=== PATIENT | female | born 1940 | race Caucasian/White ===

== ENCOUNTER 2020-10-20 23:23 | Inpatient (IN) | payer MEDICARE ==
[~2020-10-20] VITALS: Ht 160 cm; Wt 92.3 kg
--- NOTE | 2020-10-20 23:41 | PHYS DOC ---
Past Medical History Past Medical History: Cancer (Bladder), High Cholesterol General Adult EDM: Chief Complaint: FEVER HPI: HPI: Patient is a 80-year-old female presenting with via POV for fever. Onset was 2 hours prior to arrival. Nothing known makes better or worse. Patient denies being in any overt pain. Timing of symptoms has been constant since onset. Associated symptoms include subjective fevers without recorded temperature, generalized nausea with x2 episodes of nonbloody nonbilious emesis on ER arrival and suprapubic pressure with dysuria. Patient denies concerning ingestion, sick contact, falls or trauma, chest pain, shortness of breath, abdominal pain, changes in bowel function, no incontinence, no changes in motor or sensory function, no neurologic deficits. Patient is a poor historian given history of dementia and so, brought back to aid in history. He states p atient has known history of bladder cancer, unsure of the staging. Has all care managed at [facility] and currently sees oncologist and neurologist for radiation and chemotherapy for said bladder cancer with last chemotherapy treatment earlier today. does not know what chemotherapy agent she is on. Patient has prior documents indicating she is DNR Review of Systems: Review of Systems: Fourteen body systems of review of systems have been reviewed. See HPI for pertinent positives and negative responses, other manriquez all other systems are negative, non-pertinent or non-contributory Heart Score: HEART Score for Chest Pain: HEART Score for Chest Pain Response (Comments) Value History Slighlty/Non-Suspicious 0 ECG Normal 0 Age > 65 2 Risk Factors 1 or 2 Risk Factors 1 Troponin < Normal Limit 0 Total 3 Risk Factors: Risk Factors: DM, Current or recent (<one month) smoker, HTN, HLP, family history of CAD, obesity. Risk Scores: Score 0 - 3: 2.5% MACE over next 6 weeks - Discharge Home Score 4 - 6: 20.3% MACE over next 6 weeks - Admit for Clinical Observation Score 7 - 10: 72.7% MACE over next 6 weeks - Early Invasive Strategies Current Medications: Current Medications Medications (Trade) Dose Ordered Sig/Reyes Start Time Stop Time Status Last Admin Dose Admin Acetaminophen (Tylenol) 1,000 mg 1X ONCE 10/20/20 23:45 10/20/20 23:46 DC 10/20/20 23:54 1,000 MG Ceftriaxone Sodium (Rocephin) 1 gm 1X ONCE 10/21/20 00:45 10/21/20 00:46 DC 10/21/20 00:55 1 GM Ondansetron HCl (Zofran) 4 mg PRN Q8HRS PRN 10/21/20 00:45 10/22/20 00:44 UNV Sodium Chloride 1,000 ml @ 125 mls/hr 1X ONCE 10/20/20 23:45 10/21/20 07:44 10/20/20 23:55 125 MLS/HR Allergies: Allergies: Allergies Coded Allergies Type Severity Reaction Last Updated Verified iodine Allergy Unknown 10/20/20 Yes Physical Exam: PE: Constitutional: Well developed, well nourished, no acute distress, non-toxic appearance. Actively vomiting on ER arrival HENT: Normocephalic, atraumatic, bilateral external ears normal, oropharynx dry, no oral exudates, nose normal. Eyes: PERRLA, EOMI, conjunctiva normal, no discharge. Neck: Normal range of motion, no tenderness, supple, no stridor. No nuchal rigidity Cardiovascular: Heart rate tachycardic, sinus rhythm, no murmurs rubs or gallops Lungs & Thorax: Bilateral breath sounds clear to auscultation Abdomen: Bowel sounds normal, soft, mild suprapubic tenderness with palpation, no masses, no pulsatile masses. Nonsurgical abdomen, no peritoneal signs Skin: Warm, dry, no erythema, no rash. Back: No tenderness, no CVA tenderness. Extremities: No tenderness, no cyanosis, no clubbing, ROM intact, no edema. Neurologic: Alert and oriented X 3, grossly normal motor & sensory function, no focal deficits noted. Psychologic: Affect normal, memory impaired but at baseline per patient's , mood normal. Current Patient Data: Labs: Laboratory Tests Test 10/20/20 23:45 10/20/20 23:59 White Blood Count 8.8 x10^3/uL Red Blood Count 3.42 x10^6/uL Hemoglobin 9.3 g/dL Hematocrit 27.9 % Mean Corpuscular Volume 82 fL Mean Corpuscular Hemoglobin 27 pg Mean Corpuscular Hemoglobin Concent 33 g/dL Red Cell Distribution Width 13.3 % Platelet Count 293 x10^3/uL Neutrophils (%) (Auto) 89 % Lymphocytes (%) (Auto) 8 % Monocytes (%) (Auto) 1 % Eosinophils (%) (Auto) 2 % Basophils (%) (Auto) 1 % Neutrophils # (Auto) 7.8 x10^3/uL Lymphocytes # (Auto) 0.7 x10^3/uL Monocytes # (Auto) 0.0 x10^3/uL Eosinophils # (Auto) 0.2 x10^3/uL Basophils # (Auto) 0.1 x10^3/uL Platelet Estimate Pending Sodium Level 132 mmol/L Potassium Level 4.6 mmol/L Chloride Level 98 mmol/L Carbon Dioxide Level 25 mmol/L Anion Gap 9 Blood Urea Nitrogen 26 mg/dL Creatinine 1.4 mg/dL Estimated GFR (Cockcroft-Gault) 36.1 BUN/Creatinine Ratio 19 Glucose Level 120 mg/dL Lactic Acid Level 1.1 mmol/L Calcium Level 8.5 mg/dL Total Bilirubin 0.4 mg/dL Aspartate Amino Transf (AST/SGOT) 18 U/L Alanine Aminotransferase (ALT/SGPT) 20 U/L Alkaline Phosphatase 60 U/L Troponin I Quantitative < 0.017 ng/mL Total Protein 6.7 g/dL Albumin 2.8 g/dL Albumin/Globulin Ratio 0.7 Influenza Type A Antigen Negative Influenza Type B Antigen Negative Urine Collection Type Unknown Urine Color Green Urine Clarity Clear Urine pH 5.5 Urine Specific [place] 1.015 Urine Protein 100 mg/dL Urine Glucose (UA) Negative mg/dL Urine Ketones (Stick) Negative mg/dL Urine Blood Small Urine Nitrite Negative Urine Bilirubin Negative Urine Urobilinogen Dipstick 0.2 mg/dL Urine Leukocyte Esterase Moderate Urine RBC 1-2 /HPF Urine WBC 20-40 /HPF Urine Squamous Epithelial Cells Mod /LPF Urine Bacteria Moderate /HPF Urine Hyaline Casts Occasional /HPF Urine Mucus Mod /LPF Current Medications Medications (Trade) Dose Ordered Sig/Reyes Route PRN Reason Start Time Stop Time Status Last Admin Dose Admin Acetaminophen (Tylenol) 1,000 mg 1X ONCE PO 10/20/20 23:45 10/20/20 23:46 DC 10/20/20 23:54 1,000 MG Sodium Chloride 1,000 ml @ 125 mls/hr 1X ONCE IV 10/20/20 23:45 10/21/20 07:44 10/20/20 23:55 125 MLS/HR Ondansetron HCl (Zofran) 4 mg 1X ONCE IVP 10/20/20 23:55 10/20/20 23:56 DC 10/20/20 23:54 4 MG Ondansetron HCl (Zofran) 4 mg STK-MED ONCE .ROUTE 10/20/20 23:50 10/20/20 23:51 DC Ceftriaxone Sodium (Rocephin) 1 gm 1X ONCE IVP 10/21/20 00:45 10/21/20 00:46 DC 10/21/20 00:55 1 GM Ondansetron HCl (Zofran) 4 mg PRN Q8HRS PRN IV NAUSEA/VOMITING 10/21/20 00:45 10/22/20 00:44 UNV Vital Signs: Vital Signs Date Time Temp Pulse Resp B/P (MAP) Pulse Ox O2 Delivery O2 Flow Rate FiO2 10/20/20 23:25 103.3 97 20 165/70 (101) 96 Room Air 103.3 EKG: EKG: EKG Ordered and Interpreted by Myself at 2342 Hrs. As Sinus Rhythm at 103 bpm, unremarkable intervals, no axis deviation, no acute ischemic findings, no STEMI Radiology/Procedures: Radiology/Procedures: EXAM: AP View of the chest DATE: 10/20/2020 11:48 PM INDICATION: Reason: N/V / Spl. Instructions: / History: COMPARISON: No Prior FINDINGS: The heart is not enlarged. Aorta is tortuous with atherosclerotic calcifications. Patchy opacities in the left perihilar region and left lung base. No pleural effusion or pneumothorax. IMPRESSION: 1. Patchy left-sided parenchymal opacities may represent atelectasis or developing consolidation Electronically signed by: Alex Pathak MD (10/21/2020 12:11 AM) ELIZABETH Course & Med Decision Making: Course & Med Decision Making Pertinent Labs and Imaging studies reviewed. (See chart for details) No emergent or surgical findings present based on work-up but there is concern for fever and high risk patient on chemo/radiation treatment for cancer. UA concerning for UTI given lab findings and patient symptoms, 1 g IV Rocephin administered [facility] was contacted to discuss patient case and transfer, they are at full capacity and could not facilitate patient. They did provide me with up-to-date medical documents for patient After review, it appears patient has Malignant neoplasm stage Claudine (cT2, cN2, cM1a) bladder cancer and sees Dr. Pitts, radiation oncology physician at [facility]. She received Gemzar chemotherapy earlier today. 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 Next scheduled chemotherapy session is tomorrow I contacted patient's primary care physician who will also serve as hospitalist, I discussed case and findings so far at length with him and decision was made to admit patient under his care and start IV cefepime I updated patient and on proposed plan of care that included hospital admission, they were amenable. All questions and concerns addressed prior to admission to [facility] for continued inpatient care Critical Care Time This patient required critical care. Due to the fact that the patient required a significant amount of one on one physician - patient contact time, ordering and review of studies, arranging urgent treatment with development of a management plan, evaluation of patients response to treatment with frequent reassessments, and discussions with other providers this patient required 40 minutes of critical care time. Critical care time was indicated due to the inherent instability and/or potential for instability in this patient. The critical care time that is allocated to this patient is above and beyond any time spent on any other billable procedures performed on this patient. Raya Disclaimer: Raya Disclaimer: This electronic medical record was generated, in whole or in part, using a voice recognition dictation system. Departure Departure Impression: Primary Impression: UTI (urinary tract infection) Additional Impressions: Nausea & vomiting Bladder cancer Disposition: 09 ADMITTED INPT THIS HOSP Admitting Physician: Acosta Schwarz Condition: STABLE Referrals: ACOSTA SCHWARZ MD (PCP) ONOFRE PAK DO Oct 20, 2020 23:41
[2020-10-20] MEDS ORDERED: ACETAMINOPHEN 500 MG TABLET PO ONE (23:45)
[2020-10-20] MEDS ORDERED: IV NORMAL SALINE 1000ML BAG 1,000 ML IV ONE (23:45)
[2020-10-20] MEDS ORDERED: ONDANSETRON PF 4 MG/2 ML VIAL. ONE (23:50)
[2020-10-20 23:54] LABS: BASO # 0.1 x10^3/uL (0.0-0.2); BASO % 1 % (0-3); EOS # 0.2 x10^3/uL (0.0-0.7); EOS % 2 % (0-3); HEMATOCRIT 27.9 % (36.0-47.0); HEMOGLOBIN 9.3 g/dL (12.0-15.5); LYMPH # 0.7 x10^3/uL (1.0-4.8); LYMPH % 8 % (24-48); MEAN CORPUSCULAR HEMOGLOBIN 27 pg (25-35); MEAN CORPUSCULAR HGB CONC 33 g/dL (31-37); MEAN CORPUSCULAR VOLUME 82 fL (79-100); MONO % 1 % (0-9); NEUT # 7.8 x10^3/uL (1.8-7.7); NEUT % 89 % (31-73); PLATELET COUNT 293 x10^3/uL (140-400); RED BLOOD COUNT 3.42 x10^6/uL (3.50-5.40); RED CELL DISTRIBUTION WIDTH 13.3 % (11.5-14.5); WHITE BLOOD COUNT 8.8 x10^3/uL (4.0-11.0)
[2020-10-20] MEDS ORDERED: ONDANSETRON PF 4 MG/2 ML VIAL. IVP ONE (23:55)
[2020-10-21] VITALS (7 sets, daily range): BP systolic 96–122; BP diastolic 36–54
[2020-10-21 00:05] LABS: INFLUENZA A PATIENT NEGATIVE (NEGATIVE); INFLUENZA B PATIENT NEGATIVE (NEGATIVE)
[2020-10-21 00:07] LABS: CALCIUM 8.5 mg/dL (8.5-10.1); CREATININE 1.4 mg/dL (0.6-1.0); GFR 36.1; POTASSIUM 4.6 mmol/L (3.5-5.1)
[2020-10-21 00:13] LABS: ALBUMIN 2.8 g/dL (3.4-5.0); ALBUMIN/GLOBULIN RATIO 0.7 (1.0-1.7); TOTAL BILIRUBIN 0.4 mg/dL (0.2-1.0); TOTAL PROTEIN 6.7 g/dL (6.4-8.2)
[2020-10-21 00:14] LABS: BILIRUBIN,URINE NEGATIVE (NEG); CLARITY,URINE CLEAR; COLOR,URINE GREEN; NITRITE,URINE NEGATIVE (NEG); PH,URINE 5.5 (<5.0-8.0); PROTEIN,URINE 100 mg/dL (NEG-TRACE); UROBILINOGEN,URINE 0.2 mg/dL (0.2 mg/dL)
--- NOTE | 2020-10-21 00:14 | RAD ---
EXAM: AP View of the chest DATE: 10/20/2020 11:48 PM INDICATION: Reason: N/V / Spl. Instructions: / History: COMPARISON: No Prior FINDINGS: The heart is not enlarged. Aorta is tortuous with atherosclerotic calcifications. Patchy opacities in the left perihilar region and left lung base. No pleural effusion or pneumothorax. IMPRESSION: 1. Patchy left-sided parenchymal opacities may represent atelectasis or developing consolidation Electronically signed by: Alex Pathak MD (10/21/2020 12:11 AM) ELIZABETH
[2020-10-21 00:19] LABS: BACTERIA,URINE MODERATE /HPF (0-FEW); HYALINE CASTS, URINE OCCASIONAL /HPF; WBC,URINE 20-40 /HPF (0-4)
[2020-10-21] MEDS ORDERED: cefTRIAXone IV Push 1 GM VIAL. IVP ONE (00:45)
[2020-10-21] MEDS ORDERED: ONDANSETRON PF 4 MG/2 ML VIAL. IV PRN (01:00)
[2020-10-21] MEDS ORDERED: CEFEPIME HCL IV Push 2 GM VIAL. IVP ONE (01:15)
[2020-10-21 03:25] LABS: % BANDS 13 % (0-9); % EOS 1 % (0-5); % LYMPHS 10 % (24-48); % MONOS 1 % (0-10); % SEGS 75 % (35-66); PLT ESTIMATE ADEQUATE (ADEQUATE)
--- NOTE | 2020-10-21 04:00 | NUR ---
ADMIT NOTE The patient, ENIO CH, 80 y/o, F admitted by KRISTEN CURIEL MD, was given written information regarding hospital policies, unit procedures and contact persons. Patient orientated to room, admit packet reviewed, and plan of care discussed. Patient unable to verify home medications or allergies; information transferred from faxed [facility] records. Personal belongings checked and left in room with patient. Patient now resting in bed, call light within reach, and bed in lowest/locked position; no other needs voiced at this time.
[2020-10-21] MEDS ORDERED: ASPI-886 PO (07:47)
[2020-10-21] MEDS ORDERED: SENN1TAB99 PO (07:47)
[2020-10-21] MEDS ORDERED: POLY17PO29 PO (07:47)
[2020-10-21] MEDS ORDERED: VITA100T5 PO (07:47)
[2020-10-21] MEDS ORDERED: MULT-245 PO (07:47)
[2020-10-21] MEDS ORDERED: DOCO1CAP2 PO (07:47)
[2020-10-21] MEDS ORDERED: ONDA4TAB7 PO (07:47)
[2020-10-21] MEDS ORDERED: OXYB5TAB33 PO (07:47)
[2020-10-21] MEDS ORDERED: ESTR42.53 VG (07:47)
[2020-10-21] MEDS ORDERED: SIMV20TA18 PO (07:47)
[2020-10-21] MEDS ORDERED: OXYC5CAP PO (07:47)
[2020-10-21] MEDS ORDERED: DONE10TA7 PO (07:47)
[2020-10-21] MEDS ORDERED: MTH/1CAP PO (07:47)
[2020-10-21] MEDS ORDERED: ACET325T21 PO (07:47)
[2020-10-21] MEDS ORDERED: DOCUSATE SODIUM 100 MG CAPSULE. PO PRN (08:15)
[2020-10-21] MEDS ORDERED: ONDANSETRON PF 4 MG/2 ML VIAL. IVP PRN (08:15)
[2020-10-21] MEDS ORDERED: ACETAMINOPHEN 325 MG TABLET. PO PRN ×2 (08:15→12:15)
[2020-10-21] MEDS ORDERED: SENNOSIDES 8.6 MG TABLET PO PRN (08:15)
[2020-10-21] MEDS ORDERED: DEXTROSE 50% 25 GM / 50ML DISP.SYRIN. IV PRN (08:15)
--- NOTE | 2020-10-21 08:17 | PDOC1 ---
History and Physical Date of Service: DOS: DATE: 10/21/20 TIME: 08:08 History of Present Illness: HPI: Hx obtained from chart review 80-year-old female presenting with via POV for fever. Onset was 2 hours prior to arrival. Nothing known makes better or worse. Patient denies being in any overt pain. Timing of symptoms has been constant since onset. Associated symptoms include subjective fevers without recorded temperature, generalized nausea with x2 episodes of nonbloody nonbilious emesis on ER arrival and suprapubic pressure with dysuria. Patient denies concerning ingestion, sick contact, falls or trauma, chest pain, shortness of breath, abdominal pain, changes in bowel function, no incontinence, no changes in motor or sensory function, no neurologic deficits. Patient is a poor historian given history of dementia and so, brought back to aid in history. He states patient has known history of bladder cancer, unsure of the staging. Has all care managed at [facility] and currently sees oncologist and neurologist for radiation and chemotherap y for said bladder cancer with last chemotherapy treatment earlier today. does not know what chemotherapy agent she is on. Patient has prior documents indicating she is DNR No emergent or surgical findings present based on work-up but there is concern for fever and high risk patient on chemo/radiation treatment for cancer. UA concerning for UTI given lab findings and patient symptoms, 1 g IV Rocephin administered [facility] was contacted to discuss patient case and transfer, they are at full capacity and could not facilitate patient. They did provide me with up-to-date medical documents for patient After review, it appears patient has Malignant neoplasm stage Claudine (cT2, cN2, cM1a) bladder cancer and sees Dr. Pitts, radiation oncology physician at [facility]. She received Gemzar chemotherapy earlier today. 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 Next scheduled chemotherapy session was tomorrow Past Medical/Surgical History: PMH/PSH: Malignant neoplasm stage Claudine (cT2, cN2, cM1a) bladder cancer and sees Dr. Pitts, radiation oncology physician at [facility]. 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 and subsequently started on chemo/radiation 10/13/2020 Allergies: Allergies: Coded Allergies: hydrocodone (Verified Allergy, Unknown, 10/21/20) iodine (Verified Allergy, Unknown, 10/20/20) Family History: Family History: Unable to obtain due to dementia Social History: Social History: Unable to obtain due to dementia Current Medications: Current Medications Current Medications Acetaminophen (Tylenol) 1,000 mg 1X ONCE PO Last administered on 10/20/20at 23:54; Start 10/20/20 at 23:45; Stop 10/20/20 at 23:46; Status DC Sodium Chloride 1,000 ml @ 125 mls/hr 1X ONCE IV Last administered on 10/20/20at 23:55; Start 10/20/20 at 23:45; Stop 10/21/20 at 07:44; Status DC Ondansetron HCl (Zofran) 4 mg 1X ONCE IVP Last administered on 10/20/20at 23:54; Start 10/20/20 at 23:55; Stop 10/20/20 at 23:56; Status DC Ondansetron HCl (Zofran) 4 mg STK-MED ONCE .ROUTE ; Start 10/20/20 at 23:50; Stop 10/20/20 at 23:51; Status DC Ceftriaxone Sodium (Rocephin) 1 gm 1X ONCE IVP Last administered on 10/21/20at 00:55; Start 10/21/20 at 00:45; Stop 10/21/20 at 00:46; Status DC Ondansetron HCl (Zofran) 4 mg PRN Q8HRS PRN IV NAUSEA/VOMITING; Start 10/21/20 at 01:00; Stop 10/22/20 at 00:59 Cefepime HCl (Maxipime) 2 gm 1X ONCE IVP Last administered on 10/21/20at 01:28; Start 10/21/20 at 01:15; Stop 10/21/20 at 01:17; Status DC Active Scripts Active Reported Multi Vitamin Daily (Multivitamin) 1 Each Tablet 1 Tab PO DAILY 30 Days Vitamin E (Vitamin E Acid Succinate) 100 Unit Tablet 100 Unit PO DAILY Simvastatin 20 Mg Tablet 20 Mg PO HS Senna-Docusate Sodium Tablet (Sennosides/Docusate Sodium) 1 Each Tablet 1 Tab PO BID 5 Days Miralax (Polyethylene Glycol 3350) 17 Gm Powd.pack 1 Packet PO DAILY 2 Days dissolve in water Oxycodone Hcl 5 Mg Capsule 5 Mg PO PRN Q6HRS PRN Ditropan Xl (Oxybutynin Chloride) 5 Mg Tab.er.24 1 Tab PO DAILY 30 Days Estrace (Estradiol) 42.5 Gm Cream.appl 1 Gm VG 3X/WEEK Zofran (Ondansetron Hcl) 4 Mg Tablet 2 Tab PO Q8HRS Uribel Capsule (Mth/Me Blue/Sod Phos/Phen/Hyos) 1 Each Capsule 1 Each PO QID Donepezil Hcl 10 Mg Tablet 10 Mg PO HS Fish Oil Concentrate Softgel (Docosahexanoic Acid/Epa) 1 Each Capsule 1 Cap PO DAILY 30 Days Aspirin Ec (Aspirin) 81 Mg Tablet.dr 81 Mg PO HS Acetaminophen 325 Mg Tablet 2 Tab PO PRN Q6HRS PRN 24 Days ROS: Review of Systems Review of System Limited due to the dementia Physical Exam: Vital Signs: Vital Signs Date Time Temp Pulse Resp B/P (MAP) Pulse Ox O2 Delivery O2 Flow Rate FiO2 10/21/20 07:59 Room Air 10/21/20 07:14 97.8 67 18 100/47 (64) 99 97.8 Physcial Exam: GEN: No apparent distress. Alert and oriented HEENT: Normal cephalic, atraumatic, external auditory canals are patent EYES: Extraocular muscles are intact, pupil are equally round and reactive to light and accommodation MUSCULOSKELETAL: Well developed , well nourished, good range of motion ENDOCRINE: No thyromegaly was palpated LYMPHATICS: No cervical chain or axillary nodes were noted HEMATOPOIETIC: No bruising NECK: Supple, no JVD, no thyromegaly was noted LUNGS: Clear to auscultation in all lung wild without rhonchi or wheezing HEART: RRR, S!, S2 present. Peripheral pulses intact, no obvious murmurs noted ABDOMEN: Soft, nontender. Positive bowel sounds, no organomegaly, normal bowel sounds EXTREMITIES: Without clubbing, cyanosis, or edema. Pedal pulses intact. Negative Homans sign NEUROLOGIC: Normal speech and tone. A&O x 3, moves all extremities, no obviou s focal deficits PSYCHIATRIC: Normal affect, normal mood. Stable SKIN: No ulcerations or rashes, good skin turgor, no jaundice VASCULAR: Good capillary refill, neurovascular bundle appears to be intact Labs: Labs: Laboratory Tests Test 10/20/20 23:45 10/20/20 23:59 10/21/20 00:58 White Blood Count 8.8 x10^3/uL (4.0-11.0) Red Blood Count 3.42 x10^6/uL (3.50-5.40) Hemoglobin 9.3 g/dL (12.0-15.5) Hematocrit 27.9 % (36.0-47.0) Mean Corpuscular Volume 82 fL (79-100) Mean Corpuscular Hemoglobin 27 pg (25-35) Mean Corpuscular Hemoglobin Concent 33 g/dL (31-37) Red Cell Distribution Width 13.3 % (11.5-14.5) Platelet Count 293 x10^3/uL (140-400) Neutrophils (%) (Auto) 89 % (31-73) Lymphocytes (%) (Auto) 8 % (24-48) Monocytes (%) (Auto) 1 % (0-9) Eosinophils (%) (Auto) 2 % (0-3) Basophils (%) (Auto) 1 % (0-3) Neutrophils # (Auto) 7.8 x10^3/uL (1.8-7.7) Lymphocytes # (Auto) 0.7 x10^3/uL (1.0-4.8) Monocytes # (Auto) 0.0 x10^3/uL (0.0-1.1) Eosinophils # (Auto) 0.2 x10^3/uL (0.0-0.7) Basophils # (Auto) 0.1 x10^3/uL (0.0-0.2) Segmented Neutrophils % 75 % (35-66) Band Neutrophils % 13 % (0-9) Lymphocytes % 10 % (24-48) Monocytes % 1 % (0-10) Eosinophils % 1 % (0-5) Platelet Estimate Adequate (ADEQUATE) Sodium Level 132 mmol/L (136-145) Potassium Level 4.6 mmol/L (3.5-5.1) Chloride Level 98 mmol/L (98-107) Carbon Dioxide Level 25 mmol/L (21-32) Anion Gap 9 (6-14) Blood Urea Nitrogen 26 mg/dL (7-20) Creatinine 1.4 mg/dL (0.6-1.0) Estimated GFR (Cockcroft-Gault) 36.1 BUN/Creatinine Ratio 19 (6-20) Glucose Level 120 mg/dL (70-99) Lactic Acid Level 1.1 mmol/L (0.4-2.0) Calcium Level 8.5 mg/dL (8.5-10.1) Total Bilirubin 0.4 mg/dL (0.2-1.0) Aspartate Amino Transf (AST/SGOT) 18 U/L (15-37) Alanine Aminotransferase (ALT/SGPT) 20 U/L (14-59) Alkaline Phosphatase 60 U/L (46-116) Troponin I Quantitative < 0.017 ng/mL (0.000-0.055) Total Protein 6.7 g/dL (6.4-8.2) Albumin 2.8 g/dL (3.4-5.0) Albumin/Globulin Ratio 0.7 (1.0-1.7) Influenza Type A Antigen Negative (NEGATIVE) Influenza Type B Antigen Negative (NEGATIVE) Urine Collection Type Unknown Urine Color Green Urine Clarity Clear Urine pH 5.5 (<5.0-8.0) Urine Specific [place] 1.015 (1.000-1.030) Urine Protein 100 mg/dL (NEG-TRACE) Urine Glucose (UA) Negative mg/dL (NEG) Urine Ketones (Stick) Negative mg/dL (NEG) Urine Blood Small (NEG) Urine Nitrite Negative (NEG) Urine Bilirubin Negative (NEG) Urine Urobilinogen Dipstick 0.2 mg/dL (0.2 mg/dL) Urine Leukocyte Esterase Moderate (NEG) Urine RBC 1-2 /HPF (0-2) Urine WBC 20-40 /HPF (0-4) Urine Squamous Epithelial Cells Mod /LPF Urine Bacteria Moderate /HPF (0-FEW) Urine Hyaline Casts Occasional /HPF Urine Mucus Mod /LPF SARS-CoV-2 Antigen (Rapid) Negative (NEGATIVE) Laboratory Tests Test 10/20/20 23:45 10/20/20 23:59 10/21/20 00:58 White Blood Count 8.8 x10^3/uL (4.0-11.0) Red Blood Count 3.42 x10^6/uL (3.50-5.40) Hemoglobin 9.3 g/dL (12.0-15.5) Hematocrit 27.9 % (36.0-47.0) Mean Corpuscular Volume 82 fL (79-100) Mean Corpuscular Hemoglobin 27 pg (25-35) Mean Corpuscular Hemoglobin Concent 33 g/dL (31-37) Red Cell Distribution Width 13.3 % (11.5-14.5) Platelet Count 293 x10^3/uL (140-400) Neutrophils (%) (Auto) 89 % (31-73) Lymphocytes (%) (Auto) 8 % (24-48) Monocytes (%) (Auto) 1 % (0-9) Eosinophils (%) (Auto) 2 % (0-3) Basophils (%) (Auto) 1 % (0-3) Neutrophils # (Auto) 7.8 x10^3/uL (1.8-7.7) Lymphocytes # (Auto) 0.7 x10^3/uL (1.0-4.8) Monocytes # (Auto) 0.0 x10^3/uL (0.0-1.1) Eosinophils # (Auto) 0.2 x10^3/uL (0.0-0.7) Basophils # (Auto) 0.1 x10^3/uL (0.0-0.2) Segmented Neutrophils % 75 % (35-66) Band Neutrophils % 13 % (0-9) Lymphocytes % 10 % (24-48) Monocytes % 1 % (0-10) Eosinophils % 1 % (0-5) Platelet Estimate Adequate (ADEQUATE) Sodium Level 132 mmol/L (136-145) Potassium Level 4.6 mmol/L (3.5-5.1) Chloride Level 98 mmol/L (98-107) Carbon Dioxide Level 25 mmol/L (21-32) Anion Gap 9 (6-14) Blood Urea Nitrogen 26 mg/dL (7-20) Creatinine 1.4 mg/dL (0.6-1.0) Estimated GFR (Cockcroft-Gault) 36.1 BUN/Creatinine Ratio 19 (6-20) Glucose Level 120 mg/dL (70-99) Lactic Acid Level 1.1 mmol/L (0.4-2.0) Calcium Level 8.5 mg/dL (8.5-10.1) Total Bilirubin 0.4 mg/dL (0.2-1.0) Aspartate Amino Transf (AST/SGOT) 18 U/L (15-37) Alanine Aminotransferase (ALT/SGPT) 20 U/L (14-59) Alkaline Phosphatase 60 U/L (46-116) Troponin I Quantitative < 0.017 ng/mL (0.000-0.055) Total Protein 6.7 g/dL (6.4-8.2) Albumin 2.8 g/dL (3.4-5.0) Albumin/Globulin Ratio 0.7 (1.0-1.7) Influenza Type A Antigen Negative (NEGATIVE) Influenza Type B Antigen Negative (NEGATIVE) Urine Collection Type Unknown Urine Color Green Urine Clarity Clear Urine pH 5.5 (<5.0-8.0) Urine Specific [place] 1.015 (1.000-1.030) Urine Protein 100 mg/dL (NEG-TRACE) Urine Glucose (UA) Negative mg/dL (NEG) Urine Ketones (Stick) Negative mg/dL (NEG) Urine Blood Small (NEG) Urine Nitrite Negative (NEG) Urine Bilirubin Negative (NEG) Urine Urobilinogen Dipstick 0.2 mg/dL (0.2 mg/dL) Urine Leukocyte Esterase Moderate (NEG) Urine RBC 1-2 /HPF (0-2) Urine WBC 20-40 /HPF (0-4) Urine Squamous Epithelial Cells Mod /LPF Urine Bacteria Moderate /HPF (0-FEW) Urine Hyaline Casts Occasional /HPF Urine Mucus Mod /LPF SARS-CoV-2 Antigen (Rapid) Negative (NEGATIVE) Images: Images CXR IMPRESSION: 1. Patchy left-sided parenchymal opacities may represent atelectasis or developing consolidation Assessment/Plan Assessment/Plan Sepsis Acute UTI Normocytic anemia Hyponatremia DEZ due to vasomotor nephropathy Severe protein malnutrition Admit to medicine for further management Continue empiric IV cefepime Follow-up urine cultures Lovenox for DVT prophylaxis Protonix GI prophylaxis ADA diet Full code Discussed with RN and SW Disposition inpatient management as above Surrogate decision maker is the Justifications for Admission Other Justification KRISTEN CURIEL MD Oct 21, 2020 08:17
[2020-10-21] MEDS: ENOXAPARIN 30 MG/0.3 ML SYRINGE. SQ SCH (08:56)
[2020-10-21] MEDS ORDERED: CEFEPIME HCL IV Push 2 GM VIAL. IVP SCH (09:00)
--- NOTE | 2020-10-21 10:21 | NUR ---
SW following. Discussed with RN, pt from home with , room air, regular diet, rapid COVID-19 negative, abx. PT/OT ordered. SW will continue to follow.
--- NOTE | 2020-10-21 12:29 | PDOC ---
Provider Note Date of Service: DATE: 10/21/20 TIME: 12:28 Provider Note history and physical dictated # [id number] Justifications for Admission Other Justification FAZAL LUGO MD Oct 21, 2020 12:29
[2020-10-21] MEDS: HYOS PO SCH ×3 (12:51→21:00)
[2020-10-21] MEDS: MTH PO SCH ×3 (12:51→21:00)
[2020-10-21] MEDS: PHEN PO SCH ×3 (12:51→21:00)
[2020-10-21] MEDS: SOD PHOS PO SCH ×3 (12:51→21:00)
[2020-10-21] MEDS: BLUE PO SCH ×3 (12:51→21:00)
[2020-10-21] MEDS: IV NORMAL SALINE 1000ML BAG 1,000 ML IV SCH (12:59)
[2020-10-21] MEDS: ASPIRIN 325 MG TABLET PO SCH (12:59)
[2020-10-21] MEDS ORDERED: POLYETHYLENE GLYCOL 3350 17 GM PACKET. PO SCH (13:00)
--- NOTE | 2020-10-21 14:30 | HP ---
ADMIT DATE: 10/21/2020 LOCATION: She is in room 434. HISTORY OF PRESENT ILLNESS: The patient is an 80-year-old white female with a history of bladder cancer, receiving chemo and radiation therapy at [facility], last received both yesterday and then last night, she developed a fever of 103 degrees with chills. She has been having some chronic dysuria in the last 2-3 months. Bladder cancer was diagnosed late last year. She does have a history of dementia and hyperlipidemia. In the Emergency Room, she was ordered IV Rocephin. I spoke with the Emergency Room doctor last night and switched to IV cefepime and she was started on 2 g IV every 24 hours. This morning, she is afebrile and alert, feels better with no longer as chills. The is at the bedside as the patient does have dementia and apparently the patient wants to be and the agrees to change her code status but do not resuscitate, which is currently to a full code, which has been taking care of. So therefore she is a full code. I spoke with the Emergency Room physician last night but unfortunately, the patient was seen by the hospitalist who did a history and physical on her earlier, but we will receive that and doing another history and physical now. She is my regular patient and I see her in the office also. ALLERGIES: IV IODINE. MEDICATIONS: Includes simvastatin 20 mg every day, aspirin 81 mg every day, estradiol vaginal cream 0.1 mg Mondays, Wednesdays, and Sunday, fish oil 1 g b.i.d., Uribel 1 tablet q.i.d., multiple vitamin once a day, aspirin 81 mg every day, MiraLax 17 grams daily and Simvastatin 20 mg every day. PAST MEDICAL HISTORY: Significant for bladder cancer diagnosed 2 or 3 months ago receiving chemo and radiation therapy. She has hyperlipidemia, dementia and has moderate right carotid stenosis. She also has diverticulosis. She had a colon polypectomy in the past, but also had a right hemicolectomy for removal of a tubular adenoma in 2014. She has had a cholecystectomy and left lower extremity venous stripping. SOCIAL HISTORY: She does not drink alcohol nor does she smoke cigarettes. She lives with her . FAMILY HISTORY: Noncontributory. REVIEW OF SYSTEMS: GENERAL: She had the fever and chills last night. CARDIOVASCULAR: No chest pain. PULMONARY: No cough or shortness of breath. GASTROINTESTINAL: She apparently had some vomiting prior to admission. ENDOCRINE: She does not have diabetes mellitus. SKIN: No rashes. GENITOURINARY: She had some dysuria, which she has had for a couple of months. She denies any blood in the urine. Rest of systems reviewed are negative except as stated in history of present illness. PHYSICAL EXAMINATION: VITAL SIGNS: Temperature is 98 degrees, heart rate 77, respiratory rate 18, blood pressure 117/36, oxygen saturation 98% on room air. HEENT: Eyes: Gaze is conjugate. Extraocular muscles are intact. Mouth: Tongue is midline. NECK: There is no cervical lymphadenopathy or thyroid enlargement. HEART: Reveals an S1, S2. There is no S3 or murmur. LUNGS: Clear. ABDOMEN: Soft in sitting position, nontender. EXTREMITIES: Lower extremities without edema. 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 SKIN: No rashes. LABORATORY DATA: The white count was 8.8, hemoglobin 9.3, MCV of 82 with a platelet count of 293,000 and 89 polys and 8 lymphocytes. Then, she had actually 75 polys and 13 bands noted also. The sodium is 132, potassium 4.6, chloride 98, total CO2 of 25, BUN 26, creatinine 1.4, blood sugar 120. Liver function tests normal. Troponin level less than 0.017. Lactic acid level 1.1, albumin 2.8. Urinalysis showed 20-40 white cells and 1-2 red blood cells. The influenza A and B and COVID-19 screens were negative. EKG was done, but unable to look at it at this time. She had a chest x-ray done, which showed a patchy left-sided parenchymal opacities, which could represent atelectasis or developing consolidation. ASSESSMENT: 1. Sepsis manifested by fever and chills and white cell left shift. She does have pyuria, which could be consistent with a urinary tract infection also. She does have an abnormal chest x-ray with some opacities noted in the lung. 2. Bladder cancer, receiving chemo and radiation therapy. 3. Dementia. 4. Hyperlipidemia. 5. Anemia of chronic disease. 6. Severe protein-calorie malnutrition. 7. Hyponatremia. 8. Acute kidney injury, most likely from sepsis. PLAN: At this time is to continue with IV cefepime and I spoke with the pharmacist to see if she needs to be adjusted. And also started her on Zyvox 600 mg IV every 12 hours. Repeat the chest x-ray tomorrow. IV normal saline has been ordered. Repeat the CBC and BMP tomorrow. Some of her home medications have been renewed. Consult Dr. Mahesh Huston for Infectious Disease. I spoke with the ER doctor last night to order that and he was not in town so I order it now. We will also get a CBC and BMP tomorrow. Wait for blood and urine cultures. Continue Lovenox. Lovenox has been ordered for deep vein thrombosis prophylaxis. Repeat a CBC and BMP tomorrow and get another chest x-ray tomorrow. Again, she is a full code. FAZAL LUGO MD DR: YESY/bailee JOB#: [id number] / [id number]
--- NOTE | 2020-10-21 14:52 | CONS ---
DATE OF CONSULTATION: 10/21/2020 REFERRING PHYSICIAN: Dr. Schwarz. REASON FOR CONSULTATION: UTI, sepsis. HISTORY OF PRESENT ILLNESS: This is an 80-year-old female who was brought to the ER on 10/20/2020 with complaints of fever, not feeling well, generalized weakness, nausea, vomiting, suprapubic pressure with dysuria. The patient has a history of bladder cancer, undergoing chemotherapy, last chemo was yesterday. The patient denies any sick contact. She was febrile at 101. White count was normal. UA showed pyuria. Influenza screen was negative. The patient was started on cefepime. A chest x-ray showed patchy left sided parenchymal opacities, may represent atelectasis or developing consolidation. The patient had undergone a transurethral resection of the bladder tumor and is also undergoing radiation since this month. ID consultation has been requested for antibiotic management. Today, the patient continues to feel weak. Fever pattern has improved. Denies any further nausea, vomiting, abdominal pain, shortness of breath or cough. P.o. intake remains poor. PAST MEDICAL HISTORY: 1. Bladder cancer, on chemoradiation through [facility]. 2. Dementia. 3. Atrophic vaginitis. 4. Degenerative joint disease. MEDICATIONS: IV cefepime and other medications reviewed in chart if I have not dictated that already. ALLERGIES: HYDROCODONE, IODINE. SOCIAL HISTORY: Denies smoking, ETOH or illicit drug use. , lives with . at bedside who provided with most of the history. REVIEW OF SYSTEMS: Limited, but negative except for above. PHYSICAL EXAMINATION: VITAL SIGNS: Temperature 98, pulse 77, respiratory rate 18, blood pressure 117/36, oxygen saturation 98% on room air. GENERAL: Alert, awake female, lethargic, lying in bed comfortably, in no acute distress, nontoxic appearing. HEENT: Normocephalic, atraumatic, anicteric. No thrush. Oral mucosa dry. NECK: Supple, no JVD, no lymphadenopathy. LUNGS: Clear bilaterally. No wheezing. HEART: S1, S2. No gallops or murmurs. ABDOMEN: Soft, nontender, nondistended, no rebound, no guarding. GENITOURINARY: No Wilkins in place. EXTREMITIES: No edema, no cyanosis. DERMATOLOGIC: Warm, dry. No generalized rash. MUSCULOSKELETAL: No joint swelling, no decrease in range of motion except for generalized weakness. PSYCHIATRIC: Calm and cooperative. LABORATORY DATA: WBC 8.8, hemoglobin 9.3, hematocrit 27.9, platelets 293. Sodium 132, potassium 4.6, chloride 98, bicarbonate 25, BUN 26, creatinine 1.4 and glucose 120. Lactate 1.1. Troponin normal. Albumin 2.8. UA shows 20-40 wbc's, moderate leukocyte esterase. Serology: Influenza screen negative. SARS-COVID rapid negative. IMAGING: Chest x-ray shows patchy left-sided parenchymal opacities, may be atelectasis versus consolidation. IMPRESSION: 1. Sepsis. 2. Fever. 3. Urinary tract infection. 4. History of bladder cancer, on chemo and radiation. 5. Immunosuppression. 6. Dementia. 7. Nausea and vomiting. RECOMMENDATIONS: 1. Continue cefepime. 2. Follow up labs and cultures. 3. Continue supportive care. 4. Maintain aspiration precaution. 5. Discussed with RN. 6. Discussed with at bedside. Thank you for allowing me to participate in this patient's care. If you have any questions, do not hesitate to contact me. MAL ENCINAS MD DR: EDWARD/bailee JOB#: [id number] / [id number] [place]
[2020-10-21] MEDS: POLYETHYLENE GLYCOL 3350 17 GM PACKET. PO SCH (21:00)
[2020-10-21] MEDS: SIMVASTATIN 20 MG TABLET PO SCH (21:24)
[2020-10-21] MEDS: OMEGA-3 FATTY ACIDS/FISH OIL 1,000 MG CAPSULE. PO SCH (21:24)
[2020-10-22 03:18] VITALS: BP 113/40
[2020-10-22] MEDS: IV NORMAL SALINE 1000ML BAG 1,000 ML IV SCH (05:43)
[2020-10-22 07:09] VITALS: BP 137/60
[2020-10-22] MEDS: BLUE PO SCH ×5 (07:30→21:00)
[2020-10-22] MEDS: MTH PO SCH ×5 (07:30→21:00)
[2020-10-22] MEDS: PHEN PO SCH ×5 (07:30→21:00)
[2020-10-22] MEDS: SOD PHOS PO SCH ×5 (07:30→21:00)
[2020-10-22] MEDS: HYOS PO SCH ×5 (07:30→21:00)
[2020-10-22 07:39] LABS: CALCIUM 8.1 mg/dL (8.5-10.1); CREATININE 1.1 mg/dL (0.6-1.0); GFR 47.7; MAGNESIUM 2.2 mg/dL (1.8-2.4); PHOSPHORUS 2.2 mg/dL (2.6-4.7); POTASSIUM 3.8 mmol/L (3.5-5.1)
[2020-10-22 07:44] LABS: BASO % 1 % (0-3); EOS # 0.2 x10^3/uL (0.0-0.7); EOS % 3 % (0-3); HEMATOCRIT 26.7 % (36.0-47.0); HEMOGLOBIN 8.6 g/dL (12.0-15.5); LYMPH # 0.6 x10^3/uL (1.0-4.8); LYMPH % 9 % (24-48); MEAN CORPUSCULAR HEMOGLOBIN 26 pg (25-35); MEAN CORPUSCULAR HGB CONC 32 g/dL (31-37); MEAN CORPUSCULAR VOLUME 82 fL (79-100); MONO # 0.1 x10^3/uL (0.0-1.1); MONO % 1 % (0-9); NEUT # 5.7 x10^3/uL (1.8-7.7); NEUT % 87 % (31-73); PLATELET COUNT 219 x10^3/uL (140-400); RED BLOOD COUNT 3.26 x10^6/uL (3.50-5.40); RED CELL DISTRIBUTION WIDTH 13.3 % (11.5-14.5); WHITE BLOOD COUNT 6.6 x10^3/uL (4.0-11.0)
[2020-10-22] MEDS: ENOXAPARIN 30 MG/0.3 ML SYRINGE. SQ SCH (08:05)
[2020-10-22] MEDS: OMEGA-3 FATTY ACIDS/FISH OIL 1,000 MG CAPSULE. PO SCH ×2 (08:05→21:04)
[2020-10-22] MEDS: ASPIRIN 325 MG TABLET PO SCH (08:05)
[2020-10-22] MEDS: MULTIVITAMIN with MINERAL TABLET. PO SCH (08:05)
--- NOTE | 2020-10-22 09:42 | NUR ---
SW following. Discussed with RN, pt from home with , room air, regular diet, IV cefepime. Pt having repeat chest xray today. PT/OT stating pt is independent. RN advised no SW needs at this time. SW will continue to follow.
[2020-10-22] MEDS: CEFEPIME HCL IV Push 1 GM VIAL. IVP SCH ×2 (09:54→21:05)
--- NOTE | 2020-10-22 10:19 | RAD ---
Chest radiograph 10/22/2020 9:15 AM INDICATION: Lung infiltrate COMPARISON: 10/20/2020 TECHNIQUE: Frontal and lateral views of the chest are provided. FINDINGS: The cardiomediastinal silhouette is within normal limits. There is no pulmonary vascular congestion. There is no pneumothorax. Flattening of the diaphragms suggestive of air trapping as may be seen with COPD. There is improved a eration of the left lung base and left upper lobe. No residual infiltrate is identified. There may be trace left pleural effusion. No significant osseous abnormality is identified. IMPRESSION: Trace residual left pleural effusion with adjacent compressive atelectasis. 4-6 week follow-up chest radiograph could be of benefit to ensure resolution. Electronically signed by: Trish Luna MD (10/22/2020 10:17 AM) [id number]
[2020-10-22 10:22] VITALS: BP 128/55
--- NOTE | 2020-10-22 10:59 | PDOC ---
PROGRESS NOTES Date of Service DATE: 10/22/20 TIME: 10:52 Subjective Subjective feels better. afebrile. lab reviewed. repeat cxr without infiltrate and trace left pleural effusion. mild dysuria. no cough. discussed with . urine culture negative . blood cultures neg so far. Objective Objective Vital Signs Date Time Temp Pulse Resp B/P (MAP) Pulse Ox O2 Delivery O2 Flow Rate FiO2 10/22/20 10:22 98.1 76 18 128/55 (79) 95 Room Air 98.1 Intake and Output 10/22/20 07:00 Intake Total 240 ml Balance 240 ml Intake Oral 240 ml # Voids 1 Physical Exam Abdomen: Soft Heart: Regular rate, Normal S1, Normal S2 Extremities: No edema General: Alert HEENT: Atraumatic Lungs: Clear to auscultation Neuro: Normal speech Psych/Mental Status: Mental status NL Skin: No rashes Assessment Assessment Problems1. Sepsis. resolved 2. Fever. resolved 3. Urinary tract infection. urine culture negative 4. History of bladder cancer, on chemo and radiation. 5. Immunosuppression. 6. Dementia. 7. Nausea and vomiting. resolved severe protein calorie malnutrition anemia of chronic disease acute kidney injury resolved with iv hydration due to sepsis hyperlipidemia Medical Problems: (1) Bladder cancer Status: Acute (2) Nausea & vomiting Status: Acute (3) UTI (urinary tract infection) Status: Acute Plan Plan of Care continue iv cefepime decrease iv fluids ambulate await final blood culture results d/c zyvox Comment Review of Relevant I have reviewed the following items saw (where applicable) has been applied. Labs Laboratory Tests Test 10/20/20 23:45 10/20/20 23:59 10/21/20 00:58 10/22/20 07:12 White Blood Count 8.8 x10^3/uL (4.0-11.0) 6.6 x10^3/uL (4.0-11.0) Red Blood Count 3.42 x10^6/uL (3.50-5.40) 3.26 x10^6/uL (3.50-5.40) Hemoglobin 9.3 g/dL (12.0-15.5) 8.6 g/dL (12.0-15.5) Hematocrit 27.9 % (36.0-47.0) 26.7 % (36.0-47.0) Mean Corpuscular Volume 82 fL (79-100) 82 fL (79-100) Mean Corpuscular Hemoglobin 27 pg (25-35) 26 pg (25-35) Mean Corpuscular Hemoglobin Concent 33 g/dL (31-37) 32 g/dL (31-37) Red Cell Distribution Width 13.3 % (11.5-14.5) 13.3 % (11.5-14.5) Platelet Count 293 x10^3/uL (140-400) 219 x10^3/uL (140-400) Neutrophils (%) (Auto) 89 % (31-73) 87 % (31-73) Lymphocytes (%) (Auto) 8 % (24-48) 9 % (24-48) Monocytes (%) (Auto) 1 % (0-9) 1 % (0-9) Eosinophils (%) (Auto) 2 % (0-3) 3 % (0-3) Basophils (%) (Auto) 1 % (0-3) 1 % (0-3) Neutrophils # (Auto) 7.8 x10^3/uL (1.8-7.7) 5.7 x10^3/uL (1.8-7.7) Lymphocytes # (Auto) 0.7 x10^3/uL (1.0-4.8) 0.6 x10^3/uL (1.0-4.8) Monocytes # (Auto) 0.0 x10^3/uL (0.0-1.1) 0.1 x10^3/uL (0.0-1.1) Eosinophils # (Auto) 0.2 x10^3/uL (0.0-0.7) 0.2 x10^3/uL (0.0-0.7) Basophils # (Auto) 0.1 x10^3/uL (0.0-0.2) 0.0 x10^3/uL (0.0-0.2) Segmented Neutrophils % 75 % (35-66) Band Neutrophils % 13 % (0-9) Lymphocytes % 10 % (24-48) Monocytes % 1 % (0-10) Eosinophils % 1 % (0-5) Platelet Estimate Adequate (ADEQUATE) Sodium Level 132 mmol/L (136-145) 135 mmol/L (136-145) Potassium Level 4.6 mmol/L (3.5-5.1) 3.8 mmol/L (3.5-5.1) Chloride Level 98 mmol/L (98-107) 103 mmol/L (98-107) Carbon Dioxide Level 25 mmol/L (21-32) 25 mmol/L (21-32) Anion Gap 9 (6-14) 7 (6-14) Blood Urea Nitrogen 26 mg/dL (7-20) 18 mg/dL (7-20) Creatinine 1.4 mg/dL (0.6-1.0) 1.1 mg/dL (0.6-1.0) Estimated GFR (Cockcroft-Gault) 36.1 47.7 BUN/Creatinine Ratio 19 (6-20) Glucose Level 120 mg/dL (70-99) 102 mg/dL (70-99) Lactic Acid Level 1.1 mmol/L (0.4-2.0) Calcium Level 8.5 mg/dL (8.5-10.1) 8.1 mg/dL (8.5-10.1) Total Bilirubin 0.4 mg/dL (0.2-1.0) Aspartate Amino Transf (AST/SGOT) 18 U/L (15-37) Alanine Aminotransferase (ALT/SGPT) 20 U/L (14-59) Alkaline Phosphatase 60 U/L (46-116) Troponin I Quantitative < 0.017 ng/mL (0.000-0.055) Total Protein 6.7 g/dL (6.4-8.2) Albumin 2.8 g/dL (3.4-5.0) Albumin/Globulin Ratio 0.7 (1.0-1.7) Influenza Type A Antigen Negative (NEGATIVE) Influenza Type B Antigen Negative (NEGATIVE) Urine Collection Type Unknown Urine Color Green Urine Clarity Clear Urine pH 5.5 (<5.0-8.0) Urine Specific [place] 1.015 (1.000-1.030) Urine Protein 100 mg/dL (NEG-TRACE) Urine Glucose (UA) Negative mg/dL (NEG) Urine Ketones (Stick) Negative mg/dL (NEG) Urine Blood Small (NEG) Urine Nitrite Negative (NEG) Urine Bilirubin Negative (NEG) Urine Urobilinogen Dipstick 0.2 mg/dL (0.2 mg/dL) Urine Leukocyte Esterase Moderate (NEG) Urine RBC 1-2 /HPF (0-2) Urine WBC 20-40 /HPF (0-4) Urine Squamous Epithelial Cells Mod /LPF Urine Bacteria Moderate /HPF (0-FEW) Urine Hyaline Casts Occasional /HPF Urine Mucus Mod /LPF SARS-CoV-2 Antigen (Rapid) Negative (NEGATIVE) Phosphorus Level 2.2 mg/dL (2.6-4.7) Magnesium Level 2.2 mg/dL (1.8-2.4) Laboratory Tests Test 10/22/20 07:12 White Blood Count 6.6 x10^3/uL (4.0-11.0) Red Blood Count 3.26 x10^6/uL (3.50-5.40) Hemoglobin 8.6 g/dL (12.0-15.5) Hematocrit 26.7 % (36.0-47.0) Mean Corpuscular Volume 82 fL (79-100) Mean Corpuscular Hemoglobin 26 pg (25-35) Mean Corpuscular Hemoglobin Concent 32 g/dL (31-37) Red Cell Distribution Width 13.3 % (11.5-14.5) Platelet Count 219 x10^3/uL (140-400) Neutrophils (%) (Auto) 87 % (31-73) Lymphocytes (%) (Auto) 9 % (24-48) Monocytes (%) (Auto) 1 % (0-9) Eosinophils (%) (Auto) 3 % (0-3) Basophils (%) (Auto) 1 % (0-3) Neutrophils # (Auto) 5.7 x10^3/uL (1.8-7.7) Lymphocytes # (Auto) 0.6 x10^3/uL (1.0-4.8) Monocytes # (Auto) 0.1 x10^3/uL (0.0-1.1) Eosinophils # (Auto) 0.2 x10^3/uL (0.0-0.7) Basophils # (Auto) 0.0 x10^3/uL (0.0-0.2) Sodium Level 135 mmol/L (136-145) Potassium Level 3.8 mmol/L (3.5-5.1) Chloride Level 103 mmol/L (98-107) Carbon Dioxide Level 25 mmol/L (21-32) Anion Gap 7 (6-14) Blood Urea Nitrogen 18 mg/dL (7-20) Creatinine 1.1 mg/dL (0.6-1.0) Estimated GFR (Cockcroft-Gault) 47.7 Glucose Level 102 mg/dL (70-99) Calcium Level 8.1 mg/dL (8.5-10.1) Phosphorus Level 2.2 mg/dL (2.6-4.7) Magnesium Level 2.2 mg/dL (1.8-2.4) Microbiology 10/21/20 Urine Culture - Final, Complete 10/20/20 Blood Culture - Preliminary, Resulted NO GROWTH AFTER 1 DAY Medications Current Medications Acetaminophen (Tylenol) 1,000 mg 1X ONCE PO Last administered on 10/20/20at 23:54; Start 10/20/20 at 23:45; Stop 10/20/20 at 23:46; Status DC Sodium Chloride 1,000 ml @ 125 mls/hr 1X ONCE IV Last administered on 10/20/20at 23:55; Start 10/20/20 at 23:45; Stop 10/21/20 at 07:44; Status DC Ondansetron HCl (Zofran) 4 mg 1X ONCE IVP Last administered on 10/20/20at 23:54; Start 10/20/20 at 23:55; Stop 10/20/20 at 23:56; Status DC Ondansetron HCl (Zofran) 4 mg STK-MED ONCE .ROUTE ; Start 10/20/20 at 23:50; Stop 10/20/20 at 23:51; Status DC Ceftriaxone Sodium (Rocephin) 1 gm 1X ONCE IVP Last administered on 10/21/20at 00:55; Start 10/21/20 at 00:45; Stop 10/21/20 at 00:46; Status DC Ondansetron HCl (Zofran) 4 mg PRN Q8HRS PRN IV NAUSEA/VOMITING; Start 10/21/20 at 01:00; Stop 10/22/20 at 00:59; Status DC Cefepime HCl (Maxipime) 2 gm 1X ONCE IVP Last administered on 10/21/20at 01:28; Start 10/21/20 at 01:15; Stop 10/21/20 at 01:17; Status DC Sennosides (Senna) 17.2 mg PRN BID PRN PO CONSTIPATION; Start 10/21/20 at 08:15 Docusate Sodium (Colace) 100 mg PRN DAILY PRN PO HARD STOOLS; Start 10/21/20 at 08:15 Ondansetron HCl (Zofran) 4 mg PRN Q6HRS PRN IVP NAUSEA/VOMITING; Start 10/21/20 at 08:15 Dextrose (Dextrose 50%-Water Syringe) 12.5 gm PRN Q15MIN PRN IV SEE COMMENTS; Start 10/21/20 at 08:15 Acetaminophen (Tylenol) 650 mg PRN Q4HRS PRN PO TEMP OVER 100.4F OR MILD PAIN; Start 10/21/20 at 08:15 Enoxaparin Sodium (Lovenox 30mg Syringe) 30 mg DAILY SQ Last administered on 10/22/20at 08:05; Start 10/21/20 at 09:00 Cefepime HCl (Maxipime) 2 gm Q24H IVP Last administered on 10/21/20at 08:58; Start 10/21/20 at 09:00; Stop 10/21/20 at 12:30; Status DC Sodium Chloride 1,000 ml @ 60 mls/hr [id number] IV Last administered on 10/22/20at 05:43; Start 10/21/20 at 12:15 Acetaminophen (Tylenol) 650 mg PRN Q6HRS PRN PO MILD PAIN / TEMP > 100.3'F; Start 10/21/20 at 12:15 Aspirin (Jessi Aspirin) 81 mg [id number] PO Last administered on 10/22/20at 08:05; Start 10/21/20 at 13:00 Simvastatin (Zocor) 20 mg HS PO Last administered on 10/21/20at 21:24; Start 10/21/20 at 21:00 Fish Oil (Fish Oil) 1,000 mg BID PO Last administered on 10/22/20at 08:05; Start 10/21/20 at 21:00 Multivitamins (Thera M Plus) 1 tab DAILY PO Last administered on 10/22/20at 08:05; Start 10/22/20 at 09:00 Polyethylene Glycol (miraLAX PACKET) 17 gm DAILY PO ; Start 10/21/20 at 13:00; Stop 10/21/20 at 13:10; Status DC Linezolid/Dextrose 300 ml @ 300 mls/hr Q12HR IV Last administered on 10/22/20at 08:12; Start 10/21/20 at 13:00 Non-Formulary Medication (Mth/Me Blue/Sod Phos/Phen/Hyos (Uribel Capsule)) 1 each QID PO ; Start 10/21/20 at 13:00; Status UNV Cefepime HCl (Maxipime) 1 gm Q12HR IVP Last administered on 10/22/20at 09:54; Start 10/22/20 at 09:00 Polyethylene Glycol (miraLAX PACKET) 17 gm HS PO ; Start 10/21/20 at 21:00 Active Scripts Active Reported Multi Vitamin Daily (Multivitamin) 1 Each Tablet 1 Tab PO DAILY 30 Days Vitamin E (Vitamin E Acid Succinate) 100 Unit Tablet 100 Unit PO DAILY Simvastatin 20 Mg Tablet 20 Mg PO HS Senna-Docusate Sodium Tablet (Sennosides/Docusate Sodium) 1 Each Tablet 1 Tab PO BID 5 Days Miralax (Polyethylene Glycol 3350) 17 Gm Powd.pack 1 Packet PO DAILY 2 Days dissolve in water Oxycodone Hcl 5 Mg Capsule 5 Mg PO PRN Q6HRS PRN Ditropan Xl (Oxybutynin Chloride) 5 Mg Tab.er.24 1 Tab PO DAILY 30 Days Estrace (Estradiol) 42.5 Gm Cream.appl 1 Gm VG 3X/WEEK Zofran (Ondansetron Hcl) 4 Mg Tablet 2 Tab PO Q8HRS Uribel Capsule (Mth/Me Blue/Sod Phos/Phen/Hyos) 1 Each Capsule 1 Each PO QID Donepezil Hcl 10 Mg Tablet 10 Mg PO HS Fish Oil Concentrate Softgel (Docosahexanoic Acid/Epa) 1 Each Capsule 1 Cap PO DAILY 30 Days Aspirin Ec (Aspirin) 81 Mg Tablet.dr 81 Mg PO HS Acetaminophen 325 Mg Tablet 2 Tab PO PRN Q6HRS PRN 24 Days Vitals/I & O Vital Sign - Last 24 Hours 10/21/20 10/21/20 10/21/20 10/21/20 14:40 19:15 20:00 20:10 Temp 98.1 99.1 99.1 98.1 99.1 99.1 Pulse 70 72 67 Resp 18 18 20 B/P (MAP) 102/42 (62) 110/38 (62) 122/54 (76) Pulse Ox 98 100 98 O2 Delivery Room Air Room Air Room Air Room Air 10/21/20 10/22/20 10/22/20 10/22/20 23:18 03:18 07:09 07:15 Temp 97.8 98.0 98.1 97.8 98.0 98.1 Pulse 73 69 85 Resp 18 18 18 B/P (MAP) 121/51 (74) 113/40 (64) 137/60 (85) Pulse Ox 99 99 97 O2 Delivery Room Air Room Air Room Air Room Air 10/22/20 10:22 Temp 98.1 98.1 Pulse 76 Resp 18 B/P (MAP) 128/55 (79) Pulse Ox 95 O2 Delivery Room Air Intake and Output 10/21/20 10/21/20 10/22/20 15:00 23:00 07:00 Intake Total 240 ml Balance 240 ml Justifications for Admission Other Justification FAZAL LUGO MD Oct 22, 2020 10:59
--- NOTE | 2020-10-22 11:25 | PDOC ---
Infectious Disease Note Subjective: Subjective Patient feels better today Vital Signs: Vital Signs Vital Signs Date Time Temp Pulse Resp B/P (MAP) Pulse Ox O2 Delivery O2 Flow Rate FiO2 10/22/20 10:22 98.1 76 18 128/55 (79) 95 Room Air 98.1 Physical Exam: PHYSICAL EXAM GENERAL: Alert, awake female, lethargic, lying in bed comfortably, in no acute distress, nontoxic appearing. HEENT: Normocephalic, atraumatic, anicteric. No thrush. Oral mucosa dry. NECK: Supple, no JVD, no lymphadenopathy. LUNGS: Clear bilaterally. No wheezing. HEART: S1, S2. No gallops or murmurs. ABDOMEN: Soft, nontender, nondistended, no rebound, no guarding. GENITOURINARY: No Wilkins in place. EXTREMITIES: No edema, no cyanosis. DERMATOLOGIC: Warm, dry. No generalized rash. MUSCULOSKELETAL: No joint swelling, no decrease in range of motion except for generalized weakness. PSYCHIATRIC: Calm and cooperative. Medications: Inpatient Meds: Current Medications Medications (Trade) Dose Ordered Sig/Reyes Start Time Stop Time Status Last Admin Dose Admin Acetaminophen (Tylenol) 650 mg PRN Q6HRS PRN 10/21/20 12:15 10/22/20 11:12 DC Aspirin (Jessi Aspirin) 81 mg DAILYWBKFT 10/21/20 13:00 10/22/20 08:05 81 MG Cefepime HCl (Maxipime) 1 gm Q12HR 10/22/20 09:00 10/22/20 09:54 1 GM Ceftriaxone Sodium (Rocephin) 1 gm 1X ONCE 10/21/20 00:45 10/21/20 00:46 DC 10/21/20 00:55 1 GM Dextrose (Dextrose 50%-Water Syringe) 12.5 gm PRN Q15MIN PRN 10/21/20 08:15 Docusate Sodium (Colace) 100 mg PRN DAILY PRN 10/21/20 08:15 Enoxaparin Sodium (Lovenox 30mg Syringe) 30 mg DAILY 10/21/20 09:00 10/22/20 11:16 DC 10/22/20 08:05 30 MG Enoxaparin Sodium (Lovenox 40mg Syringe) 40 mg DAILY 10/23/20 09:00 Fish Oil (Fish Oil) 1,000 mg BID 10/21/20 21:00 10/22/20 08:05 1,000 MG Linezolid/Dextrose 300 ml @ 300 mls/hr Q12HR 10/21/20 13:00 10/22/20 10:59 DC 10/22/20 08:12 300 MLS/HR Multivitamins (Thera M Plus) 1 tab DAILY 10/22/20 09:00 10/22/20 08:05 1 TAB Non-Formulary Medication (Mth/Me Blue/Sod Phos/Phen/Hyos (Uribel Capsule)) 1 each QID 10/21/20 13:00 UNV Ondansetron HCl (Zofran) 4 mg PRN Q6HRS PRN 10/21/20 08:15 Polyethylene Glycol (miraLAX PACKET) 17 gm HS 10/21/20 21:00 Sennosides (Senna) 17.2 mg PRN BID PRN 10/21/20 08:15 Simvastatin (Zocor) 20 mg HS 10/21/20 21:00 10/21/20 21:24 20 MG Sodium Chloride 1,000 ml @ 40 mls/hr Q24H 10/21/20 12:15 10/22/20 05:43 60 MLS/HR Labs: Lab Laboratory Tests Test 10/22/20 07:12 White Blood Count 6.6 x10^3/uL (4.0-11.0) Red Blood Count 3.26 x10^6/uL (3.50-5.40) Hemoglobin 8.6 g/dL (12.0-15.5) Hematocrit 26.7 % (36.0-47.0) Mean Corpuscular Volume 82 fL (79-100) Mean Corpuscular Hemoglobin 26 pg (25-35) Mean Corpuscular Hemoglobin Concent 32 g/dL (31-37) Red Cell Distribution Width 13.3 % (11.5-14.5) Platelet Count 219 x10^3/uL (140-400) Neutrophils (%) (Auto) 87 % (31-73) Lymphocytes (%) (Auto) 9 % (24-48) Monocytes (%) (Auto) 1 % (0-9) Eosinophils (%) (Auto) 3 % (0-3) Basophils (%) (Auto) 1 % (0-3) Neutrophils # (Auto) 5.7 x10^3/uL (1.8-7.7) Lymphocytes # (Auto) 0.6 x10^3/uL (1.0-4.8) Monocytes # (Auto) 0.1 x10^3/uL (0.0-1.1) Eosinophils # (Auto) 0.2 x10^3/uL (0.0-0.7) Basophils # (Auto) 0.0 x10^3/uL (0.0-0.2) Sodium Level 135 mmol/L (136-145) Potassium Level 3.8 mmol/L (3.5-5.1) Chloride Level 103 mmol/L (98-107) Carbon Dioxide Level 25 mmol/L (21-32) Anion Gap 7 (6-14) Blood Urea Nitrogen 18 mg/dL (7-20) Creatinine 1.1 mg/dL (0.6-1.0) Estimated GFR (Cockcroft-Gault) 47.7 Glucose Level 102 mg/dL (70-99) Calcium Level 8.1 mg/dL (8.5-10.1) Phosphorus Level 2.2 mg/dL (2.6-4.7) Magnesium Level 2.2 mg/dL (1.8-2.4) Objective: Assessment: 1. Sepsis. 2. Fever. Pattern is improving 3. Urinary tract infection. Urine culture no growth. She had been on antibiotics prior to admission 4. History of bladder cancer, on chemo and radiation. 5. Immunosuppression. 6. Dementia. 7. Nausea and vomiting. Plan: Plan of Care 1. Continue cefepime. 2. Follow up labs and cultures. 3. Continue supportive care. 4. Maintain aspiration precaution. Discussed with RN. MAL ENCINAS MD Oct 22, 2020 11:25
[2020-10-22 14:22] VITALS: BP 132/61
[2020-10-22 19:20] VITALS: BP 141/62
[2020-10-22] MEDS: POLYETHYLENE GLYCOL 3350 17 GM PACKET. PO SCH (21:00)
[2020-10-22] MEDS: SIMVASTATIN 20 MG TABLET PO SCH (21:04)
[2020-10-22 22:57] VITALS: BP 151/59
[2020-10-23 02:46] VITALS: BP 145/62
[2020-10-23] MEDS: IV NORMAL SALINE 1000ML BAG 1,000 ML IV SCH (03:09)
[2020-10-23 07:00] VITALS: BP 145/58
[2020-10-23 07:24] LABS: BASO % 0 % (0-3); EOS # 0.2 x10^3/uL (0.0-0.7); EOS % 4 % (0-3); HEMATOCRIT 24.9 % (36.0-47.0); HEMOGLOBIN 8.2 g/dL (12.0-15.5); LYMPH # 0.4 x10^3/uL (1.0-4.8); LYMPH % 9 % (24-48); MEAN CORPUSCULAR HEMOGLOBIN 27 pg (25-35); MEAN CORPUSCULAR HGB CONC 33 g/dL (31-37); MEAN CORPUSCULAR VOLUME 81 fL (79-100); MONO # 0.1 x10^3/uL (0.0-1.1); MONO % 2 % (0-9); NEUT % 85 % (31-73); PLATELET COUNT 199 x10^3/uL (140-400); RED BLOOD COUNT 3.06 x10^6/uL (3.50-5.40); RED CELL DISTRIBUTION WIDTH 13.3 % (11.5-14.5); WHITE BLOOD COUNT 4.7 x10^3/uL (4.0-11.0)
[2020-10-23 08:05] LABS: CALCIUM 7.9 mg/dL (8.5-10.1); CREATININE 1.1 mg/dL (0.6-1.0); GFR 47.7; POTASSIUM 3.5 mmol/L (3.5-5.1)
[2020-10-23] MEDS: OMEGA-3 FATTY ACIDS/FISH OIL 1,000 MG CAPSULE. PO SCH (08:10)
[2020-10-23] MEDS: MULTIVITAMIN with MINERAL TABLET. PO SCH (08:10)
[2020-10-23] MEDS: SOD PHOS PO SCH ×2 (08:17→10:02)
[2020-10-23] MEDS: BLUE PO SCH ×2 (08:17→10:02)
[2020-10-23] MEDS: PHEN PO SCH ×2 (08:17→10:02)
[2020-10-23] MEDS: MTH PO SCH ×2 (08:17→10:02)
[2020-10-23] MEDS: HYOS PO SCH ×2 (08:17→10:02)
[2020-10-23] MEDS ORDERED: ASPIRIN ENTERIC COATED 81 MG TABLET.DR. PO SCH (08:30)
[2020-10-23] MEDS ORDERED: ENOXAPARIN 40 MG/0.4 ML SYRINGE. SQ SCH (09:00)
--- NOTE | 2020-10-23 09:16 | PDOC ---
Infectious Disease Note Subjective: Subjective Patient feels better today Vital Signs: Vital Signs Vital Signs Date Time Temp Pulse Resp B/P (MAP) Pulse Ox O2 Delivery O2 Flow Rate FiO2 10/23/20 07:00 97.9 73 18 145/58 (87) 96 Room Air 97.9 Physical Exam: PHYSICAL EXAM GENERAL: Alert, awake female, lethargic, lying in bed comfortably, in no acute distress, nontoxic appearing. HEENT: Normocephalic, atraumatic, anicteric. No thrush. Oral mucosa dry. NECK: Supple, no JVD, no lymphadenopathy. LUNGS: Clear bilaterally. No wheezing. HEART: S1, S2. No gallops or murmurs. ABDOMEN: Soft, nontender, nondistended, no rebound, no guarding. GENITOURINARY: No Wilkins in place. EXTREMITIES: No edema, no cyanosis. DERMATOLOGIC: Warm, dry. No generalized rash. MUSCULOSKELETAL: No joint swelling, no decrease in range of motion except for generalized weakness. PSYCHIATRIC: Calm and cooperative. Medications: Inpatient Meds: Current Medications Medications (Trade) Dose Ordered Sig/Reyes Start Time Stop Time Status Last Admin Dose Admin Acetaminophen (Tylenol) 650 mg PRN Q6HRS PRN 10/21/20 12:15 10/22/20 11:12 DC Aspirin (Jessi Aspirin) 81 mg DAILYWBKFT 10/21/20 13:00 10/23/20 08:03 DC 10/22/20 08:05 81 MG Aspirin (Ecotrin) 81 mg DAILYWBKFT 10/23/20 08:30 10/23/20 08:10 81 MG Cefepime HCl (Maxipime) 1 gm Q12HR 10/22/20 09:00 10/22/20 21:05 1 GM Ceftriaxone Sodium (Rocephin) 1 gm 1X ONCE 10/21/20 00:45 10/21/20 00:46 DC 10/21/20 00:55 1 GM Dextrose (Dextrose 50%-Water Syringe) 12.5 gm PRN Q15MIN PRN 10/21/20 08:15 Docusate Sodium (Colace) 100 mg PRN DAILY PRN 10/21/20 08:15 Enoxaparin Sodium (Lovenox 30mg Syringe) 30 mg DAILY 10/21/20 09:00 10/22/20 11:16 DC 10/22/20 08:05 30 MG Enoxaparin Sodium (Lovenox 40mg Syringe) 40 mg DAILY 10/23/20 09:00 10/23/20 08:11 40 MG Fish Oil (Fish Oil) 1,000 mg BID 10/21/20 21:00 10/23/20 08:10 1,000 MG Linezolid/Dextrose 300 ml @ 300 mls/hr Q12HR 10/21/20 13:00 10/22/20 10:59 DC 10/22/20 08:12 300 MLS/HR Multivitamins (Thera M Plus) 1 tab DAILY 10/22/20 09:00 10/23/20 08:10 1 TAB Non-Formulary Medication (Mth/Me Blue/Sod Phos/Phen/Hyos (Uribel Capsule)) 1 each QID 10/21/20 13:00 UNV Ondansetron HCl (Zofran) 4 mg PRN Q6HRS PRN 10/21/20 08:15 Polyethylene Glycol (miraLAX PACKET) 17 gm HS 10/21/20 21:00 Sennosides (Senna) 17.2 mg PRN BID PRN 10/21/20 08:15 Simvastatin (Zocor) 20 mg HS 10/21/20 21:00 10/22/20 21:04 20 MG Sodium Chloride 1,000 ml @ 40 mls/hr Q24H 10/21/20 12:15 10/23/20 03:09 40 MLS/HR Labs: Lab Laboratory Tests Test 10/23/20 06:30 White Blood Count 4.7 x10^3/uL (4.0-11.0) Red Blood Count 3.06 x10^6/uL (3.50-5.40) Hemoglobin 8.2 g/dL (12.0-15.5) Hematocrit 24.9 % (36.0-47.0) Mean Corpuscular Volume 81 fL (79-100) Mean Corpuscular Hemoglobin 27 pg (25-35) Mean Corpuscular Hemoglobin Concent 33 g/dL (31-37) Red Cell Distribution Width 13.3 % (11.5-14.5) Platelet Count 199 x10^3/uL (140-400) Neutrophils (%) (Auto) 85 % (31-73) Lymphocytes (%) (Auto) 9 % (24-48) Monocytes (%) (Auto) 2 % (0-9) Eosinophils (%) (Auto) 4 % (0-3) Basophils (%) (Auto) 0 % (0-3) Neutrophils # (Auto) 4.0 x10^3/uL (1.8-7.7) Lymphocytes # (Auto) 0.4 x10^3/uL (1.0-4.8) Monocytes # (Auto) 0.1 x10^3/uL (0.0-1.1) Eosinophils # (Auto) 0.2 x10^3/uL (0.0-0.7) Basophils # (Auto) 0.0 x10^3/uL (0.0-0.2) Sodium Level 137 mmol/L (136-145) Potassium Level 3.5 mmol/L (3.5-5.1) Chloride Level 105 mmol/L (98-107) Carbon Dioxide Level 26 mmol/L (21-32) Anion Gap 6 (6-14) Blood Urea Nitrogen 12 mg/dL (7-20) Creatinine 1.1 mg/dL (0.6-1.0) Estimated GFR (Cockcroft-Gault) 47.7 Glucose Level 95 mg/dL (70-99) Calcium Level 7.9 mg/dL (8.5-10.1) Objective: Assessment: 1. Sepsis. 2. Fever. Resolved, cultures nonrevealing, COVID-19 negative, could be viral 3. Urinary tract infection. Urine culture no growth. She had been on antibiotics prior to admission 4. History of bladder cancer, on chemo and radiation. 5. Immunosuppression. 6. Dementia. 7. Nausea and vomiting. Resolved Plan: Plan of Care Patient is eager for discharge home today DC cefepime Start cefdinir Probiotics Okay to discharge home from ID standpoint Discussed with at bedside Discussed with RN. MAL ENCINAS MD Oct 23, 2020 09:16
--- NOTE | 2020-10-23 10:19 | PDOC ---
PROGRESS NOTES Date of Service DATE: 10/23/20 TIME: 10:17 Subjective Subjective feels well. blood and urine cultures negative. lab reviewed. discussed with patient and her . Objective Objective Vital Signs Date Time Temp Pulse Resp B/P (MAP) Pulse Ox O2 Delivery O2 Flow Rate FiO2 10/23/20 07:00 97.9 73 18 145/58 (87) 96 Room Air 97.9 Intake and Output 10/23/20 07:00 Intake Total 480 ml Balance 480 ml Intake Oral 480 ml # Voids 3 Physical Exam Abdomen: Soft Heart: Regular rate, Normal S1, Normal S2 Extremities: No edema General: Alert HEENT: Atraumatic Lungs: Clear to auscultation Neuro: Normal speech Psych/Mental Status: Mental status NL Skin: No rashes Assessment Assessment Problems1. Sepsis. resolved. blood cultures negative 2. Fever. resolved 3. Urinary tract infection. urine culture negative 4. History of bladder cancer, on chemo and radiation. 5. Immunosuppression. 6. Dementia. 7. Nausea and vomiting. resolved severe protein calorie malnutrition anemia of chronic disease acute kidney injury resolved with iv hydration due to sepsis hyperlipidemia Medical Problems: (1) Bladder cancer Status: Acute (2) Nausea & vomiting Status: Acute (3) UTI (urinary tract infection) Status: Acute Plan Plan of Care dismiss today with omnicef Comment Review of Relevant I have reviewed the following items saw (where applicable) has been applied. Labs Laboratory Tests Test 10/22/20 07:12 10/23/20 06:30 White Blood Count 6.6 x10^3/uL (4.0-11.0) 4.7 x10^3/uL (4.0-11.0) Red Blood Count 3.26 x10^6/uL (3.50-5.40) 3.06 x10^6/uL (3.50-5.40) Hemoglobin 8.6 g/dL (12.0-15.5) 8.2 g/dL (12.0-15.5) Hematocrit 26.7 % (36.0-47.0) 24.9 % (36.0-47.0) Mean Corpuscular Volume 82 fL (79-100) 81 fL (79-100) Mean Corpuscular Hemoglobin 26 pg (25-35) 27 pg (25-35) Mean Corpuscular Hemoglobin Concent 32 g/dL (31-37) 33 g/dL (31-37) Red Cell Distribution Width 13.3 % (11.5-14.5) 13.3 % (11.5-14.5) Platelet Count 219 x10^3/uL (140-400) 199 x10^3/uL (140-400) Neutrophils (%) (Auto) 87 % (31-73) 85 % (31-73) Lymphocytes (%) (Auto) 9 % (24-48) 9 % (24-48) Monocytes (%) (Auto) 1 % (0-9) 2 % (0-9) Eosinophils (%) (Auto) 3 % (0-3) 4 % (0-3) Basophils (%) (Auto) 1 % (0-3) 0 % (0-3) Neutrophils # (Auto) 5.7 x10^3/uL (1.8-7.7) 4.0 x10^3/uL (1.8-7.7) Lymphocytes # (Auto) 0.6 x10^3/uL (1.0-4.8) 0.4 x10^3/uL (1.0-4.8) Monocytes # (Auto) 0.1 x10^3/uL (0.0-1.1) 0.1 x10^3/uL (0.0-1.1) Eosinophils # (Auto) 0.2 x10^3/uL (0.0-0.7) 0.2 x10^3/uL (0.0-0.7) Basophils # (Auto) 0.0 x10^3/uL (0.0-0.2) 0.0 x10^3/uL (0.0-0.2) Sodium Level 135 mmol/L (136-145) 137 mmol/L (136-145) Potassium Level 3.8 mmol/L (3.5-5.1) 3.5 mmol/L (3.5-5.1) Chloride Level 103 mmol/L (98-107) 105 mmol/L (98-107) Carbon Dioxide Level 25 mmol/L (21-32) 26 mmol/L (21-32) Anion Gap 7 (6-14) 6 (6-14) Blood Urea Nitrogen 18 mg/dL (7-20) 12 mg/dL (7-20) Creatinine 1.1 mg/dL (0.6-1.0) 1.1 mg/dL (0.6-1.0) Estimated GFR (Cockcroft-Gault) 47.7 47.7 Glucose Level 102 mg/dL (70-99) 95 mg/dL (70-99) Calcium Level 8.1 mg/dL (8.5-10.1) 7.9 mg/dL (8.5-10.1) Phosphorus Level 2.2 mg/dL (2.6-4.7) Magnesium Level 2.2 mg/dL (1.8-2.4) Laboratory Tests Test 10/23/20 06:30 White Blood Count 4.7 x10^3/uL (4.0-11.0) Red Blood Count 3.06 x10^6/uL (3.50-5.40) Hemoglobin 8.2 g/dL (12.0-15.5) Hematocrit 24.9 % (36.0-47.0) Mean Corpuscular Volume 81 fL (79-100) Mean Corpuscular Hemoglobin 27 pg (25-35) Mean Corpuscular Hemoglobin Concent 33 g/dL (31-37) Red Cell Distribution Width 13.3 % (11.5-14.5) Platelet Count 199 x10^3/uL (140-400) Neutrophils (%) (Auto) 85 % (31-73) Lymphocytes (%) (Auto) 9 % (24-48) Monocytes (%) (Auto) 2 % (0-9) Eosinophils (%) (Auto) 4 % (0-3) Basophils (%) (Auto) 0 % (0-3) Neutrophils # (Auto) 4.0 x10^3/uL (1.8-7.7) Lymphocytes # (Auto) 0.4 x10^3/uL (1.0-4.8) Monocytes # (Auto) 0.1 x10^3/uL (0.0-1.1) Eosinophils # (Auto) 0.2 x10^3/uL (0.0-0.7) Basophils # (Auto) 0.0 x10^3/uL (0.0-0.2) Sodium Level 137 mmol/L (136-145) Potassium Level 3.5 mmol/L (3.5-5.1) Chloride Level 105 mmol/L (98-107) Carbon Dioxide Level 26 mmol/L (21-32) Anion Gap 6 (6-14) Blood Urea Nitrogen 12 mg/dL (7-20) Creatinine 1.1 mg/dL (0.6-1.0) Estimated GFR (Cockcroft-Gault) 47.7 Glucose Level 95 mg/dL (70-99) Calcium Level 7.9 mg/dL (8.5-10.1) Microbiology 10/21/20 Urine Culture - Final, Complete 10/20/20 Blood Culture - Preliminary, Resulted NO GROWTH AFTER 2 DAYS Medications Current Medications Acetaminophen (Tylenol) 1,000 mg 1X ONCE PO Last administered on 10/20/20at 23:54; Start 10/20/20 at 23:45; Stop 10/20/20 at 23:46; Status DC Sodium Chloride 1,000 ml @ 125 mls/hr 1X ONCE IV Last administered on 10/20/20at 23:55; Start 10/20/20 at 23:45; Stop 10/21/20 at 07:44; Status DC Ondansetron HCl (Zofran) 4 mg 1X ONCE IVP Last administered on 10/20/20at 23:54; Start 10/20/20 at 23:55; Stop 10/20/20 at 23:56; Status DC Ondansetron HCl (Zofran) 4 mg STK-MED ONCE .ROUTE ; Start 10/20/20 at 23:50; Stop 10/20/20 at 23:51; Status DC Ceftriaxone Sodium (Rocephin) 1 gm 1X ONCE IVP Last administered on 10/21/20at 00:55; Start 10/21/20 at 00:45; Stop 10/21/20 at 00:46; Status DC Ondansetron HCl (Zofran) 4 mg PRN Q8HRS PRN IV NAUSEA/VOMITING; Start 10/21/20 at 01:00; Stop 10/22/20 at 00:59; Status DC Cefepime HCl (Maxipime) 2 gm 1X ONCE IVP Last administered on 10/21/20at 01:28; Start 10/21/20 at 01:15; Stop 10/21/20 at 01:17; Status DC Sennosides (Senna) 17.2 mg PRN BID PRN PO CONSTIPATION; Start 10/21/20 at 08:15 Docusate Sodium (Colace) 100 mg PRN DAILY PRN PO HARD STOOLS; Start 10/21/20 at 08:15 Ondansetron HCl (Zofran) 4 mg PRN Q6HRS PRN IVP NAUSEA/VOMITING; Start 10/21/20 at 08:15 Dextrose (Dextrose 50%-Water Syringe) 12.5 gm PRN Q15MIN PRN IV SEE COMMENTS; Start 10/21/20 at 08:15 Acetaminophen (Tylenol) 650 mg PRN Q4HRS PRN PO TEMP OVER 100.4F OR MILD PAIN; Start 10/21/20 at 08:15 Enoxaparin Sodium (Lovenox 30mg Syringe) 30 mg DAILY SQ Last administered on 10/22/20at 08:05; Start 10/21/20 at 09:00; Stop 10/22/20 at 11:16; Status DC Cefepime HCl (Maxipime) 2 gm Q24H IVP Last administered on 10/21/20at 08:58; Start 10/21/20 at 09:00; Stop 10/21/20 at 12:30; Status DC Sodium Chloride 1,000 ml @ 40 mls/hr Q24H IV Last administered on 10/23/20at 03:09; Start 10/21/20 at 12:15 Acetaminophen (Tylenol) 650 mg PRN Q6HRS PRN PO MILD PAIN / TEMP > 100.3'F; Start 10/21/20 at 12:15; Stop 10/22/20 at 11:12; Status DC Aspirin (Jessi Aspirin) 81 mg DAILYWBKFT PO Last administered on 10/22/20at 08:05; Start 10/21/20 at 13:00; Stop 10/23/20 at 08:03; Status DC Simvastatin (Zocor) 20 mg HS PO Last administered on 10/22/20at 21:04; Start 10/21/20 at 21:00 Fish Oil (Fish Oil) 1,000 mg BID PO Last administered on 10/23/20at 08:10; Start 10/21/20 at 21:00 Multivitamins (Thera M Plus) 1 tab DAILY PO Last administered on 10/23/20at 08:10; Start 10/22/20 at 09:00 Polyethylene Glycol (miraLAX PACKET) 17 gm DAILY PO ; Start 10/21/20 at 13:00; Stop 10/21/20 at 13:10; Status DC Linezolid/Dextrose 300 ml @ 300 mls/hr Q12HR IV Last administered on 10/22/20at 08:12; Start 10/21/20 at 13:00; Stop 10/22/20 at 10:59; Status DC Non-Formulary Medication (Mth/Me Blue/Sod Phos/Phen/Hyos (Uribel Capsule)) 1 each QID PO ; Start 10/21/20 at 13:00; Status UNV Cefepime HCl (Maxipime) 1 gm Q12HR IVP Last administered on 10/22/20at 21:05; Start 10/22/20 at 09:00; Stop 10/23/20 at 09:47; Status DC Polyethylene Glycol (miraLAX PACKET) 17 gm HS PO ; Start 10/21/20 at 21:00 Enoxaparin Sodium (Lovenox 40mg Syringe) 40 mg DAILY SQ Last administered on 10/23/20at 08:11; Start 10/23/20 at 09:00 Aspirin (Ecotrin) 81 mg DAILYWBKFT PO Last administered on 10/23/20at 08:10; Start 10/23/20 at 08:30 Cefdinir (Omnicef) 300 mg BID PO ; Start 10/23/20 at 21:00 Active Scripts Active Reported Multi Vitamin Daily (Multivitamin) 1 Each Tablet 1 Tab PO DAILY 30 Days Vitamin E (Vitamin E Acid Succinate) 100 Unit Tablet 100 Unit PO DAILY Simvastatin 20 Mg Tablet 20 Mg PO HS Senna-Docusate Sodium Tablet (Sennosides/Docusate Sodium) 1 Each Tablet 1 Tab PO BID 5 Days Miralax (Polyethylene Glycol 3350) 17 Gm Powd.pack 1 Packet PO DAILY 2 Days dissolve in water Oxycodone Hcl 5 Mg Capsule 5 Mg PO PRN Q6HRS PRN Ditropan Xl (Oxybutynin Chloride) 5 Mg Tab.er.24 1 Tab PO DAILY 30 Days Estrace (Estradiol) 42.5 Gm Cream.appl 1 Gm VG 3X/WEEK Zofran (Ondansetron Hcl) 4 Mg Tablet 2 Tab PO Q8HRS Uribel Capsule (Mth/Me Blue/Sod Phos/Phen/Hyos) 1 Each Capsule 1 Each PO QID Donepezil Hcl 10 Mg Tablet 10 Mg PO HS Fish Oil Concentrate Softgel (Docosahexanoic Acid/Epa) 1 Each Capsule 1 Cap PO DAILY 30 Days Aspirin Ec (Aspirin) 81 Mg Tablet.dr 81 Mg PO HS Acetaminophen 325 Mg Tablet 2 Tab PO PRN Q6HRS PRN 24 Days Vitals/I & O Vital Sign - Last 24 Hours 10/22/20 10/22/20 10/22/20 10/22/20 10:22 14:22 19:20 20:00 Temp 98.1 98.1 98.8 98.1 98.1 98.8 Pulse 76 74 79 Resp 18 18 18 B/P (MAP) 128/55 (79) 132/61 (84) 141/62 (88) Pulse Ox 95 98 98 O2 Delivery Room Air Room Air Room Air Room Air 10/22/20 10/23/20 10/23/20 22:57 02:46 07:00 Temp 98.4 98.1 97.9 98.4 98.1 97.9 Pulse 78 78 73 Resp 18 18 18 B/P (MAP) 151/59 (89) 145/62 (89) 145/58 (87) Pulse Ox 97 97 96 O2 Delivery Room Air Room Air Room Air Intake and Output 10/22/20 10/22/20 10/23/20 15:00 23:00 07:00 Intake Total 240 ml 240 ml Balance 240 ml 240 ml Justifications for Admission Other Justification FAZAL LUGO MD Oct 23, 2020 10:19
[2020-10-23] MEDS ORDERED: CEFD300C PO (10:25)
--- NOTE | 2020-10-23 10:26 | DISCH ---
DISCHARGE INSTRUCTIONS Condition on Discharge Condition on Discharge: Stable Activity After Discharge Activity Instructions for Disc: Resume previous activity Diet after Discharge Diet after Discharge: Regular Contacting the DRGuera after DC Call your doctor for: If your condition worsens Follow-Up Follow up with: dr. lugo next week FAZAL LUGO MD Oct 23, 2020 10:26
--- NOTE | 2020-10-23 10:31 | PDOC ---
Provider Note Date of Service: DATE: 10/23/20 TIME: 10:30 Provider Note discharge summary dictated # [id number] Justifications for Admission Other Justification FAZAL LUGO MD Oct 23, 2020 10:31
[2020-10-23 11:00] VITALS: BP 133/56
--- NOTE | 2020-10-23 11:09 | DS ---
DATE OF DISCHARGE: 10/23/2020 CONSULTANTS: Dr. Chintan Huston. FINAL DIAGNOSES: 1. Sepsis secondary to urinary tract infection. 2. Bladder cancer, receiving chemo and radiation therapy. 3. Immunosuppressed. 4. Dementia. 5. Hyperlipidemia. 6. Anemia of chronic disease. 7. Severe protein-calorie malnutrition. 8. Hyponatremia. 9. Acute kidney injury secondary to sepsis, which resolved with IV hydration. HOSPITAL COURSE: The patient is an 80-year-old white female with history of bladder cancer, receiving chemo and radiation therapy at [facility] last received both 1 day prior to admission when she developed a fever of 103 degrees with chills and has chronic dysuria in the last 2-3 months. Bladder cancer was diagnosed about 2 or 3 months ago. She has a history of dementia and hyperlipidemia. In the Emergency Room, she was started on IV cefepime. She felt better the next day without any fever or chills. Blood and urine cultures were negative, but she did receive antibiotics for urinary tract infection about 2 weeks prior to admission according to her . The patient was seen by Dr. Chintan Huston for Infectious Disease, received IV cefepime with a dose of Zyvox and Zyvox was discontinued and today the cefepime was discontinued and she was switched to oral Omnicef for 5 days. Blood and urine cultures were negative. It was felt that antibiotics she took a couple of weeks prior to admission might have endued the growth of the bacteria and blood in urine. She had acute kidney injury secondary to sepsis, which resolved with IV hydration. She had anemia of chronic disease and severe protein-calorie malnutrition. She will be dismissed to home today 10/23/2020 and was told to follow up with Dr. Schwarz in the office next week. She will follow up with the oncologist and radiation therapist for chemo and radiation therapy considering her bladder cancer. He will be dismissed on cefdinir, which is Omnicef 300 mg b.i.d. for 5 days, aspirin 81 mg at bedtime, fish oil 1 g daily, Aricept 10 mg every day, estradiol vaginal cream applied 3 times a week, Uribel 1 tablet q.i.d., multivitamin every day, MiraLax 17 grams daily, simvastatin 20 mg at bedtime, vitamin E is 100 units every day, and Tylenol 650 mg every 6 hours p.r.n. FAZAL SCHWARZ MD DR: YESY/bailee JOB#: [id number] / [id number]
[2020-10-23] MEDS ORDERED: CEFDINIR 300 MG CAPSULE PO SCH (21:00)
== END 2020-10-23 12:20 | disposition home or self-care (01) | DRG 871 ==
LOC: ER 23:23 → 4 NORTH 10-21 02:24
PROVIDERS: ADMIT Internal Medicine; ATTEND Internal Medicine
DX: A41.9 Sepsis, unspecified organism (principal); E43 Unspecified severe protein-calorie malnutrition; N39.0 Urinary tract infection, site not specified; D84.9 Immunodeficiency, unspecified; E87.1 Hypo-osmolality and hyponatremia; N17.9 Acute kidney failure, unspecified; C67.9 Malignant neoplasm of bladder, unspecified; F03.90 Unspecified dementia, unspecified severity, without behavioral disturbance, psychotic disturbance, mood disturbance, and anxiety; D63.8 Anemia in other chronic diseases classified elsewhere; Z88.8 Allergy status to other drugs, medicaments and biological substances; Z79.82 Long term (current) use of aspirin; Z79.899 Other long term (current) drug therapy; E78.5 Hyperlipidemia, unspecified; Z68.36 Body mass index [BMI] 36.0-36.9, adult; R65.20 Severe sepsis without septic shock; E78.00 Pure hypercholesterolemia, unspecified; Z66 Do not resuscitate; K57.90 Diverticulosis of intestine, part unspecified, without perforation or abscess without bleeding; M19.90 Unspecified osteoarthritis, unspecified site; Z20.822 Contact with and (suspected) exposure to COVID-19; Z91.041 Radiographic dye allergy status; Z92.3 Personal history of irradiation; Z92.21 Personal history of antineoplastic chemotherapy
CPT/HCPCS: 36415; 71045; 71046; 80048; 80053; 81001; 83605; 83735; 84100; 84484; 85007; 85025; 87040; 87086; 87426; 87804; 93005; 96374; 96375; J0692; J0696; J1650; J2020; J2405; J7030; U0003; 97116-GP; 99291-25; G0378

== ENCOUNTER 2021-02-13 22:32 | Emergency (ER) | payer MEDICARE ==
[~2021-02-13] VITALS: Ht 165.1 cm; Wt 65.9 kg
[~2021-02-13 22:32] MED LIST: ACET325T21 PO; ASPI-886 PO; CEFD300C PO; DOCO1CAP2 PO; DONE10TA7 PO; ESTR42.53 VG; MTH/1CAP PO; MULT-245 PO; ONDA4TAB7 PO; OXYB5TAB33 PO; OXYC5CAP PO; POLY17PO29 PO; SENN1TAB99 PO; SIMV20TA18 PO; VITA100T5 PO
--- NOTE | 2021-02-13 22:52 | EKG ---
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
--- NOTE | 2021-02-13 22:56 | PHYS DOC ---
Past Medical History Past Medical History: Cancer, High Cholesterol Additional Past Medical Histor: Bladder Cancer, "Short term memory issues" Past Medical History Limited secondary to memory issues Past Surgical History: Other Additional Past Surgical Histo: Tumor removal surgery Past Surgical History Limited secondary to memory issues Smoking Status: Former Smoker Alcohol Use: None Drug Use: None Social History Limited secondary to memory issues General Adult EDM: Chief Complaint: RIB PAIN HPI: HPI: Patient is a 80 year old female presents with her with report of right s ided lower chest/upper abdomen pain that became worse over the last 30 minutes. Patient reports worse with deep inspiration. Patient with history of bladder cancer for which she has undergone surgery and radiation therapy. Patient reports this pain has been intermittent for the past several weeks. Patient reports she receives her care primarily at for her cancer. Spouse reports she underwent a "nuclear medicine scan "for possible cause of her pain which reportedly was normal. Denies any trauma. Denies hematuria or dysuria. Denies fever or chills. Patient is a poor historian with reported "short-term memory issues ". History of present illness limited secondary to memory issues Review of Systems: Review of Systems: Constitutional: Denies fever or chills Respiratory: Denies cough or shortness of breath Cardiovascular: Reports pleuritic chest pain GI: Reports right sided abdominal pain; denies nausea or vomiting : Denies dysuria or hematuria Musculoskeletal: Reports right flank pain Integument: Denies rash or skin lesions Neurologic: Denies headache Review of systems limited secondary to memory issues Heart Score: C/O Chest Pain: N/A Current Medications: Current Medications Medications (Trade) Dose Ordered Sig/Reyes Start Time Stop Time Status Last Admin Dose Admin Aspirin (Ecotrin) 325 mg 1X ONCE 02/13/21 23:00 02/13/21 23:01 Sodium Chloride 1,000 ml @ 1,000 mls/hr Q1H 02/13/21 23:00 02/13/21 23:59 Allergies: Allergies: Allergies Coded Allergies Type Severity Reaction Last Updated Verified hydrocodone Allergy Intermediate 10/21/20 Yes iodine Allergy Intermediate 10/21/20 Yes Physical Exam: PE: Constitutional: Elderly, well nourished, no acute distress, non-toxic appearance HENT: Normocephalic, atraumatic Eyes: Conjunctiva normal, no discharge Neck: Normal range of motion, supple Lungs & Thorax: No respiratory distress, equal chest rise and fall Abdomen: Soft, no tenderness, no guarding/rebound tenderness/distention Skin: Warm, dry, no erythema, no rash Back: No tenderness, no CVA tenderness Extremities: No tenderness, ROM intact, no edema Neurologic: Alert and oriented X 2, confused to date, normal motor function, normal sensory function, no focal deficits noted Psychologic: Affect normal, judgment abnormal EKG: EKG: @2243 NSR at 65bpm, occasional PVC, NO ST elevation, QRS 84ms, QT/QTc 410/427ms Radiology/Procedures: Radiology/Procedures: PROCEDURE: CT CHEST ABDOMEN PELVIS WO Exam: CT of chest, abdomen and pelvis without contrast INDICATION: Right-sided pain TECHNIQUE: Sequential axial images through the chest, abdomen and pelvis obtained without IV contrast. Sagittal and coronal reformatted images were reconstructed from the axial data and reviewed. Exposure: One or more of the following in the visualized dose reduction techniques were utilized for this examination: 1. Automated exposure control 2. Adjustment of the MA and/or KV according to patient size 3. Use of iterative of reconstructive technique Comparisons: None FINDINGS: Visualized portions of the thyroid are unremarkable. No enlarged mediastinal lymph nodes are identified. Heart size is normal. Mild coronary artery calcification. Thoracic aorta has a normal course and caliber. Pulmonary artery is not enlarged. Strandy opacity at the dependent portion lungs likely representing atelectasis. There is a 9 mm nodule right lower lobe series 2 image 40. There is an additional nodule in the left lower lobe series 2 image 47 which measures 6 mm. Trace left pleural effusion. Evaluation of the solid organs is limited secondary to noncontrast technique. Liver, spleen, pancreas and adrenals are unremarkable. Gallbladder surgically absent. There is moderate to severe left-sided hydronephrosis and hydroureter. There is a 3 mm calculus the distal left ureter at the ureterovesicular junction. Adjacent thickening of the bladder wall is noted. Uterus is nonenlarged. No abnormal adnexal mass. Large and small bowel are unremarkable. Postsurgical changes at the colon are noted. No free intra-abdominal air or fluid. No obstruction. Abdominal aorta has a normal course and caliber. No enlarged intra-abdominal lymph nodes are identified. No suspicious osseous lesions or acute fractures. IMPRESSION: 1. A 3 to 4 mm calculus the left ureterovesicular junction with moderate left- sided hydronephrosis and hydroureter. There is associated wall thickening the bladder adjacent to the ureterovesicular junction, which may be inflammatory in nature. Follow-up imaging versus direct visualization is recommended to ensure resolution. 2. Several pulmonary nodules at the lung bases largest measuring up to 9 mm. Follow-up with either PET/CT or 3 month follow-up chest CT is recommended. 3. Mild coronary artery calcifications. Electronically signed by: Joe Das MD (02/14/2021 12:04 AM) [facility] Course & Med Decision Making: Course & Med Decision Making Pertinent Labs and Imaging studies reviewed. (See chart for details) Patient presents with intermittent right-sided abdominal and lower chest discomfort which is worse with deep inspiration. Patient with history of bladder cancer. Cannot fully exclude PE. Spouse reports proxy 1 week ago [facility] did perform what sounds like a VQ scan which reportedly was negative. No calf tenderness noted. Sats stable. Patient is not tachycardic. Patient with history of allergy to iodine. Pain addressed. IV fluid hydration provided. EKG stable. Labs obtained and posted to chart. Lipase elevated. LFTs within normal limits. UA with signs of infection. Empiric antibiotic initiated. Troponin within normal limits. D-dimer elevated. Unable to obtain CT angio given allergy to iodine. Empiric Lovenox therefore provided. CT chest/abdomen/pelvis with findings of 3-4mm UVJ stone with moderate h ydronephrosis however on the left side. Flomax given. Patient also noted to have pulmonary nodules. Patient requiring admission for further evaluation and consultation to urology. Unfortunately unable to provide urology consult at [facility]. Given patient's history and follow-up through and after discussion with patient and spouse regarding it was decided that patient would be best served with a transfer to for further management. transfer requesting COVID testing. Rapid COVID testing obtained. CT imaging clouded to . Utilized transfer center. Dr. Alex Moreno (urologist) in agreement with ad mission. Discussed findings and plan with patient and spouse, who acknowledges understanding and agreement. Raya Disclaimer: Raya Disclaimer: This electronic medical record was generated, in whole or in part, using a voice recognition dictation system. Departure Departure Impression: Primary Impression: Pleuritic chest pain Additional Impressions: UTI (urinary tract infection) Qualified Codes: N39.0 - Urinary tract infection, site not specified Hydronephrosis with urinary obstruction due to ureteral calculus Pancreatitis Qualified Codes: K85.90 - Acute pancreatitis without necrosis or infection, unspecified Pulmonary nodule Elevated d-dimer Hx of bladder cancer Disposition: 02 [facility] (- Dr. Alex Moreno (urology) accepting of transfer) Condition: STABLE Referrals: FAZAL LUGO MD (PCP) FAZAL JEAN DO February 13, 2021 22:56
[2021-02-13] MEDS ORDERED: IV NORMAL SALINE 1000ML BAG 1,000 ML IV SCH (23:00)
[2021-02-13] MEDS ORDERED: ASPIRIN ENTERIC COATED 325 MG TABLET.DR. PO ONE (23:00)
[2021-02-13] MEDS ORDERED: fentaNYL PF VIAL 100 MCG/2 ML VIAL IVP ONE (23:30)
[2021-02-13] MEDS ORDERED: IV NORMAL SALINE 1000ML BAG 1,000 ML IV ONE (23:30)
[2021-02-13 23:43] LABS: BASO % 1 % (0-3); EOS # 0.1 x10^3/uL (0.0-0.7); EOS % 2 % (0-3); HEMOGLOBIN 11.7 g/dL (12.0-15.5); LYMPH # 0.6 x10^3/uL (1.0-4.8); LYMPH % 16 % (24-48); MEAN CORPUSCULAR HEMOGLOBIN 30 pg (25-35); MEAN CORPUSCULAR HGB CONC 34 g/dL (31-37); MEAN CORPUSCULAR VOLUME 89 fL (79-100); MONO # 0.5 x10^3/uL (0.0-1.1); MONO % 13 % (0-9); NEUT # 2.7 x10^3/uL (1.8-7.7); NEUT % 68 % (31-73); PLATELET COUNT 172 x10^3/uL (140-400); RED BLOOD COUNT 3.95 x10^6/uL (3.50-5.40); RED CELL DISTRIBUTION WIDTH 14.3 % (11.5-14.5)
[2021-02-13 23:49] LABS: CALCIUM 8.5 mg/dL (8.5-10.1); GFR 53.2; POTASSIUM 4.5 mmol/L (3.5-5.1)
[2021-02-13 23:52] LABS: BILIRUBIN,URINE NEGATIVE (NEG); CLARITY,URINE CLOUDY; COLOR,URINE YELLOW; NITRITE,URINE NEGATIVE (NEG); PROTEIN,URINE NEGATIVE (NEG-TRACE); UROBILINOGEN,URINE 0.2 mg/dL (0.2 mg/dL)
[2021-02-13 23:54] LABS: PROTHROMBIN TIME PATIENT 11.8 SEC (11.7-14.0)
[2021-02-13 23:56] LABS: ALBUMIN 3.4 g/dL (3.4-5.0); MAGNESIUM 1.9 mg/dL (1.8-2.4); TOTAL BILIRUBIN 0.4 mg/dL (0.2-1.0); TOTAL PROTEIN 6.8 g/dL (6.4-8.2)
[2021-02-14] LABS: BACTERIA,URINE MODERATE /HPF (0-FEW); RBC,URINE 0 /HPF (0-2); WBC,URINE >40 /HPF (0-4)
[2021-02-14 00:05] LABS: CREATINE KINASE 76 U/L (26-192)
--- NOTE | 2021-02-14 00:06 | RAD ---
Exam: CT of chest, abdomen and pelvis without contrast INDICATION: Right-sided pain TECHNIQUE: Sequential axial images through the chest, abdomen and pelvis obtained without IV contrast . Sagittal and coronal reformatted images were reconstructed from the axial data and reviewed. Exposure: One or more of the following in the visualized dose reduction techniques were utilized for this examination: 1. Automated exposure control 2. Adjustment of the MA and/or KV according to patient size 3. Use of iterative of reconstructive technique Comparisons: None FINDINGS: Visualized portions of the thyroid are unremarkable. No enlarged mediastinal lymph nodes are identifi ed. Heart size is normal. Mild coronary artery calcification. Thoracic aorta has a normal course and erlinda luciano. Pulmonary artery is not enlarged. Strandy opacity at the dependent portion lungs likely representing atelectasis. There is a 9 mm nodul e right lower lobe series 2 image 40. There is an additional nodule in the left lower lobe series 2 i mage 47 which measures 6 mm. Trace left pleural effusion. Evaluation of the solid organs is limited secondary to noncontrast technique. Liver, spleen, pancreas and adrenals are unremarkable. Gallbladder surgically absent. There is moderate to severe left-sided hydronephrosis and hydroureter. There is a 3 mm calculus the d istal left ureter at the ureterovesicular junction. Adjacent thickening of the bladder wall is noted. Uterus is nonenlarged. No abnormal adnexal mass. Large and small bowel are unremarkable. Postsurgical changes at the colon are noted. No free intra-ab dominal air or fluid. No obstruction. Abdominal aorta has a normal course and caliber. No enlarged intra-abdominal lymph nodes are identified. No suspicious osseous lesions or acute fractures. IMPRESSION: 1. A 3 to 4 mm calculus the left ureterovesicular junction with moderate left-sided hydronephrosis a nd hydroureter. There is associated wall thickening the bladder adjacent to the ureterovesicular junc tion, which may be inflammatory in nature. Follow-up imaging versus direct visualization is recommend ed to ensure resolution. 2. Several pulmonary nodules at the lung bases largest measuring up to 9 mm. Follow-up with either P ET/CT or 3 month follow-up chest CT is recommended. 3. Mild coronary artery calcifications. Electronically signed by: Joe Das MD (02/14/2021 12:04 AM) [facility]
[2021-02-14 00:13] LABS: D-DIMER 3.57 ug/mlFEU (0.00-0.50)
[2021-02-14] MEDS ORDERED: TAMSULOSIN 0.4 MG CAP.ER.24H. PO ONE (00:30)
[2021-02-14] MEDS ORDERED: fentaNYL PF VIAL 100 MCG/2 ML VIAL IV ONE (01:00)
[2021-02-14] MEDS ORDERED: cefTRIAXone IV Push 1 GM VIAL. IVP ONE (01:00)
[2021-02-14 01:40] VITALS: BP 160/65
== END 2021-02-14 02:07 | disposition short-term general hospital (02) ==
LOC: ER 22:32
DX: K85.90 Acute pancreatitis without necrosis or infection, unspecified (principal); Z20.822 Contact with and (suspected) exposure to COVID-19; N39.0 Urinary tract infection, site not specified; N13.2 Hydronephrosis with renal and ureteral calculous obstruction; R07.81 Pleurodynia; R91.1 Solitary pulmonary nodule; R79.1 Abnormal coagulation profile; E78.00 Pure hypercholesterolemia, unspecified; Z85.51 Personal history of malignant neoplasm of bladder; Z87.891 Personal history of nicotine dependence; Z88.5 Allergy status to narcotic agent; Z88.8 Allergy status to other drugs, medicaments and biological substances
CPT/HCPCS: 36415; 71250; 74176; 80053; 81001; 82553; 83690; 83735; 83880; 84484; 85025; 85379; 85610; 85730; 87086; 87426; 93005; 96361; 96372; 96374; 96375; 96376; 99285; J0696; J1650; J3010; J7030; U0003; U0005

== ENCOUNTER → 2021-03-02 | Outpatient (CLI) | payer MEDICARE ==
[2021-02-14 01:40] VITALS: BP 160/65
--- NOTE | 2021-03-03 08:12 | RAD ---
EXAM: Right wrist, 3 views. HISTORY: Pain. COMPARISON: None. FINDINGS: 3 views of the right ribs are obtained. No acute rib fracture is seen. There is a small rig ht pleural effusion. There is right basilar atelectasis or interstitial infiltrate. There are cholecy stomy clips. There is a left nephroureteral stent partially included on the [id number]. There is d egenerative change and scoliosis involving the lumbar spine. IMPRESSION: 1. No acute osseous finding. 2. Small right pleural effusion with right basilar atelectasis or infiltrate. Electronically signed by: Marylou Syed MD (03/03/2021 8:09 AM) [id number]
== END ==
LOC: RAD 16:19
PROVIDERS: ATTEND Radiology Radiation Oncology
DX: C67.2 Malignant neoplasm of lateral wall of bladder (principal); J90 Pleural effusion, not elsewhere classified; R07.81 Pleurodynia
CPT/HCPCS: 71100

== ENCOUNTER → 2021-03-04 | Outpatient (CLI) | payer MEDICARE ==
[2021-02-14 01:40] VITALS: BP 160/65
--- NOTE | 2021-03-04 13:55 | RAD ---
EXAM: Nuclear bone scan. HISTORY: Bladder cancer. Lateral right rib pain. TECHNIQUE: Following the intravenous injection of 25.5 mCi of Tc 99m labeled methylene diphosphonate (MDP), whole body imaging was performed. COMPARISON: Radiographs dated 03/02/[address] dated 02/13/2021. FINDINGS: There is no abnormal greater tracer activity to suggest osseous metastatic disease. There i s focal increased activity within the left antecubital fossa due to the greater tracer injection site . There is also a small focus of tracer activity within the distal left forearm which may be due to t racer contamination. There is mild degenerative activity involving both knees and shoulders. IMPRESSION: 1. No convincing radiotracer activity to suggest osseous metastatic disease or acute fracture. Suscep tibility, there is no abnormal radiotracer activity along the lateral right ribs at the site of pain. 2. Focus of increased radiotracer activity within the distal left forearm, possibly due to contaminat ion given an antecubital fossa injection site. Left forearm radiographs can be obtained to exclude os seous lesion if there is been recent trauma or pain in this location. 3. Degenerative activity involving the knees and shoulders. Electronically signed by: Marylou Syed MD (03/04/2021 1:53 PM) [id number]
== END ==
LOC: NM 11:34
PROVIDERS: ATTEND Radiology Radiation Oncology
DX: C67.2 Malignant neoplasm of lateral wall of bladder (principal)
CPT/HCPCS: 78306; A9503

== ENCOUNTER 2021-03-09 16:02 | Inpatient (IN) | payer MEDICARE ==
[2021-03-09] VITALS (7 sets, daily range): BP systolic 92–138; BP diastolic 46–57
[~2021-03-09] VITALS: Ht 166.4 cm; Wt 67.2 kg
--- NOTE | 2021-03-09 16:38 | ED.ADGEN ---
Past Medical History Past Medical History: Cancer, High Cholesterol Additional Past Medical Histor: Bladder Cancer, "Short term memory issues" Past Surgical History: Cancer Surgery, Other Additional Past Surgical Histo: Tumor removal surgery Smoking Status: Former Smoker Alcohol Use: None Drug Use: None General Adult EDM: Chief Complaint: ABDOMINAL PAIN HPI: HPI: Patient is a 81-year-old female who arrives ambulatory to the emergency department complaint of right-sided abdominal pain. Patient states that she has had this pain for quite some time now. Review of Systems: Review of Systems: Constitutional: Denies fever or chills. [] Eyes: Denies change in visual acuity. [] HENT: Denies nasal congestion or sore throat. [] Respiratory: Denies cough or shortness of breath. [] Cardiovascular: Denies chest pain or edema. [] GI: Reports abdominal pain. Denies nausea, vomiting, bloody stools or diarrhea. [] : Denies dysuria. [] Musculoskeletal: Denies back pain or joint pain. [] Integument: Denies rash. [] Neurologic: Denies headache, focal weakness or sensory changes. [] Endocrine: Denies polyuria or polydipsia. [] Lymphatic: Denies swollen glands. [] Psychiatric: Denies depression or anxiety. [] Current Medications: Current Medications Medications (Trade) Dose Ordered Sig/Reyes Start Time Stop Time Status Last Admin Dose Admin Diltiazem HCl (Cardizem Iv Push) 20 mg 1X ONCE 03/09/21 17:30 03/09/21 17:31 DC 03/09/21 17:36 20 MG Diltiazem HCl 125 mg/Sodium Chloride 125 ml @ 5 mls/hr CONT PRN 03/09/21 17:30 03/09/21 17:43 5 MLS/HR Morphine Sulfate (Morphine Sulfate) 4 mg PRN Q15MIN PRN 03/09/21 16:45 03/10/21 16:44 03/09/21 17:44 4 MG Ondansetron HCl (Zofran) 4 mg 1X ONCE 03/09/21 16:45 03/09/21 16:46 DC 03/09/21 17:30 4 MG Sodium Chloride 1,000 ml @ 1,000 mls/hr Q1H 03/09/21 16:45 03/09/21 17:44 DC 03/09/21 17:12 1,000 MLS/HR Allergies: Allergies: Allergies Coded Allergies Type Severity Reaction Last Updated Verified hydrocodone Allergy Intermediate 10/21/20 Yes iodine Allergy Intermediate 10/21/20 Yes Physical Exam: PE: Constitutional: Well developed, well nourished, no acute distress, non-toxic appearance. [] HENT: Normocephalic, atraumatic, bilateral external ears normal, oropharynx moist, no oral exudates, nose normal. [] Eyes: PERRLA, EOMI, conjunctiva normal, no discharge. [] Neck: Normal range of motion, no tenderness, supple, no stridor. [] Cardiovascular:Heart rate regular rhythm, no murmur [] Lungs & Thorax: Bilateral breath sounds clear to auscultation [] Abdomen: Patient has tenderness to palpation of the right side of her abdomen and upper and lower quadrants. Bowel sounds normal, soft, no tenderness, no masses, no pulsatile masses. [] Skin: Warm, dry, no erythema, no rash. [] Back: No tenderness, no CVA tenderness. [] Extremities: No tenderness, no cyanosis, no clubbing, ROM intact, no edema. [] Neurologic: Alert and oriented X 3, normal motor function, normal sensory function, no focal deficits noted. [] Psychologic: Affect normal, judgement normal, mood normal. [] Current Patient Data: Labs: Laboratory Tests Test 03/09/21 17:11 White Blood Count 4.6 x10^3/uL (4.0-11.0) Red Blood Count 3.88 x10^6/uL (3.50-5.40) Hemoglobin 11.3 g/dL (12.0-15.5) L Hematocrit 32.9 % (36.0-47.0) L Mean Corpuscular Volume 85 fL (79-100) Mean Corpuscular Hemoglobin 29 pg (25-35) Mean Corpuscular Hemoglobin Concent 34 g/dL (31-37) Red Cell Distribution Width 13.5 % (11.5-14.5) Platelet Count 305 x10^3/uL (140-400) Neutrophils (%) (Auto) 75 % (31-73) H Lymphocytes (%) (Auto) 11 % (24-48) L Monocytes (%) (Auto) 12 % (0-9) H Eosinophils (%) (Auto) 2 % (0-3) Basophils (%) (Auto) 1 % (0-3) Neutrophils # (Auto) 3.5 x10^3/uL (1.8-7.7) Lymphocytes # (Auto) 0.5 x10^3/uL (1.0-4.8) L Monocytes # (Auto) 0.5 x10^3/uL (0.0-1.1) Eosinophils # (Auto) 0.1 x10^3/uL (0.0-0.7) Basophils # (Auto) 0.0 x10^3/uL (0.0-0.2) Sodium Level 135 mmol/L (136-145) L Potassium Level 4.0 mmol/L (3.5-5.1) Chloride Level 98 mmol/L (98-107) Carbon Dioxide Level 27 mmol/L (21-32) Anion Gap 10 (6-14) Blood Urea Nitrogen 17 mg/dL (7-20) Creatinine 0.9 mg/dL (0.6-1.0) Estimated GFR (Cockcroft-Gault) 59.9 BUN/Creatinine Ratio 19 (6-20) Glucose Level 110 mg/dL (70-99) H Calcium Level 8.6 mg/dL (8.5-10.1) Total Bilirubin 0.6 mg/dL (0.2-1.0) Aspartate Amino Transferase (AST) 16 U/L (15-37) Alanine Aminotransferase (ALT) 17 U/L (14-59) Alkaline Phosphatase 81 U/L (46-116) Troponin I Quantitative < 0.017 ng/mL (0.000-0.055) Total Protein 6.5 g/dL (6.4-8.2) Albumin 3.1 g/dL (3.4-5.0) L Albumin/Globulin Ratio 0.9 (1.0-1.7) L Lipase 349 U/L (73-393) Laboratory Tests 03/09/21 17:11 Laboratory Tests 03/09/21 17:11 Vital Signs: Vital Signs Date Time Temp Pulse Resp B/P (MAP) Pulse Ox O2 Delivery O2 Flow Rate FiO2 03/09/21 17:44 38 94 Nasal Cannula 5.0 03/09/21 17:36 127 164/74 EKG: EKG: [] EKG was obtained at 1717 hrs. and revealed an irregular rhythm which is most consistent with atrial fibrillation. There is a ventricular rate of 143 bpm. There are no acute ST/T wave changes to denote ischemia. Heart Score: C/O Chest Pain: No Risk Factors: Risk Factors: DM, Current or recent (<one month) smoker, HTN, HLP, family history of CAD, obesity. Risk Scores: Score 0 - 3: 2.5% MACE over next 6 weeks - Discharge Home Score 4 - 6: 20.3% MACE over next 6 weeks - Admit for Clinical Observation Score 7 - 10: 72.7% MACE over next 6 weeks - Early Invasive Strategies Radiology/Procedures: Radiology/Procedures: [] Course & Med Decision Making: Course & Med Decision Making Pertinent Labs and Imaging studies reviewed. (See chart for details) The patient is currently awaiting CT imaging of her abdomen and pelvis. It was reported to me by radiology the patient did have a kidney stone with previous imaging that required stenting. While the patient was being evaluated she developed what appears to be atrial fibrillation. Upon questioning the patient she denies any history of atrial fibrillation or irregular heartbeat otherwise. Cardizem was given both as a bolus and a drip and the patient's rate has been reduced. I have communicated this to Dr. Correa and the patient will be anticoagulated. The patient still has pain however it is better controlled than when she arrived. [] Dragon Disclaimer: Dragon Disclaimer: This electronic medical record was generated, in whole or in part, using a voice recognition dictation system. Departure Departure Impression: Primary Impression: Abdominal pain Additional Impressions: History of kidney stones Paroxysmal atrial fibrillation with rapid ventricular response Referrals: FAZAL LUGO MD (PCP) Problem Qualifiers LIEN SINGH DO Mar 09, 2021 16:38
[2021-03-09] MEDS ORDERED: IV NORMAL SALINE 1000ML BAG 1,000 ML IV SCH (16:45)
[2021-03-09] MEDS ORDERED: ONDANSETRON PF 4 MG/2 ML VIAL. IVP ONE (16:45)
[2021-03-09] MEDS: MORPHINE SULFATE 4 MG/ML VIAL. IV/SQ PRN ×2 (17:13→17:44)
[2021-03-09 17:19] LABS: BASO % 1 % (0-3); EOS # 0.1 x10^3/uL (0.0-0.7); EOS % 2 % (0-3); HEMATOCRIT 32.9 % (36.0-47.0); HEMOGLOBIN 11.3 g/dL (12.0-15.5); LYMPH # 0.5 x10^3/uL (1.0-4.8); LYMPH % 11 % (24-48); MEAN CORPUSCULAR HEMOGLOBIN 29 pg (25-35); MEAN CORPUSCULAR HGB CONC 34 g/dL (31-37); MEAN CORPUSCULAR VOLUME 85 fL (79-100); MONO # 0.5 x10^3/uL (0.0-1.1); MONO % 12 % (0-9); NEUT # 3.5 x10^3/uL (1.8-7.7); NEUT % 75 % (31-73); PLATELET COUNT 305 x10^3/uL (140-400); RED BLOOD COUNT 3.88 x10^6/uL (3.50-5.40); RED CELL DISTRIBUTION WIDTH 13.5 % (11.5-14.5); WHITE BLOOD COUNT 4.6 x10^3/uL (4.0-11.0)
--- NOTE | 2021-03-09 17:27 | EKG ---
[facility] [address] [place] [address] Test Date: 2021-03-09 Test Time: 17:17:53 Pat Name: ENIO CH Department: Patient ID: [facility]-[id number] Room: Gender: F Medical Assistant Secretary: OLIVIA ER : 1940 Requested By: LIEN SINGH Order Number: [id number] Reading MD: Measurements Intervals Avery Rate: 143 P: [place]: QRS: 6 QRSD: 66 T: 24 QT: 284 QTc: 444 Interpretive Statements IRREGULAR RHYTHM, NO P-WAVE FOUND LOW LIMB LEAD VOLTAGE QRS(T) CONTOUR ABNORMALITY CONSISTENT WITH ANTEROSEPTAL INFARCT AGE UNDETERMINED ABNORMAL ECG RI6.02 No previous ECG available for comparison
[2021-03-09 17:30] LABS: CALCIUM 8.6 mg/dL (8.5-10.1); CREATININE 0.9 mg/dL (0.6-1.0); GFR 59.9
[2021-03-09 17:36] LABS: ALBUMIN 3.1 g/dL (3.4-5.0); ALBUMIN/GLOBULIN RATIO 0.9 (1.0-1.7); TOTAL BILIRUBIN 0.6 mg/dL (0.2-1.0); TOTAL PROTEIN 6.5 g/dL (6.4-8.2)
[2021-03-09 18:00] LABS: BILIRUBIN,URINE NEGATIVE (NEG); CLARITY,URINE CLEAR; COLOR,URINE YELLOW; NITRITE,URINE NEGATIVE (NEG); PROTEIN,URINE NEGATIVE (NEG-TRACE); UROBILINOGEN,URINE 0.2 mg/dL (0.2 mg/dL)
[2021-03-09 18:06] LABS: BACTERIA,URINE FEW /HPF (0-FEW)
[2021-03-09] MEDS ORDERED: cefTRIAXone IV Push 1 GM VIAL. IVP ONE (18:15)
[2021-03-09] MEDS ORDERED: fentaNYL PF VIAL 100 MCG/2 ML VIAL IVP ONE (18:30)
--- NOTE | 2021-03-09 18:41 | RAD ---
Examination: CT of the abdomen pelvis without contrast HISTORY: History of right-sided abdominal pain COMPARISON: 02/13/2021 TECHNIQUE: Axial CT images of the abdomen pelvis was performed without contrast. Coronal and sagittal reformats performed Exposure: One or more of the following individualized dose reduction techniques were utilized for thi s examination: 1. Automated exposure control 2. Adjustment of the mA and/or kV according to patient size 3. Use of iterative reconstruction technique FINDINGS: Moderate right-sided pleural effusion. Moderate consolidation changes identified in the right hilum w ith volume loss right lower lobe of the lung. Mild left lower lung consolidation changes. No evidence of free air identified in the abdomen. The visualized noncontrasted liver, adrenals grossly appears unremarkable. Few calcified granulomas identified in the spleen. The stomach is mildly distended. The visualized pancreas grossly appears unremarkable. The small bowel is nondilated. Feces and gas noted in the colon. Surgical changes identified in the right colon. Urinary bladder is mildly distended. There is mild fat stranding identified about the urinary bladder . Moderate bilateral hydronephrosis and hydroureter identified. Left ureteral stent is identified. Un changed 4 mm calculus left ureterovesicular junction. There is mild thickened appearance of the dista l ureter wall similar to prior exam. Moderate degenerative changes lumbar spine. IMPRESSION: 1. Moderate bilateral hydronephrosis and hydroureter identified. Left ureteral stent is identified. 4 mm calculus left ureterovesicular junction. There is mild thickened appearance of the distal ureter wall similar to prior exam. Underlying left ureteral pathology not excluded. 2. Mild fat stranding identified about the urinary bladder could be due to nondistention or cystitis . Correlate with lab values. 3. Moderate right-sided pleural effusion with moderate consolidation changes identified in the right hilum with volume loss right lower lobe of the lung. Mild left lower lung consolidation changes. Fol low-up to resolution. Electronically signed by: Mic Melvin MD (03/09/2021 6:38 PM) [id number]
[2021-03-09 19:12] LABS: PROTHROMBIN TIME PATIENT 13.4 SEC (11.7-14.0)
[2021-03-09] MEDS ORDERED: fentaNYL PF VIAL 100 MCG/2 ML VIAL IV PRN (19:15)
[2021-03-09] MEDS ORDERED: ONDANSETRON PF 4 MG/2 ML VIAL. IV PRN (19:15)
[2021-03-09] MEDS ORDERED: ACETAMINOPHEN 325 MG TABLET. PO PRN (19:15)
[2021-03-09] MEDS ORDERED: SIMV20TA18 PO (21:35)
[2021-03-09] MEDS ORDERED: TAMS0.4C97 PO (21:35)
[2021-03-09] MEDS ORDERED: prevagen PO (21:35)
[2021-03-10] VITALS (20 sets, daily range): BP systolic 85–138; BP diastolic 45–63
[2021-03-10] MEDS ORDERED: ANTI-COAG MONITOR BY PHARMACY. MC PRN (02:00)
--- NOTE | 2021-03-10 04:20 | NUR ---
The patient, ENIO CH, 81 y/o, F admitted by FAZAL LUGO MD, was given written information regarding hospital policies, unit procedures and contact persons. Valuables were checked and left in patient room. Patient VS stable, Assessment complete. Patient reports no pain at this time. Resting comfortably on 5L NC. Patient at bedside, states that pt has dementia and is very forgetful. Bed in low locked position, call light in reach, reminded patient to call for assistance before ambulating. Will continue to monitor.
[2021-03-10 06:00] LABS: BASO % 1 % (0-3); EOS # 0.1 x10^3/uL (0.0-0.7); EOS % 1 % (0-3); HEMATOCRIT 32.1 % (36.0-47.0); HEMOGLOBIN 10.7 g/dL (12.0-15.5); LYMPH # 0.5 x10^3/uL (1.0-4.8); LYMPH % 8 % (24-48); MEAN CORPUSCULAR HEMOGLOBIN 29 pg (25-35); MEAN CORPUSCULAR HGB CONC 33 g/dL (31-37); MEAN CORPUSCULAR VOLUME 88 fL (79-100); MONO # 0.6 x10^3/uL (0.0-1.1); MONO % 10 % (0-9); NEUT # 4.5 x10^3/uL (1.8-7.7); NEUT % 80 % (31-73); PLATELET COUNT 298 x10^3/uL (140-400); RED BLOOD COUNT 3.64 x10^6/uL (3.50-5.40); RED CELL DISTRIBUTION WIDTH 13.7 % (11.5-14.5); WHITE BLOOD COUNT 5.6 x10^3/uL (4.0-11.0)
[2021-03-10 06:01] LABS: CALCIUM 8.5 mg/dL (8.5-10.1); CREATININE 0.9 mg/dL (0.6-1.0); GFR 59.9; POTASSIUM 4.2 mmol/L (3.5-5.1)
[2021-03-10] MEDS: METOPROLOL TART IMMED RELEASE 25 MG TABLET. PO SCH ×2 (08:58→20:34)
[2021-03-10] MEDS: TAMSULOSIN 0.4 MG CAP.ER.24H. PO SCH ×2 (08:58→20:33)
[2021-03-10] MEDS: POLYETHYLENE GLYCOL 3350 17 GM PACKET. PO SCH (08:58)
--- NOTE | 2021-03-10 09:37 | PDOC2 ---
CARDIAC CONSULT DATE OF CONSULT Date of Consult DATE: 03/10/21 TIME: 08:58 REASON FOR CONSULT Reason for Consult: New onset afib REFERRING PHYSICIAN Referring Physician: Madeline SOURCE Source: Caregiver (daughter), Chart review, Patient HISTORY OF PRESENT ILLNESS HISTORY OF PRESENT ILLNESS This is a pleasant 81 yo female admitted for complains of right ribcage pain. Upon admission she was noted with moderate pleural effusion to right and also AFIB RVR which are both new for her. She also has been having abdominal pain with intermittent nausea and vomiting with underlying bladder CA that according to her daughter may have gone to lung but too early to biopsy. She does have hydronephrosis/hydroureter on both side per CT and she has a left ureteral stent. No hx of arrhythmia, VTE, CAD. Denies any dizziness or palpitations. She has been shaking episodes after her chemo got started for her bladder CA. PAST MEDICAL HISTORY Cardiovascular: Hyperlipidemia, Other (varicose veins) Pulmonary: No pertinent hx CENTRAL NERVOUS SYSTEM: Dementia, Other GI: Constipation Heme/Onc: Cancer (bladder) Hepatobiliary: No pertinent hx Psych: No pertinent hx Musculoskeletal: Osteoarthritis Infectious disease: No pertinent hx ENT: No pertinent hx Renal/: Bladder Ca. Endocrine: No pertinent hx Dermatology: No pertinent hx PAST SURGICAL HISTORY Past Surgical History: Other (left ureteral stenting) FAMILY HISTORY Family History: Family History Unknown SOCIAL HISTORY Smoke: Quit (remotely) ALCOHOL: none Drugs: None Lives: with Family (spouse) CURRENT MEDICATIONS CURRENT MEDICATIONS Current Medications Medications (Trade) Dose Ordered Sig/Reyes Route PRN Reason Start Time Stop Time Status Last Admin Dose Admin Morphine Sulfate (Morphine Sulfate) 4 mg PRN Q15MIN PRN IV/SQ PAIN GREATER THAN 3/10 03/09/21 16:45 03/10/21 16:44 03/09/21 17:44 Sodium Chloride 1,000 ml @ 1,000 mls/hr Q1H IV 03/09/21 16:45 03/09/21 17:44 DC 03/09/21 17:12 Ondansetron HCl (Zofran) 4 mg 1X ONCE IVP 03/09/21 16:45 03/09/21 16:46 DC 03/09/21 17:30 Diltiazem HCl (Cardizem Iv Push) 20 mg 1X ONCE IVP 03/09/21 17:30 03/09/21 17:31 DC 03/09/21 17:36 Diltiazem HCl 125 mg/Sodium Chloride 125 ml @ 5 mls/hr CONT PRN IV SEE I/O RECORD 03/09/21 17:30 03/09/21 17:43 Ceftriaxone Sodium (Rocephin) 1 gm 1X ONCE IVP 03/09/21 18:15 03/09/21 18:16 DC 03/09/21 18:43 Fentanyl Citrate (Fentanyl 2ml Vial) 75 mcg 1X ONCE IVP 03/09/21 18:30 03/09/21 18:31 DC 03/09/21 18:42 Enoxaparin Sodium (Lovenox 80mg Syringe) 70 mg Q12HR SQ 03/10/21 02:30 03/10/21 02:29 Info (Anti-Coagulation Monitoring By Pharmacy) 1 each PRN DAILY PRN MC PER PROTOCOL 03/10/21 02:00 03/10/21 01:52 ALLERGIES ALLERGIES: Coded Allergies: hydrocodone (Verified Allergy, Intermediate, 10/21/20) iodine (Verified Allergy, Intermediate, 10/21/20) ROS Review of System 14 point ROS evaluated with pertinent positives noted per HPI PHYSICAL EXAM General: Alert, Oriented X3, Cooperative, No acute distress HEENT: Atraumatic, Mucous membr. moist/pink Lungs: Other (diminihsed) Heart: Regular rate (SR), Normal S1, Normal S2, No murmurs Abdomen: Soft, No tenderness Extremities: No cyanosis, No edema Skin: No breakdown, No significant lesion Neuro: Normal speech, Sensation intact Psych/Mental Status: Mental status NL, Other (anxious) MUSCULOSKELETAL: Osteoarthritic changes both hands VITALS/I&O VITALS/I&O: Vital Signs Date Time Temp Pulse Resp B/P (MAP) Pulse Ox O2 Delivery O2 Flow Rate FiO2 03/10/21 07:00 97.9 72 16 123/59 (80) 95 Nasal Cannula 3.0 97.9 I & O 03/09/21 03/09/21 03/10/21 15:00 23:00 07:00 Intake Total 1120 ml 100 ml Output Total 500 ml Balance 1120 ml -400 ml LABS Lab: Laboratory Tests Test 03/09/21 17:11 03/09/21 17:50 03/09/21 18:52 03/10/21 01:05 White Blood Count 4.6 x10^3/uL (4.0-11.0) Red Blood Count 3.88 x10^6/uL (3.50-5.40) Hemoglobin 11.3 g/dL (12.0-15.5) L Hematocrit 32.9 % (36.0-47.0) L Mean Corpuscular Volume 85 fL (79-100) Mean Corpuscular Hemoglobin 29 pg (25-35) Mean Corpuscular Hemoglobin Concent 34 g/dL (31-37) Red Cell Distribution Width 13.5 % (11.5-14.5) Platelet Count 305 x10^3/uL (140-400) Neutrophils (%) (Auto) 75 % (31-73) H Lymphocytes (%) (Auto) 11 % (24-48) L Monocytes (%) (Auto) 12 % (0-9) H Eosinophils (%) (Auto) 2 % (0-3) Basophils (%) (Auto) 1 % (0-3) Neutrophils # (Auto) 3.5 x10^3/uL (1.8-7.7) Lymphocytes # (Auto) 0.5 x10^3/uL (1.0-4.8) L Monocytes # (Auto) 0.5 x10^3/uL (0.0-1.1) Eosinophils # (Auto) 0.1 x10^3/uL (0.0-0.7) Basophils # (Auto) 0.0 x10^3/uL (0.0-0.2) Sodium Level 135 mmol/L (136-145) L Potassium Level 4.0 mmol/L (3.5-5.1) Chloride Level 98 mmol/L (98-107) Carbon Dioxide Level 27 mmol/L (21-32) Anion Gap 10 (6-14) Blood Urea Nitrogen 17 mg/dL (7-20) Creatinine 0.9 mg/dL (0.6-1.0) Estimated GFR (Cockcroft-Gault) 59.9 BUN/Creatinine Ratio 19 (6-20) Glucose Level 110 mg/dL (70-99) H Calcium Level 8.6 mg/dL (8.5-10.1) Total Bilirubin 0.6 mg/dL (0.2-1.0) Aspartate Amino Transferase (AST) 16 U/L (15-37) Alanine Aminotransferase (ALT) 17 U/L (14-59) Alkaline Phosphatase 81 U/L (46-116) Troponin I Quantitative < 0.017 ng/mL (0.000-0.055) < 0.017 ng/mL (0.000-0.055) Total Protein 6.5 g/dL (6.4-8.2) Albumin 3.1 g/dL (3.4-5.0) L Albumin/Globulin Ratio 0.9 (1.0-1.7) L Lipase 349 U/L (73-393) Urine Collection Type Void Urine Color Yellow Urine Clarity Clear Urine pH 7.0 (<5.0-8.0) Urine Specific [place] 1.010 (1.000-1.030) Urine Protein Negative mg/dL (NEG-TRACE) Urine Glucose (UA) Negative mg/dL (NEG) Urine Ketones (Stick) Negative mg/dL (NEG) Urine Blood Small (NEG) Urine Nitrite Negative (NEG) Urine Bilirubin Negative (NEG) Urine Urobilinogen Dipstick 0.2 mg/dL (0.2 mg/dL) Urine Leukocyte Esterase Large (NEG) Urine RBC 1-2 /HPF (0-2) Urine WBC 11-20 /HPF (0-4) Urine Squamous Epithelial Cells Few /LPF Urine Bacteria Few /HPF (0-FEW) Prothrombin Time 13.4 SEC (11.7-14.0) Prothrombin Time INR 1.1 (0.8-1.1) Activated Partial Thromboplast Time 34 SEC (24-38) Test 03/10/21 04:50 White Blood Count 5.6 x10^3/uL (4.0-11.0) Red Blood Count 3.64 x10^6/uL (3.50-5.40) Hemoglobin 10.7 g/dL (12.0-15.5) L Hematocrit 32.1 % (36.0-47.0) L Mean Corpuscular Volume 88 fL (79-100) Mean Corpuscular Hemoglobin 29 pg (25-35) Mean Corpuscular Hemoglobin Concent 33 g/dL (31-37) Red Cell Distribution Width 13.7 % (11.5-14.5) Platelet Count 298 x10^3/uL (140-400) Neutrophils (%) (Auto) 80 % (31-73) H Lymphocytes (%) (Auto) 8 % (24-48) L Monocytes (%) (Auto) 10 % (0-9) H Eosinophils (%) (Auto) 1 % (0-3) Basophils (%) (Auto) 1 % (0-3) Neutrophils # (Auto) 4.5 x10^3/uL (1.8-7.7) Lymphocytes # (Auto) 0.5 x10^3/uL (1.0-4.8) L Monocytes # (Auto) 0.6 x10^3/uL (0.0-1.1) Eosinophils # (Auto) 0.1 x10^3/uL (0.0-0.7) Basophils # (Auto) 0.0 x10^3/uL (0.0-0.2) Sodium Level 137 mmol/L (136-145) Potassium Level 4.2 mmol/L (3.5-5.1) Chloride Level 102 mmol/L (98-107) Carbon Dioxide Level 24 mmol/L (21-32) Anion Gap 11 (6-14) Blood Urea Nitrogen 15 mg/dL (7-20) Creatinine 0.9 mg/dL (0.6-1.0) Estimated GFR (Cockcroft-Gault) 59.9 Glucose Level 114 mg/dL (70-99) H Calcium Level 8.5 mg/dL (8.5-10.1) Troponin I Quantitative < 0.017 ng/mL (0.000-0.055) Laboratory Tests 03/09/21 17:11 03/10/21 04:50 Laboratory Tests 03/09/21 17:11 03/10/21 04:50 ASSESSMENT/PLAN ASSESSMENT/PLAN 1. Pleuritic chest pain with moderate right side pleural effusion: possible malignancy 2. Hydronephrosis/hydroureter bilaterally with bladder CA and UTI 3. AFIB RVR: new onset likely precipitated by sympathetic response to above. Back in SR with cardizem 4. HLP: on zocor 5. Dementia: on aricept 6. Jehovas witness Recommendations 1. Has not had any biopsy but will need thoracentesis, await pulmonary 2. DC cardizem drip and start on low dose metoprolol as her BP is at the low end. Continue baby ASA 3. TTE and TSH. 4. analgesic control per PCP. Will apply lidoderm to right rib cage. 5. Will need MCOT to further evaluate burden of afib. Discussed with pt and daughter. LIZBETH GERBER APRN Mar 10, 2021 09:37
[2021-03-10] MEDS ORDERED: traMADol 50 MG TABLET PO PRN (11:30)
[2021-03-10] MEDS ORDERED: ACETAMINOPHEN 325 MG TABLET. PO PRN (11:30)
[2021-03-10] MEDS ORDERED: ONDANSETRON PF 4 MG/2 ML VIAL. IVP PRN (11:30)
--- NOTE | 2021-03-10 11:41 | PDOC ---
Provider Note Date of Service: DATE: 03/10/21 TIME: 11:40 Provider Note history and physical dictated # [id number] Justifications for Admission Other Justification FAZAL LUGO MD Mar 10, 2021 11:41
--- NOTE | 2021-03-10 12:13 | HP ---
ADMIT DATE: 03/10/2021 LOCATION: Room 200. HISTORY OF PRESENT ILLNESS: The patient is an 81-year-old white female who has a history of metastatic urothelial carcinoma of the bladder which involves the distal left ureter and left inguinal and left iliac lymph nodes who underwent a transurethral resection of bladder tumor when the diagnosis was made. She has received chemo and radiation therapy. She is followed at [facility]. The patient also has a history of a distal left ureteral stone and last month underwent placement of a left ureteral stent for that. She also has had problems with recurrent urinary tract infections. She is a Denominational. She does have a history of dementia and hyperlipidemia. She noted the onset of right-sided anterior lateral rib pain which was pleuritic, worse when she took a deep breath. She has not had any significant cough, but she has had some dyspnea on exertion according to the family last two weeks. There has been no fever. She did have a CAT scan of the chest done at [facility] about a month ago. There were some small spots noted on a CAT scan of the lung, suspicious for metastatic disease to the lung. There was no evidence of a pulmonary embolus noted and I believe she had a CAT scan and angiogram study despite the IV iodine dye. She had a very small minimal pleural effusion on the right side at that time. The patient has had this pleuritic right-sided chest pain before. She also complained of some diffuse abdominal discomfort when she came in, but denies any nausea, vomiting and she had a bowel movement actually this morning. In addition, she was noted to be in atrial fibrillation with rapid ventricular response, was started on a Cardizem drip. She does not have any previous history of atrial fibrillation. She converted in the middle of the night and was started on metoprolol 25 mg p.o. b.i.d. by the Cardiology Service and her heart rate is 51, now sinus bradycardia. She is tolerating it well. She is therefore admitted for further evaluation of her pleuritic chest pain, worsening right pleural effusion and also the pleuritic chest pain as well as the atrial fibrillation with rapid ventricular response, abdominal discomfort. ALLERGIES: HYDROCODONE. She cannot tolerate tell me what the side effects of the allergy was. SIDE EFFECTS TO IODINE. MEDICATIONS: Include aspirin 81 mg every day, Aricept 5 mg every day, fish oil 1 gram daily, multiple vitamin every day and simvastatin 20 mg every day. PAST MEDICAL HISTORY: Significant for dementia, hyperlipidemia. She had a transurethral resection of a bladder tumor, which showed a high grade urothelial carcinoma of the bladder which involves the distal left ureter and also was noted to have left inguinal and left iliac lymph node involvement. She did have a CAT scan of chest done about a month ago at [facility] which showed small spots in lung, highly suspicious for metastatic cancer to the lung. In addition, she is going for chemo and radiation therapy. Early this year in October, she had sepsis secondary to urinary tract infection, has had problems with recurrent urinary tract infection several times since last year. She has dementia, hyperlipidemia, history of a laparoscopy, cholecystectomy, vein stripping in the past. SOCIAL HISTORY: She quit smoking in 1967. She does not currently drink alcohol. FAMILY HISTORY: Noncontributory. REVIEW OF SYSTEMS: GENERAL: She denies any fever, chills or sweats in last three days. CARDIOVASCULAR: No chest pain, but she has right-sided pleuritic pain. PULMONARY: She has dyspnea on exertion. No cough. GASTROINTESTINAL: She has some generalized abdominal discomfort. That is much better today. There has been no nausea or vomiting. ENDOCRINE: No diabetes mellitus. SKIN: No rashes. Rest of review of systems reviewed and are negative except as stated in history of present illness. PHYSICAL EXAMINATION: VITAL SIGNS: Temperature 97.4 degrees, heart rate 51 and regular, respiratory rate 16, blood pressure 123/59, oxygen saturation 97% on 2 liters per nasal cannula. HEENT: Eyes gaze is conjugate. Extraocular muscles are intact. Mouth: Tongue is midline. She wears dentures. NECK: There is no cervical lymphadenopathy or thyroid enlargement. HEART: Reveals an S1, S2. There is no S3 or murmur. LUNGS: Clear on the left. She has got decreased breath sounds about one-half to two-thirds way up on the right side. ABDOMEN: Soft, nontender with no hepatosplenomegaly, masses or tenderness. EXTREMITIES: Lower extremities are without edema. Both feet are warm. Pedal pulses present. SKIN: No rashes. NEUROLOGIC: Coherent. No facial weakness, no focal weakness in arms or legs. LABORATORY DATA: Review of her laboratory test, white count was 5.6, hemoglobin 10.7, platelet count 298,000, 80 polys and 8 lymphocytes. INR 1.1, PTT of 34. Sodium 137, potassium 4.2, chloride 102, total CO2 is 24, BUN 15, creatinine 0.9, blood sugar is 114. ProBNP 1819. Troponin level negative x 2. Thyroid stimulating hormone level was normal. Blood sugar 110. Liver function tests normal. Albumin 3.1. Sodium 135, potassium 4.0, BUN 17, creatinine 0.9. Urinalysis showed 1-2 red cells and 11-20 white cells. She had a CAT scan of the abdomen and pelvis which showed moderate bilateral hydronephrosis, left ureteral stent was seen, 4 mm calculus at the left ureterovesicular junction was seen. She had some mild fat stranding around the urinary bladder. She had a moderate right-sided pleural effusion with volume loss in the right lung. She had mild left lower lobe lung consolidation changes also. I do not see a chest x-ray. She had an electrocardiogram done. Electrocardiogram showed atrial fibrillation with rapid ventricular response. ASSESSMENT: 1. Right pleural effusion, which was minimal last month, and now it is pretty significant. Obviously concerned about a malignant pleural effusion in the setting of metastatic cancer of the bladder. 2. New onset atrial fibrillation with rapid ventricular response, converted to sinus rhythm on Cardizem drip and currently off the Cardizem drip on low dose metoprolol and sinus bradycardia. 3. Metastatic bladder cancer involving the distal left ureter as well as the inguinal and iliac lymph node chain and possibly lung on CAT scan of the chest last month. 4. Bilateral hydronephrosis. 5. Left ureteral kidney stone treated with a stent. 6. Hyperlipidemia. 7. Dementia. PLAN: At this time is to consult Dr. Arredondo for Cardiology, Consult, Dr. Bueno for Pulmonary and consult Interventional Radiology for diagnostic and therapeutic right-sided thoracentesis. Consult Dr. Huizar for GI. We will order some IV fluids at 50 an hour for about a liter. Analgesics will be ordered, tramadol 25 mg every 6 hours p.r.n. We will continue the metoprolol, but she might need a lower dose. Continue Lovenox to help prevent embolization and for deep vein thrombosis prophylaxis. Also, she is on a higher dose to help prevent embolization with paroxysmal atrial fibrillation, new onset. We will continue with her simvastatin and other current medications. An echocardiogram has been ordered. She is thinking about her code status. She is currently a full code. Discussed the case with the patient's and I believe her daughter at bedside. We will also continue with IV Rocephin and she has pyuria consistent with possibly recurrent urinary tract infection. Urine culture is pending. She is a Denominational also. SHARON DR: Bull TID: [id number]
--- NOTE | 2021-03-10 12:26 | RAD ---
CT chest without contrast dated 03/10/2021. Comparison made to 02/14/2021. CLINICAL INDICATION: Follow-up lung nodules. TECHNIQUE: Contiguous axial imaging the chest performed without the administration of intravenous contrast. FINDINGS: Heart size is mildly enlarged, stable. No significant pericardial effusion. Scattered coronary calcif ications. Ectasia of the ascending thoracic aorta measuring 3.9 cm transverse, unchanged. There are nonpathologic enlarged precarinal, subcarinal lymph nodes. No apparent axillary or hilar ad enopathy. The thyroid gland is unremarkable. There is a large pleural effusion on the right. Consolidation of the right lower lobe and right middl e lobe, likely atelectasis. There is some narrowing of the right lower lobe and right middle lobe air ways and bronchus intermedius subpleural nodular density in the left upper lobe laterally on image 12 8 measures about 9 mm, unchanged. There is consolidation in the left lower lobe with narrowing of the left lower lobe airways, new from prior study. Small left pleural effusion. A pulmonary nodule in th e left lower lobe posteriorly on image 193 measures 7 mm, unchanged. There is also a pulmonary nodule in the left lower lobe posterior laterally on image 167 that measures about 5 mm, stable. No pneumot horax. There are a few small subpleural nodules in the aerated portions of the right lung, stable. Images of upper abdomen show no significant abnormality. Bone windows show no acute findings. Multile jessica spondylosis. IMPRESSION: 1. Large right pleural effusion and small left pleural effusion, increased in size from prior study. There is consolidation at the right base and left lower lobe that likely represents associated atelec tasis. 2. There are multiple noncalcified pulmonary nodules, left greater than right, nonspecific but probab ly not significant changed from prior study. Continued follow-up imaging to ensure stability. 3. Coronary artery calcifications and mild ectasia of the ascending thoracic aorta, unchanged. Electronically signed by: Acosta Casper MD (03/10/2021 12:23 PM) [facility]Y
--- NOTE | 2021-03-10 12:37 | PDOC2 ---
CONSULT Date of Consult Date of Consult DATE: 03/10/21 TIME: 12:25 Reason for Consult Reason for Consult: History of bladder cancer with recent suspected recurrence Referring Physician Referring Physician: Dr. Schwarz Identification/Chief Complaint Chief Complaint Shortness of breath Source Source: Chart review, Patient History of Present Illness Reason for Visit: Batsheva Montoya is an 81-year-old female with history of bladder cancer who has been admitted to [facility] for further evaluation and management of pleuritic chest pain and dyspnea. She has been found to have atrial fibrillation and rapid ventricular response and has been admitted for further management of the same. Medical oncology consultation has been requested due to the patient's history of bladder cancer and recent concern for cancer recurrence. Her oncologic history dates back to late 2019 when she was found to have hematuria. In August 2020, she underwent TURBT which showed invasive high-grade urothelial carcinoma with focal squamous, glandular, and sarcomatoid differentiation, invasive into muscularis propria. She underwent radiotherapy concurrent with gemcitabine monotherapy. This was completed under the care of Dr. Gimenez and Dr. Pitts at [facility]. Batsheva returned to Dr. Esposito in February 2020 for a follow-up visit. CT angiogram obtained prior to that visit showed multiple new pulmonary nodules, concerning for metastatic recurrence of her bladder cancer. Batsheva discussed next steps with her primary oncologist including the potential role of a biopsy if further systemic therapy was desired. The alternative option of continuing with supportive care and hospice was also discussed and the patient was to return to Dr. Esposito after making a decision. Past Medical History Cardiovascular: Hyperlipidemia, Other (varicose veins) Pulmonary: No pertinent hx CENTRAL NERVOUS SYSTEM: Dementia, Other GI: Constipation Heme/Onc: Cancer (bladder) Hepatobiliary: No pertinent hx Psych: No pertinent hx Musculoskeletal: Osteoarthritis Infectious disease: No pertinent hx ENT: No pertinent hx Renal/: Bladder Ca. Endocrine: No pertinent hx Dermatology: No pertinent hx Past Surgical History Past Surgical History: Other (left ureteral stenting) Family History Family History: Family History Unknown Social History Quit (remotely) ALCOHOL: none Drugs: None Lives: with Family (spouse) Current Problem List Problem List Problems Medical Problems: (1) Abdominal pain Status: Acute (2) History of kidney stones Status: Acute (3) Paroxysmal atrial fibrillation with rapid ventricular response Status: Acute Current Medications Current Medications Current Medications Morphine Sulfate (Morphine Sulfate) 4 mg PRN Q15MIN PRN IV/SQ PAIN GREATER THAN 3/10 Last administered on 03/09/21at 17:44; Start 03/09/21 at 16:45; Stop 03/10/21 at 16:44 Sodium Chloride 1,000 ml @ 1,000 mls/hr Q1H IV Last administered on 03/09/21at 17:12; Start 03/09/21 at 16:45; Stop 03/09/21 at 17:44; Status DC Ondansetron HCl (Zofran) 4 mg 1X ONCE IVP Last administered on 03/09/21at 17:30; Start 03/09/21 at 16:45; Stop 03/09/21 at 16:46; Status DC Diltiazem HCl (Cardizem Iv Push) 20 mg 1X ONCE IVP Last administered on 03/09/21at 17:36; Start 03/09/21 at 17:30; Stop 03/09/21 at 17:31; Status DC Diltiazem HCl 125 mg/Sodium Chloride 125 ml @ 5 mls/hr CONT PRN IV SEE I/O RECORD Last administered on 03/09/21at 17:43; Start 03/09/21 at 17:30; Stop 03/10/21 at 11:26; Status DC Ceftriaxone Sodium (Rocephin) 1 gm 1X ONCE IVP Last administered on 03/09/21at 18:43; Start 03/09/21 at 18:15; Stop 03/09/21 at 18:16; Status DC Fentanyl Citrate (Fentanyl 2ml Vial) 75 mcg 1X ONCE IVP Last administered on 03/09/21at 18:42; Start 03/09/21 at 18:30; Stop 03/09/21 at 18:31; Status DC Enoxaparin Sodium (Lovenox Per Pharmacy Treatment Dosing) 1 each PRN DAILY PRN MC SEE COMMENTS; Start 03/09/21 at 19:15 Ondansetron HCl (Zofran) 4 mg PRN Q8HRS PRN IV NAUSEA/VOMITING; Start 03/09/21 at 19:15; Stop 03/10/21 at 19:14 Fentanyl Citrate (Fentanyl 2ml Vial) 50 mcg PRN Q1HR PRN IV PAIN; Start 03/09/21 at 19:15; Stop 03/10/21 at 19:14 Acetaminophen (Tylenol) 650 mg PRN Q4HRS PRN PO FEVER > 100.3'F Last administered on 03/10/21at 08:58; Start 03/09/21 at 19:15; Stop 03/10/21 at 11:54; Status DC Aspirin (Ecotrin) 81 mg HS PO ; Start 03/10/21 at 21:00 Donepezil HCl (Aricept) 10 mg HS PO ; Start 03/10/21 at 21:00; Stop 03/10/21 at 11:29; Status DC Polyethylene Glycol (miraLAX PACKET) 17 gm DAILY PO Last administered on 03/10/21at 08:58; Start 03/10/21 at 09:00 Simvastatin (Zocor) 20 mg HS PO ; Start 03/10/21 at 21:00 Tamsulosin HCl (Flomax) 0.4 mg BID PO Last administered on 03/10/21at 08:58; Start 03/10/21 at 09:00 Enoxaparin Sodium (Lovenox 80mg Syringe) 70 mg Q12HR SQ Last administered on 03/10/21at 02:29; Start 03/10/21 at 02:30 Info (Anti-Coagulation Monitoring By Pharmacy) 1 each PRN DAILY PRN MC PER PROTOCOL Last administered on 03/10/21at 01:52; Start 03/10/21 at 02:00 Metoprolol Tartrate (Lopressor) 25 mg BID PO Last administered on 03/10/21at 08:58; Start 03/10/21 at 09:00 Ceftriaxone Sodium (Rocephin) 1 gm HS IVP ; Start 03/10/21 at 21:00 Sodium Chloride 1,000 ml @ 50 mls/hr Q20H IV ; Start 03/10/21 at 12:00 Ceftriaxone Sodium (Rocephin) 1 gm Q24H IVP ; Start 03/10/21 at 18:15; Stop 03/10/21 at 11:27; Status DC Ondansetron HCl (Zofran) 4 mg PRN Q6HRS PRN IVP NAUSEA/VOMITING; Start 03/10/21 at 11:30 Donepezil HCl (Aricept) 5 mg HS PO ; Start 03/10/21 at 21:00 Tramadol HCl (Ultram) 25 mg PRN Q6HRS PRN PO MODERATE PAIN; Start 03/10/21 at 11:30 Famotidine (Pepcid) 20 mg QHS PO ; Start 03/10/21 at 21:00 Acetaminophen (Tylenol) 650 mg PRN Q6HRS PRN PO MILD PAIN / TEMP > 100.3'F; Start 03/10/21 at 11:30 Lidocaine (Lidoderm) 1 patch DAILY TD ; Start 03/10/21 at 12:00 Miscellaneous (Lidoderm Patch Removal) 1 ea QHS MC ; Start 03/10/21 at 21:00 Active Scripts Active Reported [prevagen] 1 Tab 1 PO DAILY Flomax (Tamsulosin Hcl) 0.4 Mg Cap.er.24h 0.4 Mg PO BID Simvastatin 20 Mg Tablet 20 Mg PO HS Miralax (Polyethylene Glycol 3350) 17 Gm Powd.pack 1 Packet PO DAILY 2 Days dissolve in water Donepezil Hcl 10 Mg Tablet 10 Mg PO HS Aspirin Ec (Aspirin) 81 Mg Tablet.dr 81 Mg PO HS Acetaminophen 325 Mg Tablet 2 Tab PO PRN Q6HRS PRN 24 Days Allergies Allergies: Coded Allergies: hydrocodone (Verified Allergy, Intermediate, 10/21/20) iodine (Verified Allergy, Intermediate, 10/21/20) ROS Review of System Negative unless stated otherwise in HPI Physical Exam Physical Exam General: Awake, alert, no distress Head: Atraumatic, no conjunctival icterus, normal oral cavity mucosa Neck: Supple, no lymphadenopathy Chest: No trauma noted Cardiovascular: Regular rhythm, normal rate, no murmurs Respiratory: Bilateral air entry noted, lungs clear to auscultation bilaterally. No accessory muscle use Abdominal: Abdomen is soft, nontender, nondistended. Bowel sounds were normal. No hepatomegaly or splenomegaly Musculoskeletal: No deformity noted Extremities: No edema noted Skin: No rash or lesions Neurologic: Alert and oriented x3, no grossly evident neurologic deficits noted. Full neurological exam was not performed Psychiatric: Appropriate mood and affect Vitals VITALS Vital Signs Date Time Temp Pulse Resp B/P (MAP) Pulse Ox O2 Delivery O2 Flow Rate FiO2 03/10/21 11:00 97.4 51 16 123/59 (80) 97 Nasal Cannula 2.0 97.4 Labs Labs Laboratory Tests Test 03/09/21 17:11 03/09/21 17:50 03/09/21 18:52 03/10/21 01:05 White Blood Count 4.6 x10^3/uL (4.0-11.0) Red Blood Count 3.88 x10^6/uL (3.50-5.40) Hemoglobin 11.3 g/dL (12.0-15.5) Hematocrit 32.9 % (36.0-47.0) Mean Corpuscular Volume 85 fL (79-100) Mean Corpuscular Hemoglobin 29 pg (25-35) Mean Corpuscular Hemoglobin Concent 34 g/dL (31-37) Red Cell Distribution Width 13.5 % (11.5-14.5) Platelet Count 305 x10^3/uL (140-400) Neutrophils (%) (Auto) 75 % (31-73) Lymphocytes (%) (Auto) 11 % (24-48) Monocytes (%) (Auto) 12 % (0-9) Eosinophils (%) (Auto) 2 % (0-3) Basophils (%) (Auto) 1 % (0-3) Neutrophils # (Auto) 3.5 x10^3/uL (1.8-7.7) Lymphocytes # (Auto) 0.5 x10^3/uL (1.0-4.8) Monocytes # (Auto) 0.5 x10^3/uL (0.0-1.1) Eosinophils # (Auto) 0.1 x10^3/uL (0.0-0.7) Basophils # (Auto) 0.0 x10^3/uL (0.0-0.2) Sodium Level 135 mmol/L (136-145) Potassium Level 4.0 mmol/L (3.5-5.1) Chloride Level 98 mmol/L (98-107) Carbon Dioxide Level 27 mmol/L (21-32) Anion Gap 10 (6-14) Blood Urea Nitrogen 17 mg/dL (7-20) Creatinine 0.9 mg/dL (0.6-1.0) Estimated GFR (Cockcroft-Gault) 59.9 BUN/Creatinine Ratio 19 (6-20) Glucose Level 110 mg/dL (70-99) Calcium Level 8.6 mg/dL (8.5-10.1) Total Bilirubin 0.6 mg/dL (0.2-1.0) Aspartate Amino Transf (AST/SGOT) 16 U/L (15-37) Alanine Aminotransferase (ALT/SGPT) 17 U/L (14-59) Alkaline Phosphatase 81 U/L (46-116) Troponin I Quantitative < 0.017 ng/mL (0.000-0.055) < 0.017 ng/mL (0.000-0.055) Total Protein 6.5 g/dL (6.4-8.2) Albumin 3.1 g/dL (3.4-5.0) Albumin/Globulin Ratio 0.9 (1.0-1.7) Lipase 349 U/L (73-393) Urine Collection Type Void Urine Color Yellow Urine Clarity Clear Urine pH 7.0 (<5.0-8.0) Urine Specific [place] 1.010 (1.000-1.030) Urine Protein Negative mg/dL (NEG-TRACE) Urine Glucose (UA) Negative mg/dL (NEG) Urine Ketones (Stick) Negative mg/dL (NEG) Urine Blood Small (NEG) Urine Nitrite Negative (NEG) Urine Bilirubin Negative (NEG) Urine Urobilinogen Dipstick 0.2 mg/dL (0.2 mg/dL) Urine Leukocyte Esterase Large (NEG) Urine RBC 1-2 /HPF (0-2) Urine WBC 11-20 /HPF (0-4) Urine Squamous Epithelial Cells Few /LPF Urine Bacteria Few /HPF (0-FEW) Prothrombin Time 13.4 SEC (11.7-14.0) Prothromb Time International Ratio 1.1 (0.8-1.1) Activated Partial Thromboplast Time 34 SEC (24-38) Test 03/10/21 04:50 White Blood Count 5.6 x10^3/uL (4.0-11.0) Red Blood Count 3.64 x10^6/uL (3.50-5.40) Hemoglobin 10.7 g/dL (12.0-15.5) Hematocrit 32.1 % (36.0-47.0) Mean Corpuscular Volume 88 fL (79-100) Mean Corpuscular Hemoglobin 29 pg (25-35) Mean Corpuscular Hemoglobin Concent 33 g/dL (31-37) Red Cell Distribution Width 13.7 % (11.5-14.5) Platelet Count 298 x10^3/uL (140-400) Neutrophils (%) (Auto) 80 % (31-73) Lymphocytes (%) (Auto) 8 % (24-48) Monocytes (%) (Auto) 10 % (0-9) Eosinophils (%) (Auto) 1 % (0-3) Basophils (%) (Auto) 1 % (0-3) Neutrophils # (Auto) 4.5 x10^3/uL (1.8-7.7) Lymphocytes # (Auto) 0.5 x10^3/uL (1.0-4.8) Monocytes # (Auto) 0.6 x10^3/uL (0.0-1.1) Eosinophils # (Auto) 0.1 x10^3/uL (0.0-0.7) Basophils # (Auto) 0.0 x10^3/uL (0.0-0.2) Sodium Level 137 mmol/L (136-145) Potassium Level 4.2 mmol/L (3.5-5.1) Chloride Level 102 mmol/L (98-107) Carbon Dioxide Level 24 mmol/L (21-32) Anion Gap 11 (6-14) Blood Urea Nitrogen 15 mg/dL (7-20) Creatinine 0.9 mg/dL (0.6-1.0) Estimated GFR (Cockcroft-Gault) 59.9 Glucose Level 114 mg/dL (70-99) Calcium Level 8.5 mg/dL (8.5-10.1) Troponin I Quantitative < 0.017 ng/mL (0.000-0.055) SQ-Log-V-Type Natriuretic Peptide 1819 pg/mL (0-449) Thyroid Stimulating Hormone (TSH) 1.644 uIU/mL (0.358-3.74) Laboratory Tests Test 03/09/21 17:11 03/09/21 17:50 03/09/21 18:52 03/10/21 01:05 White Blood Count 4.6 x10^3/uL (4.0-11.0) Red Blood Count 3.88 x10^6/uL (3.50-5.40) Hemoglobin 11.3 g/dL (12.0-15.5) Hematocrit 32.9 % (36.0-47.0) Mean Corpuscular Volume 85 fL (79-100) Mean Corpuscular Hemoglobin 29 pg (25-35) Mean Corpuscular Hemoglobin Concent 34 g/dL (31-37) Red Cell Distribution Width 13.5 % (11.5-14.5) Platelet Count 305 x10^3/uL (140-400) Neutrophils (%) (Auto) 75 % (31-73) Lymphocytes (%) (Auto) 11 % (24-48) Monocytes (%) (Auto) 12 % (0-9) Eosinophils (%) (Auto) 2 % (0-3) Basophils (%) (Auto) 1 % (0-3) Neutrophils # (Auto) 3.5 x10^3/uL (1.8-7.7) Lymphocytes # (Auto) 0.5 x10^3/uL (1.0-4.8) Monocytes # (Auto) 0.5 x10^3/uL (0.0-1.1) Eosinophils # (Auto) 0.1 x10^3/uL (0.0-0.7) Basophils # (Auto) 0.0 x10^3/uL (0.0-0.2) Sodium Level 135 mmol/L (136-145) Potassium Level 4.0 mmol/L (3.5-5.1) Chloride Level 98 mmol/L (98-107) Carbon Dioxide Level 27 mmol/L (21-32) Anion Gap 10 (6-14) Blood Urea Nitrogen 17 mg/dL (7-20) Creatinine 0.9 mg/dL (0.6-1.0) Estimated GFR (Cockcroft-Gault) 59.9 BUN/Creatinine Ratio 19 (6-20) Glucose Level 110 mg/dL (70-99) Calcium Level 8.6 mg/dL (8.5-10.1) Total Bilirubin 0.6 mg/dL (0.2-1.0) Aspartate Amino Transf (AST/SGOT) 16 U/L (15-37) Alanine Aminotransferase (ALT/SGPT) 17 U/L (14-59) Alkaline Phosphatase 81 U/L (46-116) Troponin I Quantitative < 0.017 ng/mL (0.000-0.055) < 0.017 ng/mL (0.000-0.055) Total Protein 6.5 g/dL (6.4-8.2) Albumin 3.1 g/dL (3.4-5.0) Albumin/Globulin Ratio 0.9 (1.0-1.7) Lipase 349 U/L (73-393) Urine Collection Type Void Urine Color Yellow Urine Clarity Clear Urine pH 7.0 (<5.0-8.0) Urine Specific [place] 1.010 (1.000-1.030) Urine Protein Negative mg/dL (NEG-TRACE) Urine Glucose (UA) Negative mg/dL (NEG) Urine Ketones (Stick) Negative mg/dL (NEG) Urine Blood Small (NEG) Urine Nitrite Negative (NEG) Urine Bilirubin Negative (NEG) Urine Urobilinogen Dipstick 0.2 mg/dL (0.2 mg/dL) Urine Leukocyte Esterase Large (NEG) Urine RBC 1-2 /HPF (0-2) Urine WBC 11-20 /HPF (0-4) Urine Squamous Epithelial Cells Few /LPF Urine Bacteria Few /HPF (0-FEW) Prothrombin Time 13.4 SEC (11.7-14.0) Prothromb Time International Ratio 1.1 (0.8-1.1) Activated Partial Thromboplast Time 34 SEC (24-38) Test 03/10/21 04:50 White Blood Count 5.6 x10^3/uL (4.0-11.0) Red Blood Count 3.64 x10^6/uL (3.50-5.40) Hemoglobin 10.7 g/dL (12.0-15.5) Hematocrit 32.1 % (36.0-47.0) Mean Corpuscular Volume 88 fL (79-100) Mean Corpuscular Hemoglobin 29 pg (25-35) Mean Corpuscular Hemoglobin Concent 33 g/dL (31-37) Red Cell Distribution Width 13.7 % (11.5-14.5) Platelet Count 298 x10^3/uL (140-400) Neutrophils (%) (Auto) 80 % (31-73) Lymphocytes (%) (Auto) 8 % (24-48) Monocytes (%) (Auto) 10 % (0-9) Eosinophils (%) (Auto) 1 % (0-3) Basophils (%) (Auto) 1 % (0-3) Neutrophils # (Auto) 4.5 x10^3/uL (1.8-7.7) Lymphocytes # (Auto) 0.5 x10^3/uL (1.0-4.8) Monocytes # (Auto) 0.6 x10^3/uL (0.0-1.1) Eosinophils # (Auto) 0.1 x10^3/uL (0.0-0.7) Basophils # (Auto) 0.0 x10^3/uL (0.0-0.2) Sodium Level 137 mmol/L (136-145) Potassium Level 4.2 mmol/L (3.5-5.1) Chloride Level 102 mmol/L (98-107) Carbon Dioxide Level 24 mmol/L (21-32) Anion Gap 11 (6-14) Blood Urea Nitrogen 15 mg/dL (7-20) Creatinine 0.9 mg/dL (0.6-1.0) Estimated GFR (Cockcroft-Gault) 59.9 Glucose Level 114 mg/dL (70-99) Calcium Level 8.5 mg/dL (8.5-10.1) Troponin I Quantitative < 0.017 ng/mL (0.000-0.055) BC-Iqb-I-Type Natriuretic Peptide 1819 pg/mL (0-449) Thyroid Stimulating Hormone (TSH) 1.644 uIU/mL (0.358-3.74) Assessment/Plan Assessment/Plan Assessment: Urothelial carcinoma, with metastatic recurrence Atrial fibrillation with rapid ventricular response Dementia Malignant pleural effusion Cancer related pain Anemia in a [place] Recommendations: -Consider biopsy to confirm cancer recurrence versus hospice if treatment is not desired. I encouraged the patient to continue his discussions with her primary oncologist -Continue supportive care for atrial fibrillation. Management per cardiology service -Agree with thoracentesis for diagnostic and therapeutic purposes. We will follow up on cytology results -Follow pulmonology recommendations regarding management of acute respiratory failure -Rest per Dr. Chong Boyd MD Medical Oncology/Hematology Ph: [phone] DAMIAN BOYD MD Mar 10, 2021 12:37
[2021-03-10] MEDS: LIDOCAINE (700MG/PATCH) PATCH. TD SCH (12:41)
[2021-03-10] MEDS: IV 1/2 NORMAL SALINE 1,000 ML IV SCH (12:41)
--- NOTE | 2021-03-10 13:05 | PDOC ---
PULMONARY PROGRESS NOTES DATE: 03/10/21 TIME: 13:05 Vitals Vital Signs Date Time Temp Pulse Resp B/P (MAP) Pulse Ox O2 Delivery O2 Flow Rate FiO2 03/10/21 11:00 97.4 51 16 123/59 (80) 97 Nasal Cannula 2.0 97.4 Labs Laboratory Tests Test 03/09/21 17:11 03/09/21 17:50 03/09/21 18:52 03/10/21 01:05 White Blood Count 4.6 x10^3/uL (4.0-11.0) Red Blood Count 3.88 x10^6/uL (3.50-5.40) Hemoglobin 11.3 g/dL (12.0-15.5) Hematocrit 32.9 % (36.0-47.0) Mean Corpuscular Volume 85 fL (79-100) Mean Corpuscular Hemoglobin 29 pg (25-35) Mean Corpuscular Hemoglobin Concent 34 g/dL (31-37) Red Cell Distribution Width 13.5 % (11.5-14.5) Platelet Count 305 x10^3/uL (140-400) Neutrophils (%) (Auto) 75 % (31-73) Lymphocytes (%) (Auto) 11 % (24-48) Monocytes (%) (Auto) 12 % (0-9) Eosinophils (%) (Auto) 2 % (0-3) Basophils (%) (Auto) 1 % (0-3) Neutrophils # (Auto) 3.5 x10^3/uL (1.8-7.7) Lymphocytes # (Auto) 0.5 x10^3/uL (1.0-4.8) Monocytes # (Auto) 0.5 x10^3/uL (0.0-1.1) Eosinophils # (Auto) 0.1 x10^3/uL (0.0-0.7) Basophils # (Auto) 0.0 x10^3/uL (0.0-0.2) Sodium Level 135 mmol/L (136-145) Potassium Level 4.0 mmol/L (3.5-5.1) Chloride Level 98 mmol/L (98-107) Carbon Dioxide Level 27 mmol/L (21-32) Anion Gap 10 (6-14) Blood Urea Nitrogen 17 mg/dL (7-20) Creatinine 0.9 mg/dL (0.6-1.0) Estimated GFR (Cockcroft-Gault) 59.9 BUN/Creatinine Ratio 19 (6-20) Glucose Level 110 mg/dL (70-99) Calcium Level 8.6 mg/dL (8.5-10.1) Total Bilirubin 0.6 mg/dL (0.2-1.0) Aspartate Amino Transf (AST/SGOT) 16 U/L (15-37) Alanine Aminotransferase (ALT/SGPT) 17 U/L (14-59) Alkaline Phosphatase 81 U/L (46-116) Troponin I Quantitative < 0.017 ng/mL (0.000-0.055) < 0.017 ng/mL (0.000-0.055) Total Protein 6.5 g/dL (6.4-8.2) Albumin 3.1 g/dL (3.4-5.0) Albumin/Globulin Ratio 0.9 (1.0-1.7) Lipase 349 U/L (73-393) Urine Collection Type Void Urine Color Yellow Urine Clarity Clear Urine pH 7.0 (<5.0-8.0) Urine Specific [place] 1.010 (1.000-1.030) Urine Protein Negative mg/dL (NEG-TRACE) Urine Glucose (UA) Negative mg/dL (NEG) Urine Ketones (Stick) Negative mg/dL (NEG) Urine Blood Small (NEG) Urine Nitrite Negative (NEG) Urine Bilirubin Negative (NEG) Urine Urobilinogen Dipstick 0.2 mg/dL (0.2 mg/dL) Urine Leukocyte Esterase Large (NEG) Urine RBC 1-2 /HPF (0-2) Urine WBC 11-20 /HPF (0-4) Urine Squamous Epithelial Cells Few /LPF Urine Bacteria Few /HPF (0-FEW) Prothrombin Time 13.4 SEC (11.7-14.0) Prothromb Time International Ratio 1.1 (0.8-1.1) Activated Partial Thromboplast Time 34 SEC (24-38) Test 03/10/21 04:50 White Blood Count 5.6 x10^3/uL (4.0-11.0) Red Blood Count 3.64 x10^6/uL (3.50-5.40) Hemoglobin 10.7 g/dL (12.0-15.5) Hematocrit 32.1 % (36.0-47.0) Mean Corpuscular Volume 88 fL (79-100) Mean Corpuscular Hemoglobin 29 pg (25-35) Mean Corpuscular Hemoglobin Concent 33 g/dL (31-37) Red Cell Distribution Width 13.7 % (11.5-14.5) Platelet Count 298 x10^3/uL (140-400) Neutrophils (%) (Auto) 80 % (31-73) Lymphocytes (%) (Auto) 8 % (24-48) Monocytes (%) (Auto) 10 % (0-9) Eosinophils (%) (Auto) 1 % (0-3) Basophils (%) (Auto) 1 % (0-3) Neutrophils # (Auto) 4.5 x10^3/uL (1.8-7.7) Lymphocytes # (Auto) 0.5 x10^3/uL (1.0-4.8) Monocytes # (Auto) 0.6 x10^3/uL (0.0-1.1) Eosinophils # (Auto) 0.1 x10^3/uL (0.0-0.7) Basophils # (Auto) 0.0 x10^3/uL (0.0-0.2) Sodium Level 137 mmol/L (136-145) Potassium Level 4.2 mmol/L (3.5-5.1) Chloride Level 102 mmol/L (98-107) Carbon Dioxide Level 24 mmol/L (21-32) Anion Gap 11 (6-14) Blood Urea Nitrogen 15 mg/dL (7-20) Creatinine 0.9 mg/dL (0.6-1.0) Estimated GFR (Cockcroft-Gault) 59.9 Glucose Level 114 mg/dL (70-99) Calcium Level 8.5 mg/dL (8.5-10.1) Troponin I Quantitative < 0.017 ng/mL (0.000-0.055) XQ-Wiu-J-Type Natriuretic Peptide 1819 pg/mL (0-449) Thyroid Stimulating Hormone (TSH) 1.644 uIU/mL (0.358-3.74) Laboratory Tests Test 03/09/21 17:11 03/09/21 17:50 03/09/21 18:52 03/10/21 01:05 White Blood Count 4.6 x10^3/uL (4.0-11.0) Red Blood Count 3.88 x10^6/uL (3.50-5.40) Hemoglobin 11.3 g/dL (12.0-15.5) Hematocrit 32.9 % (36.0-47.0) Mean Corpuscular Volume 85 fL (79-100) Mean Corpuscular Hemoglobin 29 pg (25-35) Mean Corpuscular Hemoglobin Concent 34 g/dL (31-37) Red Cell Distribution Width 13.5 % (11.5-14.5) Platelet Count 305 x10^3/uL (140-400) Neutrophils (%) (Auto) 75 % (31-73) Lymphocytes (%) (Auto) 11 % (24-48) Monocytes (%) (Auto) 12 % (0-9) Eosinophils (%) (Auto) 2 % (0-3) Basophils (%) (Auto) 1 % (0-3) Neutrophils # (Auto) 3.5 x10^3/uL (1.8-7.7) Lymphocytes # (Auto) 0.5 x10^3/uL (1.0-4.8) Monocytes # (Auto) 0.5 x10^3/uL (0.0-1.1) Eosinophils # (Auto) 0.1 x10^3/uL (0.0-0.7) Basophils # (Auto) 0.0 x10^3/uL (0.0-0.2) Sodium Level 135 mmol/L (136-145) Potassium Level 4.0 mmol/L (3.5-5.1) Chloride Level 98 mmol/L (98-107) Carbon Dioxide Level 27 mmol/L (21-32) Anion Gap 10 (6-14) Blood Urea Nitrogen 17 mg/dL (7-20) Creatinine 0.9 mg/dL (0.6-1.0) Estimated GFR (Cockcroft-Gault) 59.9 BUN/Creatinine Ratio 19 (6-20) Glucose Level 110 mg/dL (70-99) Calcium Level 8.6 mg/dL (8.5-10.1) Total Bilirubin 0.6 mg/dL (0.2-1.0) Aspartate Amino Transf (AST/SGOT) 16 U/L (15-37) Alanine Aminotransferase (ALT/SGPT) 17 U/L (14-59) Alkaline Phosphatase 81 U/L (46-116) Troponin I Quantitative < 0.017 ng/mL (0.000-0.055) < 0.017 ng/mL (0.000-0.055) Total Protein 6.5 g/dL (6.4-8.2) Albumin 3.1 g/dL (3.4-5.0) Albumin/Globulin Ratio 0.9 (1.0-1.7) Lipase 349 U/L (73-393) Urine Collection Type Void Urine Color Yellow Urine Clarity Clear Urine pH 7.0 (<5.0-8.0) Urine Specific [place] 1.010 (1.000-1.030) Urine Protein Negative mg/dL (NEG-TRACE) Urine Glucose (UA) Negative mg/dL (NEG) Urine Ketones (Stick) Negative mg/dL (NEG) Urine Blood Small (NEG) Urine Nitrite Negative (NEG) Urine Bilirubin Negative (NEG) Urine Urobilinogen Dipstick 0.2 mg/dL (0.2 mg/dL) Urine Leukocyte Esterase Large (NEG) Urine RBC 1-2 /HPF (0-2) Urine WBC 11-20 /HPF (0-4) Urine Squamous Epithelial Cells Few /LPF Urine Bacteria Few /HPF (0-FEW) Prothrombin Time 13.4 SEC (11.7-14.0) Prothromb Time International Ratio 1.1 (0.8-1.1) Activated Partial Thromboplast Time 34 SEC (24-38) Test 03/10/21 04:50 White Blood Count 5.6 x10^3/uL (4.0-11.0) Red Blood Count 3.64 x10^6/uL (3.50-5.40) Hemoglobin 10.7 g/dL (12.0-15.5) Hematocrit 32.1 % (36.0-47.0) Mean Corpuscular Volume 88 fL (79-100) Mean Corpuscular Hemoglobin 29 pg (25-35) Mean Corpuscular Hemoglobin Concent 33 g/dL (31-37) Red Cell Distribution Width 13.7 % (11.5-14.5) Platelet Count 298 x10^3/uL (140-400) Neutrophils (%) (Auto) 80 % (31-73) Lymphocytes (%) (Auto) 8 % (24-48) Monocytes (%) (Auto) 10 % (0-9) Eosinophils (%) (Auto) 1 % (0-3) Basophils (%) (Auto) 1 % (0-3) Neutrophils # (Auto) 4.5 x10^3/uL (1.8-7.7) Lymphocytes # (Auto) 0.5 x10^3/uL (1.0-4.8) Monocytes # (Auto) 0.6 x10^3/uL (0.0-1.1) Eosinophils # (Auto) 0.1 x10^3/uL (0.0-0.7) Basophils # (Auto) 0.0 x10^3/uL (0.0-0.2) Sodium Level 137 mmol/L (136-145) Potassium Level 4.2 mmol/L (3.5-5.1) Chloride Level 102 mmol/L (98-107) Carbon Dioxide Level 24 mmol/L (21-32) Anion Gap 11 (6-14) Blood Urea Nitrogen 15 mg/dL (7-20) Creatinine 0.9 mg/dL (0.6-1.0) Estimated GFR (Cockcroft-Gault) 59.9 Glucose Level 114 mg/dL (70-99) Calcium Level 8.5 mg/dL (8.5-10.1) Troponin I Quantitative < 0.017 ng/mL (0.000-0.055) ZD-Cop-E-Type Natriuretic Peptide 1819 pg/mL (0-449) Thyroid Stimulating Hormone (TSH) 1.644 uIU/mL (0.358-3.74) Medications Active Scripts Medications Dose Route/Sig Max Daily Dose Days Date Category Dose Instructions [prevagen] 1 Tab 1 PO DAILY 03/09/21 Reported Flomax (Tamsulosin Hcl) 0.4 Mg Cap.er.24h 0.4 Mg PO BID 03/09/21 Reported Simvastatin 20 Mg Tablet 20 Mg PO HS 10/21/20 Reported Miralax (Polyethylene Glycol 3350) 17 Gm Powd.pack 1 Packet PO DAILY 2 10/21/20 Reported dissolve in water Donepezil Hcl 10 Mg Tablet 10 Mg PO HS 10/21/20 Reported Aspirin Ec (Aspirin) 81 Mg Tablet.dr 81 Mg PO HS 10/21/20 Reported Acetaminophen 325 Mg Tablet 2 Tab PO PRN Q6HRS PRN 24 10/21/20 Reported Impression . 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
--- NOTE | 2021-03-10 14:00 | NUR ---
Pt to IR for R thoracentesis, VSS, pt began c/o R sided CP, drain pulled, pain improved some before leaving to return to [facility]. Report given to Kenia KAPOOR, instructed to call IR if chest pain did not resolve or worsened. Samples to lab. PRIYANKA KAPOOR
--- NOTE | 2021-03-10 14:04 | NUR ---
SS following for discharge planning. SS reviewed pt chart and discussed with pt RN. Pt is from home with spouse and is currently requiring oxygen at two liters nasal canula. Pt having Thoracentesis today. Pt on IV Rocephin. Medications being monitored. SS will continue to follow for discharge planning.
--- NOTE | 2021-03-10 14:27 | PDOC2 ---
GI CONSULT Date of Service: DATE: 03/10/21 TIME: 14:12 Reason For Consult: Abdominal pain. HPI: HPI: 81 y/o female, probably not the most reliable historian, we are asked to see re: "abdominal pain". Somewhat vague, but seems to indicate RUQ mostly. Says not associated with N, V and seems positional. Can't tell me how long it's been going on, but prior to admission. Not affected by eating or stooling. Has had prior cholecystectomy from CT. Denies heartburn, dysphagia, prior PUD, liver or pancreatic history (and none listed in history). Gave up alcohol and tobacco years ago. Denies diarrhea, constipation or overt GI bleeding. Has h/o prior benign right colon lesion, apparently not endoscopically removable, and underwent right hemicolectomy for this. Don't know dates of any endoscopy. PMH: PMH: Carotid artery disease, LE venous insufficiency, HLP, Dementia, nephrolithiasis, UTI's, metastatic urothelial cancer (usually treated at ). S/P cysto/stent, michelle, right hemicolectomy, bladder tumor resection/debulking. LE vein stripping. Social History: Smoke: Quit (remotely) ALCOHOL: none Drugs: None ROS: GEN: Denies fevers, chills, sweats HEENT: Denies blurred vision, sore throat CV: Denies chest pain RESP: Denies shortness of air, cough GI: Per HPI : Denies hematuria, dysuria ENDO: Denies weight changes NEURO: Denies confusion, dizziness MSK: Denies weakness, joint pain/swelling SKIN: Denies jaundice, pruritus Vitals: Vitals: Vital Signs Date Time Temp Pulse Resp B/P (MAP) Pulse Ox O2 Delivery O2 Flow Rate FiO2 03/10/21 13:45 62 15 120/45 (70) 100 Nasal Cannula 2.0 03/10/21 11:00 97.4 97.4 Labs: Labs: Laboratory Tests Test 03/09/21 17:11 03/09/21 17:50 03/09/21 18:52 03/10/21 01:05 White Blood Count 4.6 x10^3/uL (4.0-11.0) Red Blood Count 3.88 x10^6/uL (3.50-5.40) Hemoglobin 11.3 g/dL (12.0-15.5) Hematocrit 32.9 % (36.0-47.0) Mean Corpuscular Volume 85 fL (79-100) Mean Corpuscular Hemoglobin 29 pg (25-35) Mean Corpuscular Hemoglobin Concent 34 g/dL (31-37) Red Cell Distribution Width 13.5 % (11.5-14.5) Platelet Count 305 x10^3/uL (140-400) Neutrophils (%) (Auto) 75 % (31-73) Lymphocytes (%) (Auto) 11 % (24-48) Monocytes (%) (Auto) 12 % (0-9) Eosinophils (%) (Auto) 2 % (0-3) Basophils (%) (Auto) 1 % (0-3) Neutrophils # (Auto) 3.5 x10^3/uL (1.8-7.7) Lymphocytes # (Auto) 0.5 x10^3/uL (1.0-4.8) Monocytes # (Auto) 0.5 x10^3/uL (0.0-1.1) Eosinophils # (Auto) 0.1 x10^3/uL (0.0-0.7) Basophils # (Auto) 0.0 x10^3/uL (0.0-0.2) Sodium Level 135 mmol/L (136-145) Potassium Level 4.0 mmol/L (3.5-5.1) Chloride Level 98 mmol/L (98-107) Carbon Dioxide Level 27 mmol/L (21-32) Anion Gap 10 (6-14) Blood Urea Nitrogen 17 mg/dL (7-20) Creatinine 0.9 mg/dL (0.6-1.0) Estimated GFR (Cockcroft-Gault) 59.9 BUN/Creatinine Ratio 19 (6-20) Glucose Level 110 mg/dL (70-99) Calcium Level 8.6 mg/dL (8.5-10.1) Total Bilirubin 0.6 mg/dL (0.2-1.0) Aspartate Amino Transf (AST/SGOT) 16 U/L (15-37) Alanine Aminotransferase (ALT/SGPT) 17 U/L (14-59) Alkaline Phosphatase 81 U/L (46-116) Troponin I Quantitative < 0.017 ng/mL (0.000-0.055) < 0.017 ng/mL (0.000-0.055) Total Protein 6.5 g/dL (6.4-8.2) Albumin 3.1 g/dL (3.4-5.0) Albumin/Globulin Ratio 0.9 (1.0-1.7) Lipase 349 U/L (73-393) Urine Collection Type Void Urine Color Yellow Urine Clarity Clear Urine pH 7.0 (<5.0-8.0) Urine Specific [place] 1.010 (1.000-1.030) Urine Protein Negative mg/dL (NEG-TRACE) Urine Glucose (UA) Negative mg/dL (NEG) Urine Ketones (Stick) Negative mg/dL (NEG) Urine Blood Small (NEG) Urine Nitrite Negative (NEG) Urine Bilirubin Negative (NEG) Urine Urobilinogen Dipstick 0.2 mg/dL (0.2 mg/dL) Urine Leukocyte Esterase Large (NEG) Urine RBC 1-2 /HPF (0-2) Urine WBC 11-20 /HPF (0-4) Urine Squamous Epithelial Cells Few /LPF Urine Bacteria Few /HPF (0-FEW) Prothrombin Time 13.4 SEC (11.7-14.0) Prothromb Time International Ratio 1.1 (0.8-1.1) Activated Partial Thromboplast Time 34 SEC (24-38) Test 03/10/21 04:50 White Blood Count 5.6 x10^3/uL (4.0-11.0) Red Blood Count 3.64 x10^6/uL (3.50-5.40) Hemoglobin 10.7 g/dL (12.0-15.5) Hematocrit 32.1 % (36.0-47.0) Mean Corpuscular Volume 88 fL (79-100) Mean Corpuscular Hemoglobin 29 pg (25-35) Mean Corpuscular Hemoglobin Concent 33 g/dL (31-37) Red Cell Distribution Width 13.7 % (11.5-14.5) Platelet Count 298 x10^3/uL (140-400) Neutrophils (%) (Auto) 80 % (31-73) Lymphocytes (%) (Auto) 8 % (24-48) Monocytes (%) (Auto) 10 % (0-9) Eosinophils (%) (Auto) 1 % (0-3) Basophils (%) (Auto) 1 % (0-3) Neutrophils # (Auto) 4.5 x10^3/uL (1.8-7.7) Lymphocytes # (Auto) 0.5 x10^3/uL (1.0-4.8) Monocytes # (Auto) 0.6 x10^3/uL (0.0-1.1) Eosinophils # (Auto) 0.1 x10^3/uL (0.0-0.7) Basophils # (Auto) 0.0 x10^3/uL (0.0-0.2) Sodium Level 137 mmol/L (136-145) Potassium Level 4.2 mmol/L (3.5-5.1) Chloride Level 102 mmol/L (98-107) Carbon Dioxide Level 24 mmol/L (21-32) Anion Gap 11 (6-14) Blood Urea Nitrogen 15 mg/dL (7-20) Creatinine 0.9 mg/dL (0.6-1.0) Estimated GFR (Cockcroft-Gault) 59.9 Glucose Level 114 mg/dL (70-99) Calcium Level 8.5 mg/dL (8.5-10.1) Troponin I Quantitative < 0.017 ng/mL (0.000-0.055) HH-Qsj-O-Type Natriuretic Peptide 1819 pg/mL (0-449) Thyroid Stimulating Hormone (TSH) 1.644 uIU/mL (0.358-3.74) Save abnormal UA, within reasonable limits. Allergies: Coded Allergies: hydrocodone (Verified Allergy, Intermediate, 10/21/20) iodine (Verified Allergy, Intermediate, 10/21/20) Medications: Current Medications Medications (Trade) Dose Ordered Sig/Reyes Route PRN Reason Start Time Stop Time Status Last Admin Dose Admin Morphine Sulfate (Morphine Sulfate) 4 mg PRN Q15MIN PRN IV/SQ PAIN GREATER THAN 3/10 03/09/21 16:45 03/10/21 16:44 03/09/21 17:44 Sodium Chloride 1,000 ml @ 1,000 mls/hr Q1H IV 03/09/21 16:45 03/09/21 17:44 DC 03/09/21 17:12 Ondansetron HCl (Zofran) 4 mg 1X ONCE IVP 03/09/21 16:45 03/09/21 16:46 DC 03/09/21 17:30 Diltiazem HCl (Cardizem Iv Push) 20 mg 1X ONCE IVP 03/09/21 17:30 03/09/21 17:31 DC 03/09/21 17:36 Diltiazem HCl 125 mg/Sodium Chloride 125 ml @ 5 mls/hr CONT PRN IV SEE I/O RECORD 03/09/21 17:30 03/10/21 11:26 DC 03/09/21 17:43 Ceftriaxone Sodium (Rocephin) 1 gm 1X ONCE IVP 03/09/21 18:15 03/09/21 18:16 DC 03/09/21 18:43 Fentanyl Citrate (Fentanyl 2ml Vial) 75 mcg 1X ONCE IVP 03/09/21 18:30 03/09/21 18:31 DC 03/09/21 18:42 Acetaminophen (Tylenol) 650 mg PRN Q4HRS PRN PO FEVER > 100.3'F 03/09/21 19:15 03/10/21 11:54 DC 03/10/21 08:58 Polyethylene Glycol (miraLAX PACKET) 17 gm DAILY PO 03/10/21 09:00 03/10/21 08:58 Tamsulosin HCl (Flomax) 0.4 mg BID PO 03/10/21 09:00 03/10/21 08:58 Enoxaparin Sodium (Lovenox 80mg Syringe) 70 mg Q12HR SQ 03/10/21 02:30 03/10/21 02:29 Info (Anti-Coagulation Monitoring By Pharmacy) 1 each PRN DAILY PRN MC PER PROTOCOL 03/10/21 02:00 03/10/21 01:52 Metoprolol Tartrate (Lopressor) 25 mg BID PO 03/10/21 09:00 03/10/21 08:58 Sodium Chloride 1,000 ml @ 50 mls/hr Q20H IV 03/10/21 12:00 03/10/21 12:41 Tramadol HCl (Ultram) 25 mg PRN Q6HRS PRN PO MODERATE PAIN 03/10/21 11:30 03/10/21 12:40 Lidocaine (Lidoderm) 1 patch DAILY TD 03/10/21 12:00 03/10/21 12:41 Imaging: Imaging: On CT A/P: FINDINGS: Moderate right-sided pleural effusion. Moderate consolidation changes identified in the right hilum with volume loss right lower lobe of the lung. Mild left lower lung consolidation changes. No evidence of free air identified in the abdomen. The visualized noncontrasted liver, adrenals grossly appears unremarkable. Few calcified granulomas identified in the spleen. The stomach is mildly distended. The visualized pancreas grossly appears unremarkable. The small bowel is nondilated. Feces and gas noted in the colon. Surgical changes identified in the right colon. Urinary bladder is mildly distended. There is mild fat stranding identified about the urinary bladder. Moderate bilateral hydronephrosis and hydroureter identified. Left ureteral stent is identified. Unchanged 4 mm calculus left ureterovesicular junction. There is mild thickened appearance of the distal ureter wall similar to prior exam. Moderate degenerative changes lumbar spine. IMPRESSION: 1. Moderate bilateral hydronephrosis and hydroureter identified. Left ureteral stent is identified. 4 mm calculus left ureterovesicular junction. There is mild thickened appearance of the distal ureter wall similar to prior exam. Underlying left ureteral pathology not excluded. 2. Mild fat stranding identified about the urinary bladder could be due to nondistention or cystitis. Correlate with lab values. 3. Moderate right-sided pleural effusion with moderate consolidation changes identified in the right hilum with volume loss right lower lobe of the lung. Mild left lower lung consolidation changes. Follow-up to resolution. PE: GEN: NAD HEENT: Atraumatic, PERRLA LUNGS: CTAB HEART: RRR, no murmurs ABD: NABS, S/ND/NT, no masses. Tender along right rib cage. EXTREMITY: No edema SKIN: No rashes, no jaundice NEURO/PSYCH: A & O 3 A/P: A/P: IMP: RUQ pain seems likely musculoskeletal. S/p michelle. H/o benign right colon lesion, s/p right hemicolectomy. UTI. REC: Await urine culture. Local heat, analgesia for the rib pain. --will follow along. Thanks. FAZAL IRIZARRY MD Mar 10, 2021 14:27
--- NOTE | 2021-03-10 15:22 | RAD ---
XR CHEST 1V CLINICAL INDICATIONS: Reason: CHEST PAIN FOLLOWING THORACENTESIS COMPARISON: October 22, 2020. Findings: There is a moderate size right-sided pleural effusion with associated compressive atelectas is or consolidative infiltrate of the right lung base. Minimal left-sided pleural effusion is seen. M ild left lung base atelectasis is seen. No pneumothorax is evident. The heart size, pulmonary vascula ture, mediastinum and both severo are stable. IMPRESSION: Moderate size right-sided pleural effusion with associated compressive atelectasis or con solidative infiltrate of the right lung base. Minimal left-sided pleural effusion. Mild left lung base atelectasis. No pneumothorax. Electronically signed by: Emiliano Melgar MD (03/10/2021 3:20 PM) [id number]
--- NOTE | 2021-03-10 15:39 | RAD ---
Right Thoracentesis 03/10/2021 1:27 PM Clinical History Bilat pleural effusion R>L Technique: Relative benefits risks and alternatives were discussed with the patient and/or their rep resentative. Written informed consent was obtained. The patient was placed in seated position. A vern eout procedure was performed. Sonographic assessment demonstrates a large pleural effusion. A site for skin entry was selected, and subsequently prepped and draped using sterile barrier technique. 1% lidocaine without epinepherine was administered for local anesthesia to the skin and subcutaenous tissues. A 5 Yor[place] sheathed needle was passed into the pleural space. Clear yellow fluid was aspirated and t he catheter was connected to a vacuum. Approximately 1 liters of fluid were drained. The catheter wa s removed and adequate hemostasis was obtained. A sterile dressing was applied. The patient tolerate d the procedure well, without complications. Impression: Successful ultrasound guided thoracentesis with removal of 1 liters of fluid. Electronically signed by: Checo Mane MD (03/10/2021 3:36 PM) [id number]
[2021-03-10] MEDS ORDERED: KETOROLAC 15 MG/ML VIAL. IM ONE (16:00)
[2021-03-10] MEDS: KETOROLAC 15 MG/ML VIAL. IVP PRN (16:07)
[2021-03-10] MEDS: fentaNYL 25MCG/HR PATCH 1 PATCH PATCH.TD72 TD SCH (17:10)
[2021-03-10] MEDS ORDERED: cefTRIAXone IV Push 1 GM VIAL. IVP SCH (18:15)
[2021-03-10] MEDS: DONEPEZIL HCL 5 MG TABLET. PO SCH (20:33)
[2021-03-10] MEDS: ASPIRIN ENTERIC COATED 81 MG TABLET.DR. PO SCH (20:33)
[2021-03-10] MEDS: FAMOTIDINE 20 MG TABLET. PO SCH (20:34)
[2021-03-10] MEDS: SIMVASTATIN 20 MG TABLET PO SCH (20:34)
[2021-03-10] MEDS: cefTRIAXone IV Push 1 GM VIAL. IVP SCH (20:35)
[2021-03-10] MEDS: PATCH REMOVAL. MC SCH (20:43)
[2021-03-10] MEDS ORDERED: DONEPEZIL HCL 10 MG TABLET. PO SCH (21:00)
[2021-03-11 03:00] VITALS: BP 135/92
--- NOTE | 2021-03-11 03:34 | CONS ---
DATE OF CONSULTATION: 03/10/2021 ATTENDING PHYSICIAN: Acosta Schwarz MD. REASON FOR CONSULTATION: The patient is seen in Pulmonary consultation at the request of Dr. Schwarz for large effusion. HISTORY OF PRESENT ILLNESS: The patient is an 81-year-old that was admitted with increasing shortness of breath, some right rib cage pain. She was found to have a moderate effusion on the right. She was also found to have AFib with rapid ventricular response. CT of the chest was obtained, confirming a large right-sided effusion. There was also a small left-sided effusion. There was consolidation of the right lung base and some atelectasis on the left. There were multiple noncalcified pulmonary nodules. The patient was admitted. Earlier today, she underwent a thoracentesis, removing a total of 900 mL. Apparently, she was having a great deal of discomfort and as a consequence, the thoracentesis was terminated prior to emptying out the pleural space. Subsequently to the thoracentesis, the patient has been experiencing some acute onset of chest discomfort. I was asked to see her in consultation. She is now in pain. She is somewhat short of breath. She denies fever, chills or night sweats. She has smoked, but quit in 1967. She has a history of bladder cancer and is currently being treated. There is evidence of recurrent disease. PAST MEDICAL HISTORY: Otherwise, remarkable for hyperlipidemia, dementia, constipation, bladder cancer as indicated above. PAST SURGICAL HISTORY: Left ureteral stenting. FAMILY HISTORY: No family history of lung disorders. SOCIAL HISTORY: She quit tobacco in 1967. CURRENT MEDICATIONS: List was reviewed. ALLERGIES: TO HYDROCODONE AND SHE IS ALSO INTOLERANT TO IODINE. REVIEW OF SYSTEMS: CONSTITUTIONAL: No fever or chills. EYES: No change in visual acuity. HENT: No nasal congestion, sore throat. PULMONARY: As indicated above. CARDIOVASCULAR: As indicated above. GASTROINTESTINAL: No nausea, vomiting or diarrhea. GENITOURINARY: No dysuria or frequency. MUSCULOSKELETAL: No localized muscle aches or joint pain. SKIN: No new skin rashes. NEUROLOGIC: No headaches, diplopia or blurred vision. PHYSICAL EXAMINATION: GENERAL: The patient was somewhat in discomfort. She is currently on 2 liters of oxygen supplementation. She is unable to take a deep breath without experiencing pain. HEENT: Eyes: The sclerae were nonicteric. NECK: Jugular venous distention was not elevated. No lymphadenopathy. CHEST: Full expansion. LUNGS: Diminished breath sounds on the right greater than left. HEART: Regular rate and rhythm with S1, S2, no S3. ABDOMEN: Soft, nontender, nondistended. EXTREMITIES: No clubbing, cyanosis or edema. LABORATORY DATA: Reviewed. INR was 1.1. White count was normal, hemoglobin and hematocrit were noted. CT as indicated above. IMPRESSION: 1. Acute chest pain and hypoxemia, secondary to large right-sided effusion. 2. Suspect malignant right-sided effusion. 3. New onset atrial fibrillation. 4. Hydronephrosis, secondary to bladder cancer. 5. Hyperlipidemia. 6. Dementia. PLAN: 1. The patient underwent thoracentesis earlier today, removing 900 mL. The thoracentesis was terminated prior to evacuating the pleural space secondary to significant pain, we will proceed with providing Toradol IV, 15 mg. In addition, we will initiate fentanyl patch 25 mcg q. 72 hours. 2. No need for antibiotics at this time. I do not think that this is related to parapneumonic effusion. 3. Follow Cardiology input. 4. Noted that the patient had bone scans not too long ago, revealing no evidence of metastatic disease. This was performed on 03/04. 5. The patient may be a candidate for PleurX catheter placement. 6. Follow Medical Oncology input. I do appreciate the privilege in sharing in the patient's care. ROXANA PADRON: Sultana TID: [id number]
[2021-03-11] MEDS: KETOROLAC 15 MG/ML VIAL. IVP PRN (05:56)
[2021-03-11 07:00] VITALS: BP 135/61
--- NOTE | 2021-03-11 07:17 | NUR ---
AM lovenox held due to Thoracentesis planned 03/11
[2021-03-11] MEDS: IV 1/2 NORMAL SALINE 1,000 ML IV SCH (08:00)
--- NOTE | 2021-03-11 08:29 | PDOC ---
PULMONARY PROGRESS NOTES DATE: 03/11/21 TIME: 08:29 Subjective pt. resting on 1.5 liters NC feels better S/P thoracentesis, still having some pain no increased SOB or cough Vitals Vital Signs Date Time Temp Pulse Resp B/P (MAP) Pulse Ox O2 Delivery O2 Flow Rate FiO2 03/11/21 07:42 Nasal Cannula 3.0 03/11/21 07:00 97.7 59 18 135/61 (85) 98 97.7 ROS: No Nausea, No Chest Pain, No Abdominal Pain, No Increase Cough General: Alert, Oriented X4 Lungs: Clear Cardiovascular: S1 Abdomen: Soft Neuro Exam: Alert Extremities: No Edema Skin: Warm Labs Laboratory Tests Test 03/09/21 17:11 03/09/21 17:50 03/09/21 18:52 03/10/21 01:05 White Blood Count 4.6 x10^3/uL (4.0-11.0) Red Blood Count 3.88 x10^6/uL (3.50-5.40) Hemoglobin 11.3 g/dL (12.0-15.5) Hematocrit 32.9 % (36.0-47.0) Mean Corpuscular Volume 85 fL (79-100) Mean Corpuscular Hemoglobin 29 pg (25-35) Mean Corpuscular Hemoglobin Concent 34 g/dL (31-37) Red Cell Distribution Width 13.5 % (11.5-14.5) Platelet Count 305 x10^3/uL (140-400) Neutrophils (%) (Auto) 75 % (31-73) Lymphocytes (%) (Auto) 11 % (24-48) Monocytes (%) (Auto) 12 % (0-9) Eosinophils (%) (Auto) 2 % (0-3) Basophils (%) (Auto) 1 % (0-3) Neutrophils # (Auto) 3.5 x10^3/uL (1.8-7.7) Lymphocytes # (Auto) 0.5 x10^3/uL (1.0-4.8) Monocytes # (Auto) 0.5 x10^3/uL (0.0-1.1) Eosinophils # (Auto) 0.1 x10^3/uL (0.0-0.7) Basophils # (Auto) 0.0 x10^3/uL (0.0-0.2) Sodium Level 135 mmol/L (136-145) Potassium Level 4.0 mmol/L (3.5-5.1) Chloride Level 98 mmol/L (98-107) Carbon Dioxide Level 27 mmol/L (21-32) Anion Gap 10 (6-14) Blood Urea Nitrogen 17 mg/dL (7-20) Creatinine 0.9 mg/dL (0.6-1.0) Estimated GFR (Cockcroft-Gault) 59.9 BUN/Creatinine Ratio 19 (6-20) Glucose Level 110 mg/dL (70-99) Calcium Level 8.6 mg/dL (8.5-10.1) Total Bilirubin 0.6 mg/dL (0.2-1.0) Aspartate Amino Transf (AST/SGOT) 16 U/L (15-37) Alanine Aminotransferase (ALT/SGPT) 17 U/L (14-59) Alkaline Phosphatase 81 U/L (46-116) Troponin I Quantitative < 0.017 ng/mL (0.000-0.055) < 0.017 ng/mL (0.000-0.055) Total Protein 6.5 g/dL (6.4-8.2) Albumin 3.1 g/dL (3.4-5.0) Albumin/Globulin Ratio 0.9 (1.0-1.7) Lipase 349 U/L (73-393) Urine Collection Type Void Urine Color Yellow Urine Clarity Clear Urine pH 7.0 (<5.0-8.0) Urine Specific [place] 1.010 (1.000-1.030) Urine Protein Negative mg/dL (NEG-TRACE) Urine Glucose (UA) Negative mg/dL (NEG) Urine Ketones (Stick) Negative mg/dL (NEG) Urine Blood Small (NEG) Urine Nitrite Negative (NEG) Urine Bilirubin Negative (NEG) Urine Urobilinogen Dipstick 0.2 mg/dL (0.2 mg/dL) Urine Leukocyte Esterase Large (NEG) Urine RBC 1-2 /HPF (0-2) Urine WBC 11-20 /HPF (0-4) Urine Squamous Epithelial Cells Few /LPF Urine Bacteria Few /HPF (0-FEW) Prothrombin Time 13.4 SEC (11.7-14.0) Prothromb Time International Ratio 1.1 (0.8-1.1) Activated Partial Thromboplast Time 34 SEC (24-38) Test 03/10/21 04:50 White Blood Count 5.6 x10^3/uL (4.0-11.0) Red Blood Count 3.64 x10^6/uL (3.50-5.40) Hemoglobin 10.7 g/dL (12.0-15.5) Hematocrit 32.1 % (36.0-47.0) Mean Corpuscular Volume 88 fL (79-100) Mean Corpuscular Hemoglobin 29 pg (25-35) Mean Corpuscular Hemoglobin Concent 33 g/dL (31-37) Red Cell Distribution Width 13.7 % (11.5-14.5) Platelet Count 298 x10^3/uL (140-400) Neutrophils (%) (Auto) 80 % (31-73) Lymphocytes (%) (Auto) 8 % (24-48) Monocytes (%) (Auto) 10 % (0-9) Eosinophils (%) (Auto) 1 % (0-3) Basophils (%) (Auto) 1 % (0-3) Neutrophils # (Auto) 4.5 x10^3/uL (1.8-7.7) Lymphocytes # (Auto) 0.5 x10^3/uL (1.0-4.8) Monocytes # (Auto) 0.6 x10^3/uL (0.0-1.1) Eosinophils # (Auto) 0.1 x10^3/uL (0.0-0.7) Basophils # (Auto) 0.0 x10^3/uL (0.0-0.2) Sodium Level 137 mmol/L (136-145) Potassium Level 4.2 mmol/L (3.5-5.1) Chloride Level 102 mmol/L (98-107) Carbon Dioxide Level 24 mmol/L (21-32) Anion Gap 11 (6-14) Blood Urea Nitrogen 15 mg/dL (7-20) Creatinine 0.9 mg/dL (0.6-1.0) Estimated GFR (Cockcroft-Gault) 59.9 Glucose Level 114 mg/dL (70-99) Calcium Level 8.5 mg/dL (8.5-10.1) Troponin I Quantitative < 0.017 ng/mL (0.000-0.055) [id number]-Type Natriuretic Peptide 1819 pg/mL (0-449) Thyroid Stimulating Hormone (TSH) 1.644 uIU/mL (0.358-3.74) Medications Active Scripts Medications Dose Route/Sig Max Daily Dose Days Date Category Dose Instructions [prevagen] 1 Tab 1 PO DAILY 03/09/21 Reported Flomax (Tamsulosin Hcl) 0.4 Mg Cap.er.24h 0.4 Mg PO BID 03/09/21 Reported Simvastatin 20 Mg Tablet 20 Mg PO HS 10/21/20 Reported Miralax (Polyethylene Glycol 3350) 17 Gm Powd.pack 1 Packet PO DAILY 2 10/21/20 Reported dissolve in water Donepezil Hcl 10 Mg Tablet 10 Mg PO HS 10/21/20 Reported Aspirin Ec (Aspirin) 81 Mg Tablet.dr 81 Mg PO HS 10/21/20 Reported Acetaminophen 325 Mg Tablet 2 Tab PO PRN Q6HRS PRN 24 10/21/[address] chest IMPRESSION: 1. Large right pleural effusion and small left pleural effusion, increased in size from prior study. There is consolidation at the right base and left lower lobe that likely represents associated atelectasis. 2. There are multiple noncalcified pulmonary nodules, left greater than right, nonspecific but probably not significant changed from prior study. Continued follow-up imaging to ensure stability. 3. Coronary artery calcifications and mild ectasia of the ascending thoracic aorta, unchanged. Impression . IMPRESSION: 1. Acute chest pain and hypoxemia, secondary to large right-sided effusion. 2. 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 New onset atrial fibrillation. 4. Hydronephrosis, secondary to bladder cancer. 5. Hyperlipidemia. 6. Dementia. Plan . PLAN: Continue supplemental oxygen to keep sats above 92% Follow CXR, possible repeat thoracentesis on sunday ---The patient may be a candidate for PleurX catheter placement. S/P right side thoracentesis on 03/10/21, with 900ml removed No need for ABX Follow Cardiology recs Follow GI recs Follow Medical ONC recs ---Noted that the patient had bone scans not too long ago, revealing no evidence of metastatic disease. This was performed on 03/04. DVT/GI PPX D/W RN and PT. BOGDAN HODGE MD Mar 11, 2021 08:29
[2021-03-11] MEDS: POLYETHYLENE GLYCOL 3350 17 GM PACKET. PO SCH (09:00)
[2021-03-11] MEDS: LIDOCAINE (700MG/PATCH) PATCH. TD SCH (09:15)
[2021-03-11] MEDS: TAMSULOSIN 0.4 MG CAP.ER.24H. PO SCH ×2 (09:15→20:32)
[2021-03-11] MEDS: METOPROLOL TART IMMED RELEASE 25 MG TABLET. PO SCH ×2 (09:16→20:32)
--- NOTE | 2021-03-11 09:49 | PDOC ---
CARDIO Progress Notes Date and Time Date of Service 03/11/2021 Time of Evaluation 0930 Subjective Subjective: No Chest Pain, No shortness of breath, No Palpitations Vitals Vitals Vital Signs Date Time Temp Pulse Resp B/P (MAP) Pulse Ox O2 Delivery O2 Flow Rate FiO2 03/11/21 09:16 68 135/61 03/11/21 07:42 Nasal Cannula 3.0 03/11/21 07:00 97.7 18 98 97.7 Weight Weight [ ] Input and Output Intake and Output Intake and Output 03/11/21 07:00 Intake Total 1330 ml Output Total 1500 ml Balance -170 ml Intake Oral 330 ml IV Total 1000 ml Output Urine Total 350 ml Drainage Total 1150 ml # Voids 6 Microbiology Micro Microbiology 03/10/21 Gram Stain - Final, Resulted 03/10/21 Aerobic and Anaerobic Culture - Preliminary, Resulted 03/09/21 Urine Culture - Preliminary, Resulted Physical Exam HEENT: Neck Supple W Full Motion Chest: Symmetric LUNGS: Other (diminished bases) Heart: RRR (SR) Abdomen: Soft N/T Extremities: No Edema, No Calf Tenderness Neurology: alert, oriented, follow commands Assessment Assessment 1. Pleuritic chest pain with moderate right side pleural effusion: possible malignancy. pulmonary following 2. Hydronephrosis/hydroureter bilaterally with bladder CA and UTI 3. AFIB RVR: new onset likely precipitated by sympathetic response to above. Back in SR with cardizem 4. HLP: on zocor 5. Dementia: on aricept 6. Jehovahs witness Recommendations 1. Continue metoprolol. Continue baby ASA 3. TTE today 4. analgesic control per PCP 5. Will need MCOT to further evaluate burden of afib and need for treatment adjustment. Discussed with pt and daughter. 6. Follow up with Dr. Jackson April 07 at 2 PM Justicifation of Admission Dx: Justifications for Admission: Justification of Admission Dx: Yes LIZBETH GERBER APRN Mar 11, 2021 09:48
--- NOTE | 2021-03-11 10:12 | PDOC ---
PROGRESS NOTES Date of Service DATE: 03/11/21 TIME: 10:07 Subjective Subjective had 1 liter right sided thoracentesis yesterday and gram stain negative and cytology pending. no further atrial fibrillation. feels less pain with fentanyl patch. Objective Objective Vital Signs Date Time Temp Pulse Resp B/P (MAP) Pulse Ox O2 Delivery O2 Flow Rate FiO2 03/11/21 09:16 68 135/61 03/11/21 07:42 Nasal Cannula 3.0 03/11/21 07:00 97.7 18 98 97.7 Intake and Output 03/11/21 07:00 Intake Total 1330 ml Output Total 1500 ml Balance -170 ml Intake Oral 330 ml IV Total 1000 ml Output Urine Total 350 ml Drainage Total 1150 ml # Voids 6 Physical Exam Abdomen: Soft Heart: Regular rate, Normal S1, Normal S2 Extremities: No edema General: Alert HEENT: Atraumatic Lungs: Other (decreased breath sounds right greater than left base) Neuro: Normal speech Psych/Mental Status: Mood NL Skin: No rashes Assessment Assessment Problems1. Right pleural effusion, l liter right thoracentesis 03/10/ cytology pending 2. New onset atrial fibrillation with rapid ventricular response, converted to sinus rhythm 3. Metastatic bladder cancer involving the distal left ureter as well as the inguinal and iliac lymph node chain 4. Bilateral hydronephrosis. 5. Left ureteral kidney stone treated with a stent. 6. Hyperlipidemia. 7. Dementia. Medical Problems: (1) Abdominal pain Status: Acute (2) History of kidney stones Status: Acute (3) Paroxysmal atrial fibrillation with rapid ventricular response Status: Acute Plan Plan of Care 6 minute walk ambulate telemetry continue aspirin and metoprolol try to wean oxygen. nurse noted she needed oxygen last night nurse to call visual journalist to see if anticoagulation can be discontinued when dismissed anticipate dismissal tomorrow if stable continue fentanyl patch Comment Review of Relevant I have reviewed the following items saw (where applicable) has been applied. Labs Laboratory Tests Test 03/09/21 17:11 03/09/21 17:50 03/09/21 18:52 03/10/21 01:05 White Blood Count 4.6 x10^3/uL (4.0-11.0) Red Blood Count 3.88 x10^6/uL (3.50-5.40) Hemoglobin 11.3 g/dL (12.0-15.5) Hematocrit 32.9 % (36.0-47.0) Mean Corpuscular Volume 85 fL (79-100) Mean Corpuscular Hemoglobin 29 pg (25-35) Mean Corpuscular Hemoglobin Concent 34 g/dL (31-37) Red Cell Distribution Width 13.5 % (11.5-14.5) Platelet Count 305 x10^3/uL (140-400) Neutrophils (%) (Auto) 75 % (31-73) Lymphocytes (%) (Auto) 11 % (24-48) Monocytes (%) (Auto) 12 % (0-9) Eosinophils (%) (Auto) 2 % (0-3) Basophils (%) (Auto) 1 % (0-3) Neutrophils # (Auto) 3.5 x10^3/uL (1.8-7.7) Lymphocytes # (Auto) 0.5 x10^3/uL (1.0-4.8) Monocytes # (Auto) 0.5 x10^3/uL (0.0-1.1) Eosinophils # (Auto) 0.1 x10^3/uL (0.0-0.7) Basophils # (Auto) 0.0 x10^3/uL (0.0-0.2) Sodium Level 135 mmol/L (136-145) Potassium Level 4.0 mmol/L (3.5-5.1) Chloride Level 98 mmol/L (98-107) Carbon Dioxide Level 27 mmol/L (21-32) Anion Gap 10 (6-14) Blood Urea Nitrogen 17 mg/dL (7-20) Creatinine 0.9 mg/dL (0.6-1.0) Estimated GFR (Cockcroft-Gault) 59.9 BUN/Creatinine Ratio 19 (6-20) Glucose Level 110 mg/dL (70-99) Calcium Level 8.6 mg/dL (8.5-10.1) Total Bilirubin 0.6 mg/dL (0.2-1.0) Aspartate Amino Transf (AST/SGOT) 16 U/L (15-37) Alanine Aminotransferase (ALT/SGPT) 17 U/L (14-59) Alkaline Phosphatase 81 U/L (46-116) Troponin I Quantitative < 0.017 ng/mL (0.000-0.055) < 0.017 ng/mL (0.000-0.055) Total Protein 6.5 g/dL (6.4-8.2) Albumin 3.1 g/dL (3.4-5.0) Albumin/Globulin Ratio 0.9 (1.0-1.7) Lipase 349 U/L (73-393) Urine Collection Type Void Urine Color Yellow Urine Clarity Clear Urine pH 7.0 (<5.0-8.0) Urine Specific [place] 1.010 (1.000-1.030) Urine Protein Negative mg/dL (NEG-TRACE) Urine Glucose (UA) Negative mg/dL (NEG) Urine Ketones (Stick) Negative mg/dL (NEG) Urine Blood Small (NEG) Urine Nitrite Negative (NEG) Urine Bilirubin Negative (NEG) Urine Urobilinogen Dipstick 0.2 mg/dL (0.2 mg/dL) Urine Leukocyte Esterase Large (NEG) Urine RBC 1-2 /HPF (0-2) Urine WBC 11-20 /HPF (0-4) Urine Squamous Epithelial Cells Few /LPF Urine Bacteria Few /HPF (0-FEW) Prothrombin Time 13.4 SEC (11.7-14.0) Prothromb Time International Ratio 1.1 (0.8-1.1) Activated Partial Thromboplast Time 34 SEC (24-38) Test 03/10/21 04:50 White Blood Count 5.6 x10^3/uL (4.0-11.0) Red Blood Count 3.64 x10^6/uL (3.50-5.40) Hemoglobin 10.7 g/dL (12.0-15.5) Hematocrit 32.1 % (36.0-47.0) Mean Corpuscular Volume 88 fL (79-100) Mean Corpuscular Hemoglobin 29 pg (25-35) Mean Corpuscular Hemoglobin Concent 33 g/dL (31-37) Red Cell Distribution Width 13.7 % (11.5-14.5) Platelet Count 298 x10^3/uL (140-400) Neutrophils (%) (Auto) 80 % (31-73) Lymphocytes (%) (Auto) 8 % (24-48) Monocytes (%) (Auto) 10 % (0-9) Eosinophils (%) (Auto) 1 % (0-3) Basophils (%) (Auto) 1 % (0-3) Neutrophils # (Auto) 4.5 x10^3/uL (1.8-7.7) Lymphocytes # (Auto) 0.5 x10^3/uL (1.0-4.8) Monocytes # (Auto) 0.6 x10^3/uL (0.0-1.1) Eosinophils # (Auto) 0.1 x10^3/uL (0.0-0.7) Basophils # (Auto) 0.0 x10^3/uL (0.0-0.2) Sodium Level 137 mmol/L (136-145) Potassium Level 4.2 mmol/L (3.5-5.1) Chloride Level 102 mmol/L (98-107) Carbon Dioxide Level 24 mmol/L (21-32) Anion Gap 11 (6-14) Blood Urea Nitrogen 15 mg/dL (7-20) Creatinine 0.9 mg/dL (0.6-1.0) Estimated GFR (Cockcroft-Gault) 59.9 Glucose Level 114 mg/dL (70-99) Calcium Level 8.5 mg/dL (8.5-10.1) Troponin I Quantitative < 0.017 ng/mL (0.000-0.055) GX-Bjx-H-Type Natriuretic Peptide 1819 pg/mL (0-449) Thyroid Stimulating Hormone (TSH) 1.644 uIU/mL (0.358-3.74) Microbiology 03/10/21 Gram Stain - Final, Resulted 03/10/21 Aerobic and Anaerobic Culture - Preliminary, Resulted 03/09/21 Urine Culture - Preliminary, Resulted Medications Current Medications Morphine Sulfate (Morphine Sulfate) 4 mg PRN Q15MIN PRN IV/SQ PAIN GREATER THAN 3/10 Last administered on 03/09/21at 17:44; Start 03/09/21 at 16:45; Stop 03/10/21 at 16:44; Status DC Sodium Chloride 1,000 ml @ 1,000 mls/hr Q1H IV Last administered on 03/09/21at 17:12; Start 03/09/21 at 16:45; Stop 03/09/21 at 17:44; Status DC Ondansetron HCl (Zofran) 4 mg 1X ONCE IVP Last administered on 03/09/21at 17:30; Start 03/09/21 at 16:45; Stop 03/09/21 at 16:46; Status DC Diltiazem HCl (Cardizem Iv Push) 20 mg 1X ONCE IVP Last administered on 03/09/21at 17:36; Start 03/09/21 at 17:30; Stop 03/09/21 at 17:31; Status DC Diltiazem HCl 125 mg/Sodium Chloride 125 ml @ 5 mls/hr CONT PRN IV SEE I/O RECORD Last administered on 03/09/21at 17:43; Start 03/09/21 at 17:30; Stop 03/10/21 at 11:26; Status DC Ceftriaxone Sodium (Rocephin) 1 gm 1X ONCE IVP Last administered on 03/09/21at 18:43; Start 03/09/21 at 18:15; Stop 03/09/21 at 18:16; Status DC Fentanyl Citrate (Fentanyl 2ml Vial) 75 mcg 1X ONCE IVP Last administered on 03/09/21at 18:42; Start 03/09/21 at 18:30; Stop 03/09/21 at 18:31; Status DC Enoxaparin Sodium (Lovenox Per Pharmacy Treatment Dosing) 1 each PRN DAILY PRN MC SEE COMMENTS; Start 03/09/21 at 19:15 Ondansetron HCl (Zofran) 4 mg PRN Q8HRS PRN IV NAUSEA/VOMITING; Start 03/09/21 at 19:15; Stop 03/10/21 at 19:14; Status DC Fentanyl Citrate (Fentanyl 2ml Vial) 50 mcg PRN Q1HR PRN IV PAIN; Start 03/09/21 at 19:15; Stop 03/10/21 at 19:14; Status DC Acetaminophen (Tylenol) 650 mg PRN Q4HRS PRN PO FEVER > 100.3'F Last administered on 03/10/21at 08:58; Start 03/09/21 at 19:15; Stop 03/10/21 at 11:54; Status DC Aspirin (Ecotrin) 81 mg HS PO Last administered on 03/10/21at 20:33; Start 03/10/21 at 21:00 Donepezil HCl (Aricept) 10 mg HS PO ; Start 03/10/21 at 21:00; Stop 03/10/21 at 11:29; Status DC Polyethylene Glycol (miraLAX PACKET) 17 gm DAILY PO Last administered on 03/10/21 08:58; Start 03/10/21 at 09:00 Simvastatin (Zocor) 20 mg HS PO Last administered on 03/10/21 20:34; Start 03/10/21 at 21:00 Tamsulosin HCl (Flomax) 0.4 mg BID PO Last administered on 03/11/21 09:15; Start 03/10/21 at 09:00 Enoxaparin Sodium (Lovenox 80mg Syringe) 70 mg Q12HR SQ Last administered on 03/10/21 20:35; Start 03/10/21 at 02:30 Info (Anti-Coagulation Monitoring By Pharmacy) 1 each PRN DAILY PRN MC PER PROTOCOL Last administered on 03/10/21 01:52; Start 03/10/21 at 02:00 Metoprolol Tartrate (Lopressor) 25 mg BID PO Last administered on 03/11/21 09:16; Start 03/10/21 at 09:00 Ceftriaxone Sodium (Rocephin) 1 gm HS IVP Last administered on 03/10/21 20:35; Start 03/10/21 at 21:00 Sodium Chloride 1,000 ml @ 50 mls/hr Q20H IV Last administered on 03/10/21 12:41; Start 03/10/21 at 12:00 Ceftriaxone Sodium (Rocephin) 1 gm Q24H IVP ; Start 03/10/21 at 18:15; Stop 03/10/21 at 11:27; Status DC Ondansetron HCl (Zofran) 4 mg PRN Q6HRS PRN IVP NAUSEA/VOMITING; Start 03/10/21 at 11:30 Donepezil HCl (Aricept) 5 mg HS PO Last administered on 03/10/21 20:33; Start 03/10/21 at 21:00 Tramadol HCl (Ultram) 25 mg PRN Q6HRS PRN PO MODERATE PAIN Last administered on 03/10/21 12:40; Start 03/10/21 at 11:30 Famotidine (Pepcid) 20 mg QHS PO Last administered on 03/10/21 20:34; Start 03/10/21 at 21:00 Acetaminophen (Tylenol) 650 mg PRN Q6HRS PRN PO MILD PAIN / TEMP > 100.3'F; Start 03/10/21 at 11:30 Lidocaine (Lidoderm) 1 patch DAILY TD Last administered on 03/11/21at 09:15; Start 03/10/21 at 12:00 Miscellaneous (Lidoderm Patch Removal) 1 ea QHS MC ; Start 03/10/21 at 21:00 Ketorolac Tromethamine (Toradol 15mg Vial) 15 mg 1X ONCE IM ; Start 03/10/21 at 16:00; Stop 03/10/21 at 16:02; Status DC Ketorolac Tromethamine (Toradol 15mg Vial) 15 mg PRN Q6HRS PRN IVP INFLAMMATION Last administered on 03/11/21at 05:56; Start 03/10/21 at 16:00; Stop 03/15/21 at 15:59 Fentanyl (Duragesic 25mcg/ Hr Patch) 1 patch Q3DAYS TD Last administered on 03/10/21at 17:10; Start 03/10/21 at 17:00 Active Scripts Active Reported [prevagen] 1 Tab 1 PO DAILY Flomax (Tamsulosin Hcl) 0.4 Mg Cap.er.24h 0.4 Mg PO BID Simvastatin 20 Mg Tablet 20 Mg PO HS Miralax (Polyethylene Glycol 3350) 17 Gm Powd.pack 1 Packet PO DAILY 2 Days dissolve in water Donepezil Hcl 10 Mg Tablet 10 Mg PO HS Aspirin Ec (Aspirin) 81 Mg Tablet.dr 81 Mg PO HS Acetaminophen 325 Mg Tablet 2 Tab PO PRN Q6HRS PRN 24 Days Vitals/I & O Vital Sign - Last 24 Hours 03/10/21 03/10/21 03/10/21 03/10/21 11:00 13:45 15:00 19:00 Temp 97.4 98.3 97.7 97.4 98.3 97.7 Pulse 51 62 66 70 Resp 16 15 16 16 B/P (MAP) 123/59 (80) 120/45 (70) 132/62 (85) 138/63 (88) Pulse Ox 97 100 97 97 O2 Delivery Nasal Cannula Nasal Cannula Nasal Cannula Nasal Cannula O2 Flow Rate 2.0 2.0 2.0 2.0 03/10/21 03/10/21 03/10/21 03/10/21 20:34 20:43 23:00 23:24 Temp 98.5 98.5 Pulse 70 66 Resp 16 B/P (MAP) 138/63 134/60 (84) Pulse Ox 98 O2 Delivery Nasal Cannula Nasal Cannula Nasal Cannula O2 Flow Rate 2.0 2.0 2.0 03/11/21 03/11/21 03/11/21 03/11/21 03:00 07:00 07:42 09:16 Temp 97.5 97.7 97.5 97.7 Pulse 61 59 68 Resp 16 18 B/P (MAP) 135/92 (106) 135/61 (85) 135/61 Pulse Ox 96 98 O2 Delivery Nasal Cannula Nasal Cannula Nasal Cannula O2 Flow Rate 2.0 3.0 3.0 Intake and Output 03/10/21 03/10/21 03/11/21 15:00 23:00 07:00 Intake Total 180 ml 100 ml 1050 ml Output Total 900 ml 100 ml 500 ml Balance -720 ml 0 ml 550 ml Justifications for Admission Other Justification FAZAL LUGO MD Mar 11, 2021 10:12
[2021-03-11 11:00] VITALS: BP 124/59
--- NOTE | 2021-03-11 14:43 | NUR ---
SS following up with discharge planning. SS reviewed pt chart and discussed with pt RN. Pt is currently requiring oxygen at three liters nasal canula. Pt on IV Rocephin. Pt had Thoracentesis on 03/10/2021. Pulmonology and Cardiology following. Six minute walk ordered. SS will continue to follow for discharge planning.
[2021-03-11 15:00] VITALS: BP 131/48
--- NOTE | 2021-03-11 15:15 | PDOC ---
G I PROGRESS NOTE Subjective No GI complaints. Says her pain is better. Physical Exam Lungs clear anteriorly. RRR Abdomen soft, not tender. Still with tender right ribs. Review of Relevant I have reviewed the following items saw (where applicable) has been applied. Labs Laboratory Tests Test 03/09/21 17:11 03/09/21 17:50 03/09/21 18:52 03/10/21 01:05 White Blood Count 4.6 x10^3/uL (4.0-11.0) Red Blood Count 3.88 x10^6/uL (3.50-5.40) Hemoglobin 11.3 g/dL (12.0-15.5) Hematocrit 32.9 % (36.0-47.0) Mean Corpuscular Volume 85 fL (79-100) Mean Corpuscular Hemoglobin 29 pg (25-35) Mean Corpuscular Hemoglobin Concent 34 g/dL (31-37) Red Cell Distribution Width 13.5 % (11.5-14.5) Platelet Count 305 x10^3/uL (140-400) Neutrophils (%) (Auto) 75 % (31-73) Lymphocytes (%) (Auto) 11 % (24-48) Monocytes (%) (Auto) 12 % (0-9) Eosinophils (%) (Auto) 2 % (0-3) Basophils (%) (Auto) 1 % (0-3) Neutrophils # (Auto) 3.5 x10^3/uL (1.8-7.7) Lymphocytes # (Auto) 0.5 x10^3/uL (1.0-4.8) Monocytes # (Auto) 0.5 x10^3/uL (0.0-1.1) Eosinophils # (Auto) 0.1 x10^3/uL (0.0-0.7) Basophils # (Auto) 0.0 x10^3/uL (0.0-0.2) Sodium Level 135 mmol/L (136-145) Potassium Level 4.0 mmol/L (3.5-5.1) Chloride Level 98 mmol/L (98-107) Carbon Dioxide Level 27 mmol/L (21-32) Anion Gap 10 (6-14) Blood Urea Nitrogen 17 mg/dL (7-20) Creatinine 0.9 mg/dL (0.6-1.0) Estimated GFR (Cockcroft-Gault) 59.9 BUN/Creatinine Ratio 19 (6-20) Glucose Level 110 mg/dL (70-99) Calcium Level 8.6 mg/dL (8.5-10.1) Total Bilirubin 0.6 mg/dL (0.2-1.0) Aspartate Amino Transf (AST/SGOT) 16 U/L (15-37) Alanine Aminotransferase (ALT/SGPT) 17 U/L (14-59) Alkaline Phosphatase 81 U/L (46-116) Troponin I Quantitative < 0.017 ng/mL (0.000-0.055) < 0.017 ng/mL (0.000-0.055) Total Protein 6.5 g/dL (6.4-8.2) Albumin 3.1 g/dL (3.4-5.0) Albumin/Globulin Ratio 0.9 (1.0-1.7) Lipase 349 U/L (73-393) Urine Collection Type Void Urine Color Yellow Urine Clarity Clear Urine pH 7.0 (<5.0-8.0) Urine Specific [place] 1.010 (1.000-1.030) Urine Protein Negative mg/dL (NEG-TRACE) Urine Glucose (UA) Negative mg/dL (NEG) Urine Ketones (Stick) Negative mg/dL (NEG) Urine Blood Small (NEG) Urine Nitrite Negative (NEG) Urine Bilirubin Negative (NEG) Urine Urobilinogen Dipstick 0.2 mg/dL (0.2 mg/dL) Urine Leukocyte Esterase Large (NEG) Urine RBC 1-2 /HPF (0-2) Urine WBC 11-20 /HPF (0-4) Urine Squamous Epithelial Cells Few /LPF Urine Bacteria Few /HPF (0-FEW) Prothrombin Time 13.4 SEC (11.7-14.0) Prothromb Time International Ratio 1.1 (0.8-1.1) Activated Partial Thromboplast Time 34 SEC (24-38) Test 03/10/21 04:50 White Blood Count 5.6 x10^3/uL (4.0-11.0) Red Blood Count 3.64 x10^6/uL (3.50-5.40) Hemoglobin 10.7 g/dL (12.0-15.5) Hematocrit 32.1 % (36.0-47.0) Mean Corpuscular Volume 88 fL (79-100) Mean Corpuscular Hemoglobin 29 pg (25-35) Mean Corpuscular Hemoglobin Concent 33 g/dL (31-37) Red Cell Distribution Width 13.7 % (11.5-14.5) Platelet Count 298 x10^3/uL (140-400) Neutrophils (%) (Auto) 80 % (31-73) Lymphocytes (%) (Auto) 8 % (24-48) Monocytes (%) (Auto) 10 % (0-9) Eosinophils (%) (Auto) 1 % (0-3) Basophils (%) (Auto) 1 % (0-3) Neutrophils # (Auto) 4.5 x10^3/uL (1.8-7.7) Lymphocytes # (Auto) 0.5 x10^3/uL (1.0-4.8) Monocytes # (Auto) 0.6 x10^3/uL (0.0-1.1) Eosinophils # (Auto) 0.1 x10^3/uL (0.0-0.7) Basophils # (Auto) 0.0 x10^3/uL (0.0-0.2) Sodium Level 137 mmol/L (136-145) Potassium Level 4.2 mmol/L (3.5-5.1) Chloride Level 102 mmol/L (98-107) Carbon Dioxide Level 24 mmol/L (21-32) Anion Gap 11 (6-14) Blood Urea Nitrogen 15 mg/dL (7-20) Creatinine 0.9 mg/dL (0.6-1.0) Estimated GFR (Cockcroft-Gault) 59.9 Glucose Level 114 mg/dL (70-99) Calcium Level 8.5 mg/dL (8.5-10.1) Troponin I Quantitative < 0.017 ng/mL (0.000-0.055) GS-Ijq-E-Type Natriuretic Peptide 1819 pg/mL (0-449) Thyroid Stimulating Hormone (TSH) 1.644 uIU/mL (0.358-3.74) Microbiology 03/10/21 Gram Stain - Final, Resulted 03/10/21 Aerobic and Anaerobic Culture - Preliminary, Resulted 03/09/21 Urine Culture - Preliminary, Resulted Vitals/I & O Vital Sign - Last 24 Hours 03/10/21 03/10/21 03/10/21 03/10/21 19:00 20:34 20:43 23:00 Temp 97.7 98.5 97.7 98.5 Pulse 70 70 66 Resp 16 16 B/P (MAP) 138/63 (88) 138/63 134/60 (84) Pulse Ox 97 98 O2 Delivery Nasal Cannula Nasal Cannula Nasal Cannula O2 Flow Rate 2.0 2.0 2.0 03/10/21 03/11/21 03/11/21 03/11/21 23:24 03:00 07:00 07:42 Temp 97.5 97.7 97.5 97.7 Pulse 61 59 Resp 16 18 B/P (MAP) 135/92 (106) 135/61 (85) Pulse Ox 96 98 O2 Delivery Nasal Cannula Nasal Cannula Nasal Cannula Nasal Cannula O2 Flow Rate 2.0 2.0 3.0 3.0 03/11/21 03/11/21 09:16 11:00 Temp 98.1 98.1 Pulse 68 71 Resp 16 B/P (MAP) 135/61 124/59 (80) Pulse Ox 97 O2 Delivery Nasal Cannula O2 Flow Rate 3.0 Intake and Output 03/10/21 03/10/21 03/11/21 15:00 23:00 07:00 Intake Total 180 ml 100 ml 1050 ml Output Total 900 ml 100 ml 500 ml Balance -720 ml 0 ml 550 ml Problem List Problems Medical Problems: (1) Abdominal pain Status: Acute (2) History of kidney stones Status: Acute (3) Paroxysmal atrial fibrillation with rapid ventricular response Status: Acute Assessment Non-GI related pain. Plan of Care Note Continue as now. Off the weekend. Coverage available if needed. Justicifation of Admission Dx: Justifications for Admission: Justification of Admission Dx: Yes FAZAL IRIZARRY MD Mar 11, 2021 15:15
--- NOTE | 2021-03-11 17:07 | CARD ---
MR#: [id number] Date of Study: 03/11/2021 Ordering Physician: LIZBETH GERBER, Referring Physician: LIZBETH GERBER Tech: Nora Arevalo [facility] APPROVED REPORT EXAM: Two-dimensional and M-mode echocardiogram with Doppler and color Doppler. Other Information Quality : AverageHR: 61bpm Rhythm : Atrial Fibrillation INDICATION Atrial Fibrillation RISK FACTORS Hypertension 2D DIMENSIONS RVDd3.0 (2.9-3.5cm)Left Atrium(2D)3.8 (1.6-4.0cm) IVSd1.1 (0.7-1.1cm)Aortic Root(2D)3.3 (2.0-3.7cm) LVDd4.4 (3.9-5.9cm)LVOT Diameter1.9 (1.8-2.4cm) PWd1.1 (0.7-1.1cm)LVDs2.6 (2.5-4.0cm) FS (%) 41.8 %SV65.4 ml Aortic Valve AoV Peak Maynor.183.6cm/sAoV VTI41.0cm AO Peak GR.13.5mmHgLVOT Peak Maynor.175.7cm/s AO Mean GR.5mmHgAVA (VMAX)2.74cm2 Mitral Valve MV E Iosksqah17.5cm/sMV DECEL [id number] MV A Ulajdknw93.7cm/sE/A Ratio1.0 Pulmonary Valve PV Peak Rzomopts311.1cm/s Tricuspid Valve TR P. Xfjeqbub450yp/sTR Peak Gr.29mmHg Pulmonary Vein S1 Fclnlwdv32.5cm/sD2 Bmwqqrqs25.2cm/s PVa jejdxqbn291vikc LEFT VENTRICLE The left ventricle is normal size. There is borderline concentric left ventricular hypertrophy. The l eft ventricular systolic function is normal and the ejection fraction is within normal range. Estima garrick ejection fraction 60-65%. There is normal LV segmental wall motion. RIGHT VENTRICLE The right ventricle is normal size. There is normal right ventricular wall thickness. The right ventr icular systolic function is normal. ATRIA The left atrium size is normal. The right atrium size is normal. The interatrial septum is intact wit h no evidence for an atrial septal defect or patent foramen ovale as noted on 2-D or Doppler imaging. AORTIC VALVE The aortic valve is normal in structure and function. Doppler and Color Flow revealed no significant aortic regurgitation. There is no significant aortic valvular stenosis. MITRAL VALVE The mitral valve is normal in structure and function. There is no evidence of mitral valve prolapse. There is no mitral valve stenosis. Doppler and Color-flow revealed mild mitral regurgitation. TRICUSPID VALVE The tricuspid valve is normal in structure and function. Doppler and Color Flow revealed mild tricusp id regurgitation. Estimated PAP 32 mmHg. There is no tricuspid valve stenosis. PULMONIC VALVE The pulmonary valve is normal in structure and function. Doppler and Color Flow revealed no pulmonic valvular regurgitation. GREAT VESSELS The aortic root is normal in size. The ascending aorta is normal in size. The IVC is normal in size a nd collapses >50% with inspiration. PERICARDIAL EFFUSION There is no evidence of significant pericardial effusion. Critical Notification Critical Value: No <Conclusion> The left ventricle is normal size. The left ventricular systolic function is normal and the ejection fraction is within normal range. Estimated ejection fraction 60-65%. There is borderline concentric left ventricular hypertrophy. There is no significant aortic valvular stenosis. Doppler and Color-flow revealed mild mitral regurgitation. Doppler and Color Flow revealed mild tricuspid regurgitation. Estimated PAP 32 mmHg. Signed by : Alvino Jackson MD Electronically Approved : 03/11/2021 17:06:58
[2021-03-11 19:15] VITALS: BP 135/60
[2021-03-11] MEDS: PATCH REMOVAL. MC SCH (20:32)
[2021-03-11] MEDS: SIMVASTATIN 20 MG TABLET PO SCH (20:32)
[2021-03-11] MEDS: cefTRIAXone IV Push 1 GM VIAL. IVP SCH (20:32)
[2021-03-11] MEDS: FAMOTIDINE 20 MG TABLET. PO SCH (20:32)
[2021-03-11] MEDS: DONEPEZIL HCL 5 MG TABLET. PO SCH (20:32)
[2021-03-11] MEDS: ASPIRIN ENTERIC COATED 81 MG TABLET.DR. PO SCH (20:32)
[2021-03-11 22:45] VITALS: BP 122/56
[2021-03-12 02:50] VITALS: BP 152/66
--- NOTE | 2021-03-12 06:40 | PDOC ---
PULMONARY PROGRESS NOTES DATE: 03/12/21 TIME: 06:39 Subjective pt. resting on 1.5 liters NC feels better S/P thoracentesis, sob better denies cough pain Vitals Vital Signs Date Time Temp Pulse Resp B/P (MAP) Pulse Ox O2 Delivery O2 Flow Rate FiO2 03/12/21 02:50 98.6 64 18 152/66 (94) 98 Nasal Cannula 1.5 98.6 ROS: No Nausea, No Chest Pain, No Abdominal Pain, No Increase Cough General: Alert, Oriented X4 Lungs: Crackles, Other (dull r base) Cardiovascular: S1 Abdomen: Soft, Non-tender Neuro Exam: Alert Extremities: No Edema Skin: Warm Medications Active Scripts Medications Dose Route/Sig Max Daily Dose Days Date Category Dose Instructions [prevagen] 1 Tab 1 PO DAILY 03/09/21 Reported Flomax (Tamsulosin Hcl) 0.4 Mg Cap.er.24h 0.4 Mg PO BID 03/09/21 Reported Simvastatin 20 Mg Tablet 20 Mg PO HS 10/21/20 Reported Miralax (Polyethylene Glycol 3350) 17 Gm Powd.pack 1 Packet PO DAILY 2 10/21/20 Reported dissolve in water Donepezil Hcl 10 Mg Tablet 10 Mg PO HS 10/21/20 Reported Aspirin Ec (Aspirin) 81 Mg Tablet.dr 81 Mg PO HS 10/21/20 Reported Acetaminophen 325 Mg Tablet 2 Tab PO PRN Q6HRS PRN 24 10/21/[address] chest IMPRESSION: 1. Large right pleural effusion and small left pleural effusion, increased in size from prior study. There is consolidation at the right base and left lower lobe that likely represents associated atelectasis. 2. There are multiple noncalcified pulmonary nodules, left greater than right, nonspecific but probably not significant changed from prior study. Continued follow-up imaging to ensure stability. 3. Coronary artery calcifications and mild ectasia of the ascending thoracic aor ta, unchanged. Impression . IMPRESSION: 1. Acute chest pain and hypoxemia, secondary to large right-sided effusion. 2. 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 New onset atrial fibrillation. 4. Hydronephrosis, secondary to bladder cancer. 5. Hyperlipidemia. 6. Dementia. Plan . PLAN: 6 min walk at dc Continue supplemental oxygen to keep sats 90% Follow CXR on sunday, may need repeat thoracentesis ---The patient may be a candidate for PleurX catheter placement. S/P right side thoracentesis on 03/10/21, with 900ml removed cytology pending fall precaution No need for ABX Follow Cardiology recs Follow GI recs Follow Medical ONC recs ---Noted that the patient had bone scans not too long ago, revealing no evidence of metastatic disease. This was performed on 03/04. DVT/GI PPX D/W RN and PT. RESHMA BERNARD MD Mar 12, 2021 06:40
[2021-03-12 07:00] VITALS: BP 149/66
[2021-03-12] MEDS: TAMSULOSIN 0.4 MG CAP.ER.24H. PO SCH ×2 (09:37→20:36)
[2021-03-12] MEDS: POLYETHYLENE GLYCOL 3350 17 GM PACKET. PO SCH (09:37)
[2021-03-12] MEDS: LIDOCAINE (700MG/PATCH) PATCH. TD SCH (09:38)
[2021-03-12] MEDS: METOPROLOL TART IMMED RELEASE 25 MG TABLET. PO SCH ×2 (09:38→20:37)
[2021-03-12] MEDS ORDERED: traMADol 50 MG TABLET PO PRN (09:45)
--- NOTE | 2021-03-12 09:47 | PDOC ---
PROGRESS NOTES Date of Service DATE: 03/12/21 TIME: 09:40 Subjective Subjective she is short of breath with minimal exertion with a long recovery time. echo shows a normal LVEF. still with pleuritic pain on right side. sustained NSR. Objective Objective Vital Signs Date Time Temp Pulse Resp B/P (MAP) Pulse Ox O2 Delivery O2 Flow Rate FiO2 03/12/21 09:38 68 149/66 03/12/21 07:00 97.6 18 97 Nasal Cannula 1.5 97.6 Intake and Output 03/12/21 07:00 Intake Total 720 ml Output Total 1103 ml Balance -383 ml Intake Oral 720 ml Output Urine Total 1100 ml Stool Total 3 ml # Voids 6 # Bowel Movements 2 Physical Exam Abdomen: Soft Heart: Regular rate, Normal S1, Normal S2 Extremities: No edema General: Alert HEENT: Atraumatic Lungs: Other (decreased breath sounds left base and 1/2 up on right) Neuro: Normal speech Psych/Mental Status: Mood NL Skin: No rashes Assessment Assessment Problems1. Right pleural effusion, l liter right thoracentesis 03/10 cytology pending 2. New onset atrial fibrillation with rapid ventricular response, converted to sinus rhythm . sustained NSR 3. Metastatic bladder cancer involving the distal left ureter as well as the inguinal and iliac lymph node chain 4. Bilateral hydronephrosis. 5. Left ureteral kidney stone treated with a stent. 6. Hyperlipidemia. 7. Dementia. disuse myopathy and physical deconditioning pleuritic pain on right. 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 coli UTI 70K with pyuria Medical Problems: (1) Abdominal pain Status: Acute (2) History of kidney stones Status: Acute (3) Paroxysmal atrial fibrillation with rapid ventricular response Status: Acute Plan Plan of Care d/c lovenox as this would be stopped anyways when dismissed start naproxen bid. lovenox for dvt prophylaxis which will be a lower dose while on naproxen to decrease bleeding risk PT and OT cxr increase prn tramadol and continue fentanyl patch screen for MARH continue metoprolol continue oxygen continue iv rocephin Comment Review of Relevant I have reviewed the following items saw (where applicable) has been applied. Labs Microbiology 03/10/21 Gram Stain - Final, Resulted 03/10/21 Aerobic and Anaerobic Culture - Preliminary, Resulted 03/09/21 Urine Culture - Preliminary, Resulted Medications Current Medications Morphine Sulfate (Morphine Sulfate) 4 mg PRN Q15MIN PRN IV/SQ PAIN GREATER THAN 3/10 Last administered on 03/09/21at 17:44; Start 03/09/21 at 16:45; Stop 03/10/21 at 16:44; Status DC Sodium Chloride 1,000 ml @ 1,000 mls/hr Q1H IV Last administered on 03/09/21at 17:12; Start 03/09/21 at 16:45; Stop 03/09/21 at 17:44; Status DC Ondansetron HCl (Zofran) 4 mg 1X ONCE IVP Last administered on 03/09/21at 17:30; Start 03/09/21 at 16:45; Stop 03/09/21 at 16:46; Status DC Diltiazem HCl (Cardizem Iv Push) 20 mg 1X ONCE IVP Last administered on 03/09/21at 17:36; Start 03/09/21 at 17:30; Stop 03/09/21 at 17:31; Status DC Diltiazem HCl 125 mg/Sodium Chloride 125 ml @ 5 mls/hr CONT PRN IV SEE I/O RECORD Last administered on 03/09/21at 17:43; Start 03/09/21 at 17:30; Stop 03/10/21 at 11:26; Status DC Ceftriaxone Sodium (Rocephin) 1 gm 1X ONCE IVP Last administered on 03/09/21at 18:43; Start 03/09/21 at 18:15; Stop 03/09/21 at 18:16; Status DC Fentanyl Citrate (Fentanyl 2ml Vial) 75 mcg 1X ONCE IVP Last administered on 03/09/21at 18:42; Start 03/09/21 at 18:30; Stop 03/09/21 at 18:31; Status DC Enoxaparin Sodium (Lovenox Per Pharmacy Treatment Dosing) 1 each PRN DAILY PRN MC SEE COMMENTS; Start 03/09/21 at 19:15 Ondansetron HCl (Zofran) 4 mg PRN Q8HRS PRN IV NAUSEA/VOMITING; Start 03/09/21 at 19:15; Stop 03/10/21 at 19:14; Status DC Fentanyl Citrate (Fentanyl 2ml Vial) 50 mcg PRN Q1HR PRN IV PAIN; Start 03/09/21 at 19:15; Stop 03/10/21 at 19:14; Status DC Acetaminophen (Tylenol) 650 mg PRN Q4HRS PRN PO FEVER > 100.3'F Last administered on 03/10/21 08:58; Start 03/09/21 at 19:15; Stop 03/10/21 at 11:54; Status DC Aspirin (Ecotrin) 81 mg HS PO Last administered on 03/11/21 20:32; Start 03/10/21 at 21:00 Donepezil HCl (Aricept) 10 mg HS PO ; Start 03/10/21 at 21:00; Stop 03/10/21 at 11:29; Status DC Polyethylene Glycol (miraLAX PACKET) 17 gm DAILY PO Last administered on 03/12/21 09:37; Start 03/10/21 at 09:00 Simvastatin (Zocor) 20 mg HS PO Last administered on 03/11/21 20:32; Start 03/10/21 at 21:00 Tamsulosin HCl (Flomax) 0.4 mg BID PO Last administered on 03/12/21 09:37; Start 03/10/21 at 09:00 Enoxaparin Sodium (Lovenox 80mg Syringe) 70 mg Q12HR SQ Last administered on 03/11/21 20:32; Start 03/10/21 at 02:30 Info (Anti-Coagulation Monitoring By Pharmacy) 1 each PRN DAILY PRN MC PER PROTOCOL Last administered on 03/10/21 01:52; Start 03/10/21 at 02:00 Metoprolol Tartrate (Lopressor) 25 mg BID PO Last administered on 03/12/21 09:38; Start 03/10/21 at 09:00 Ceftriaxone Sodium (Rocephin) 1 gm HS IVP Last administered on 03/11/21 20:32; Start 03/10/21 at 21:00 Sodium Chloride 1,000 ml @ 50 mls/hr Q20H IV Last administered on 03/10/21 12:41; Start 03/10/21 at 12:00; Stop 03/11/21 at 10:15; Status DC Ceftriaxone Sodium (Rocephin) 1 gm Q24H IVP ; Start 03/10/21 at 18:15; Stop 03/10/21 at 11:27; Status DC Ondansetron HCl (Zofran) 4 mg PRN Q6HRS PRN IVP NAUSEA/VOMITING; Start 03/10/21 at 11:30 Donepezil HCl (Aricept) 5 mg HS PO Last administered on 03/11/21 20:32; Start 03/10/21 at 21:00 Tramadol HCl (Ultram) 25 mg PRN Q6HRS PRN PO MODERATE PAIN Last administered on 03/10/21 12:40; Start 03/10/21 at 11:30 Famotidine (Pepcid) 20 mg QHS PO Last administered on 03/11/21 20:32; Start 03/10/21 at 21:00 Acetaminophen (Tylenol) 650 mg PRN Q6HRS PRN PO MILD PAIN / TEMP > 100.3'F Last administered on 03/11/21 20:31; Start 03/10/21 at 11:30 Lidocaine (Lidoderm) 1 patch DAILY TD Last administered on 03/12/21 09:38; Start 03/10/21 at 12:00 Miscellaneous (Lidoderm Patch Removal) 1 ea QHS MC Last administered on 03/11/21 20:32; Start 03/10/21 at 21:00 Ketorolac Tromethamine (Toradol 15mg Vial) 15 mg 1X ONCE IM ; Start 03/10/21 at 16:00; Stop 03/10/21 at 16:02; Status DC Ketorolac Tromethamine (Toradol 15mg Vial) 15 mg PRN Q6HRS PRN IVP INFLAMMATION Last administered on 03/11/21 05:56; Start 03/10/21 at 16:00; Stop 03/15/21 at 15:59 Fentanyl (Duragesic 25mcg/ Hr Patch) 1 patch Q3DAYS TD Last administered on 03/10/21 17:10; Start 03/10/21 at 17:00 Active Scripts Active Reported [prevagen] 1 Tab 1 PO DAILY Flomax (Tamsulosin Hcl) 0.4 Mg Cap.er.24h 0.4 Mg PO BID Simvastatin 20 Mg Tablet 20 Mg PO HS Miralax (Polyethylene Glycol 3350) 17 Gm Powd.pack 1 Packet PO DAILY 2 Days dissolve in water Donepezil Hcl 10 Mg Tablet 10 Mg PO HS Aspirin Ec (Aspirin) 81 Mg Tablet.dr 81 Mg PO HS Acetaminophen 325 Mg Tablet 2 Tab PO PRN Q6HRS PRN 24 Days Vitals/I & O Vital Sign - Last 24 Hours 03/11/21 03/11/21 03/11/21 03/11/21 11:00 15:00 19:15 19:17 Temp 98.1 98.8 99.4 98.1 98.8 99.4 Pulse 71 61 75 Resp 16 16 20 B/P (MAP) 124/59 (80) 131/48 (75) 135/60 (85) Pulse Ox 97 94 96 O2 Delivery Nasal Cannula Nasal Cannula Nasal Cannula Nasal Cannula O2 Flow Rate 3.0 1.5 1.5 1.5 03/11/21 03/11/21 03/12/21 03/12/21 20:32 22:45 02:50 07:00 Temp 98.7 98.6 97.6 98.7 98.6 97.6 Pulse 75 65 64 67 Resp 18 18 18 B/P (MAP) 135/60 122/56 (78) 152/66 (94) 149/66 (93) Pulse Ox 99 98 97 O2 Delivery Nasal Cannula Nasal Cannula Nasal Cannula O2 Flow Rate 1.5 1.5 1.5 03/12/21 09:38 Pulse 68 B/P (MAP) 149/66 Intake and Output 03/11/21 03/11/21 03/12/21 15:00 23:00 07:00 Intake Total 320 ml 400 ml Output Total 251 ml 2 ml 850 ml Balance 69 ml 398 ml -850 ml Justifications for Admission Other Justification FAZAL LUGO MD Mar 12, 2021 09:47
[2021-03-12 11:00] VITALS: BP 138/64
--- NOTE | 2021-03-12 11:42 | RAD ---
EXAM: Chest, 2 views. HISTORY: Pleural effusion. COMPARISON: 03/10/2021 FINDINGS: 2 views of the chest are obtained. There are stable moderate right and small left pleural e ffusions. There is stable right middle and lower lobe partial consolidation or collapse. There is sta ble right upper lobe and left lower lobe interstitial infiltrate or atelectasis. The heart is normal in size. There is no pneumothorax. IMPRESSION: 1. Stable moderate right and small left pleural effusions with suspected right middle and lower lobe partial consolidation or collapse. 2. Stable right upper lobe and left lower lobe atelectasis or interstitial infiltrate. Electronically signed by: Marylou Syed MD (03/12/2021 11:39 AM) [id number]
[2021-03-12] MEDS: NAPROXEN 250 MG TABLET PO SCH ×3 (12:00→17:45)
--- NOTE | 2021-03-12 14:17 | PDOC ---
PROGRESS NOTES Date of Service DATE: 03/12/21 TIME: 14:15 Subjective Subjective Patient seen and examined Objective Objective Vital Signs Date Time Temp Pulse Resp B/P (MAP) Pulse Ox O2 Delivery O2 Flow Rate FiO2 03/12/21 11:00 98.8 63 18 138/64 (88) 99 Nasal Cannula 1.5 98.8 Intake and Output 03/12/21 07:00 Intake Total 720 ml Output Total 1103 ml Balance -383 ml Intake Oral 720 ml Output Urine Total 1100 ml Stool Total 3 ml # Voids 6 # Bowel Movements 2 Physical Exam Abdomen: Normal bowel sounds Heart: Regular rate General: No acute distress Lungs: Other (Minimally decreased breath sounds) Assessment Assessment Problems Medical Problems: (1) Abdominal pain Status: Acute (2) History of kidney stones Status: Acute (3) Paroxysmal atrial fibrillation with rapid ventricular response Status: Acute Pleuritic chest pain with moderate right side pleural effusion: Status post thoracentesis. Followed by pulmonary. Hydronephrosis/hydroureter bilaterally with bladder CA and UTI AFIB RVR: new onset likely precipitated by sympathetic response to above. Has remained in sinus rhythm since initial episode. On beta-blockers. Echocardiogram shows intact LV systolic function. We will arrange outpatient monitoring and follow-up. HLP: on zocor Dementia: on aricept Comment Review of Relevant I have reviewed the following items saw (where applicable) has been applied. Labs Microbiology 03/10/21 Gram Stain - Final, Resulted 03/10/21 Aerobic and Anaerobic Culture - Preliminary, Resulted 03/09/21 Urine Culture - Final, Complete 03/09/21 Antimicrobic Susceptibility - Final, Complete Medications Current Medications Morphine Sulfate (Morphine Sulfate) 4 mg PRN Q15MIN PRN IV/SQ PAIN GREATER THAN 3/10 Last administered on 03/09/21at 17:44; Start 03/09/21 at 16:45; Stop 03/10/21 at 16:44; Status DC Sodium Chloride 1,000 ml @ 1,000 mls/hr Q1H IV Last administered on 03/09/21at 17:12; Start 03/09/21 at 16:45; Stop 03/09/21 at 17:44; Status DC Ondansetron HCl (Zofran) 4 mg 1X ONCE IVP Last administered on 03/09/21at 17:30; Start 03/09/21 at 16:45; Stop 03/09/21 at 16:46; Status DC Diltiazem HCl (Cardizem Iv Push) 20 mg 1X ONCE IVP Last administered on 03/09/21at 17:36; Start 03/09/21 at 17:30; Stop 03/09/21 at 17:31; Status DC Diltiazem HCl 125 mg/Sodium Chloride 125 ml @ 5 mls/hr CONT PRN IV SEE I/O RECORD Last administered on 03/09/21at 17:43; Start 03/09/21 at 17:30; Stop 03/10/21 at 11:26; Status DC Ceftriaxone Sodium (Rocephin) 1 gm 1X ONCE IVP Last administered on 03/09/21at 18:43; Start 03/09/21 at 18:15; Stop 03/09/21 at 18:16; Status DC Fentanyl Citrate (Fentanyl 2ml Vial) 75 mcg 1X ONCE IVP Last administered on 03/09/21at 18:42; Start 03/09/21 at 18:30; Stop 03/09/21 at 18:31; Status DC Enoxaparin Sodium (Lovenox Per Pharmacy Treatment Dosing) 1 each PRN DAILY PRN MC SEE COMMENTS; Start 03/09/21 at 19:15; Stop 03/12/21 at 09:40; Status DC Ondansetron HCl (Zofran) 4 mg PRN Q8HRS PRN IV NAUSEA/VOMITING; Start 03/09/21 at 19:15; Stop 03/10/21 at 19:14; Status DC Fentanyl Citrate (Fentanyl 2ml Vial) 50 mcg PRN Q1HR PRN IV PAIN; Start 03/09/21 at 19:15; Stop 03/10/21 at 19:14; Status DC Acetaminophen (Tylenol) 650 mg PRN Q4HRS PRN PO FEVER > 100.3'F Last administered on 03/10/21at 08:58; Start 03/09/21 at 19:15; Stop 03/10/21 at 11:54; Status DC Aspirin (Ecotrin) 81 mg HS PO Last administered on 03/11/21at 20:32; Start 03/10/21 at 21:00 Donepezil HCl (Aricept) 10 mg HS PO ; Start 03/10/21 at 21:00; Stop 03/10/21 at 11:29; Status DC Polyethylene Glycol (miraLAX PACKET) 17 gm DAILY PO Last administered on 03/12/21 09:37; Start 03/10/21 at 09:00 Simvastatin (Zocor) 20 mg HS PO Last administered on 03/11/21 20:32; Start 03/10/21 at 21:00 Tamsulosin HCl (Flomax) 0.4 mg BID PO Last administered on 03/12/21 09:37; Start 03/10/21 at 09:00 Enoxaparin Sodium (Lovenox 80mg Syringe) 70 mg Q12HR SQ Last administered on 03/11/21 20:32; Start 03/10/21 at 02:30; Stop 03/12/21 at 09:40; Status DC Info (Anti-Coagulation Monitoring By Pharmacy) 1 each PRN DAILY PRN MC PER PROTOCOL Last administered on 03/10/21 01:52; Start 03/10/21 at 02:00 Metoprolol Tartrate (Lopressor) 25 mg BID PO Last administered on 03/12/21 09:38; Start 03/10/21 at 09:00 Ceftriaxone Sodium (Rocephin) 1 gm HS IVP Last administered on 03/11/21 20:32; Start 03/10/21 at 21:00 Sodium Chloride 1,000 ml @ 50 mls/hr Q20H IV Last administered on 03/10/21 12:41; Start 03/10/21 at 12:00; Stop 03/11/21 at 10:15; Status DC Ceftriaxone Sodium (Rocephin) 1 gm Q24H IVP ; Start 03/10/21 at 18:15; Stop 03/10/21 at 11:27; Status DC Ondansetron HCl (Zofran) 4 mg PRN Q6HRS PRN IVP NAUSEA/VOMITING; Start 03/10/21 at 11:30 Donepezil HCl (Aricept) 5 mg HS PO Last administered on 03/11/21 20:32; Start 03/10/21 at 21:00 Tramadol HCl (Ultram) 25 mg PRN Q6HRS PRN PO MODERATE PAIN Last administered on 03/10/21 12:40; Start 03/10/21 at 11:30; Stop 03/12/21 at 09:40; Status DC Famotidine (Pepcid) 20 mg QHS PO Last administered on 03/11/21at 20:32; Start 03/10/21 at 21:00 Acetaminophen (Tylenol) 650 mg PRN Q6HRS PRN PO MILD PAIN / TEMP > 100.3'F Last administered on 03/11/21 20:31; Start 03/10/21 at 11:30 Lidocaine (Lidoderm) 1 patch DAILY TD Last administered on 03/12/21at 09:38; Start 03/10/21 at 12:00 Miscellaneous (Lidoderm Patch Removal) 1 ea QHS MC Last administered on 03/11/21at 20:32; Start 03/10/21 at 21:00 Ketorolac Tromethamine (Toradol 15mg Vial) 15 mg 1X ONCE IM ; Start 03/10/21 at 16:00; Stop 03/10/21 at 16:02; Status DC Ketorolac Tromethamine (Toradol 15mg Vial) 15 mg PRN Q6HRS PRN IVP INFLAMMATION Last administered on 03/11/21at 05:56; Start 03/10/21 at 16:00; Stop 03/12/21 at 09:40; Status DC Fentanyl (Duragesic 25mcg/ Hr Patch) 1 patch Q3DAYS TD Last administered on 03/10/21at 17:10; Start 03/10/21 at 17:00 Tramadol HCl (Ultram) 50 mg PRN Q6HRS PRN PO MODERATE PAIN; Start 03/12/21 at 09:45 Enoxaparin Sodium (Lovenox 40mg Syringe) 40 mg Q24H SQ ; Start 03/12/21 at 16:00 Naproxen (Naprosyn) 250 mg BIDWMEALS PO Last administered on 03/12/21at 13:58; Start 03/12/21 at 12:00 Active Scripts Active Reported [prevagen] 1 Tab 1 PO DAILY Flomax (Tamsulosin Hcl) 0.4 Mg Cap.er.24h 0.4 Mg PO BID Simvastatin 20 Mg Tablet 20 Mg PO HS Miralax (Polyethylene Glycol 3350) 17 Gm Powd.pack 1 Packet PO DAILY 2 Days dissolve in water Donepezil Hcl 10 Mg Tablet 10 Mg PO HS Aspirin Ec (Aspirin) 81 Mg Tablet.dr 81 Mg PO HS Acetaminophen 325 Mg Tablet 2 Tab PO PRN Q6HRS PRN 24 Days Vitals/I & O Vital Sign - Last 24 Hours 03/11/21 03/11/21 03/11/21 03/11/21 15:00 19:15 19:17 20:32 Temp 98.8 99.4 98.8 99.4 Pulse 61 75 75 Resp 16 20 B/P (MAP) 131/48 (75) 135/60 (85) 135/60 Pulse Ox 94 96 O2 Delivery Nasal Cannula Nasal Cannula Nasal Cannula O2 Flow Rate 1.5 1.5 1.5 03/11/21 03/12/21 03/12/21 03/12/21 22:45 02:50 07:00 09:38 Temp 98.7 98.6 97.6 98.7 98.6 97.6 Pulse 65 64 67 68 Resp 18 18 18 B/P (MAP) 122/56 (78) 152/66 (94) 149/66 (93) 149/66 Pulse Ox 99 98 97 O2 Delivery Nasal Cannula Nasal Cannula Nasal Cannula O2 Flow Rate 1.5 1.5 1.5 03/12/21 11:00 Temp 98.8 98.8 Pulse 63 Resp 18 B/P (MAP) 138/64 (88) Pulse Ox 99 O2 Delivery Nasal Cannula O2 Flow Rate 1.5 Intake and Output 03/11/21 03/11/21 03/12/21 15:00 23:00 07:00 Intake Total 320 ml 400 ml Output Total 251 ml 2 ml 850 ml Balance 69 ml 398 ml -850 ml Justifications for Admission Other Justification YONY QUINTANA MD Mar 12, 2021 14:17
[2021-03-12 15:00] VITALS: BP 152/63
[2021-03-12] MEDS: ENOXAPARIN 40 MG/0.4 ML SYRINGE. SQ SCH (17:46)
[2021-03-12 19:00] VITALS: BP 156/67
[2021-03-12] MEDS: cefTRIAXone IV Push 1 GM VIAL. IVP SCH (20:36)
[2021-03-12] MEDS: SIMVASTATIN 20 MG TABLET PO SCH (20:37)
[2021-03-12] MEDS: DONEPEZIL HCL 5 MG TABLET. PO SCH (20:37)
[2021-03-12] MEDS: FAMOTIDINE 20 MG TABLET. PO SCH (20:37)
[2021-03-12] MEDS: ASPIRIN ENTERIC COATED 81 MG TABLET.DR. PO SCH (20:37)
[2021-03-12] MEDS: PATCH REMOVAL. MC SCH (21:00)
[2021-03-12 23:01] VITALS: BP 154/67
[2021-03-13 03:00] VITALS: BP 154/84
[2021-03-13 05:34] LABS: BASO % 1 % (0-3); EOS # 0.2 x10^3/uL (0.0-0.7); EOS % 4 % (0-3); HEMATOCRIT 32.8 % (36.0-47.0); HEMOGLOBIN 10.9 g/dL (12.0-15.5); LYMPH # 0.4 x10^3/uL (1.0-4.8); LYMPH % 8 % (24-48); MEAN CORPUSCULAR HEMOGLOBIN 29 pg (25-35); MEAN CORPUSCULAR HGB CONC 33 g/dL (31-37); MEAN CORPUSCULAR VOLUME 86 fL (79-100); MONO # 0.5 x10^3/uL (0.0-1.1); MONO % 11 % (0-9); NEUT # 3.6 x10^3/uL (1.8-7.7); NEUT % 77 % (31-73); PLATELET COUNT 325 x10^3/uL (140-400); RED BLOOD COUNT 3.82 x10^6/uL (3.50-5.40); RED CELL DISTRIBUTION WIDTH 13.5 % (11.5-14.5); WHITE BLOOD COUNT 4.7 x10^3/uL (4.0-11.0)
[2021-03-13 05:47] LABS: CALCIUM 8.7 mg/dL (8.5-10.1); GFR 53.1; POTASSIUM 3.9 mmol/L (3.5-5.1)
--- NOTE | 2021-03-13 06:19 | PDOC ---
PULMONARY PROGRESS NOTES DATE: 03/13/21 TIME: 06:18 Subjective on 1.5 liters NC feels better S/P thoracentesis, denies sob cough in nsr Vitals Vital Signs Date Time Temp Pulse Resp B/P (MAP) Pulse Ox O2 Delivery O2 Flow Rate FiO2 03/13/21 03:00 98.2 77 16 154/84 (107) 98 Nasal Cannula 1.5 98.2 ROS: No Nausea, No Abdominal Pain, No Increase Cough General: Alert, Oriented X4 Lungs: Crackles, Other (dull r base) Cardiovascular: S1, S2 Abdomen: Soft, Non-tender Neuro Exam: Alert Extremities: No Edema Skin: Warm Labs Laboratory Tests Test 03/13/21 05:00 White Blood Count 4.7 x10^3/uL (4.0-11.0) Red Blood Count 3.82 x10^6/uL (3.50-5.40) Hemoglobin 10.9 g/dL (12.0-15.5) Hematocrit 32.8 % (36.0-47.0) Mean Corpuscular Volume 86 fL (79-100) Mean Corpuscular Hemoglobin 29 pg (25-35) Mean Corpuscular Hemoglobin Concent 33 g/dL (31-37) Red Cell Distribution Width 13.5 % (11.5-14.5) Platelet Count 325 x10^3/uL (140-400) Neutrophils (%) (Auto) 77 % (31-73) Lymphocytes (%) (Auto) 8 % (24-48) Monocytes (%) (Auto) 11 % (0-9) Eosinophils (%) (Auto) 4 % (0-3) Basophils (%) (Auto) 1 % (0-3) Neutrophils # (Auto) 3.6 x10^3/uL (1.8-7.7) Lymphocytes # (Auto) 0.4 x10^3/uL (1.0-4.8) Monocytes # (Auto) 0.5 x10^3/uL (0.0-1.1) Eosinophils # (Auto) 0.2 x10^3/uL (0.0-0.7) Basophils # (Auto) 0.0 x10^3/uL (0.0-0.2) Sodium Level 142 mmol/L (136-145) Potassium Level 3.9 mmol/L (3.5-5.1) Chloride Level 106 mmol/L (98-107) Carbon Dioxide Level 29 mmol/L (21-32) Anion Gap 7 (6-14) Blood Urea Nitrogen 17 mg/dL (7-20) Creatinine 1.0 mg/dL (0.6-1.0) Estimated GFR (Cockcroft-Gault) 53.1 Glucose Level 101 mg/dL (70-99) Calcium Level 8.7 mg/dL (8.5-10.1) Laboratory Tests Test 03/13/21 05:00 White Blood Count 4.7 x10^3/uL (4.0-11.0) Red Blood Count 3.82 x10^6/uL (3.50-5.40) Hemoglobin 10.9 g/dL (12.0-15.5) Hematocrit 32.8 % (36.0-47.0) Mean Corpuscular Volume 86 fL (79-100) Mean Corpuscular Hemoglobin 29 pg (25-35) Mean Corpuscular Hemoglobin Concent 33 g/dL (31-37) Red Cell Distribution Width 13.5 % (11.5-14.5) Platelet Count 325 x10^3/uL (140-400) Neutrophils (%) (Auto) 77 % (31-73) Lymphocytes (%) (Auto) 8 % (24-48) Monocytes (%) (Auto) 11 % (0-9) Eosinophils (%) (Auto) 4 % (0-3) Basophils (%) (Auto) 1 % (0-3) Neutrophils # (Auto) 3.6 x10^3/uL (1.8-7.7) Lymphocytes # (Auto) 0.4 x10^3/uL (1.0-4.8) Monocytes # (Auto) 0.5 x10^3/uL (0.0-1.1) Eosinophils # (Auto) 0.2 x10^3/uL (0.0-0.7) Basophils # (Auto) 0.0 x10^3/uL (0.0-0.2) Sodium Level 142 mmol/L (136-145) Potassium Level 3.9 mmol/L (3.5-5.1) Chloride Level 106 mmol/L (98-107) Carbon Dioxide Level 29 mmol/L (21-32) Anion Gap 7 (6-14) Blood Urea Nitrogen 17 mg/dL (7-20) Creatinine 1.0 mg/dL (0.6-1.0) Estimated GFR (Cockcroft-Gault) 53.1 Glucose Level 101 mg/dL (70-99) Calcium Level 8.7 mg/dL (8.5-10.1) Medications Active Scripts Medications Dose Route/Sig Max Daily Dose Days Date Category Dose Instructions [prevagen] 1 Tab 1 PO DAILY 03/09/21 Reported Flomax (Tamsulosin Hcl) 0.4 Mg Cap.er.24h 0.4 Mg PO BID 03/09/21 Reported Simvastatin 20 Mg Tablet 20 Mg PO HS 10/21/20 Reported Miralax (Polyethylene Glycol 3350) 17 Gm Powd.pack 1 Packet PO DAILY 2 10/21/20 Reported dissolve in water Donepezil Hcl 10 Mg Tablet 10 Mg PO HS 10/21/20 Reported Aspirin Ec (Aspirin) 81 Mg Tablet.dr 81 Mg PO HS 10/21/20 Reported Acetaminophen 325 Mg Tablet 2 Tab PO PRN Q6HRS PRN 24 10/21/[address] chest IMPRESSION: 1. Large right pleural effusion and small left pleural effusion, increased in size from prior study. There is consolidation at the right base and left lower lobe that likely represents associated atelectasis. 2. There are multiple noncalcified pulmonary nodules, left greater than right, nonspecific but probably not significant changed from prior study. Continued f ollow-up imaging to ensure stability. 3. Coronary artery calcifications and mild ectasia of the ascending thoracic aorta, unchanged. Impression . IMPRESSION: 1. Acute chest pain and hypoxemia, secondary to large right-sided effusion. 2. 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 New onset atrial fibrillation. now nsr echo reviewed 4. Hydronephrosis, secondary to bladder cancer. 5. Hyperlipidemia. 6. Dementia. echo The left ventricle is normal size. The left ventricular systolic function is normal and the ejection fraction is within normal range. Estimated ejection fraction 60-65%. There is borderline concentric left ventricular hypertrophy. There is no significant aortic valvular stenosis. Doppler and Color-flow revealed mild mitral regurgitation. Doppler and Color Flow revealed mild tricuspid regurgitation. Estimated PAP 32 mmHg. Plan . PLAN: 02 titration to keep sat 90% 6 min walk at dc Follow up CXR pa and lat tomorrow, may need repeat thoracentesis ---The patient may be a candidate for PleurX catheter placement. S/P right side thoracentesis on 03/10/21, with 900ml removed cytology pending fall precaution monitor off ABX Follow Cardiology recs Follow GI recs Follow Medical ONC recs ---Noted that the patient had bone scans not too long ago, revealing no evidence of metastatic disease. This was performed on 03/04. DVT/GI PPX D/W RN and PT. RESHMA BERNARD MD Mar 13, 2021 06:19
[2021-03-13 07:00] VITALS: BP 153/67
[2021-03-13] MEDS: POLYETHYLENE GLYCOL 3350 17 GM PACKET. PO SCH (09:49)
[2021-03-13] MEDS: fentaNYL 25MCG/HR PATCH 1 PATCH PATCH.TD72 TD SCH (09:52)
[2021-03-13] MEDS: LIDOCAINE (700MG/PATCH) PATCH. TD SCH (09:53)
[2021-03-13] MEDS: METOPROLOL TART IMMED RELEASE 25 MG TABLET. PO SCH ×2 (09:54→21:26)
[2021-03-13] MEDS: TAMSULOSIN 0.4 MG CAP.ER.24H. PO SCH ×2 (09:54→21:25)
[2021-03-13] MEDS: NAPROXEN 250 MG TABLET PO SCH ×2 (09:55→17:23)
--- NOTE | 2021-03-13 10:19 | PDOC ---
PROGRESS NOTES Date of Service DATE: 03/13/21 TIME: 10:14 Subjective Subjective cxr with moderate right pleural effusion. 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 urine culture e. coli sensitive to rocephin and cipro . lab reviewed. not short of breath at rest. walked 200 feet with walker yesterday wit h brief hypoxia corrected with oxygen. Objective Objective Vital Signs Date Time Temp Pulse Resp B/P (MAP) Pulse Ox O2 Delivery O2 Flow Rate FiO2 03/13/21 09:54 61 153/67 03/13/21 09:52 16 98 Nasal Cannula 1.5 03/13/21 07:00 98.5 98.5 Intake and Output 03/13/21 07:00 Intake Total 420 ml Output Total 1500 ml Balance -1080 ml Intake Oral 420 ml Output Urine Total 1500 ml # Voids 5 # Bowel Movements 2 Physical Exam Abdomen: Soft Heart: Regular rate, Normal S1, Normal S2 Extremities: No edema General: Alert HEENT: Atraumatic Lungs: Other (decreaed breath sounds 1/2 up on right side and left base) Neck: Supple Neuro: Normal speech Psych/Mental Status: Mental status NL Skin: No rashes Assessment Assessment Problems1. Right pleural effusion, l liter right thoracentesis 03/10 cytology pending 2. New onset atrial fibrillation with rapid ventricular response, converted to sinus rhythm . sustained NSR 3. Metastatic bladder cancer involving the distal left ureter as well as the inguinal and iliac lymph node chain 4. Bilateral hydronephrosis. 5. Left ureteral kidney stone treated with a stent. 6. Hyperlipidemia. 7. Dementia. disuse myopathy and physical deconditioning pleuritic pain on right. 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 coli UTI 70K with pyuria Medical Problems: (1) Abdominal pain Status: Acute (2) History of kidney stones Status: Acute (3) Paroxysmal atrial fibrillation with rapid ventricular response Status: Acute Plan Plan of Care continue oxygen defer need for a portable chest tube to pulmonology PT and OT d/c rocephin start cipro MARH screen continue naproxen and prn tramadol and fentanyl patch pleural cytology pending Comment Review of Relevant I have reviewed the following items saw (where applicable) has been applied. Labs Laboratory Tests Test 03/13/21 05:00 White Blood Count 4.7 x10^3/uL (4.0-11.0) Red Blood Count 3.82 x10^6/uL (3.50-5.40) Hemoglobin 10.9 g/dL (12.0-15.5) Hematocrit 32.8 % (36.0-47.0) Mean Corpuscular Volume 86 fL (79-100) Mean Corpuscular Hemoglobin 29 pg (25-35) Mean Corpuscular Hemoglobin Concent 33 g/dL (31-37) Red Cell Distribution Width 13.5 % (11.5-14.5) Platelet Count 325 x10^3/uL (140-400) Neutrophils (%) (Auto) 77 % (31-73) Lymphocytes (%) (Auto) 8 % (24-48) Monocytes (%) (Auto) 11 % (0-9) Eosinophils (%) (Auto) 4 % (0-3) Basophils (%) (Auto) 1 % (0-3) Neutrophils # (Auto) 3.6 x10^3/uL (1.8-7.7) Lymphocytes # (Auto) 0.4 x10^3/uL (1.0-4.8) Monocytes # (Auto) 0.5 x10^3/uL (0.0-1.1) Eosinophils # (Auto) 0.2 x10^3/uL (0.0-0.7) Basophils # (Auto) 0.0 x10^3/uL (0.0-0.2) Sodium Level 142 mmol/L (136-145) Potassium Level 3.9 mmol/L (3.5-5.1) Chloride Level 106 mmol/L (98-107) Carbon Dioxide Level 29 mmol/L (21-32) Anion Gap 7 (6-14) Blood Urea Nitrogen 17 mg/dL (7-20) Creatinine 1.0 mg/dL (0.6-1.0) Estimated GFR (Cockcroft-Gault) 53.1 Glucose Level 101 mg/dL (70-99) Calcium Level 8.7 mg/dL (8.5-10.1) Laboratory Tests Test 03/13/21 05:00 White Blood Count 4.7 x10^3/uL (4.0-11.0) Red Blood Count 3.82 x10^6/uL (3.50-5.40) Hemoglobin 10.9 g/dL (12.0-15.5) Hematocrit 32.8 % (36.0-47.0) Mean Corpuscular Volume 86 fL (79-100) Mean Corpuscular Hemoglobin 29 pg (25-35) Mean Corpuscular Hemoglobin Concent 33 g/dL (31-37) Red Cell Distribution Width 13.5 % (11.5-14.5) Platelet Count 325 x10^3/uL (140-400) Neutrophils (%) (Auto) 77 % (31-73) Lymphocytes (%) (Auto) 8 % (24-48) Monocytes (%) (Auto) 11 % (0-9) Eosinophils (%) (Auto) 4 % (0-3) Basophils (%) (Auto) 1 % (0-3) Neutrophils # (Auto) 3.6 x10^3/uL (1.8-7.7) Lymphocytes # (Auto) 0.4 x10^3/uL (1.0-4.8) Monocytes # (Auto) 0.5 x10^3/uL (0.0-1.1) Eosinophils # (Auto) 0.2 x10^3/uL (0.0-0.7) Basophils # (Auto) 0.0 x10^3/uL (0.0-0.2) Sodium Level 142 mmol/L (136-145) Potassium Level 3.9 mmol/L (3.5-5.1) Chloride Level 106 mmol/L (98-107) Carbon Dioxide Level 29 mmol/L (21-32) Anion Gap 7 (6-14) Blood Urea Nitrogen 17 mg/dL (7-20) Creatinine 1.0 mg/dL (0.6-1.0) Estimated GFR (Cockcroft-Gault) 53.1 Glucose Level 101 mg/dL (70-99) Calcium Level 8.7 mg/dL (8.5-10.1) Microbiology 03/10/21 Gram Stain - Final, Resulted 03/10/21 Aerobic and Anaerobic Culture - Preliminary, Resulted 03/09/21 Urine Culture - Final, Complete 03/09/21 Antimicrobic Susceptibility - Final, Complete Medications Current Medications Morphine Sulfate (Morphine Sulfate) 4 mg PRN Q15MIN PRN IV/SQ PAIN GREATER THAN 3/10 Last administered on 03/09/21at 17:44; Start 03/09/21 at 16:45; Stop 03/10/21 at 16:44; Status DC Sodium Chloride 1,000 ml @ 1,000 mls/hr Q1H IV Last administered on 03/09/21at 17:12; Start 03/09/21 at 16:45; Stop 03/09/21 at 17:44; Status DC Ondansetron HCl (Zofran) 4 mg 1X ONCE IVP Last administered on 03/09/21at 17:30; Start 03/09/21 at 16:45; Stop 03/09/21 at 16:46; Status DC Diltiazem HCl (Cardizem Iv Push) 20 mg 1X ONCE IVP Last administered on 03/09/21at 17:36; Start 03/09/21 at 17:30; Stop 03/09/21 at 17:31; Status DC Diltiazem HCl 125 mg/Sodium Chloride 125 ml @ 5 mls/hr CONT PRN IV SEE I/O RECORD Last administered on 03/09/21at 17:43; Start 03/09/21 at 17:30; Stop 03/10/21 at 11:26; Status DC Ceftriaxone Sodium (Rocephin) 1 gm 1X ONCE IVP Last administered on 03/09/21at 18:43; Start 03/09/21 at 18:15; Stop 03/09/21 at 18:16; Status DC Fentanyl Citrate (Fentanyl 2ml Vial) 75 mcg 1X ONCE IVP Last administered on 03/09/21at 18:42; Start 03/09/21 at 18:30; Stop 03/09/21 at 18:31; Status DC Enoxaparin Sodium (Lovenox Per Pharmacy Treatment Dosing) 1 each PRN DAILY PRN MC SEE COMMENTS; Start 03/09/21 at 19:15; Stop 03/12/21 at 09:40; Status DC Ondansetron HCl (Zofran) 4 mg PRN Q8HRS PRN IV NAUSEA/VOMITING; Start 03/09/21 at 19:15; Stop 03/10/21 at 19:14; Status DC Fentanyl Citrate (Fentanyl 2ml Vial) 50 mcg PRN Q1HR PRN IV PAIN; Start 03/09/21 at 19:15; Stop 03/10/21 at 19:14; Status DC Acetaminophen (Tylenol) 650 mg PRN Q4HRS PRN PO FEVER > 100.3'F Last administered on 03/10/21at 08:58; Start 03/09/21 at 19:15; Stop 03/10/21 at 11:54; Status DC Aspirin (Ecotrin) 81 mg HS PO Last administered on 03/12/21at 20:37; Start 03/10/21 at 21:00 Donepezil HCl (Aricept) 10 mg HS PO ; Start 03/10/21 at 21:00; Stop 03/10/21 at 11:29; Status DC Polyethylene Glycol (miraLAX PACKET) 17 gm DAILY PO Last administered on 03/13/21 09:49; Start 03/10/21 at 09:00 Simvastatin (Zocor) 20 mg HS PO Last administered on 03/12/21 20:37; Start 03/10/21 at 21:00 Tamsulosin HCl (Flomax) 0.4 mg BID PO Last administered on 03/13/21 09:54; Start 03/10/21 at 09:00 Enoxaparin Sodium (Lovenox 80mg Syringe) 70 mg Q12HR SQ Last administered on 03/11/21 20:32; Start 03/10/21 at 02:30; Stop 03/12/21 at 09:40; Status DC Info (Anti-Coagulation Monitoring By Pharmacy) 1 each PRN DAILY PRN MC PER PROTOCOL Last administered on 03/10/21at 01:52; Start 03/10/21 at 02:00 Metoprolol Tartrate (Lopressor) 25 mg BID PO Last administered on 03/13/21 09:54; Start 03/10/21 at 09:00 Ceftriaxone Sodium (Rocephin) 1 gm HS IVP Last administered on 03/12/21 20:36; Start 03/10/21 at 21:00 Sodium Chloride 1,000 ml @ 50 mls/hr Q20H IV Last administered on 03/10/21at 12:41; Start 03/10/21 at 12:00; Stop 03/11/21 at 10:15; Status DC Ceftriaxone Sodium (Rocephin) 1 gm Q24H IVP ; Start 03/10/21 at 18:15; Stop 03/10/21 at 11:27; Status DC Ondansetron HCl (Zofran) 4 mg PRN Q6HRS PRN IVP NAUSEA/VOMITING; Start 03/10/21 at 11:30 Donepezil HCl (Aricept) 5 mg HS PO Last administered on 03/12/21at 20:37; Start 03/10/21 at 21:00 Tramadol HCl (Ultram) 25 mg PRN Q6HRS PRN PO MODERATE PAIN Last administered on 03/10/21 12:40; Start 03/10/21 at 11:30; Stop 03/12/21 at 09:40; Status DC Famotidine (Pepcid) 20 mg QHS PO Last administered on 03/12/21 20:37; Start 03/10/21 at 21:00 Acetaminophen (Tylenol) 650 mg PRN Q6HRS PRN PO MILD PAIN / TEMP > 100.3'F Last administered on 03/11/21 20:31; Start 03/10/21 at 11:30 Lidocaine (Lidoderm) 1 patch DAILY TD Last administered on 03/13/21 09:53; Start 03/10/21 at 12:00 Miscellaneous (Lidoderm Patch Removal) 1 ea QHS MC Last administered on 03/12/21at 21:00; Start 03/10/21 at 21:00 Ketorolac Tromethamine (Toradol 15mg Vial) 15 mg 1X ONCE IM ; Start 03/10/21 at 16:00; Stop 03/10/21 at 16:02; Status DC Ketorolac Tromethamine (Toradol 15mg Vial) 15 mg PRN Q6HRS PRN IVP INFLAMMATION Last administered on 03/11/21at 05:56; Start 03/10/21 at 16:00; Stop 03/12/21 at 09:40; Status DC Fentanyl (Duragesic 25mcg/ Hr Patch) 1 patch Q3DAYS TD Last administered on 03/13/21 09:52; Start 03/10/21 at 17:00 Tramadol HCl (Ultram) 50 mg PRN Q6HRS PRN PO MODERATE PAIN; Start 03/12/21 at 09:45 Enoxaparin Sodium (Lovenox 40mg Syringe) 40 mg Q24H SQ Last administered on 03/12/21at 17:46; Start 03/12/21 at 16:00 Naproxen (Naprosyn) 250 mg BIDWMEALS PO Last administered on 03/13/21at 09:55; Start 03/12/21 at 12:00 Active Scripts Active Reported [prevagen] 1 Tab 1 PO DAILY Flomax (Tamsulosin Hcl) 0.4 Mg Cap.er.24h 0.4 Mg PO BID Simvastatin 20 Mg Tablet 20 Mg PO HS Miralax (Polyethylene Glycol 3350) 17 Gm Powd.pack 1 Packet PO DAILY 2 Days dissolve in water Donepezil Hcl 10 Mg Tablet 10 Mg PO HS Aspirin Ec (Aspirin) 81 Mg Tablet.dr 81 Mg PO HS Acetaminophen 325 Mg Tablet 2 Tab PO PRN Q6HRS PRN 24 Days Vitals/I & O Vital Sign - Last 24 Hours 03/12/21 03/12/21 03/12/21 03/12/21 11:00 15:00 19:00 20:00 Temp 98.8 98.6 99.2 98.8 98.6 99.2 Pulse 63 65 71 Resp 18 18 18 B/P (MAP) 138/64 (88) 152/63 (92) 156/67 (96) Pulse Ox 99 95 99 O2 Delivery Nasal Cannula Nasal Cannula Nasal Cannula Nasal Cannula O2 Flow Rate 1.5 1.5 1.5 1.5 03/12/21 03/12/21 03/13/21 03/13/21 20:37 23:01 03:00 07:00 Temp 98.5 98.2 98.5 98.5 98.2 98.5 Pulse 71 66 77 61 Resp 16 16 18 B/P (MAP) 156/67 154/67 (96) 154/84 (107) 153/67 (95) Pulse Ox 98 98 98 O2 Delivery Nasal Cannula Nasal Cannula Nasal Cannula O2 Flow Rate 1.5 1.5 1.5 03/13/21 03/13/21 09:52 09:54 Pulse 61 Resp 16 B/P (MAP) 153/67 Pulse Ox 98 O2 Delivery Nasal Cannula O2 Flow Rate 1.5 Intake and Output 03/12/21 03/12/21 03/13/21 15:00 23:00 07:00 Intake Total 120 ml 300 ml Output Total 200 ml 600 ml 700 ml Balance -80 ml -600 ml -400 ml Justifications for Admission Other Justification FAZAL LUGO MD Mar 13, 2021 10:19
--- NOTE | 2021-03-13 10:56 | PDOC ---
PROGRESS NOTES Date of Service DATE: 03/13/21 TIME: 10:54 Subjective Subjective Patient seen and examined Objective Objective Vital Signs Date Time Temp Pulse Resp B/P (MAP) Pulse Ox O2 Delivery O2 Flow Rate FiO2 03/13/21 09:54 61 153/67 03/13/21 09:52 16 98 Nasal Cannula 1.5 03/13/21 07:00 98.5 98.5 Intake and Output 03/13/21 07:00 Intake Total 420 ml Output Total 1500 ml Balance -1080 ml Intake Oral 420 ml Output Urine Total 1500 ml # Voids 5 # Bowel Movements 2 Physical Exam Abdomen: Normal bowel sounds Heart: Regular rate General: No acute distress Lungs: Other (Decreased breath sounds in the bases.) Assessment Assessment Problems Medical Problems: (1) Abdominal pain Status: Acute (2) History of kidney stones Status: Acute (3) Paroxysmal atrial fibrillation with rapid ventricular response Status: Acute Pleuritic chest pain with moderate right side pleural effusion: Status post thoracentesis. Feeling better. As per the pulmonary service. Hydronephrosis/hydroureter bilaterally with bladder CA and UTI AFIB RVR: new onset likely precipitated by sympathetic response to above. Has remained in sinus rhythm since initial episode. On beta-blockers. Echocardiogram shows intact LV systolic function. We will arrange outpatient monitoring and follow-up. HLP: on zocor Dementia: on aricept Comment Review of Relevant I have reviewed the following items saw (where applicable) has been applied. Labs Laboratory Tests Test 03/13/21 05:00 White Blood Count 4.7 x10^3/uL (4.0-11.0) Red Blood Count 3.82 x10^6/uL (3.50-5.40) Hemoglobin 10.9 g/dL (12.0-15.5) Hematocrit 32.8 % (36.0-47.0) Mean Corpuscular Volume 86 fL (79-100) Mean Corpuscular Hemoglobin 29 pg (25-35) Mean Corpuscular Hemoglobin Concent 33 g/dL (31-37) Red Cell Distribution Width 13.5 % (11.5-14.5) Platelet Count 325 x10^3/uL (140-400) Neutrophils (%) (Auto) 77 % (31-73) Lymphocytes (%) (Auto) 8 % (24-48) Monocytes (%) (Auto) 11 % (0-9) Eosinophils (%) (Auto) 4 % (0-3) Basophils (%) (Auto) 1 % (0-3) Neutrophils # (Auto) 3.6 x10^3/uL (1.8-7.7) Lymphocytes # (Auto) 0.4 x10^3/uL (1.0-4.8) Monocytes # (Auto) 0.5 x10^3/uL (0.0-1.1) Eosinophils # (Auto) 0.2 x10^3/uL (0.0-0.7) Basophils # (Auto) 0.0 x10^3/uL (0.0-0.2) Sodium Level 142 mmol/L (136-145) Potassium Level 3.9 mmol/L (3.5-5.1) Chloride Level 106 mmol/L (98-107) Carbon Dioxide Level 29 mmol/L (21-32) Anion Gap 7 (6-14) Blood Urea Nitrogen 17 mg/dL (7-20) Creatinine 1.0 mg/dL (0.6-1.0) Estimated GFR (Cockcroft-Gault) 53.1 Glucose Level 101 mg/dL (70-99) Calcium Level 8.7 mg/dL (8.5-10.1) Laboratory Tests Test 03/13/21 05:00 White Blood Count 4.7 x10^3/uL (4.0-11.0) Red Blood Count 3.82 x10^6/uL (3.50-5.40) Hemoglobin 10.9 g/dL (12.0-15.5) Hematocrit 32.8 % (36.0-47.0) Mean Corpuscular Volume 86 fL (79-100) Mean Corpuscular Hemoglobin 29 pg (25-35) Mean Corpuscular Hemoglobin Concent 33 g/dL (31-37) Red Cell Distribution Width 13.5 % (11.5-14.5) Platelet Count 325 x10^3/uL (140-400) Neutrophils (%) (Auto) 77 % (31-73) Lymphocytes (%) (Auto) 8 % (24-48) Monocytes (%) (Auto) 11 % (0-9) Eosinophils (%) (Auto) 4 % (0-3) Basophils (%) (Auto) 1 % (0-3) Neutrophils # (Auto) 3.6 x10^3/uL (1.8-7.7) Lymphocytes # (Auto) 0.4 x10^3/uL (1.0-4.8) Monocytes # (Auto) 0.5 x10^3/uL (0.0-1.1) Eosinophils # (Auto) 0.2 x10^3/uL (0.0-0.7) Basophils # (Auto) 0.0 x10^3/uL (0.0-0.2) Sodium Level 142 mmol/L (136-145) Potassium Level 3.9 mmol/L (3.5-5.1) Chloride Level 106 mmol/L (98-107) Carbon Dioxide Level 29 mmol/L (21-32) Anion Gap 7 (6-14) Blood Urea Nitrogen 17 mg/dL (7-20) Creatinine 1.0 mg/dL (0.6-1.0) Estimated GFR (Cockcroft-Gault) 53.1 Glucose Level 101 mg/dL (70-99) Calcium Level 8.7 mg/dL (8.5-10.1) Microbiology 03/10/21 Gram Stain - Final, Resulted 03/10/21 Aerobic and Anaerobic Culture - Preliminary, Resulted 03/09/21 Urine Culture - Final, Complete 03/09/21 Antimicrobic Susceptibility - Final, Complete Medications Current Medications Morphine Sulfate (Morphine Sulfate) 4 mg PRN Q15MIN PRN IV/SQ PAIN GREATER THAN 3/10 Last administered on 03/09/21at 17:44; Start 03/09/21 at 16:45; Stop 03/10/21 at 16:44; Status DC Sodium Chloride 1,000 ml @ 1,000 mls/hr Q1H IV Last administered on 03/09/21at 17:12; Start 03/09/21 at 16:45; Stop 03/09/21 at 17:44; Status DC Ondansetron HCl (Zofran) 4 mg 1X ONCE IVP Last administered on 03/09/21at 17:30; Start 03/09/21 at 16:45; Stop 03/09/21 at 16:46; Status DC Diltiazem HCl (Cardizem Iv Push) 20 mg 1X ONCE IVP Last administered on 03/09/21at 17:36; Start 03/09/21 at 17:30; Stop 03/09/21 at 17:31; Status DC Diltiazem HCl 125 mg/Sodium Chloride 125 ml @ 5 mls/hr CONT PRN IV SEE I/O RECORD Last administered on 03/09/21at 17:43; Start 03/09/21 at 17:30; Stop 03/10/21 at 11:26; Status DC Ceftriaxone Sodium (Rocephin) 1 gm 1X ONCE IVP Last administered on 03/09/21at 18:43; Start 03/09/21 at 18:15; Stop 03/09/21 at 18:16; Status DC Fentanyl Citrate (Fentanyl 2ml Vial) 75 mcg 1X ONCE IVP Last administered on 03/09/21at 18:42; Start 03/09/21 at 18:30; Stop 03/09/21 at 18:31; Status DC Enoxaparin Sodium (Lovenox Per Pharmacy Treatment Dosing) 1 each PRN DAILY PRN MC SEE COMMENTS; Start 03/09/21 at 19:15; Stop 03/12/21 at 09:40; Status DC Ondansetron HCl (Zofran) 4 mg PRN Q8HRS PRN IV NAUSEA/VOMITING; Start 03/09/21 at 19:15; Stop 03/10/21 at 19:14; Status DC Fentanyl Citrate (Fentanyl 2ml Vial) 50 mcg PRN Q1HR PRN IV PAIN; Start 03/09/21 at 19:15; Stop 03/10/21 at 19:14; Status DC Acetaminophen (Tylenol) 650 mg PRN Q4HRS PRN PO FEVER > 100.3'F Last administered on 03/10/21at 08:58; Start 03/09/21 at 19:15; Stop 03/10/21 at 11:54; Status DC Aspirin (Ecotrin) 81 mg HS PO Last administered on 03/12/21at 20:37; Start 03/10/21 at 21:00 Donepezil HCl (Aricept) 10 mg HS PO ; Start 03/10/21 at 21:00; Stop 03/10/21 at 11:29; Status DC Polyethylene Glycol (miraLAX PACKET) 17 gm DAILY PO Last administered on 03/13/21at 09:49; Start 03/10/21 at 09:00 Simvastatin (Zocor) 20 mg HS PO Last administered on 03/12/21 20:37; Start 03/10/21 at 21:00 Tamsulosin HCl (Flomax) 0.4 mg BID PO Last administered on 03/13/21 09:54; Start 03/10/21 at 09:00 Enoxaparin Sodium (Lovenox 80mg Syringe) 70 mg Q12HR SQ Last administered on 03/11/21 20:32; Start 03/10/21 at 02:30; Stop 03/12/21 at 09:40; Status DC Info (Anti-Coagulation Monitoring By Pharmacy) 1 each PRN DAILY PRN MC PER PROTOCOL Last administered on 03/10/21 01:52; Start 03/10/21 at 02:00 Metoprolol Tartrate (Lopressor) 25 mg BID PO Last administered on 03/13/21 09:54; Start 03/10/21 at 09:00 Ceftriaxone Sodium (Rocephin) 1 gm HS IVP Last administered on 03/12/21at 20:36; Start 03/10/21 at 21:00; Stop 03/13/21 at 10:13; Status DC Sodium Chloride 1,000 ml @ 50 mls/hr Q20H IV Last administered on 03/10/21 12:41; Start 03/10/21 at 12:00; Stop 03/11/21 at 10:15; Status DC Ceftriaxone Sodium (Rocephin) 1 gm Q24H IVP ; Start 03/10/21 at 18:15; Stop 03/10/21 at 11:27; Status DC Ondansetron HCl (Zofran) 4 mg PRN Q6HRS PRN IVP NAUSEA/VOMITING; Start 03/10/21 at 11:30 Donepezil HCl (Aricept) 5 mg HS PO Last administered on 03/12/21 20:37; Start 03/10/21 at 21:00 Tramadol HCl (Ultram) 25 mg PRN Q6HRS PRN PO MODERATE PAIN Last administered on 03/10/21at 12:40; Start 03/10/21 at 11:30; Stop 03/12/21 at 09:40; Status DC Famotidine (Pepcid) 20 mg QHS PO Last administered on 03/12/21at 20:37; Start 03/10/21 at 21:00 Acetaminophen (Tylenol) 650 mg PRN Q6HRS PRN PO MILD PAIN / TEMP > 100.3'F Last administered on 03/11/21at 20:31; Start 03/10/21 at 11:30 Lidocaine (Lidoderm) 1 patch DAILY TD Last administered on 03/13/21 09:53; Start 03/10/21 at 12:00 Miscellaneous (Lidoderm Patch Removal) 1 ea QHS MC Last administered on 03/12/21at 21:00; Start 03/10/21 at 21:00 Ketorolac Tromethamine (Toradol 15mg Vial) 15 mg 1X ONCE IM ; Start 03/10/21 at 16:00; Stop 03/10/21 at 16:02; Status DC Ketorolac Tromethamine (Toradol 15mg Vial) 15 mg PRN Q6HRS PRN IVP INFLAMMATION Last administered on 03/11/21at 05:56; Start 03/10/21 at 16:00; Stop 03/12/21 at 09:40; Status DC Fentanyl (Duragesic 25mcg/ Hr Patch) 1 patch Q3DAYS TD Last administered on 03/13/21at 09:52; Start 03/10/21 at 17:00 Tramadol HCl (Ultram) 50 mg PRN Q6HRS PRN PO MODERATE PAIN; Start 03/12/21 at 09:45 Enoxaparin Sodium (Lovenox 40mg Syringe) 40 mg Q24H SQ Last administered on 03/12/21at 17:46; Start 03/12/21 at 16:00 Naproxen (Naprosyn) 250 mg BIDWMEALS PO Last administered on 03/13/21at 09:55; Start 03/12/21 at 12:00 Ciprofloxacin (Cipro) 250 mg BID PO ; Start 03/13/21 at 11:00 Active Scripts Active Reported [prevagen] 1 Tab 1 PO DAILY Flomax (Tamsulosin Hcl) 0.4 Mg Cap.er.24h 0.4 Mg PO BID Simvastatin 20 Mg Tablet 20 Mg PO HS Miralax (Polyethylene Glycol 3350) 17 Gm Powd.pack 1 Packet PO DAILY 2 Days dissolve in water Donepezil Hcl 10 Mg Tablet 10 Mg PO HS Aspirin Ec (Aspirin) 81 Mg Tablet.dr 81 Mg PO HS Acetaminophen 325 Mg Tablet 2 Tab PO PRN Q6HRS PRN 24 Days Vitals/I & O Vital Sign - Last 24 Hours 03/12/21 03/12/21 03/12/21 03/12/21 11:00 15:00 19:00 20:00 Temp 98.8 98.6 99.2 98.8 98.6 99.2 Pulse 63 65 71 Resp 18 18 18 B/P (MAP) 138/64 (88) 152/63 (92) 156/67 (96) Pulse Ox 99 95 99 O2 Delivery Nasal Cannula Nasal Cannula Nasal Cannula Nasal Cannula O2 Flow Rate 1.5 1.5 1.5 1.5 03/12/21 03/12/21 03/13/21 03/13/21 20:37 23:01 03:00 07:00 Temp 98.5 98.2 98.5 98.5 98.2 98.5 Pulse 71 66 77 61 Resp 16 16 18 B/P (MAP) 156/67 154/67 (96) 154/84 (107) 153/67 (95) Pulse Ox 98 98 98 O2 Delivery Nasal Cannula Nasal Cannula Nasal Cannula O2 Flow Rate 1.5 1.5 1.5 03/13/21 03/13/21 09:52 09:54 Pulse 61 Resp 16 B/P (MAP) 153/67 Pulse Ox 98 O2 Delivery Nasal Cannula O2 Flow Rate 1.5 Intake and Output 03/12/21 03/12/21 03/13/21 15:00 23:00 07:00 Intake Total 120 ml 300 ml Output Total 200 ml 600 ml 700 ml Balance -80 ml -600 ml -400 ml Justifications for Admission Other Justification YONY QUINTANA MD Mar 13, 2021 10:56
[2021-03-13 11:00] VITALS: BP 148/67
[2021-03-13] MEDS: CIPROFLOXACIN HCL 250 MG TABLET. PO SCH ×2 (12:15→21:25)
[2021-03-13 15:00] VITALS: BP 168/68
[2021-03-13] MEDS: ENOXAPARIN 40 MG/0.4 ML SYRINGE. SQ SCH (17:23)
[2021-03-13 19:00] VITALS: BP 136/59
[2021-03-13] MEDS: PATCH REMOVAL. MC SCH (21:00)
[2021-03-13] MEDS: DONEPEZIL HCL 5 MG TABLET. PO SCH (21:25)
[2021-03-13] MEDS: FAMOTIDINE 20 MG TABLET. PO SCH (21:25)
[2021-03-13] MEDS: ASPIRIN ENTERIC COATED 81 MG TABLET.DR. PO SCH (21:25)
[2021-03-13] MEDS: SIMVASTATIN 20 MG TABLET PO SCH (21:25)
[2021-03-13 23:00] VITALS: BP 153/69
[2021-03-14 02:52] VITALS: BP 150/69
[2021-03-14 07:00] VITALS: BP 150/65
[2021-03-14] MEDS: LIDOCAINE (700MG/PATCH) PATCH. TD SCH (08:15)
[2021-03-14] MEDS: NAPROXEN 250 MG TABLET PO SCH (08:15)
[2021-03-14] MEDS: METOPROLOL TART IMMED RELEASE 25 MG TABLET. PO SCH (08:15)
[2021-03-14] MEDS: TAMSULOSIN 0.4 MG CAP.ER.24H. PO SCH (08:15)
[2021-03-14] MEDS: CIPROFLOXACIN HCL 250 MG TABLET. PO SCH (08:15)
[2021-03-14] MEDS: POLYETHYLENE GLYCOL 3350 17 GM PACKET. PO SCH (08:15)
--- NOTE | 2021-03-14 09:21 | PDOC ---
PULMONARY PROGRESS NOTES DATE: 03/14/21 TIME: 09:20 Subjective on 1.5 liters NC feels better S/P thoracentesis, denies sob cough in nsr Vitals Vital Signs Date Time Temp Pulse Resp B/P (MAP) Pulse Ox O2 Delivery O2 Flow Rate FiO2 03/14/21 08:15 67 150/69 03/14/21 07:00 97.5 18 92 Room Air 97.5 03/13/21 20:00 1.5 ROS: No Nausea, No Abdominal Pain, No Increase Cough General: Alert, Oriented X4 Lungs: Crackles, Other (dull r base) Cardiovascular: S1, S2 Abdomen: Soft, Non-tender Neuro Exam: Alert Extremities: No Edema Skin: Warm Labs Laboratory Tests Test 03/13/21 05:00 White Blood Count 4.7 x10^3/uL (4.0-11.0) Red Blood Count 3.82 x10^6/uL (3.50-5.40) Hemoglobin 10.9 g/dL (12.0-15.5) Hematocrit 32.8 % (36.0-47.0) Mean Corpuscular Volume 86 fL (79-100) Mean Corpuscular Hemoglobin 29 pg (25-35) Mean Corpuscular Hemoglobin Concent 33 g/dL (31-37) Red Cell Distribution Width 13.5 % (11.5-14.5) Platelet Count 325 x10^3/uL (140-400) Neutrophils (%) (Auto) 77 % (31-73) Lymphocytes (%) (Auto) 8 % (24-48) Monocytes (%) (Auto) 11 % (0-9) Eosinophils (%) (Auto) 4 % (0-3) Basophils (%) (Auto) 1 % (0-3) Neutrophils # (Auto) 3.6 x10^3/uL (1.8-7.7) Lymphocytes # (Auto) 0.4 x10^3/uL (1.0-4.8) Monocytes # (Auto) 0.5 x10^3/uL (0.0-1.1) Eosinophils # (Auto) 0.2 x10^3/uL (0.0-0.7) Basophils # (Auto) 0.0 x10^3/uL (0.0-0.2) Sodium Level 142 mmol/L (136-145) Potassium Level 3.9 mmol/L (3.5-5.1) Chloride Level 106 mmol/L (98-107) Carbon Dioxide Level 29 mmol/L (21-32) Anion Gap 7 (6-14) Blood Urea Nitrogen 17 mg/dL (7-20) Creatinine 1.0 mg/dL (0.6-1.0) Estimated GFR (Cockcroft-Gault) 53.1 Glucose Level 101 mg/dL (70-99) Calcium Level 8.7 mg/dL (8.5-10.1) Medications Active Scripts Medications Dose Route/Sig Max Daily Dose Days Date Category Dose Instructions [prevagen] 1 Tab 1 PO DAILY 03/09/21 Reported Flomax (Tamsulosin Hcl) 0.4 Mg Cap.er.24h 0.4 Mg PO BID 03/09/21 Reported Simvastatin 20 Mg Tablet 20 Mg PO HS 10/21/20 Reported Miralax (Polyethylene Glycol 3350) 17 Gm Powd.pack 1 Packet PO DAILY 2 10/21/20 Reported dissolve in water Donepezil Hcl 10 Mg Tablet 10 Mg PO HS 10/21/20 Reported Aspirin Ec (Aspirin) 81 Mg Tablet.dr 81 Mg PO HS 10/21/20 Reported Acetaminophen 325 Mg Tablet 2 Tab PO PRN Q6HRS PRN 24 10/21/[address] chest IMPRESSION: 1. Large right pleural effusion and small left pleural effusion, increased in size from prior study. There is consolidation at the right base and left lower lobe that likely represents associated atelectasis. 2. There are multiple noncalcified pulmonary nodules, left greater than right, nonspecific but probably not significant changed from prior study. Continued follow-up imaging to ensure stability. 3. Coronary artery calcifications and mild ectasia of the ascending thoracic aorta, unchanged. Impression . IMPRESSION: 1. Acute chest pain and hypoxemia, secondary to large right-sided effusion. 2. 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 New onset atrial fibrillation. now nsr echo reviewed 4. Hydronephrosis, secondary to bladder cancer. 5. Hyperlipidemia. 6. Dementia. echo The left ventricle is normal size. The left ventricular systolic function is normal and the ejection fraction is within normal range. Estimated ejection fraction 60-65%. There is borderline concentric left ventricular hypertrophy. There is no significant aortic valvular stenosis. Doppler and Color-flow revealed mild mitral regurgitation. Doppler and Color Flow revealed mild tricuspid regurgitation. Estimated PAP 32 mmHg. Plan . UPDATED ON 03/14 D/W DR LUGO PT TO DC TODAY FOLLOW UP WITH ME NEXT WEEK IF FLUID RETURNS WILL PROCEED WITH PLEUREX CATH PLAN: 02 titration to keep sat 90% 6 min walk at dc Follow up CXR pa and lat tomorrow, may need repeat thoracentesis ---The patient may be a candidate for PleurX catheter placement. S/P right side thoracentesis on 03/10/21, with 900ml removed cytology pending fall precaution monitor off ABX Follow Cardiology recs Follow GI recs Follow Medical ONC recs ---Noted that the patient had bone scans not too long ago, revealing no evidence of metastatic disease. This was performed on 03/04. DVT/GI PPX D/W RN and PT. BOGDAN HODGE MD Mar 14, 2021 09:20
--- NOTE | 2021-03-14 10:05 | RAD ---
EXAM: CHEST 2 VIEWS. HISTORY: Pleural effusion. COMPARISON: 03/12/2021. FINDINGS: Frontal and lateral views of the chest are obtained. Moderate right and small left pleural effusions are unchanged. There is associated atelectasis or inf iltrate in the right greater than left bases. There is no pneumothorax. The heart is not enlarged. Th ere are atherosclerotic calcifications of the aorta. A left ureteral stent is partially visualized. C holecystectomy clips are noted. IMPRESSION: 1. Stable moderate right and small left pleural effusions with associated bibasilar atelectasis or in filtrate. Electronically signed by: Drake Schmidt MD (03/14/2021 10:03 AM) [id number]
--- NOTE | 2021-03-14 10:07 | PDOC ---
PROGRESS NOTES Date of Service DATE: 03/14/21 TIME: 10:00 Subjective Subjective feels better. less pleuritic chest pain. pleural cytology pending. feels better. cxr shows right plerural effusion and small left pleural effusion. will defer preurix tube to pulmonology. spoke with PT. walked in hallway with PT on RA and PT feels she can be dismissed to home with home PT Objective Objective Vital Signs Date Time Temp Pulse Resp B/P (MAP) Pulse Ox O2 Delivery O2 Flow Rate FiO2 03/14/21 08:15 67 150/69 03/14/21 07:00 97.5 18 92 Room Air 97.5 03/13/21 20:00 1.5 Intake and Output 03/14/21 07:00 Intake Total 420 ml Output Total 1300 ml Balance -880 ml Intake Oral 420 ml Output Urine Total 1300 ml # Voids 1 # Bowel Movements 1 Physical Exam Abdomen: Soft Heart: Regular rate, Normal S1, Normal S2 Extremities: No edema General: Alert HEENT: Atraumatic Lungs: Other (decreased breath sounds 1/2 up on right ) Neuro: Normal speech Psych/Mental Status: Mental status NL Skin: No rashes Assessment Assessment Problems1. Right pleural effusion, l liter right thoracentesis 03/10 cytology pending 2. New onset atrial fibrillation with rapid ventricular response, converted to sinus rhythm . sustained NSR 3. Metastatic bladder cancer involving the distal left ureter as well as the inguinal and iliac lymph node chain 4. Bilateral hydronephrosis. 5. Left ureteral kidney stone treated with a stent. 6. Hyperlipidemia. 7. Dementia. disuse myopathy and physical deconditioning pleuritic pain on right. 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 coli UTI 70K with pyuria Medical Problems: (1) Abdominal pain Status: Acute (2) History of kidney stones Status: Acute (3) Paroxysmal atrial fibrillation with rapid ventricular response Status: Acute Plan Plan of Care defer need for pleurix tube to dr. martinez continue cipro continue naproxen and fentanyl patch and prn tramadol PT and OT 6 minute walk dismiss today if okay with pulmonogy home with home health Comment Review of Relevant I have reviewed the following items saw (where applicable) has been applied. Labs Laboratory Tests Test 03/13/21 05:00 White Blood Count 4.7 x10^3/uL (4.0-11.0) Red Blood Count 3.82 x10^6/uL (3.50-5.40) Hemoglobin 10.9 g/dL (12.0-15.5) Hematocrit 32.8 % (36.0-47.0) Mean Corpuscular Volume 86 fL (79-100) Mean Corpuscular Hemoglobin 29 pg (25-35) Mean Corpuscular Hemoglobin Concent 33 g/dL (31-37) Red Cell Distribution Width 13.5 % (11.5-14.5) Platelet Count 325 x10^3/uL (140-400) Neutrophils (%) (Auto) 77 % (31-73) Lymphocytes (%) (Auto) 8 % (24-48) Monocytes (%) (Auto) 11 % (0-9) Eosinophils (%) (Auto) 4 % (0-3) Basophils (%) (Auto) 1 % (0-3) Neutrophils # (Auto) 3.6 x10^3/uL (1.8-7.7) Lymphocytes # (Auto) 0.4 x10^3/uL (1.0-4.8) Monocytes # (Auto) 0.5 x10^3/uL (0.0-1.1) Eosinophils # (Auto) 0.2 x10^3/uL (0.0-0.7) Basophils # (Auto) 0.0 x10^3/uL (0.0-0.2) Sodium Level 142 mmol/L (136-145) Potassium Level 3.9 mmol/L (3.5-5.1) Chloride Level 106 mmol/L (98-107) Carbon Dioxide Level 29 mmol/L (21-32) Anion Gap 7 (6-14) Blood Urea Nitrogen 17 mg/dL (7-20) Creatinine 1.0 mg/dL (0.6-1.0) Estimated GFR (Cockcroft-Gault) 53.1 Glucose Level 101 mg/dL (70-99) Calcium Level 8.7 mg/dL (8.5-10.1) Microbiology 03/10/21 Gram Stain - Final, Resulted 03/10/21 Aerobic and Anaerobic Culture - Preliminary, Resulted 03/09/21 Urine Culture - Final, Complete 03/09/21 Antimicrobic Susceptibility - Final, Complete Medications Current Medications Morphine Sulfate (Morphine Sulfate) 4 mg PRN Q15MIN PRN IV/SQ PAIN GREATER THAN 3/10 Last administered on 03/09/21at 17:44; Start 03/09/21 at 16:45; Stop 03/10/21 at 16:44; Status DC Sodium Chloride 1,000 ml @ 1,000 mls/hr Q1H IV Last administered on 03/09/21at 17:12; Start 03/09/21 at 16:45; Stop 03/09/21 at 17:44; Status DC Ondansetron HCl (Zofran) 4 mg 1X ONCE IVP Last administered on 03/09/21at 17:30; Start 03/09/21 at 16:45; Stop 03/09/21 at 16:46; Status DC Diltiazem HCl (Cardizem Iv Push) 20 mg 1X ONCE IVP Last administered on 03/09/21at 17:36; Start 03/09/21 at 17:30; Stop 03/09/21 at 17:31; Status DC Diltiazem HCl 125 mg/Sodium Chloride 125 ml @ 5 mls/hr CONT PRN IV SEE I/O RECORD Last administered on 03/09/21at 17:43; Start 03/09/21 at 17:30; Stop 03/10/21 at 11:26; Status DC Ceftriaxone Sodium (Rocephin) 1 gm 1X ONCE IVP Last administered on 03/09/21at 18:43; Start 03/09/21 at 18:15; Stop 03/09/21 at 18:16; Status DC Fentanyl Citrate (Fentanyl 2ml Vial) 75 mcg 1X ONCE IVP Last administered on 03/09/21at 18:42; Start 03/09/21 at 18:30; Stop 03/09/21 at 18:31; Status DC Enoxaparin Sodium (Lovenox Per Pharmacy Treatment Dosing) 1 each PRN DAILY PRN MC SEE COMMENTS; Start 03/09/21 at 19:15; Stop 03/12/21 at 09:40; Status DC Ondansetron HCl (Zofran) 4 mg PRN Q8HRS PRN IV NAUSEA/VOMITING; Start 03/09/21 at 19:15; Stop 03/10/21 at 19:14; Status DC Fentanyl Citrate (Fentanyl 2ml Vial) 50 mcg PRN Q1HR PRN IV PAIN; Start 03/09/21 at 19:15; Stop 03/10/21 at 19:14; Status DC Acetaminophen (Tylenol) 650 mg PRN Q4HRS PRN PO FEVER > 100.3'F Last administered on 03/10/21 08:58; Start 03/09/21 at 19:15; Stop 03/10/21 at 11:54; Status DC Aspirin (Ecotrin) 81 mg HS PO Last administered on 03/13/21 21:25; Start 03/10/21 at 21:00 Donepezil HCl (Aricept) 10 mg HS PO ; Start 03/10/21 at 21:00; Stop 03/10/21 at 11:29; Status DC Polyethylene Glycol (miraLAX PACKET) 17 gm DAILY PO Last administered on 03/13/21 09:49; Start 03/10/21 at 09:00 Simvastatin (Zocor) 20 mg HS PO Last administered on 03/13/21 21:25; Start 03/10/21 at 21:00 Tamsulosin HCl (Flomax) 0.4 mg BID PO Last administered on 03/14/21at 08:15; Start 03/10/21 at 09:00 Enoxaparin Sodium (Lovenox 80mg Syringe) 70 mg Q12HR SQ Last administered on 03/11/21at 20:32; Start 03/10/21 at 02:30; Stop 03/12/21 at 09:40; Status DC Info (Anti-Coagulation Monitoring By Pharmacy) 1 each PRN DAILY PRN MC PER PROT OCOL Last administered on 03/10/21at 01:52; Start 03/10/21 at 02:00; Stop 03/14/21 at 08:50; Status DC Metoprolol Tartrate (Lopressor) 25 mg BID PO Last administered on 03/14/21 08:15; Start 03/10/21 at 09:00 Ceftriaxone Sodium (Rocephin) 1 gm HS IVP Last administered on 03/12/21at 20:36; Start 03/10/21 at 21:00; Stop 03/13/21 at 10:13; Status DC Sodium Chloride 1,000 ml @ 50 mls/hr Q20H IV Last administered on 03/10/21at 12:41; Start 03/10/21 at 12:00; Stop 03/11/21 at 10:15; Status DC Ceftriaxone Sodium (Rocephin) 1 gm Q24H IVP ; Start 03/10/21 at 18:15; Stop 03/10/21 at 11:27; Status DC Ondansetron HCl (Zofran) 4 mg PRN Q6HRS PRN IVP NAUSEA/VOMITING; Start 03/10/21 at 11:30 Donepezil HCl (Aricept) 5 mg HS PO Last administered on 03/13/21 21:25; Start 03/10/21 at 21:00 Tramadol HCl (Ultram) 25 mg PRN Q6HRS PRN PO MODERATE PAIN Last administered on 03/10/21 12:40; Start 03/10/21 at 11:30; Stop 03/12/21 at 09:40; Status DC Famotidine (Pepcid) 20 mg QHS PO Last administered on 03/13/21 21:25; Start 03/10/21 at 21:00 Acetaminophen (Tylenol) 650 mg PRN Q6HRS PRN PO MILD PAIN / TEMP > 100.3'F Last administered on 03/11/21 20:31; Start 03/10/21 at 11:30 Lidocaine (Lidoderm) 1 patch DAILY TD Last administered on 03/14/21 08:15; Start 03/10/21 at 12:00 Miscellaneous (Lidoderm Patch Removal) 1 ea QHS MC Last administered on 03/13/21at 21:00; Start 03/10/21 at 21:00 Ketorolac Tromethamine (Toradol 15mg Vial) 15 mg 1X ONCE IM ; Start 03/10/21 at 16:00; Stop 03/10/21 at 16:02; Status DC Ketorolac Tromethamine (Toradol 15mg Vial) 15 mg PRN Q6HRS PRN IVP INFLAMMATION Last administered on 03/11/21at 05:56; Start 03/10/21 at 16:00; Stop 03/12/21 at 09:40; Status DC Fentanyl (Duragesic 25mcg/ Hr Patch) 1 patch Q3DAYS TD Last administered on 03/13/21at 09:52; Start 03/10/21 at 17:00 Tramadol HCl (Ultram) 50 mg PRN Q6HRS PRN PO MODERATE PAIN; Start 03/12/21 at 09:45 Enoxaparin Sodium (Lovenox 40mg Syringe) 40 mg Q24H SQ Last administered on 03/13/21at 17:23; Start 03/12/21 at 16:00 Naproxen (Naprosyn) 250 mg BIDWMEALS PO Last administered on 03/14/21at 08:15; Start 03/12/21 at 12:00 Ciprofloxacin (Cipro) 250 mg BID PO Last administered on 03/14/21at 08:15; Start 03/13/21 at 11:00 Active Scripts Active Reported [prevagen] 1 Tab 1 PO DAILY Flomax (Tamsulosin Hcl) 0.4 Mg Cap.er.24h 0.4 Mg PO BID Simvastatin 20 Mg Tablet 20 Mg PO HS Miralax (Polyethylene Glycol 3350) 17 Gm Powd.pack 1 Packet PO DAILY 2 Days dissolve in water Donepezil Hcl 10 Mg Tablet 10 Mg PO HS Aspirin Ec (Aspirin) 81 Mg Tablet.dr 81 Mg PO HS Acetaminophen 325 Mg Tablet 2 Tab PO PRN Q6HRS PRN 24 Days Vitals/I & O Vital Sign - Last 24 Hours 03/13/21 03/13/21 03/13/21 03/13/21 11:00 13:52 15:00 19:00 Temp 98.6 98.8 98.1 98.6 98.8 98.1 Pulse 71 77 77 Resp 18 18 18 B/P (MAP) 148/67 (94) 168/68 (101) 136/59 (84) Pulse Ox 96 96 97 95 O2 Delivery Room Air Nasal Cannula Room Air Room Air 03/13/21 03/13/21 03/13/21 03/14/21 20:00 21:26 23:00 02:52 Temp 98.6 98.2 98.6 98.2 Pulse 70 78 67 Resp 16 18 B/P (MAP) 136/65 153/69 (97) 150/69 (96) Pulse Ox 94 95 O2 Delivery Nasal Cannula Room Air Room Air O2 Flow Rate 1.5 03/14/21 03/14/21 07:00 08:15 Temp 97.5 97.5 Pulse 69 67 Resp 18 B/P (MAP) 150/65 (93) 150/69 Pulse Ox 92 O2 Delivery Room Air Intake and Output 03/13/21 03/13/21 03/14/21 15:00 23:00 07:00 Intake Total 200 ml 220 ml Output Total 400 ml 400 ml 500 ml Balance -200 ml -400 ml -280 ml Justifications for Admission Other Justification FAZAL LUGO MD Mar 14, 2021 10:07
[2021-03-14] MEDS ORDERED: CIPR250T30 PO (10:23)
[2021-03-14] MEDS ORDERED: DONE5TAB56 PO (10:23)
[2021-03-14] MEDS ORDERED: FENT1PAT15 TD (10:23)
[2021-03-14] MEDS ORDERED: METO25TA4 PO (10:23)
[2021-03-14] MEDS ORDERED: NAPR-699 PO (10:23)
[2021-03-14] MEDS ORDERED: LIDO700A21 TD (10:23)
[2021-03-14] MEDS ORDERED: TRAM50TA PO (10:23)
[2021-03-14] MEDS ORDERED: FAMO20TA5 PO (10:23)
--- NOTE | 2021-03-14 10:25 | SNU/HH DC ---
DISCHARGE WITH HOME HEALTH DISCHARGE INFORMATION: Discharge Date: Mar 14, 2021 Final Diagnosis: Problems paroxysmal atrial fibrillation with RVR. right pleural effusion. metastatic bladder cancer Medical Problems: (1) Abdominal pain Status: Acute (2) History of kidney stones Status: Acute (3) Paroxysmal atrial fibrillation with rapid ventricular response Status: Acute Condition on Discharge: Stable CODE STATUS: Code Status: Full HOME HEALTH: Face to Face: I certify this patient is under my care and that I, or a nurse practitioner or physician's porcelain buildup assistant working with me, had a face to face encounter that meets the physician face to face encounter requirements with this patient on [03/14/21]. RN For Eval/Treatment: Yes Physical Therapy For: Evalulation/Treatment Occupational Therapy For: Evaluation/Treatment Pt Meets Homebound Status: Fatigue w/ amb. POST DISCHARGE ORDERS: Activity Instructions for Disc: Resume previous activity FOLLOW-UP: PCP to follow Home Health: dr. lugo Follow up with: dr. lugo next week Follow Up With: dr. martinez 03/23/21 CERTIFICATION STATEMENT: Certification Statement: Certification Statement: Based on the above finding, I certify that this patient is confined to the home and needs intermittent retirement care, physical therapy and/or speech therapy, or continues to need occupational therapy.~ This patient is under my care, and I have initiated the establishment of the plan of care.~ This patient will be followed by myself or a community physician who will periodically review the plan of care. Home Meds Active Scripts Donepezil Hcl (ARICEPT) 5 Mg Tablet, 5 MG PO HS for dementia, #30 TAB Prov:FAZAL LUGO MD 03/14/21 Lidocaine (Lidocaine PATCH ) 1 Each Adh..patch, 1 PATCH TD DAILY for rib cage pain, #30 PATCH Prov:FAZAL LUGO MD 03/14/21 Famotidine (FAMOTIDINE) 20 Mg Tablet, 20 MG PO QHS for PUD prophylaxis, #30 TAB Prov:FAZAL LUGO MD 03/14/21 Tramadol Hcl (TRAMADOL HCL) 50 Mg Tablet, 50 MG PO PRN Q6HRS PRN for MODERATE PAIN, #60 TAB Prov:FAZAL LUGO MD 03/14/21 Fentanyl (FENTANYL 25mcg/hr) 1 Each Patch.td72, 1 PATCH TD Q3DAYS for chronic pain, #10 PATCH Prov:FAZAL LUGO MD 03/14/21 Naproxen (NAPROXEN) 250 Mg Tablet, 250 MG PO BIDWMEALS for pleuritic chest pain, #60 TAB Prov:FAZAL LUGO MD 03/14/21 Metoprolol Tartrate (METOPROLOL TARTRATE) 25 Mg Tablet, 25 MG PO BID for paroxysmal atrial fibrillation, #60 TAB Prov:FAZAL LUGO MD 03/14/21 Ciprofloxacin Hcl (CIPRO) 250 Mg Tablet, 250 MG PO BID for uti, #8 TAB Prov:FAZAL LUGO MD 03/14/21 Reported Medications Tamsulosin Hcl (FLOMAX) 0.4 Mg Cap.er.24h, 0.4 MG PO BID for , TAB 03/09/21 Simvastatin (SIMVASTATIN) 20 Mg Tablet, 20 MG PO HS for FOR CHOLESTEROL, #30 TAB 0 Refills 10/21/20 Polyethylene Glycol 3350 (MIRALAX) 17 Gm Powd.pack, 1 PACKET PO DAILY for constipation for 2 Days, #2 PACKET 0 Refills dissolve in water 10/21/20 Aspirin (ASPIRIN EC) 81 Mg Tablet.dr, 81 MG PO HS for PROPHYLAXIS, TAB.SR 10/21/20 Acetaminophen (ACETAMINOPHEN) 325 Mg Tablet, 2 TAB PO PRN Q6HRS PRN for pain or fever for 24 Days, #100 TAB 0 Refills 10/21/20 Discontinued Reported Medications [prevagen] 1 TAB No Conflict Check, 1 PO DAILY for supplement 03/09/21 Donepezil Hcl (DONEPEZIL HCL) 10 Mg Tablet, 10 MG PO HS for DEMENTIA, TAB 10/21/20 FAZAL LUGO MD Mar 14, 2021 10:25
--- NOTE | 2021-03-14 10:32 | PDOC ---
Provider Note Date of Service: DATE: 03/14/21 TIME: 10:31 Provider Note discharge summary dictated # [id number] Justifications for Admission Other Justification FAZAL LUGO MD Mar 14, 2021 10:32
--- NOTE | 2021-03-14 10:38 | PDOC ---
ROMMEL RITCHIE APRN 03/14/21 1038: CARDIO Progress Notes Date and Time Date of Service 03/14/21 Time of Evaluation 1030 Subjective Subjective: No Chest Pain, No shortness of breath, No Palpitations Vitals Vitals Vital Signs Date Time Temp Pulse Resp B/P (MAP) Pulse Ox O2 Delivery O2 Flow Rate FiO2 03/14/21 08:15 67 150/69 03/14/21 07:00 97.5 18 92 Room Air 97.5 03/13/21 20:00 1.5 Weight Weight [ ] Input and Output Intake and Output Intake and Output 03/14/21 07:00 Intake Total 420 ml Output Total 1300 ml Balance -880 ml Intake Oral 420 ml Output Urine Total 1300 ml # Voids 1 # Bowel Movements 1 Microbiology Micro Microbiology 03/10/21 Gram Stain - Final, Resulted 03/10/21 Aerobic and Anaerobic Culture - Preliminary, Resulted 03/09/21 Urine Culture - Final, Complete 03/09/21 Antimicrobic Susceptibility - Final, Complete Physical Exam HEENT: Neck Supple W Full Motion Chest: Symmetric LUNGS: Other (diminished bases ) Heart: RRR Abdomen: Soft N/T Extremities: No Edema, No Calf Tenderness Neurology: alert, oriented, follow commands Assessment Assessment 1. Pleuritic chest pain with moderate right side pleural effusion: possible malignancy. s/p thoracentesis 2. Hydronephrosis/hydroureter bilaterally with bladder CA and UTI 3. AFIB RVR: new onset likely precipitated by sympathetic response to above. Back in SR and maintaining. Echo with preserved LV systolic function 4. HLP: on zocor 5. Dementia: on aricept Recommendations Continue metoprolol for rate control ASA therapy Outpatient event monitor to assess AFIB burden, guide therapy as arranged Follow up in our office with Dr. Schaffer as scheduled Justicifation of Admission Dx: Justifications for Admission: Justification of Admission Dx: Yes NAREN CARD MD 03/14/211918: CARDIO Progress Notes Assessment Assessment Patient seen and examined. Agree with NETWORK SUPPORT ADMINISTRATOR's assessment and plan. PAF maintaining SR 2D echo showed normal LVF Plan for outpatient event monitor and follow up with our office as scheduled ROMMEL RITCHIE APRN Mar 14, 2021 10:38 NAREN CARD MD Mar 14, 2021 19:19
--- NOTE | 2021-03-14 10:58 | DS ---
DATE OF DISCHARGE: 03/14/2021 She is in room 200. CONSULTANTS: Dr. Bueno, Dr. Huizar, Dr. Sarkar, Dr. Schaffer. FINAL DIAGNOSES: 1. Acute hypoxic respiratory failure secondary to large right pleural effusion. 2. Right large pleural effusion and she underwent a thoracentesis. Cytology is pending. 4. Paroxysmal atrial fibrillation, new onset with rapid ventricular response, converted to normal sinus rhythm. 5. History of bladder cancer, treated with chemo and radiation therapy and she has had metastasis involving the left iliac and left inguinal lymph nodes. 6. Bilateral hydronephrosis, left ureteral stent for a distal left kidney stone, which was placed last month. 7. Hyperlipidemia. 8. Dementia. HOSPITAL COURSE: The patient is an 81-year-old white female with a history of metastatic urothelial carcinoma of the bladder involving the left distal ureter and left inguinal and left iliac lymph nodes who underwent a transurethral resection of bladder tumor, when the diagnosis was made at that time, received chemo and radiation therapy at [facility]. She had a left ureteral stent placed for a distal left ureteral stone, which is still present. She has had recurrent urinary tract infection. She is a Hinduism. She has a history of dementia and hyperlipidemia. She has had right-sided anterior rib pain which is pleuritic which she actually had before. Workup at [facility] last month, she had a CAT scan of the chest which was negative for pulmonary embolus and she had some nodules in the lung and was suspicious for possible metastatic disease to the lung. In any case, she only had a small pleural effusion at that time and this time, she was short of breath and went to the Emergency Room with a pleuritic pain and she had a large right pleural effusion. She was admitted to the hospital and was seen by Dr. Bueno in consultation for Pulmonary, Dr. Schaffer for Cardiology, Dr. Sarkar for Medical Oncology, underwent a right-sided thoracentesis and the fluid has been sent for cytology, results are pending. She had right-sided pain which was pleuritic and she was started on a lidocaine patch, fentanyl 25 mcg patch, tramadol 50 mg every 6 hours, naproxen 250 mg b.i.d. and her pain was much improved. She was able to ambulate on room air with the physical therapist this morning without assistive device and physical therapist felt that she was ready to go home with home health, home physical and occupational therapy. The patient was also in atrial fibrillation, new onset. When she arrived to this hospital, it was felt secondary to the increased sympathetic stress that she was under and she converted to normal sinus rhythm and she is currently on metoprolol 25 mg b.i.d. and sustained sinus rhythm. An echocardiogram showed a preserved left ventricular ejection fraction of 60-65%. A chest x-ray shows right pleural effusion. I discussed the case with Dr. Bueno, felt it was comfortable sending her home today. He will see her in the office on 03/23. He does not feel that she needs a PleurX tube at this time. She is much better. The pleuritic pain has significantly improved. She is not short of breath and she is able to walk much further now. So it is anticipated she will be dismissed today with home health, was told to make an appointment to see Dr. Schwarz in the office next week, Dr. Bueno in the office on 03/23 and she will be having a 6-minute walk today to see if she needs to be on oxygen. She will be dismissed on Aricept 5 mg every day, aspirin 81 mg every day, multiple vitamin every day, simvastatin 20 mg every day and will also be dismissed on famotidine 20 mg every day, naproxen 250 mg b.i.d. with food. Fentanyl 25 mcg patch every 72 hours, tramadol 50 mg every 6 hours p.r.n. for moderate pain. She also had an E. coli urinary tract infection which can add to the diagnosis. She will be on Cipro 250 mg b.i.d. for another 4 days. It was sensitive to both Rocephin which she initially received and the Cipro. She will continue with the lidocaine patch applied every morning. Continue metoprolol 25 mg b.i.d. Also MiraLax 17 grams daily and tamsulosin 0.[address]: Bull TID: [id number]
[2021-03-14 11:00] VITALS: BP 137/60
--- NOTE | 2021-03-14 11:51 | NUR ---
SS following up with discharge planning. SS reviewed pt chart and discussed with pt RN. Pt is currently on room air. Six minute walk ordered. Pt has follow up appointment with Dr. Massey on 03/23/2021. PT/OT recommended home with home healthcare. Discharge orders received. SS met with pt and spouse in room to discuss discharge planning and home healthcare. Pt and spouse agreeable to home healthcare with no preference of company. Referral sent to [facility], ; fax [phone]. Pt's RN notified. Addendum: 03/14/21 at 1316 by WILTON PATEL Pt needing oxygen with exertion. SS phoned and faxed script and clinical to [facility], ; fax [phone]. Tank provided to pt for home.
[2021-03-14 15:00] VITALS: BP 159/70
--- NOTE | 2021-03-15 16:08 | PATHOLOGY ---
Note [facility] Accession Number: [id number] TESTS RESULT FLAG UNITS REF RANGE LAB Clinician Provided Cytology Information No. of containers..01 Other (Miscellaneous) Source: RIGHT PLEURAL FLUID DIAGNOSIS: 02 RIGHT PLEURAL FLUID NEGATIVE FOR MALIGNANT CELLS. REACTIVE MESOTHELIAL CELLS AND ACUTE INFLAMMATORY CELLS PRESENT. THIS INTERPRETATION INCLUDES EVALUATION OF A CELL BLOCK. Signed out by: 02 Victorino Mejia MD, Pathologist NPI- [id number] Performed by: Felipe Bishop, Tool Turret Lathe Set Up Operator ([facility]) Gross description: 01 25ML, CLOUDY YELLOW, 1 TP 1 CB /LCS 03/11/2021 1852 Local FLAG LEGEND: L-Low Normal,H-High Normal,LL-Alert Low,HH-Alert High <-Panic Low,>-Panic High,A-Abnormal,AA-Critical Abnormal Performed at: [address] [facility] [address] [place] [address] Gerry Rivers MD, 02 [facility] [address] [place] [address] Victorino Mejia MD, Specimen Comment: A courtesy copy of this report has been sent to [phone], [phone] Specimen Comment: [id number] Specimen Comment: Report sent to / DR LUGO Specimen Comment: A duplicate report has been generated due to demographic updates. Performed at: 01 [facility] [address], [place], [place] [id number] MD Gerry Rivers MD Phone: [phone]
== END 2021-03-14 15:43 | disposition home health service (06) | DRG 308 ==
LOC: ER 16:02 → 2 NORTH 18:50
PROVIDERS: ADMIT Internal Medicine; ATTEND Internal Medicine
PROC: 0W993ZZ Drainage of Right Pleural Cavity, Percutaneous Approach (ICD-10-PCS; principal; 2021-03-10)
DX: I48.0 Paroxysmal atrial fibrillation (principal); J96.01 Acute respiratory failure with hypoxia; J91.0 Malignant pleural effusion; N13.6 Pyonephrosis; B96.20 Unspecified Escherichia coli [E. coli] as the cause of diseases classified elsewhere; C67.9 Malignant neoplasm of bladder, unspecified; D64.9 Anemia, unspecified; E78.00 Pure hypercholesterolemia, unspecified; E78.5 Hyperlipidemia, unspecified; F03.90 Unspecified dementia, unspecified severity, without behavioral disturbance, psychotic disturbance, mood disturbance, and anxiety; G72.89 Other specified myopathies; G89.3 Neoplasm related pain (acute) (chronic); I25.10 Atherosclerotic heart disease of native coronary artery without angina pectoris; I77.810 Thoracic aortic ectasia; Z79.82 Long term (current) use of aspirin; Z79.899 Other long term (current) drug therapy; Z85.51 Personal history of malignant neoplasm of bladder; Z87.440 Personal history of urinary (tract) infections; Z87.442 Personal history of urinary calculi; Z87.891 Personal history of nicotine dependence; Z90.49 Acquired absence of other specified parts of digestive tract; Z92.21 Personal history of antineoplastic chemotherapy; Z92.3 Personal history of irradiation; K59.00 Constipation, unspecified; M19.90 Unspecified osteoarthritis, unspecified site; Z88.8 Allergy status to other drugs, medicaments and biological substances
CPT/HCPCS: 32555; 36415; 71045; 71046; 71250; 74176; 80048; 80053; 81001; 83690; 83880; 84443; 84484; 85007; 85025; 85610; 85730; 87071; 87075; 87077; 87086; 87186; 88112; 88305; 93005; 93306; 94618; 96361; 96365; 96372; 96375; J0696; J1650; J1885; J2270; J2405; J3010; J3490; J7030; 97116-GP; 97530-GO; 97530-GP; 97535-GO; 99285-25; G0378

== ENCOUNTER → 2021-03-18 | Outpatient (CLI) | payer MEDICARE ==
[2021-03-10 11:00] VITALS: BP 123/59
[~2021-03-18] MED LIST changes: +CIPR250T30 PO; +DONE5TAB56 PO; +FAMO20TA5 PO; +FENT1PAT15 TD; +LIDO700A21 TD; +METO25TA4 PO; +NAPR-699 PO; +TAMS0.4C97 PO; +TRAM50TA PO; +prevagen PO
--- NOTE | 2021-03-18 13:06 | RAD ---
EXAM: PET/CT SKULL BASE THROUGH MID THIGH. HISTORY: Bladder cancer. Right flank pain. TECHNIQUE: CT of the skull base through the mid thighs was performed for the purposes of attenuation correction. 15.2 mCi F-18 fluorodeoxyglucose were administered intravenously. Blood glucose level at the time of administration was 113 mg/dL. After an uptake period, positron emission tomography of the skull base through the mid thighs was performed. The PET and CT data were fused and interpreted in c ombination on a dedicated workstation. COMPARISON: 03/10/2021, 03/09/2021, 02/13/2021. FINDINGS: There is a moderate to large right pleural effusion. Hypermetabolism in the right costophre katya sulcus is associated with a thin rim of soft tissue density. Maximum SUV is 5.9, concerning for m etastasis. A small focus of hypermetabolism within the atelectatic right lower lobe demonstrates maximum SUV 5.2 consistent with a metastasis. Another small metastasis adjacent to the pleura within the left upper lobe measures 8 x 5 mm with maximum SUV 2.5. Another 6 mm metastasis in the left lower lobe on image 176 is not detectable by PET at this small size. Hypermetabolism just anterior to the aorta along the inferior margin of the pancreas is consistent wi th an involved lymph node. Maximum SUV is 6.3. Additional CT findings include, a small left pleural effusion. The gallbladder is surgically absent. There are calcified granulomas in the spleen. A left ureteral stent is in expected position. The left kidney is mildly atrophic without hydronephrosis. There are changes of the right colectomy. The main pulmonary artery is mildly enlarged at 3.2 cm suggesting pulmonary arterial hypertension. IMPRESSION: 1. Hypermetabolism within the right costophrenic sulcus is concerning for pleural metastatic disease. Moderate to large right pleural effusion. 2. Small pulmonary metastases as above. 3. One small para-aortic lymph node appears to be involved. Electronically signed by: Drake Schmidt MD (03/18/2021 1:04 PM) [id number]
== END ==
LOC: PETSC 07:45
PROVIDERS: ATTEND Radiology Radiation Oncology
DX: C68.8 Malignant neoplasm of overlapping sites of urinary organs (principal); J90 Pleural effusion, not elsewhere classified
CPT/HCPCS: 78815; A9552

== ENCOUNTER 2021-03-23 07:00 | Outpatient (CLI) | payer MEDICARE ==
[2021-03-23] VITALS (9 sets, daily range): BP systolic 52–138; BP diastolic 50–84
[~2021-03-23] VITALS: Ht 165.1 cm; Wt 67.7 kg
[2021-03-23] MEDS ORDERED: fentaNYL PF VIAL 100 MCG/2 ML VIAL ONE (08:50)
[2021-03-23] MEDS ORDERED: fentaNYL PF VIAL 100 MCG/2 ML VIAL IV ONE (09:15)
--- NOTE | 2021-03-23 10:24 | NUR ---
pt discharged to home with family. Pt ambulated and tolerated PO
--- NOTE | 2021-03-23 14:02 | RAD ---
Right Thoracentesis 03/23/2021 8:59 AM Clinical History: Right pleural effusion. Technique: Relative benefits risks and alternatives were discussed with the patient and/or their rep resentative. Written informed consent was obtained. The patient was placed in seated position. A vern eout procedure was performed. Sonographic assessment demonstrates a large pleural effusion. No pleural nodules or pleural-based mas s targetable for biopsy was identified. A site for skin entry was selected, and subsequently prepped and draped using sterile barrier techniq ue. 1% lidocaine without epinepherine was administered for local anesthesia to the skin and subcutae nous tissues. A 5 Syrian sheathed needle was passed into the pleural space. Clear yellow fluid was aspirated and t he catheter was connected to a vacuum. Approximately 1.2 liters of fluid were drained. The catheter w as removed and adequate hemostasis was obtained. A sterile dressing was applied. The patient tolerat ed the procedure well, without complications. Impression: Successful ultrasound guided thoracentesis with removal of 1.2 liters of fluid. Electronically signed by: Checo Mane MD (03/23/2021 1:59 PM) [id number]
== END 2021-03-23 10:26 | disposition home or self-care (01) ==
LOC: INTRAD 07:00
PROVIDERS: ATTEND Radiology Radiation Oncology
DX: J90 Pleural effusion, not elsewhere classified (principal); E78.00 Pure hypercholesterolemia, unspecified; Z90.49 Acquired absence of other specified parts of digestive tract; Z98.890 Other specified postprocedural states; Z79.899 Other long term (current) drug therapy; Z87.891 Personal history of nicotine dependence; Z91.041 Radiographic dye allergy status; Z88.8 Allergy status to other drugs, medicaments and biological substances
CPT/HCPCS: 32555; J3010

== ENCOUNTER 2021-04-04 12:33 | Inpatient (IN) | payer MEDICARE ==
[~2021-04-04] VITALS: Ht 165.1 cm; Wt 63.0 kg
[2021-04-04 13:00] VITALS: BP 128/58
--- NOTE | 2021-04-04 14:04 | PDOC ---
PULMONARY PROGRESS NOTES DATE: 04/04/21 TIME: 14:03 Vitals Vital Signs Date Time Temp Pulse Resp B/P (MAP) Pulse Ox O2 Delivery O2 Flow Rate FiO2 04/04/21 13:23 Room Air 04/04/21 13:00 97.9 58 16 128/58 (81) 97 97.9 Medications Active Scripts Medications Dose Route/Sig Max Daily Dose Days Date Category Dose Instructions Aricept (Donepezil Hcl) 5 Mg Tablet 5 Mg PO HS 03/14/21 Rx Lidocaine PATCH (Lidocaine) 1 Each Adh..patch 1 Patch TD DAILY 03/14/21 Rx Famotidine 20 Mg Tablet 20 Mg PO QHS 03/14/21 Rx Tramadol Hcl 50 Mg Tablet 50 Mg PO PRN Q6HRS PRN 03/14/21 Rx FENTANYL 25mcg/hr (Fentanyl) 1 Each Patch.td72 1 Patch TD Q3DAYS 03/14/21 Rx Naproxen 250 Mg Tablet 250 Mg PO BIDWMEALS 03/14/21 Rx Metoprolol Tartrate 25 Mg Tablet 25 Mg PO BID 03/14/21 Rx Flomax (Tamsulosin Hcl) 0.4 Mg Cap.er.24h 0.4 Mg PO BID 03/09/21 Reported Simvastatin 20 Mg Tablet 20 Mg PO HS 10/21/20 Reported Miralax (Polyethylene Glycol 3350) 17 Gm Powd.pack 1 Packet PO DAILY 2 10/21/20 Reported dissolve in water Aspirin Ec (Aspirin) 81 Mg Tablet.dr 81 Mg PO HS 10/21/20 Reported Acetaminophen 325 Mg Tablet 2 Tab PO PRN Q6HRS PRN 24 10/21/20 Reported Impression . Patient examined and interviewed Chest x-ray reviewed Recurrent effusion suspect malignant We will proceed with Pleurx catheter Discussed with BOGDAN Estevez MD Apr 04, 2021 14:03
[2021-04-04] MEDS ORDERED: FENT1PAT17 TP (14:06)
[2021-04-04] MEDS ORDERED: ACETAMINOPHEN 325 MG TABLET. PO PRN (14:15)
[2021-04-04] MEDS: METOPROLOL TART IMMED RELEASE 25 MG TABLET. PO SCH ×2 (14:15→21:12)
[2021-04-04] MEDS ORDERED: LIDOCAINE (700MG/PATCH) PATCH. TD SCH ×2 (14:15→21:00)
[2021-04-04] MEDS ORDERED: POLYETHYLENE GLYCOL 3350 17 GM PACKET. PO SCH ×2 (14:15→21:00)
[2021-04-04] MEDS ORDERED: traMADol 50 MG TABLET PO PRN (14:15)
--- NOTE | 2021-04-04 14:20 | RAD ---
XR CHEST 1V History: Pleural effusion. Comparison: 03/14/2021 Technique: AP radiograph of the chest. Findings: There is a moderate right pleural effusion since, similar perhaps decreased from March 14, 2021 with le ss fluid in the minor fissure however persistent moderate effusion and compressive atelectasis of the right lower lobe. Small left pleural effusion and basilar atelectasis. Cardiac silhouette and pulmon wei vasculature are within normal limits. A left renal pelvis stent is partially visualized.. No acut e osseous abnormality. Impression: 1. Stable to mildly decreased moderate right pleural effusion and small left pleural effusion with a djacent opacities likely representing compressive atelectasis. Electronically signed by: Leo Warren MD (04/04/2021 2:17 PM) [id number]
--- NOTE | 2021-04-04 14:27 | PDOC ---
Provider Note Date of Service: DATE: 04/04/21 TIME: 14:22 Provider Note history and physical dictated # [id number] Justifications for Admission Other Justification FAZAL LUGO MD Apr 04, 2021 14:27
[2021-04-04 14:41] LABS: BASO % 0 % (0-3); EOS # 0.1 x10^3/uL (0.0-0.7); EOS % 1 % (0-3); HEMATOCRIT 30.1 % (36.0-47.0); HEMOGLOBIN 10.1 g/dL (12.0-15.5); LYMPH # 0.1 x10^3/uL (1.0-4.8); LYMPH % 2 % (24-48); MEAN CORPUSCULAR HEMOGLOBIN 28 pg (25-35); MEAN CORPUSCULAR HGB CONC 34 g/dL (31-37); MEAN CORPUSCULAR VOLUME 83 fL (79-100); MONO # 0.4 x10^3/uL (0.0-1.1); MONO % 6 % (0-9); NEUT # 6.6 x10^3/uL (1.8-7.7); NEUT % 91 % (31-73); PLATELET COUNT 309 x10^3/uL (140-400); RED BLOOD COUNT 3.62 x10^6/uL (3.50-5.40); RED CELL DISTRIBUTION WIDTH 14.3 % (11.5-14.5); WHITE BLOOD COUNT 7.3 x10^3/uL (4.0-11.0)
[2021-04-04 14:49] LABS: PROTHROMBIN TIME PATIENT 13.2 SEC (11.7-14.0)
[2021-04-04 14:56] LABS: ALBUMIN 2.8 g/dL (3.4-5.0); ALBUMIN/GLOBULIN RATIO 0.7 (1.0-1.7); CALCIUM 8.6 mg/dL (8.5-10.1); CREATININE 1.1 mg/dL (0.6-1.0); GFR 47.6; TOTAL BILIRUBIN 0.4 mg/dL (0.2-1.0); TOTAL PROTEIN 6.7 g/dL (6.4-8.2)
[2021-04-04] MEDS ORDERED: fentaNYL 50MCG/HR PATCH 1 PATCH PATCH.TD72 TD SCH (15:00)
--- NOTE | 2021-04-04 15:02 | EKG ---
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
[2021-04-04 16:07] VITALS: BP 133/76
[2021-04-04 16:38] LABS: % BANDS 2 % (0-9); % MONOS 5 % (0-10); % SEGS 93 % (35-66); PLT ESTIMATE ADEQUATE (ADEQUATE)
[2021-04-04] MEDS ORDERED: NAPROXEN 250 MG TABLET PO SCH (17:00)
--- NOTE | 2021-04-04 17:00 | HP ---
ADMIT DATE: 04/04/2021 She is currently in the ICU 105 but she has an overflow for Telemetry Unit. LOCATION: Currently in room 105. HISTORY OF PRESENT ILLNESS: The patient is an 81-year-old white female with a history of metastatic urothelial carcinoma of the bladder involving the distal left ureter and left inguinal and left iliac lymph nodes, who underwent a transurethral resection of the bladder tumor, at which time the diagnosis was made, received chemoradiation therapy at [facility] and had a left ureteral stent placed in 02/2021 for a distal left ureteral stone, who has had recurrent urinary tract infections, is a [employer] with a history of dementia and hyperlipidemia and was recently dismissed from [facility] 03/14/2021 at which time she had a thoracentesis for a large right pleural effusion and the cytology was negative. She is still receiving radiation therapy and she has 6 more treatments according to the patient's . The patient apparently was seeing the radiation oncologist today and was noted to be short of breath intermittently in the last several days and was sent to the hospital as a direct admit. The patient has not had any cough or fever. I discussed the case with Dr. Bueno who has already seen the patient and the chest x-ray done today shows a recurrent right pleural effusion. The plan is to place a PleurX tube on the right side. The patient is taking fentanyl 50 mcg patch every 72 hours and also taking tramadol 50 mg every 6 hours p.r.n. for pain control. Also taking naproxen b.i.d. with food. She had actually a PET scan/CT done earlier this month and it did show evidence of a right lower lobe pleural based metastasis as well as some metastases in the left upper lobe and left lower lobe of the lung. The patient still wishes to be a full code and she was also noted to be in atrial fibrillation and then converted to sinus rhythm and does have a history of paroxysmal atrial fibrillation. She is therefore admitted to [facility] for further evaluation of her shortness of breath, recurrent pleural effusion, placement of a PleurX tube in Telemetry. ALLERGIES: INCLUDE HYDROCODONE AND IODINE. MEDICATIONS: Prior to admission include fentanyl 50 mcg patch every 72 hours, tramadol 50 mg every 6 hours p.r.n., naproxen 250 mg b.i.d. with food. She is also taking famotidine 20 mg every day, simvastatin 20 mg every day, Aricept 5 mg every day, aspirin 81 mg every day, multiple vitamin once a day, metoprolol tartrate 25 mg b.i.d., MiraLAX 17 grams daily and tamsulosin 0.4 mg b.i.d. PAST MEDICAL HISTORY: Significant for metastatic bladder cancer with metastases to the left inguinal and left iliac lymph nodes as well as to the distal left ureter. She has involvement of the bladder and the distal left ureter. She also had a left ureteral stent placed for a distal kidney stone on the left side. She has had a chemo and radiation therapy for the bladder cancer, which was diagnosed with a transurethral resection of bladder tumor. She also had atrial fibrillation new onset during her last hospital stay and converted to sinus rhythm on a Cardizem drip and then was placed on low dose metoprolol. She was noted to have bilateral hydronephrosis and a left ureteral stone in the distal left ureter. She had a vein stripping in the past and a cholecystectomy also. SOCIAL HISTORY: She quit smoking in 1967. Does not drink alcohol, nor does she smoke cigarettes at this time and she is . FAMILY HISTORY: Noncontributory. REVIEW OF SYSTEMS: GENERAL: No fever, chills or sweats in last 3 days. CARDIOVASCULAR: No chest pain. She was in atrial fib, converted spontaneously to normal sinus rhythm earlier today. PULMONARY: The pleuritic pain on the right side is much improved. She had some shortness of breath intermittently last several days. GASTROINTESTINAL: Bowels are moving okay. PHYSICAL EXAMINATION: VITAL SIGNS: Temperature 97.9 degrees, heart rate is 60, respiratory rate 16, blood pressure 128/58, oxygen saturation 97% on room air. HEENT: Eyes: Gaze is conjugate. Mouth: Tongue is midline . NECK: No cervical lymphadenopathy or thyroid enlargement. HEART: Reveals an S1, S2. There is no S3 or murmur. Regular rhythm. LUNGS: Clear on the left. She has got decreased breath sounds, dullness to percussion about a third of the way up in the right. ABDOMEN: Soft, in a sitting position. EXTREMITIES: Lower extremities without edema. SKIN: No rashes. NEUROLOGIC: Coherent. No facial weakness, no focal weakness in arms or legs. LABORATORY DATA: Not done yet. Chest x-ray showed a right pleural effusion. ASSESSMENT: 1. Recurrent malignant right pleural effusion. She underwent a right-sided thoracentesis in her last admission earlier this month and all the cytology was negative. 2. Metastatic bladder cancer treated with chemotherapy and radiation therapy. Still undergoing radiation therapy with lung and pleural metastasis noted on a recent PET scan involving the right lower lobe pleural area and the left upper lobe and left lower lobe of the lung. 3. Paroxysmal atrial fibrillation, spontaneously converted to sinus rhythm. 4. Dementia. 5. Hyperlipidemia. PLAN: At this time is to admit her to the hospital. Consult Dr. Bueno who has already seen the patient per Pulmonary. Place a PleurX chest tube or something similar so that she can have current drainage of the right pleural fluid without being admitted to the hospital and without having frequent thoracentesis done as an outpatient. We will also consult Dr. Schaffer for Cardiology. She will be placed on Telemetry. She is in overflow waiting for a telemetry bed to open up. We will continue with her home medications including her fentanyl patch and p.r.n. hydrocodone. We will continue with the naproxen. We will get a CBC, CMP, and a Protime and INR, EKG. She wishes to be a full code. We will continue simvastatin for the hyperlipidemia, Aricept for the dementia. I discussed the results of the PET scan with the patient and the patient's as well as Dr. Bueno. YESY/ISAIAH/ISAURA DR: Bull TID: [id number]
[2021-04-04 20:00] VITALS: BP 115/49
[2021-04-04] MEDS ORDERED: ASPIRIN ENTERIC COATED 81 MG TABLET.DR. PO SCH (21:00)
[2021-04-04] MEDS ORDERED: DONEPEZIL HCL 5 MG TABLET. PO SCH (21:00)
[2021-04-04] MEDS ORDERED: FAMOTIDINE 20 MG TABLET. PO SCH (21:00)
[2021-04-04] MEDS ORDERED: SIMVASTATIN 20 MG TABLET PO SCH (21:00)
[2021-04-04] MEDS ORDERED: TAMSULOSIN 0.4 MG CAP.ER.24H. PO SCH (21:00)
[2021-04-04 23:00] VITALS: BP 134/60
[2021-04-05 03:00] VITALS: BP 113/46
[2021-04-05 08:04] VITALS: BP 133/74
[2021-04-05] MEDS ORDERED: ONDANSETRON PF 4 MG/2 ML VIAL. IVP PRN (08:15)
[2021-04-05] MEDS ORDERED: LIDOCAINE 1%/EPI 1:100,000 20 ML VIAL. ONE (08:26)
[2021-04-05] MEDS ORDERED: ceFAZolin SODIUM IV Push 1 GM VIAL. IVP ONE ×2 (08:55→09:15)
[2021-04-05] MEDS ORDERED: fentaNYL PF VIAL 100 MCG/2 ML VIAL ONE (08:55)
[2021-04-05] MEDS ORDERED: MIDAZOLAM HCL/PF 2 MG/2 ML VIAL. ONE (08:55)
[2021-04-05 09:00] VITALS: BP 128/50
[2021-04-05] MEDS ORDERED: PATCH REMOVAL. MC SCH (09:00)
[2021-04-05] MEDS ORDERED: LIDOCAINE 1%/EPI 1:100,000 20 ML VIAL. INJ ONE (09:15)
[2021-04-05] MEDS ORDERED: fentaNYL PF VIAL 100 MCG/2 ML VIAL IV ONE (09:15)
[2021-04-05] MEDS ORDERED: MIDAZOLAM HCL/PF 2 MG/2 ML VIAL. IV ONE (09:15)
--- NOTE | 2021-04-05 09:30 | PDOC ---
PULMONARY PROGRESS NOTES DATE: 04/05/21 TIME: 09:29 Subjective Patient feels better status post Pleurx catheter and not more short of air Vitals Vital Signs Date Time Temp Pulse Resp B/P (MAP) Pulse Ox O2 Delivery O2 Flow Rate FiO2 04/05/21 08:04 97.8 87 133/74 (93) 96 Room Air 97.8 04/05/21 03:00 18 ROS: No Nausea, No Chest Pain, No Abdominal Pain, No Increase Cough General: Alert Lungs: Clear Cardiovascular: S1, S2 Abdomen: Soft Neuro Exam: Alert Extremities: No Edema Skin: Warm Labs Laboratory Tests Test 04/04/21 14:30 White Blood Count 7.3 x10^3/uL (4.0-11.0) Red Blood Count 3.62 x10^6/uL (3.50-5.40) Hemoglobin 10.1 g/dL (12.0-15.5) Hematocrit 30.1 % (36.0-47.0) Mean Corpuscular Volume 83 fL (79-100) Mean Corpuscular Hemoglobin 28 pg (25-35) Mean Corpuscular Hemoglobin Concent 34 g/dL (31-37) Red Cell Distribution Width 14.3 % (11.5-14.5) Platelet Count 309 x10^3/uL (140-400) Neutrophils (%) (Auto) 91 % (31-73) Lymphocytes (%) (Auto) 2 % (24-48) Monocytes (%) (Auto) 6 % (0-9) Eosinophils (%) (Auto) 1 % (0-3) Basophils (%) (Auto) 0 % (0-3) Neutrophils # (Auto) 6.6 x10^3/uL (1.8-7.7) Lymphocytes # (Auto) 0.1 x10^3/uL (1.0-4.8) Monocytes # (Auto) 0.4 x10^3/uL (0.0-1.1) Eosinophils # (Auto) 0.1 x10^3/uL (0.0-0.7) Basophils # (Auto) 0.0 x10^3/uL (0.0-0.2) Segmented Neutrophils % 93 % (35-66) Band Neutrophils % 2 % (0-9) Monocytes % 5 % (0-10) Platelet Estimate Adequate (ADEQUATE) Prothrombin Time 13.2 SEC (11.7-14.0) Prothromb Time International Ratio 1.0 (0.8-1.1) Sodium Level 132 mmol/L (136-145) Potassium Level 4.0 mmol/L (3.5-5.1) Chloride Level 95 mmol/L (98-107) Carbon Dioxide Level 29 mmol/L (21-32) Anion Gap 8 (6-14) Blood Urea Nitrogen 19 mg/dL (7-20) Creatinine 1.1 mg/dL (0.6-1.0) Estimated GFR (Cockcroft-Gault) 47.6 BUN/Creatinine Ratio 17 (6-20) Glucose Level 130 mg/dL (70-99) Calcium Level 8.6 mg/dL (8.5-10.1) Total Bilirubin 0.4 mg/dL (0.2-1.0) Aspartate Amino Transf (AST/SGOT) 11 U/L (15-37) Alanine Aminotransferase (ALT/SGPT) 9 U/L (14-59) Alkaline Phosphatase 77 U/L (46-116) Total Protein 6.7 g/dL (6.4-8.2) Albumin 2.8 g/dL (3.4-5.0) Albumin/Globulin Ratio 0.7 (1.0-1.7) Laboratory Tests Test 04/04/21 14:30 White Blood Count 7.3 x10^3/uL (4.0-11.0) Red Blood Count 3.62 x10^6/uL (3.50-5.40) Hemoglobin 10.1 g/dL (12.0-15.5) Hematocrit 30.1 % (36.0-47.0) Mean Corpuscular Volume 83 fL (79-100) Mean Corpuscular Hemoglobin 28 pg (25-35) Mean Corpuscular Hemoglobin Concent 34 g/dL (31-37) Red Cell Distribution Width 14.3 % (11.5-14.5) Platelet Count 309 x10^3/uL (140-400) Neutrophils (%) (Auto) 91 % (31-73) Lymphocytes (%) (Auto) 2 % (24-48) Monocytes (%) (Auto) 6 % (0-9) Eosinophils (%) (Auto) 1 % (0-3) Basophils (%) (Auto) 0 % (0-3) Neutrophils # (Auto) 6.6 x10^3/uL (1.8-7.7) Lymphocytes # (Auto) 0.1 x10^3/uL (1.0-4.8) Monocytes # (Auto) 0.4 x10^3/uL (0.0-1.1) Eosinophils # (Auto) 0.1 x10^3/uL (0.0-0.7) Basophils # (Auto) 0.0 x10^3/uL (0.0-0.2) Segmented Neutrophils % 93 % (35-66) Band Neutrophils % 2 % (0-9) Monocytes % 5 % (0-10) Platelet Estimate Adequate (ADEQUATE) Prothrombin Time 13.2 SEC (11.7-14.0) Prothromb Time International Ratio 1.0 (0.8-1.1) Sodium Level 132 mmol/L (136-145) Potassium Level 4.0 mmol/L (3.5-5.1) Chloride Level 95 mmol/L (98-107) Carbon Dioxide Level 29 mmol/L (21-32) Anion Gap 8 (6-14) Blood Urea Nitrogen 19 mg/dL (7-20) Creatinine 1.1 mg/dL (0.6-1.0) Estimated GFR (Cockcroft-Gault) 47.6 BUN/Creatinine Ratio 17 (6-20) Glucose Level 130 mg/dL (70-99) Calcium Level 8.6 mg/dL (8.5-10.1) Total Bilirubin 0.4 mg/dL (0.2-1.0) Aspartate Amino Transf (AST/SGOT) 11 U/L (15-37) Alanine Aminotransferase (ALT/SGPT) 9 U/L (14-59) Alkaline Phosphatase 77 U/L (46-116) Total Protein 6.7 g/dL (6.4-8.2) Albumin 2.8 g/dL (3.4-5.0) Albumin/Globulin Ratio 0.7 (1.0-1.7) Medications Active Scripts Medications Dose Route/Sig Max Daily Dose Days Date Category Dose Instructions Aricept (Donepezil Hcl) 5 Mg Tablet 5 Mg PO HS 03/14/21 Rx Lidocaine PATCH (Lidocaine) 1 Each Adh..patch 1 Patch TD DAILY 03/14/21 Rx Famotidine 20 Mg Tablet 20 Mg PO QHS 03/14/21 Rx Tramadol Hcl 50 Mg Tablet 50 Mg PO PRN Q6HRS PRN 03/14/21 Rx FENTANYL 25mcg/hr (Fentanyl) 1 Each Patch.td72 1 Patch TD Q3DAYS 03/14/21 Rx Naproxen 250 Mg Tablet 250 Mg PO BIDWMEALS 03/14/21 Rx Metoprolol Tartrate 25 Mg Tablet 25 Mg PO BID 03/14/21 Rx Flomax (Tamsulosin Hcl) 0.4 Mg Cap.er.24h 0.4 Mg PO BID 03/09/21 Reported Simvastatin 20 Mg Tablet 20 Mg PO HS 10/21/20 Reported Miralax (Polyethylene Glycol 3350) 17 Gm Powd.pack 1 Packet PO DAILY 2 10/21/20 Reported dissolve in water Aspirin Ec (Aspirin) 81 Mg Tablet.dr 81 Mg PO HS 10/21/20 Reported Acetaminophen 325 Mg Tablet 2 Tab PO PRN Q6HRS PRN 24 10/21/20 Reported Impression . Metastatic bladder cancer, Recurrent pleural effusion suspect malignant Progressive dyspnea secondary to above Plan . Full note dictated Discussed with malena Marques to discharge Drain Pleurx cath later weekly I gave my business card, follow-up with me in the office as needed Home health to call me with any questions BOGDAN HODGE MD Apr 05, 2021 09:30
[2021-04-05 09:32] VITALS: BP 129/42
--- NOTE | 2021-04-05 10:30 | PDOC2 ---
CARDIAC CONSULT DATE OF CONSULT Date of Consult DATE: 04/05/21 TIME: 10:10 REASON FOR CONSULT Reason for Consult: PAFIB REFERRING PHYSICIAN Referring Physician: Chong SOURCE Source: Chart review, Patient HISTORY OF PRESENT ILLNESS HISTORY OF PRESENT ILLNESS This is an 81 yo female admitted for possible arrhythmia and SOA. Upon admission she was noted with right pleural effusion and had recent thoracentesis and now h ad pleurdx She was getting radiation yesterday and the nurse thought that she was having fast rhythm but was also restless yesterday. She has hx of PAFIB. She has bladder CA and has had ureterolithiasis and also UTI. She has dementia, Adventist. It is unclear if she truly was in AFIB at some point during her radiation therapy. 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 She is a poor historian and presently denies any chest pain, palpitations and no SOA. She is normotensive and resting comfortably in bed. Unclear what is her AFIB burden. PAST MEDICAL HISTORY Cardiovascular: AFIB, HTN, Hyperlipidemia Pulmonary: No pertinent hx CENTRAL NERVOUS SYSTEM: Dementia GI: Diverticulosis Heme/Onc: Anemia NOS Hepatobiliary: Cholelithiasis Musculoskeletal: Osteoarthritis Renal/: Bladder Ca. (with metastasis), Other (ureterolithiasis) PAST SURGICAL HISTORY Past Surgical History: Cholecystectomy, Other (leg vein stripping) FAMILY HISTORY Family History: Family History Unknown SOCIAL HISTORY Smoke: Quit ALCOHOL: none Drugs: None Lives: with Family CURRENT MEDICATIONS CURRENT MEDICATIONS Current Medications Medications (Trade) Dose Ordered Sig/Reyes Route PRN Reason Start Time Stop Time Status Last Admin Dose Admin Aspirin (Ecotrin) 81 mg HS PO 04/04/21 21:00 04/04/21 21:12 Donepezil HCl (Aricept) 5 mg HS PO 04/04/21 21:00 04/04/21 21:12 Famotidine (Pepcid) 20 mg QHS PO 04/04/21 21:00 04/04/21 21:12 Metoprolol Tartrate (Lopressor) 25 mg BID PO 04/04/21 14:15 04/04/21 21:12 Naproxen (Naprosyn) 250 mg BIDWMEALS PO 04/04/21 17:00 04/04/21 17:38 Simvastatin (Zocor) 20 mg HS PO 04/04/21 21:00 04/04/21 21:12 Tamsulosin HCl (Flomax) 0.4 mg BID PO 04/04/21 21:00 04/04/21 21:12 Tramadol HCl (Ultram) 50 mg PRN Q6HRS PRN PO MODERATE PAIN 04/04/21 14:15 04/04/21 17:38 Miscellaneous (Lidoderm Patch Removal) 1 ea DAILY MC 04/05/21 09:00 04/05/21 08:51 Lidocaine (Lidoderm) 1 patch QHS TD 04/04/21 21:00 04/04/21 21:13 Midazolam HCl (Versed) 2 mg 1X ONCE IV 04/05/21 09:15 04/05/21 09:19 DC 04/05/21 09:28 Fentanyl Citrate (Fentanyl 2ml Vial) 100 mcg 1X ONCE IV 04/05/21 09:15 04/05/21 09:19 DC 04/05/21 09:29 Lidocaine/ Epinephrine (LIDOCAINE 1%-EPI 1:100,000 Multi-Dose) 9 ml 1X ONCE INJ 04/05/21 09:15 04/05/21 09:19 DC 04/05/21 09:28 Cefazolin Sodium (Ancef) 1 gm 1X ONCE IVP 04/05/21 09:15 04/05/21 09:19 DC 04/05/21 09:28 ALLERGIES ALLERGIES: Coded Allergies: hydrocodone (Verified Allergy, Intermediate, 10/21/20) iodine (Verified Allergy, Intermediate, 10/21/20) ROS Review of System limited, poor recall PHYSICAL EXAM General: Alert, Cooperative, No acute distress HEENT: Atraumatic, Mucous membr. moist/pink Lungs: Other (diminished bases, right lung chest tube) Heart: Regular rate (SR), Normal S1, Normal S2, No murmurs Abdomen: Soft, No tenderness Extremities: No cyanosis, No edema Skin: No breakdown, No significant lesion Neuro: Normal speech, Sensation intact Psych/Mental Status: Mental status NL, Mood NL, Other (poor recall) MUSCULOSKELETAL: Osteoarthritic changes both hands VITALS/I&O VITALS/I&O: Vital Signs Date Time Temp Pulse Resp B/P (MAP) Pulse Ox O2 Delivery O2 Flow Rate FiO2 04/05/21 09:32 79 22 99 Nasal Cannula 2.0 04/05/21 09:00 128/50 (76) 04/05/21 08:04 97.8 97.8 I & O 04/04/21 04/04/21 04/05/21 15:00 23:00 07:00 Intake Total 240 ml Balance 240 ml LABS Lab: Laboratory Tests Test 04/04/21 14:30 White Blood Count 7.3 x10^3/uL (4.0-11.0) Red Blood Count 3.62 x10^6/uL (3.50-5.40) Hemoglobin 10.1 g/dL (12.0-15.5) L Hematocrit 30.1 % (36.0-47.0) L Mean Corpuscular Volume 83 fL (79-100) Mean Corpuscular Hemoglobin 28 pg (25-35) Mean Corpuscular Hemoglobin Concent 34 g/dL (31-37) Red Cell Distribution Width 14.3 % (11.5-14.5) Platelet Count 309 x10^3/uL (140-400) Neutrophils (%) (Auto) 91 % (31-73) H Lymphocytes (%) (Auto) 2 % (24-48) L Monocytes (%) (Auto) 6 % (0-9) Eosinophils (%) (Auto) 1 % (0-3) Basophils (%) (Auto) 0 % (0-3) Neutrophils # (Auto) 6.6 x10^3/uL (1.8-7.7) Lymphocytes # (Auto) 0.1 x10^3/uL (1.0-4.8) L Monocytes # (Auto) 0.4 x10^3/uL (0.0-1.1) Eosinophils # (Auto) 0.1 x10^3/uL (0.0-0.7) Basophils # (Auto) 0.0 x10^3/uL (0.0-0.2) Segmented Neutrophils % 93 % (35-66) H Band Neutrophils % 2 % (0-9) Monocytes % 5 % (0-10) Platelet Estimate Adequate (ADEQUATE) Prothrombin Time 13.2 SEC (11.7-14.0) Prothrombin Time INR 1.0 (0.8-1.1) Sodium Level 132 mmol/L (136-145) L Potassium Level 4.0 mmol/L (3.5-5.1) Chloride Level 95 mmol/L (98-107) L Carbon Dioxide Level 29 mmol/L (21-32) Anion Gap 8 (6-14) Blood Urea Nitrogen 19 mg/dL (7-20) Creatinine 1.1 mg/dL (0.6-1.0) H Estimated GFR (Cockcroft-Gault) 47.6 BUN/Creatinine Ratio 17 (6-20) Glucose Level 130 mg/dL (70-99) H Calcium Level 8.6 mg/dL (8.5-10.1) Total Bilirubin 0.4 mg/dL (0.2-1.0) Aspartate Amino Transferase (AST) 11 U/L (15-37) L Alanine Aminotransferase (ALT) 9 U/L (14-59) L Alkaline Phosphatase 77 U/L (46-116) Total Protein 6.7 g/dL (6.4-8.2) Albumin 2.8 g/dL (3.4-5.0) L Albumin/Globulin Ratio 0.7 (1.0-1.7) L Laboratory Tests 04/04/21 14:30 Laboratory Tests 04/04/21 14:30 ASSESSMENT/PLAN ASSESSMENT/PLAN 1. Atypical chest pain: pleuritic 2. Right pleural effusion: S/P pleurx placement 3. PAFIB: so far no afib. No strips available for review 4. HLP 5. HTN: controlled 6. Bladder CA with metastasis Recommendations 1. Follow with cardiology as an outpt. ASA for stroke prevention. Unclear what her AFIB burden is but maintaining SR and continue metoprolol 2. May DC from cardiac standpoint LIZBETH GERBER APRN Apr 05, 2021 10:30
--- NOTE | 2021-04-05 10:37 | PDOC ---
PROGRESS NOTES Date of Service DATE: 04/05/21 TIME: 10:35 Subjective Subjective pleurex chest tube placed on right and 350cc of fluid removed. not short of breath supine in bed. lab and yesterdays cxr reviewed. post procedure cxr pending. NSR. feels well. wants to go home. Objective Objective Vital Signs Date Time Temp Pulse Resp B/P (MAP) Pulse Ox O2 Delivery O2 Flow Rate FiO2 04/05/21 09:32 79 22 99 Nasal Cannula 2.0 04/05/21 09:00 128/50 (76) 04/05/21 08:04 97.8 97.8 Intake and Output 04/05/21 07:00 Intake Total 240 ml Balance 240 ml Intake Oral 240 ml # Voids 6 Physical Exam Abdomen: Soft Heart: Regular rate, Normal S1, Normal S2 Extremities: No edema General: Alert HEENT: Atraumatic Lungs: Clear to auscultation, Other (pleurex tube on right) Neuro: Normal speech Psych/Mental Status: Mental status NL Skin: No rashes Assessment Assessment 1. Recurrent malignant right pleural effusion. She underwent a right-sided thoracentesis in her last admission earlier this month and all the cytology was negative. pleurex chest tube placed on right 04/05/21 2. Metastatic bladder cancer treated with chemotherapy and radiation therapy. Still undergoing radiation therapy with lung and pleural metastasis noted on a recent PET scan involving the right lower lobe pleural area and the left upper lobe and left lower lobe of the lung. 3. Paroxysmal atrial fibrillation, spontaneously converted to sinus rhythm. 4. Dementia. 5. Hyperlipidemia. Plan Plan of Care post procedure cxr anticipate dismissal later today Comment Review of Relevant I have reviewed the following items saw (where applicable) has been applied. Labs Laboratory Tests Test 04/04/21 14:30 White Blood Count 7.3 x10^3/uL (4.0-11.0) Red Blood Count 3.62 x10^6/uL (3.50-5.40) Hemoglobin 10.1 g/dL (12.0-15.5) Hematocrit 30.1 % (36.0-47.0) Mean Corpuscular Volume 83 fL (79-100) Mean Corpuscular Hemoglobin 28 pg (25-35) Mean Corpuscular Hemoglobin Concent 34 g/dL (31-37) Red Cell Distribution Width 14.3 % (11.5-14.5) Platelet Count 309 x10^3/uL (140-400) Neutrophils (%) (Auto) 91 % (31-73) Lymphocytes (%) (Auto) 2 % (24-48) Monocytes (%) (Auto) 6 % (0-9) Eosinophils (%) (Auto) 1 % (0-3) Basophils (%) (Auto) 0 % (0-3) Neutrophils # (Auto) 6.6 x10^3/uL (1.8-7.7) Lymphocytes # (Auto) 0.1 x10^3/uL (1.0-4.8) Monocytes # (Auto) 0.4 x10^3/uL (0.0-1.1) Eosinophils # (Auto) 0.1 x10^3/uL (0.0-0.7) Basophils # (Auto) 0.0 x10^3/uL (0.0-0.2) Segmented Neutrophils % 93 % (35-66) Band Neutrophils % 2 % (0-9) Monocytes % 5 % (0-10) Platelet Estimate Adequate (ADEQUATE) Prothrombin Time 13.2 SEC (11.7-14.0) Prothromb Time International Ratio 1.0 (0.8-1.1) Sodium Level 132 mmol/L (136-145) Potassium Level 4.0 mmol/L (3.5-5.1) Chloride Level 95 mmol/L (98-107) Carbon Dioxide Level 29 mmol/L (21-32) Anion Gap 8 (6-14) Blood Urea Nitrogen 19 mg/dL (7-20) Creatinine 1.1 mg/dL (0.6-1.0) Estimated GFR (Cockcroft-Gault) 47.6 BUN/Creatinine Ratio 17 (6-20) Glucose Level 130 mg/dL (70-99) Calcium Level 8.6 mg/dL (8.5-10.1) Total Bilirubin 0.4 mg/dL (0.2-1.0) Aspartate Amino Transf (AST/SGOT) 11 U/L (15-37) Alanine Aminotransferase (ALT/SGPT) 9 U/L (14-59) Alkaline Phosphatase 77 U/L (46-116) Total Protein 6.7 g/dL (6.4-8.2) Albumin 2.8 g/dL (3.4-5.0) Albumin/Globulin Ratio 0.7 (1.0-1.7) Laboratory Tests Test 04/04/21 14:30 White Blood Count 7.3 x10^3/uL (4.0-11.0) Red Blood Count 3.62 x10^6/uL (3.50-5.40) Hemoglobin 10.1 g/dL (12.0-15.5) Hematocrit 30.1 % (36.0-47.0) Mean Corpuscular Volume 83 fL (79-100) Mean Corpuscular Hemoglobin 28 pg (25-35) Mean Corpuscular Hemoglobin Concent 34 g/dL (31-37) Red Cell Distribution Width 14.3 % (11.5-14.5) Platelet Count 309 x10^3/uL (140-400) Neutrophils (%) (Auto) 91 % (31-73) Lymphocytes (%) (Auto) 2 % (24-48) Monocytes (%) (Auto) 6 % (0-9) Eosinophils (%) (Auto) 1 % (0-3) Basophils (%) (Auto) 0 % (0-3) Neutrophils # (Auto) 6.6 x10^3/uL (1.8-7.7) Lymphocytes # (Auto) 0.1 x10^3/uL (1.0-4.8) Monocytes # (Auto) 0.4 x10^3/uL (0.0-1.1) Eosinophils # (Auto) 0.1 x10^3/uL (0.0-0.7) Basophils # (Auto) 0.0 x10^3/uL (0.0-0.2) Segmented Neutrophils % 93 % (35-66) Band Neutrophils % 2 % (0-9) Monocytes % 5 % (0-10) Platelet Estimate Adequate (ADEQUATE) Prothrombin Time 13.2 SEC (11.7-14.0) Prothromb Time International Ratio 1.0 (0.8-1.1) Sodium Level 132 mmol/L (136-145) Potassium Level 4.0 mmol/L (3.5-5.1) Chloride Level 95 mmol/L (98-107) Carbon Dioxide Level 29 mmol/L (21-32) Anion Gap 8 (6-14) Blood Urea Nitrogen 19 mg/dL (7-20) Creatinine 1.1 mg/dL (0.6-1.0) Estimated GFR (Cockcroft-Gault) 47.6 BUN/Creatinine Ratio 17 (6-20) Glucose Level 130 mg/dL (70-99) Calcium Level 8.6 mg/dL (8.5-10.1) Total Bilirubin 0.4 mg/dL (0.2-1.0) Aspartate Amino Transf (AST/SGOT) 11 U/L (15-37) Alanine Aminotransferase (ALT/SGPT) 9 U/L (14-59) Alkaline Phosphatase 77 U/L (46-116) Total Protein 6.7 g/dL (6.4-8.2) Albumin 2.8 g/dL (3.4-5.0) Albumin/Globulin Ratio 0.7 (1.0-1.7) Medications Current Medications Acetaminophen (Tylenol) 650 mg PRN Q6HRS PRN PO MILD PAIN / FEVER; Start 04/04/21 at 14:15 Aspirin (Ecotrin) 81 mg HS PO Last administered on 04/04/21at 21:12; Start 04/04/21 at 21:00 Donepezil HCl (Aricept) 5 mg HS PO Last administered on 04/04/21at 21:12; Start 04/04/21 at 21:00 Famotidine (Pepcid) 20 mg QHS PO Last administered on 04/04/21at 21:12; Start 04/04/21 at 21:00 Lidocaine (Lidoderm) 1 patch DAILY TD ; Start 04/04/21 at 14:15; Stop 04/04/21 at 14:34; Status DC Metoprolol Tartrate (Lopressor) 25 mg BID PO Last administered on 04/04/21at 21:12; Start 04/04/21 at 14:15 Naproxen (Naprosyn) 250 mg BIDWMEALS PO Last administered on 04/04/21at 17:38; Start 04/04/21 at 17:00 Polyethylene Glycol (miraLAX PACKET) 17 gm DAILY PO ; Start 04/04/21 at 14:15; Status Cancel Simvastatin (Zocor) 20 mg HS PO Last administered on 04/04/21at 21:12; Start 04/04/21 at 21:00 Tamsulosin HCl (Flomax) 0.4 mg BID PO Last administered on 04/04/21at 21:12; Start 04/04/21 at 21:00 Tramadol HCl (Ultram) 50 mg PRN Q6HRS PRN PO MODERATE PAIN Last administered on 04/04/21at 17:38; Start 04/04/21 at 14:15 Miscellaneous (Lidoderm Patch Removal) 1 ea DAILY MC Last administered on 04/05/21at 08:51; Start 04/05/21 at 09:00 Fentanyl (Duragesic 50mcg/ Hr Patch) 1 patch Q3DAYS TD ; Start 04/04/21 at 15:00; Status Cancel Lidocaine (Lidoderm) 1 patch QHS TD Last administered on 04/04/21at 21:13; Start 04/04/21 at 21:00 Polyethylene Glycol (miraLAX PACKET) 17 gm QHS PO ; Start 04/04/21 at 21:00 Fentanyl (Duragesic 50mcg/ Hr Patch) 1 patch Q3DAYS TD ; Start 04/06/21 at 09:00 Ondansetron HCl (Zofran) 4 mg PRN Q6HRS PRN IVP NAUSEA/VOMITING; Start 04/05/21 at 08:15 Lidocaine/ Epinephrine (LIDOCAINE 1%-EPI 1:100,000 Multi-Dose) 20 ml STK-MED ONCE .ROUTE ; Start 04/05/21 at 08:26; Stop 04/05/21 at 08:26; Status DC Cefazolin Sodium (Ancef) 1 gm STK-MED ONCE IVP ; Start 04/05/21 at 08:55; Stop 04/05/21 at 08:55; Status DC Midazolam HCl (Versed) 2 mg STK-MED ONCE .ROUTE ; Start 04/05/21 at 08:55; Stop 04/05/21 at 08:56; Status DC Fentanyl Citrate (Fentanyl 2ml Vial) 100 mcg STK-MED ONCE .ROUTE ; Start 04/05/21 at 08:55; Stop 04/05/21 at 08:56; Status DC Midazolam HCl (Versed) 2 mg 1X ONCE IV Last administered on 04/05/21at 09:28; Start 04/05/21 at 09:15; Stop 04/05/21 at 09:19; Status DC Fentanyl Citrate (Fentanyl 2ml Vial) 100 mcg 1X ONCE IV Last administered on 04/05/21at 09:29; Start 04/05/21 at 09:15; Stop 04/05/21 at 09:19; Status DC Lidocaine/ Epinephrine (LIDOCAINE 1%-EPI 1:100,000 Multi-Dose) 9 ml 1X ONCE INJ Last administered on 04/05/21at 09:; Start 04/05/21 at 09:15; Stop 04/05/21 at 09:19; Status DC Cefazolin Sodium (Ancef) 1 gm 1X ONCE IVP Last administered on 04/05/21at 09:; Start 04/05/21 at 09:15; Stop 04/05/21 at 09:19; Status DC Aspirin (Ecotrin) 81 mg DAILYWBKFT PO ; Start 04/06/21 at 08:00; Status UNV Active Scripts Active Aricept (Donepezil Hcl) 5 Mg Tablet 5 Mg PO HS Lidocaine PATCH (Lidocaine) 1 Each Adh..patch 1 Patch TD DAILY Famotidine 20 Mg Tablet 20 Mg PO QHS Tramadol Hcl 50 Mg Tablet 50 Mg PO PRN Q6HRS PRN Naproxen 250 Mg Tablet 250 Mg PO BIDWMEALS Metoprolol Tartrate 25 Mg Tablet 25 Mg PO BID Reported FENTANYL 50mcg/hr (Fentanyl) 1 Each Patch.td72 1 Patch TP Q3DAYS Flomax (Tamsulosin Hcl) 0.4 Mg Cap.er.24h 0.4 Mg PO BID Simvastatin 20 Mg Tablet 20 Mg PO HS Miralax (Polyethylene Glycol 3350) 17 Gm Powd.pack 1 Packet PO DAILY 2 Days dissolve in water Aspirin Ec (Aspirin) 81 Mg Tablet.dr 81 Mg PO HS Acetaminophen 325 Mg Tablet 2 Tab PO PRN Q6HRS PRN 24 Days Vitals/I & O Vital Sign - Last 24 Hours 04/04/21 04/04/21 04/04/21 04/04/21 13:00 13:23 15:00 16:07 Temp 97.9 98.1 97.9 98.1 Pulse 58 61 Resp 16 16 B/P (MAP) 128/58 (81) 133/76 (95) Pulse Ox 97 95 96 O2 Delivery Room Air Room Air Room Air 04/04/21 04/04/21 04/04/21 04/04/21 16:08 17:38 18:08 20:00 Pulse 61 Resp 16 20 Pulse Ox 92 O2 Delivery Room Air Room Air Room Air 04/04/21 04/04/21 04/04/21 04/05/21 20:00 21:12 23:00 03:00 Temp 97.6 97.2 98.3 97.6 97.2 98.3 Pulse 63 61 57 59 Resp 16 20 18 B/P (MAP) 115/49 (71) 115/49 134/60 (84) 113/46 (68) Pulse Ox 94 94 93 O2 Delivery Room Air Room Air Room Air 04/05/21 04/05/21 04/05/21 04/05/21 08:03 08:04 09:00 09:29 Temp 97.8 97.8 Pulse 87 65 Resp 20 20 B/P (MAP) 133/74 (93) 128/50 (76) Pulse Ox 96 95 99 O2 Delivery Room Air Room Air Room Air Nasal Cannula O2 Flow Rate 2.0 04/05/21 09:32 Pulse 79 Resp 22 Pulse Ox 99 O2 Delivery Nasal Cannula O2 Flow Rate 2.0 Intake and Output 04/04/21 04/04/21 04/05/21 15:00 23:00 07:00 Intake Total 240 ml Balance 240 ml Justifications for Admission Other Justification FAZAL LUGO MD Apr 05, 2021 10:37
--- NOTE | 2021-04-05 10:44 | SNU/HH DC ---
DISCHARGE WITH HOME HEALTH DISCHARGE INFORMATION: Discharge Date: Apr 05, 2021 Final Diagnosis: recurrent right pleural effusion. placement of right pleurex chest tube. bladder cancer with metastasis to RLL pleura and left lung Condition on Discharge: Stable CODE STATUS: Code Status: Full HOME HEALTH: Face to Face: I certify this patient is under my care and that I, or a nurse practitioner or physician's circulation assistant working with me, had a face to face encounter that meets the physician face to face encounter requirements with this patient on [04/05/21]. RN For Eval/Treatment: Yes Pt Meets Homebound Status: Fatigue w/ amb. POST DISCHARGE ORDERS: Activity Instructions for Disc: Resume previous activity CHECKS AFTER DISCHARGE: Comment: instruct patients on pleurex chest tube FOLLOW-UP: PCP to follow Home Health: dr. lugo Follow up with: dr. lugo next week Follow Up With: with dr. moseley and radiation oncologist and radiation therapy CERTIFICATION STATEMENT: Certification Statement: Certification Statement: Based on the above finding, I certify that this patient is confined to the home and needs intermittent detention care, physical therapy and/or speech therapy, or continues to need occupational therapy.~ This patient is under my care, and I have initiated the establishment of the plan of care.~ This patient will be followed by myself or a community physician who will periodically review the plan of care. Home Meds Active Scripts Donepezil Hcl (ARICEPT) 5 Mg Tablet, 5 MG PO HS for dementia, #30 TAB Prov:FAZAL LUGO MD 03/14/21 Lidocaine (Lidocaine PATCH ) 1 Each Adh..patch, 1 PATCH TD DAILY for rib cage pain, #30 PATCH Prov:FAZAL LUGO MD 03/14/21 Famotidine (FAMOTIDINE) 20 Mg Tablet, 20 MG PO QHS for PUD prophylaxis, #30 TAB Prov:FAZAL LUGO MD 03/14/21 Tramadol Hcl (TRAMADOL HCL) 50 Mg Tablet, 50 MG PO PRN Q6HRS PRN for MODERATE PAIN, #60 TAB Prov:FAZAL LUGO MD 03/14/21 Naproxen (NAPROXEN) 250 Mg Tablet, 250 MG PO BIDWMEALS for pleuritic chest pain, #60 TAB Prov:FAZAL LUGO MD 03/14/21 Metoprolol Tartrate (METOPROLOL TARTRATE) 25 Mg Tablet, 25 MG PO BID for paroxysmal atrial fibrillation, #60 TAB Prov:FAZAL LUGO MD 03/14/21 Reported Medications Fentanyl (FENTANYL 50mcg/hr) 1 Each Patch.td72, 1 PATCH TP Q3DAYS for pain, #10 PATCH 04/04/21 Tamsulosin Hcl (FLOMAX) 0.4 Mg Cap.er.24h, 0.4 MG PO BID for , TAB 03/09/21 Simvastatin (SIMVASTATIN) 20 Mg Tablet, 20 MG PO HS for FOR CHOLESTEROL, #30 TAB 0 Refills 10/21/20 Polyethylene Glycol 3350 (MIRALAX) 17 Gm Powd.pack, 1 PACKET PO DAILY for constipation for 2 Days, #2 PACKET 0 Refills dissolve in water 10/21/20 Aspirin (ASPIRIN EC) 81 Mg Tablet.dr, 81 MG PO HS for PROPHYLAXIS, TAB.SR 10/21/20 Acetaminophen (ACETAMINOPHEN) 325 Mg Tablet, 2 TAB PO PRN Q6HRS PRN for pain or fever for 24 Days, #100 TAB 0 Refills 10/21/20 FAZAL LUGO MD Apr 05, 2021 10:44
--- NOTE | 2021-04-05 10:50 | PDOC ---
Provider Note Date of Service: DATE: 04/05/21 TIME: 10:50 Provider Note discharge summary dictated # [id number] Justifications for Admission Other Justification FAZAL LUGO MD Apr 05, 2021 10:50
[2021-04-05 11:00] VITALS: BP 124/76
--- NOTE | 2021-04-05 12:32 | NUR ---
SS following for discharge planning. SS reviewed pt chart and discussed with pt RN. Pt is currently on room air. Discharge order on the chart for home with home healthcare. SS met with pt and spouse in room to discuss home healthcare and discharge planning. Pt was on services with [facility], ; fax [phone]. Discharge orders and referral phoned and faxed to [facility]. Pt's RN notified.
--- NOTE | 2021-04-05 13:27 | DS ---
DATE OF DISCHARGE: 04/05/2021 LOCATION: She is in the ICU 105. CONSULTANTS: Dr. Bueno and also Dr. Arredondo. FINAL DIAGNOSES: 1. A recurrent right pleural effusion, suspected malignant right pleural effusion. 2. Metastatic bladder cancer with right lower lobe pleural based metastasis and the left upper lobe and left lower lobe lung metastasis treated with chemo and radiation therapy and still has about six radiation therapy treatments left. The metastatic disease was seen on a recent PET scan done earlier this month. 3. Paroxysmal atrial fibrillation, spontaneously converted to normal sinus rhythm. Apparently has had two episodes in total. 4. Dementia. 5. Hyperlipidemia. 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 She had a left ureteral stent placed for a distal left ureteral kidney stone in 02/2021. She has had recurrent urinary tract infections. She is a [employer]. She has a history of dementia and hyperlipidemia. She had a recent right-sided thoracentesis on 03/14/2021 for a large right pleural effusion. Cytology was negative. However, she did have a recent PET scan done since that admission and it showed evidence of a right lower lobe pleural based metastasis and metastasis also noted in the left upper lobe and left lower lobe. The patient has received chemotherapy and has 6 more radiation therapy treatments. The patient was seen by radiation oncologist, was more short of breath and sent to the hospital where she was subsequently admitted. Her oxygen saturation was fine. Apparently had a brief episode of atrial fibrillation, spontaneously converting to normal sinus rhythm, seen by Dr. Arredondo in the cardiology service. They recommended continue metoprolol. No other current changes in the medications. The patient was seen by Dr. Bueno for pulmonary who recommended placement of a right-sided PleurX chest tube, which was placed today with 350 mL of fluid removed. The patient still wishes to be a full code. The patient is comfortable now and not short of breath. She apparently had some rib pain when some of the fluid was suctioned and she is going to have a postprocedure chest x-ray done today and I spoke with the nurse that if the chest x-ray is negative and if it is okay with Dr. Bueno, she will be dismissed today with home health and also she will find out with Dr. Bueno how often he wants to fluid removed from the PleurX chest tube and a home health nurse will be working with the patient's and the patient for using the PleurX chest tube and draining it and instructing them on how to use it. She therefore will be dismissed to home on the same medications. Her chest x-ray did show a right pleural effusion prior to the procedure. She will be dismissed on fentanyl 50 mcg patch every 72 hours, tramadol 50 mg p.o. every 6 hours p.r.n., naproxen 250 mg b.i.d. with meals, famotidine 20 mg every day, simvastatin 20 mg every day, Aricept 5 mg every day, aspirin 81 mg every day, multiple vitamin every day, metoprolol tartrate 25 mg b.i.d., MiraLax 17 grams daily and tamsulosin 0.4 mg b.i.d. She will make an appointment to see Dr. Schwarz in the office next week. She is being dismissed to home with home health and visiting nurse instructing her on using the PleurX tube, draining and also follow up with her oncologist and the radiation therapist. YESY/MARII/TORSTEN DR: Bull TID: [id number]
--- NOTE | 2021-04-05 13:55 | CONS ---
DATE OF CONSULTATION: 04/05/2021 ATTENDING PHYSICIAN: Acosta Schwarz MD REASON FOR CONSULTATION: The patient is seen in pulmonary consultation at the request of Dr. Schwarz for recurrent pleural effusion. HISTORY OF PRESENT ILLNESS: The patient is an 81-year-old that is well known to me. She has had recurrent pleural effusion, presumably malignant. She has had previous thoracentesis. She has a history of metastatic breast cancer, treated with chemotherapy and radiation, underwent radiation therapy earlier today. She was having some increasing shortness of breath and some discomfort. She was admitted. I was asked to see her in consultation. Chest x-ray revealed evidence of recurrent effusion. She also had a recent PET scan which revealed right lower lobe pleural area concerning for malignancy. The patient denies fever, chills, night sweats. PAST MEDICAL HISTORY: Significant for metastatic breast cancer as indicated above with metastases to the left inguinal, left iliac as well as distal urethra. She also had involvement of the bladder. She has a history of AFib, bilateral hydronephrosis. PAST SURGICAL HISTORY: Status post previous vein stripping. SOCIAL HISTORY: She quit tobacco in 1967. FAMILY HISTORY: Noncontributory. REVIEW OF SYSTEMS: CONSTITUTIONAL: No fever or chills. EYES: No change in visual acuity. HENT: No nasal congestion or sore throat. PULMONARY: As indicated above. CARDIOVASCULAR: No chest pain or pressure. She does have a history of AFib. GASTROINTESTINAL: No nausea, vomiting, or diarrhea. GENITOURINARY: As indicated above. NEUROMUSCULAR: No localized muscle aches or joint pains. SKIN: No new skin rashes. NEUROLOGIC: No headaches, diplopia or blurred vision. PHYSICAL EXAMINATION: The patient was in the intensive care unit. VITAL SIGNS: She was on room air saturation greater than 92%. HEENT: Eyes: The sclerae were nonicteric. NECK: Jugular venous distention was not elevated. No lymphadenopathy. CHEST: Full expansion. LUNGS: Diminished breath sounds on the right. CARDIOVASCULAR: Regular rate and rhythm with S1, S2, no S3. ABDOMEN: Soft. EXTREMITIES: No clubbing, cyanosis or edema. LABORATORY AND DIAGNOSTIC DATA: White count was normal, hemoglobin and hematocrit were noted. Electrolytes were noted. Sodium was low. BUN was noted. Chest x-ray as indicated above. IMPRESSION: 1. Recurrent right-sided pleural effusion secondary to metastatic bladder cancer. 2. Metastatic bladder cancer with recent PET scan revealing possibility of pleural involvement. 3. Paroxysmal AFib. 4. Dementia. 5. Hyperlipidemia. PLAN: I have had previous discussions with the family. We have attempted thoracentesis on multiple occasions, the pleural fluid is recurring, I recommend a PleurX catheter. We will proceed with PleurX catheter, possibly discharge in the a.m. Continue chemotherapy under the direction of the oncologist. RUFUS DR: Sultana TID: [id number]
--- NOTE | 2021-04-05 16:10 | RAD ---
Placement of tunneled right thoracostomy tube Indication: Recurrent malignant effusion Comparison study: Chest radiograph July 07, 2016 Discussion: The risks and benefits of the procedure including the limited to bleeding, infection, jacqui n, and catheter malfunction were discussed the patient. Informed consent was obtained. The patient wa s brought to the fluoroscopy suite and placed in the supine position. A timeout procedure was perform ed. The right chest was prepped and draped using maximum sterile barrier technique. Ultrasound evalua tion demonstrated recurrent large right pleural effusion. Once a site for skin entry and selected 1% lidocaine with epinephrine was administered to the skin and subcutaneous tissues. The right pleural s pace was accessed and an intercostal approach using a sheath needle. This was confirmed under ultraso und. A guidewire was advanced into the pleural space. The thoracostomy tube was tunneled from this s ite several centimeters anterior to this to the site of a guidewire. The peel-away sheath was advance d into the pleural space under fluoroscopy. The wire was removed and the Pleurx catheter was advanced to the peel-away sheath into the pleural space. Catheter was position was confirmed under fluoroscop y. 350 cc of serous fluid was removed. The catheter was secured in place with 2-0 Prolene suture. A s terile dressing was applied. Patient tolerated the procedure without immediate complication. Fluoroscopy time 0.9 minutes Dose area product: 1 cGycm2 The procedure was performed for conscious sedation including continuous cardiopulmonary monitoring vi a a dedicated sedation nurse. [id number] conscious sedation time: 30 minutes Impression: Successful placement of right tunneled thoracostomy tube Electronically signed by: Checo Mane MD (04/05/2021 4:08 PM) [id number]
[2021-04-06] MEDS ORDERED: ASPIRIN ENTERIC COATED 81 MG TABLET.DR. PO SCH (08:00)
[2021-04-06] MEDS ORDERED: fentaNYL 50MCG/HR PATCH 1 PATCH PATCH.TD72 TD SCH (09:00)
== END 2021-04-05 14:00 | disposition home or self-care (01) | DRG 181 ==
LOC: 1 WEST ICU 12:33
PROVIDERS: ADMIT Internal Medicine; ATTEND Internal Medicine
PROC: 0W9900Z Drainage of Right Pleural Cavity with Drainage Device, Open Approach (ICD-10-PCS; principal; 2021-04-05)
DX: C78.02 Secondary malignant neoplasm of left lung (principal); C78.2 Secondary malignant neoplasm of pleura; C77.5 Secondary and unspecified malignant neoplasm of intrapelvic lymph nodes; J91.0 Malignant pleural effusion; C67.9 Malignant neoplasm of bladder, unspecified; I48.0 Paroxysmal atrial fibrillation; I10 Essential (primary) hypertension; Z79.82 Long term (current) use of aspirin; Z79.899 Other long term (current) drug therapy; Z85.3 Personal history of malignant neoplasm of breast; Z87.440 Personal history of urinary (tract) infections; Z87.442 Personal history of urinary calculi; Z87.891 Personal history of nicotine dependence; Z92.21 Personal history of antineoplastic chemotherapy; Z92.3 Personal history of irradiation; F03.90 Unspecified dementia, unspecified severity, without behavioral disturbance, psychotic disturbance, mood disturbance, and anxiety; E78.5 Hyperlipidemia, unspecified; K57.90 Diverticulosis of intestine, part unspecified, without perforation or abscess without bleeding
CPT/HCPCS: 32550; 36415; 70553; 71045; 75989; 76942; 80053; 81001; 85007; 85025; 85610; 87086; 93005; 99152; 99153; A9575; J0690; J2250; J3010; J3490; G0378

== ENCOUNTER → 2021-04-12 | Outpatient (CLI) | payer MEDICARE ==
[2021-04-05 11:00] VITALS: BP 124/76
[~2021-04-12] MED LIST changes: +FENT1PAT17 TP
--- NOTE | 2021-04-12 15:25 | RAD ---
EXAMINATION: XR CHEST 2V CLINICAL HISTORY: Shortness of breath, pleural effusion EXAM DATE/TIME: 04/12/2021 10:27 AM COMPARISON: 04/04/2021 FINDINGS: Lines, Tubes, and Devices: Interval placement of chest tube in the lower right hemithorax. Cardiomediastinal Silhouette: Normal heart size. Aortic atherosclerotic calcification. Lungs and Pleura: Mildly decreased small to moderate right pleural effusion and overlying airspace di sease. Slightly increased small left pleural effusion and overlying airspace disease. Curvilinear lef t basilar subsegmental atelectasis and/or scarring. No pneumothorax. Bones and Soft Tissues: Degenerative changes of the thoracic spine. Cholecystectomy clips. IMPRESSION: Mildly decreased right and slightly increased left pleural effusions with overlying airspace disease. Interval placement of right chest tube. Electronically signed by: Vincent Babb DO (04/12/2021 3:23 PM) [facility]
== END ==
LOC: RAD 10:16
PROVIDERS: ATTEND Internal Medicine Pulmonary Disease
DX: J90 Pleural effusion, not elsewhere classified (principal); I70.0 Atherosclerosis of aorta; M47.814 Spondylosis without myelopathy or radiculopathy, thoracic region; Z90.49 Acquired absence of other specified parts of digestive tract
CPT/HCPCS: 71046

== ENCOUNTER 2021-05-11 07:20 | Outpatient (CLI) | payer MEDICARE, OTHER ==
[~2021-05-11] VITALS: Ht 165.1 cm; Wt 64.1 kg
[~2021-05-11 07:20] MED LIST changes: +MIRT7.5T8 PO; +MULT1TAB92 PO; +ONDA4TAB12 PO; +POLY17PO52 PO
[2021-05-11] MEDS ORDERED: LIDOCAINE 1%/EPI 1:100,000 20 ML VIAL. ONE (08:05)
[2021-05-11] MEDS ORDERED: OXYB5TAB10 PO (08:15)
[2021-05-11] MEDS ORDERED: HALO2TAB PO (08:15)
[2021-05-11] MEDS ORDERED: FENT1PAT19 TP (08:15)
[2021-05-11] MEDS ORDERED: [UNRECOGNIZED DRUG - CODE] PO (08:15)
[2021-05-11] MEDS ORDERED: METH-572 PO (08:15)
[2021-05-11 09:01] VITALS: BP 126/51
[2021-05-11 09:28] VITALS: BP 139/73
[2021-05-11 10:10] VITALS: BP 111/60
--- NOTE | 2021-05-11 10:12 | NUR ---
Patient discharged to home s/p drain removal. Incision site with dressing dry and intact. A small amount of sero sang drainage noted on dressing. No c/o pain or discomfort at this time. Discharge instructions reviewed with patient and family members. Patient escorted to front entrance per w/c with all personal belongings to private vehicle.
--- NOTE | 2021-05-11 13:13 | RAD ---
Removal of right-sided tunneled thoracostomy tube 05/11/2021 INDICATION: Low outputs. Pain. COMPARISON STUDY: None Discussion: Consent: The procedure was explained in its entirety to the patient or the patients designated repres entative by a member of the treatment team, including a discussion of the risks, benefits and commonl y accepted alternatives to the procedure, as well as the expected consequences of no therapy whatsoev er. Discussion of the risks included, but was not limited to, those that are most frequent and thos e that are rare but possibly severe or life-threatening, as well as the possibility of unforeseen com plications. The right chest including the pre-existing tunneled thoracostomy tube are prepped and draped using st erile barrier technique. Fluoroscopy was used to evaluate catheter position which was within normal l imits. The catheter was removed with traction. Manual pressure was held. Fluoroscopy was repeated to ensure complete removal. Sterile dressings including a Vaseline gauze were applied. No immediate comp lications were identified. Fluoroscopy time 0.3 minutes Dose area product: 1 Cuevas sq cm IMPRESSION: Removal of right tunneled thoracostomy tube Electronically signed by: Checo Mane MD (05/11/2021 1:11 PM) [id number]
== END 2021-05-11 09:54 | disposition home or self-care (01) ==
LOC: INTRAD 07:20
PROVIDERS: ATTEND Internal Medicine
DX: T85.848A Pain due to other internal prosthetic devices, implants and grafts, initial encounter (principal); Z48.03 Encounter for change or removal of drains; I48.91 Unspecified atrial fibrillation; E78.00 Pure hypercholesterolemia, unspecified; I25.10 Atherosclerotic heart disease of native coronary artery without angina pectoris; Z87.442 Personal history of urinary calculi; Z92.3 Personal history of irradiation; Z87.440 Personal history of urinary (tract) infections; Z92.21 Personal history of antineoplastic chemotherapy; Z90.49 Acquired absence of other specified parts of digestive tract; Z87.891 Personal history of nicotine dependence; Z98.890 Other specified postprocedural states; Y83.8 Other surgical procedures as the cause of abnormal reaction of the patient, or of later complication, without mention of misadventure at the time of the procedure
CPT/HCPCS: 32552

== ENCOUNTER → 2021-06-12 | Outpatient (CLI) | payer OTHER ==
[~2021-06-12] MED LIST changes: +FENT1PAT19 TP; +HALO2TAB PO; +METH-572 PO; +OXYB5TAB10 PO; +[UNRECOGNIZED DRUG - CODE] PO
[2021-06-12 15:03] LABS: BILIRUBIN,URINE NEGATIVE (NEG); CLARITY,URINE CLEAR; COLOR,URINE YELLOW; NITRITE,URINE NEGATIVE (NEG); PROTEIN,URINE 100 mg/dL (NEG-TRACE)
[2021-06-12 15:18] LABS: RBC,URINE >40 /HPF (0-2)
[2021-06-12 15:19] LABS: BACTERIA,URINE FEW /HPF (0-FEW); WBC,URINE >40 /HPF (0-4)
== END ==
LOC: SPEC 14:54
PROVIDERS: ATTEND Family Medicine
DX: R35.0 Frequency of micturition (principal); R82.991 Hypocitraturia
CPT/HCPCS: 81001; 87086